=== PATIENT | male | born 1955 | race Caucasian/White ===

== ENCOUNTER → 2020-05-18 10:23 | Outpatient (CLI) | payer MEDICARE, OTHER, SELFPAY ==
--- NOTE | 2020-05-18 10:32 | CT_ITS ---
PROCEDURE: CT ABDOMEN PELVIS WO CON CLINICAL INDICATION: RIGHT FLANK PAIN COMPARISON: No exams were available for comparison TECHNIQUE: Axial images obtained with sagittal and coronal reformats. All CT scans at the facility use one or more dose reduction, viz: automated exposure control, ma/kV adjustment per patient size (including targeted exams where dose is matched to indication, i.e. head), or iterative reconstruction technique. FINDINGS: Lower thorax: Is are clear and there is no pleural fluid. Cardiac size is borderline. ABDOMEN: Liver: No masses or biliary dilatation. Gallbladder: The gallbladder is contracted but shows no obvious stones. Pancreas: No masses or peripancreatic fluid collections. Spleen: unremarkable Adrenals: unremarkable Kidneys/ureters: The kidneys are normal in size. There is prominent stranding of Gerotas' fascia around the right kidney. The right renal pelvis is mildly dilated however the right ureter is normal in caliber down to the UV junction. Possibly there has been a recently passed ureteral calculus. The left kidney is normal. ABDOMEN & PELVIS: Stomach bowel: There is a large hiatal hernia with approximately 1/4 of the stomach above the diaphragmatic hiatus. This likely is a combined sliding and paraesophageal hernia. There is large amount of ingested food particles within the stomach. This likely explains the contracted gallbladder. The small bowel is unremarkable. The appendix is normal in caliber and partially air-filled. There is scattered stool and gas seen throughout the colon. There is marked diffuse diverticulosis of the sigmoid colon but there is no evidence of diverticulitis. Peritoneum: No abnormal fluid collections. No obvious inflammatory changes. No free air. Lymph nodes: No enlarged lymph nodes apparent. Vasculature: There is diffuse arthrosclerotic calcified plaques of the abdominal aorta but there is no aneurysm. Bones: No acute fracture PELVIS: Reproductive: unremarkable Bladder: The urinary bladder is almost completely decompressed. The prostate is slightly enlarged. The seminal vesicles are prominent. Appendix: Normal IMPRESSION: 1. Mild fullness of the right kidney collecting system with prominent stranding of Gerotas' fascia possibly secondary to a recently passed ureteral calculus. 2. Prominent diffuse diverticulosis of the sigmoid colon without evidence of diverticulitis 3. Large hiatal hernia with probably 1/4 of the stomach above the diaphragmatic hiatus Dictated by: Dr. Kwesi Gupta MD 05/18/2020 11:04 Dr. Kwesi Gupta MD in [place] 05/18/2020 11:04
== END ==
PROVIDERS: PCP Nurse Practitioner; Visit Provider Nurse Practitioner
DX: R10.9 Unspecified abdominal pain (principal)
CPT/HCPCS: 74176

== ENCOUNTER 2020-05-18 15:29 | Emergency (ER) | payer MEDICARE, OTHER, SELFPAY ==
[2020-05-18] VITALS (10 sets, daily range): BP systolic 117–138; BP diastolic 61–72; PULSE 66–87; RESP 16; TEMP 36.6; O2SAT 96–100; BMI 30.1
--- NOTE | 2020-05-18 15:43 | HMH.EDGENADL ---
ED Disposition Clinical Impression: Right flank pain, Acute kidney injury Disposition: Home, Self-Care Condition on Discharge: Good Instructions: DI for Acute Abdomen Additional Instructions: You were seen on an emergency basis. It is very important that you follow up with your primary care provider and/or specialist as we discussed within 2 days. All labs and imaging were obtained and interpreted here to rule out life threatening emergencies, but your final results should be reviewed by your primary doctor at your follow up appointment. Please return to the emergency department if any of your symptoms worsen, or if they do not improve as we discussed. Prescriptions: Meloxicam 7.5 mg PO DAILY PRN #15 tab PRN Reason: Severe Pain Transmission Status: Pending to [facility] Referrals: Kami Brothers APRN [Primary Care Provider] - - Critical Care Critical Care Time: No Attestation: On , the high probability of a clinically significant, sudden or life threatening deterioration of the following system(s) required my full and direct attention, intervention and personal management. The time I documented below is in addition to time spent performing reported procedures but includes the following listed in this critical care notation. Medical Decision Making - Ahsan Inquiry Pt receiving controlled substance: No Vital Signs: 05/18/20 15:30 05/18/20 15:37 05/18/20 16:00 Temperature 97.8 F Temperature Source Oral Pulse Rate [Right Radial] 87 85 80 Respiratory Rate 16 Blood Pressure [Right Arm] 117/69 117/69 134/72 Blood Pressure Mean [Right Arm] 85 85 92 Blood Pressure Source [Right Arm] Automatic Cuff Automatic Cuff Blood Pressure Position [Right Arm] Sitting Sitting 02 Sat by Pulse Oximetry 98 99 Oxygen Delivery Method Room Air Room Air 05/18/20 16:30 05/18/20 17:16 05/18/20 17:30 Temperature Temperature Source Pulse Rate [Right Radial] 75 69 68 Respiratory Rate Blood Pressure [Right Arm] 138/70 126/71 121/66 Blood Pressure Mean [Right Arm] 92 89 84 Blood Pressure Source [Right Arm] Automatic Cuff Automatic Cuff Automatic Cuff Blood Pressure Position [Right Arm] Supine Sitting Sitting 02 Sat by Pulse Oximetry 98 98 97 Oxygen Delivery Method Room Air Room Air Room Air 05/18/20 18:00 05/18/20 18:30 05/18/20 19:00 Temperature Temperature Source Pulse Rate [Right Radial] 66 68 67 Respiratory Rate Blood Pressure [Right Arm] 123/65 133/70 122/67 Blood Pressure Mean [Right Arm] 84 91 85 Blood Pressure Source [Right Arm] Automatic Cuff Automatic Cuff Automatic Cuff Blood Pressure Position [Right Arm] Sitting Sitting Sitting 02 Sat by Pulse Oximetry 98 100 96 Oxygen Delivery Method Room Air Room Air Room Air - Lab Data Lab Results 05/18/20 15:53: WBC 15.9 H, RBC 6.04, Hgb 18.0, Hct 55.7 H, MCV 92.2, MCH 29.8, MCHC 32.3, RDW 13.2, Plt Count 317, MPV 7.9, Neut % (Auto) 84.4 H, Lymph % (Auto) 8.7 L, [place] % (Auto) 6.3, Eos % (Auto) 0.5, Baso % (Auto) 0.2, Neut # (Auto) 13.5 H, Lymph # (Auto) 1.4, [place] # (Auto) 1.0, Eos # (Auto) 0.1, Baso # (Auto) 0.0, Total Counted 100, Neutrophils % (Manual) 85 H, Lymphocytes % (Manual) 10, Monocytes % (Manual) 5, Platelet Estimate Normal, RBC Morphology Normal 05/18/20 15:53: Sodium 140, Potassium 3.8, Chloride 104, Carbon Dioxide 24, Anion Gap 15.8 H, BUN 24 H, Creatinine 1.90 H, Estimated Creat Clear 51, Estimated GFR 36 L, Est GFR ( Amer) 43 L, Glucose 119 H, Calcium 9.9 05/18/20 17:04: Urine Color Yellow, Urine Appearance Clear, Urine pH 5.0, Ur Specific [place] >= 1.030, Urine Protein Negative, Urine Glucose (UA) Negative, Urine Ketones Negative, Urine Blood 1+, Urine Nitrate Negative, Urine Bilirubin Negative, Urine Urobilinogen 0.2, Ur Leukocyte Esterase Negative, Urine RBC 3-5, Urine WBC 3-5, Ur Squamous Epith Cells 3-5, Urine Bacteria 2+ 05/18/20 18:09: Sodium 137, Potassium 4.6 D, Chloride 107, Carbon Dioxide 24, Anion Gap 10.6, BU
[2020-05-18 16:02] LABS: Basophils % 0.2 % (0.1-2.0); Eosinophils # 0.1 K/mm3 (0.0-0.4); Eosinophils % 0.5 % (0.1-12.0); Hematocrit 55.7 % (42.0-52.0); Lymphocytes # 1.4 K/mm3 (0.7-4.5); Lymphocytes % 8.7 % (10-50); Mean Corpuscular HGB Conc 32.3 g/dL (31.8-35.4); Mean Corpuscular Hemoglobin 29.8 pg (27.0-31.2); Mean Corpuscular Volume 92.2 fl (80-94); Mean Platelet Volume 7.9 fl (7.4-10.4); Monocytes % 6.3 % (1.7-9.3); Neutrophils # 13.5 K/mm3 (1.8-7.8); Neutrophils % 84.4 % (37.0-80.0); Platelet Count 317 K/mm3 (142-424); Red Blood Count 6.04 M/mm3 (4.60-6.20); Red Cell Distribution Width 13.2 % (11.5-17.5); White Blood Count 15.9 K/mm3 (4.8-10.8)
[2020-05-18 16:08] LABS: MANUAL DIFFERENTIAL MANUAL DIFFERENTIAL (MANUAL DIFF)
[2020-05-18 16:09] LABS: Chloride 104 mmol/L (98-107); Potassium 3.8 mmoL/L (3.5-5.1); Sodium 140 mmol/L (136-145)
[2020-05-18 16:12] LABS: Anion Gap 15.8 mEq/L (5-15); Blood Urea Nitrogen 24 mg/dl (9-20); Calcium 9.9 mg/dl (8.4-10.2); Carbon Dioxide 24 mmol/L (22.0-30.0); Creatinine Clearance Estimated 51 mL/min (50-200); Estimated Glomerular Filt Rate 36 ml/min (>60); GFR (African American) 43 ML/MIN (>60); Glucose 119 mg/dl (74-100)
[2020-05-18 16:51] LABS: Lymphocytes % 10 % (10-50); Monocytes % 5 % (2-9); Neutrophils % 85 % (42-76); Platelet Estimate Normal; RBC Morphology Normal; Total Cells Counted 100
[2020-05-18 18:07] LABS: Microscopic, Urine URINE MICROSCOPIC (MICROSCOPIC)
--- NOTE | 2020-05-18 18:12 | PC.NURSE ---
1500 cc LR bolus complete. BMP drawn and to lab for resulting. pending disposition.
[2020-05-18 18:27] LABS: Chloride 107 mmol/L (98-107); Potassium 4.6 mmoL/L (3.5-5.1); Sodium 137 mmol/L (136-145)
[2020-05-18 18:30] LABS: Anion Gap 10.6 mEq/L (5-15); Blood Urea Nitrogen 26 mg/dl (9-20); Carbon Dioxide 24 mmol/L (22.0-30.0); Creatinine Clearance Estimated 64 mL/min (50-200); Estimated Glomerular Filt Rate 47 ml/min (>60); GFR (African American) 57 ML/MIN (>60); Glucose 100 mg/dl (74-100)
[2020-05-18 18:43] LABS: Appearance,Urine CLEAR (Clear); Bilirubin,Urine Negative (Negative); Blood, Urine 1+ (Negative); Color,Urine YELLOW (Yellow); Glucose,Urine (UA) Negative (Negative); Ketones,Urine Negative (Negative); Leukocyte Esterase,Urine Negative (Negative); Nitrate,Urine Negative (Negative); Protein,Urine Negative (Negative); Specific Gravity, Urine >= 1.030 (1.005-1.030); Urobilinogen,Urine 0.2 EU/dl (0.2)
[2020-05-18 18:44] LABS: Bacteria,Urine 2+ /lpf
[2020-05-18 18:56] LABS: Calcium 8.5 mg/dl (8.4-10.2)
== END 2020-05-18 19:33 | disposition home or self-care (01) ==
PROVIDERS: Emergency Provider Physician Assistant; PCP Nurse Practitioner
DX: N17.9 Acute kidney failure, unspecified (principal); N20.0 Calculus of kidney; Z95.1 Presence of aortocoronary bypass graft; Z79.899 Other long term (current) drug therapy
CPT/HCPCS: 74176; 80048; 81001; 85007; 85025; 87086; 87088; 87186; 96365; 99283

== ENCOUNTER 2021-07-20 15:05 | Observation (INO) | payer MEDICARE, OTHER, SELFPAY ==
--- NOTE | 2021-07-20 14:29 | US_ITS ---
FINAL REPORT CLINICAL HISTORY: ABD PAIN; harper's sign FINDINGS: RIGHT UPPER QUADRANT ULTRASOUND: Ultrasound images of right upper quadrant were obtained. There are gallstones in the gallbladder with borderline gallbladder wall thickening, cholecystitis is not excluded. The common duct is not well-visualized but there is no evidence of biliary ductal dilatation. The right kidney measures 12.9 cm. IMPRESSION: Gallstones with borderline gallbladder wall thickening, cholecystitis is not excluded. If indicated, nuclear medicine hepatobiliary scan may be helpful. Reviewed, Interpreted and Dictated by Heraclio Bender III, MD Transcribed by Pallavi oNonan Authenticated by Heraclio Bender III, MD on 07/20/2021 03:43:45 PM [facility]
[2021-07-20 15:26] VITALS: BMI 30.4
[2021-07-20 15:34] VITALS: BP 112/62; PULSE 82; RESP 16; TEMP 37.4; O2SAT 98
[2021-07-20 15:35] LABS: Coronavirus 19, PCR Not Detected (NotDetected); Influenza A, PCR Not Detected (NotDetected); Influenza B, PCR Not Detected (NotDetected)
[2021-07-20 16:00] VITALS: O2SAT 98
[2021-07-20 16:17] LABS: Basophils # 0.1 K/mm3 (0-0.2); Basophils % 0.8 % (0.1-2.0); Eosinophils # 0.1 K/mm3 (0.0-0.4); Eosinophils % 0.3 % (0.1-12.0); Hematocrit 47.9 % (42.0-52.0); Hemoglobin 15.7 g/dL (14.1-18.0); Lymphocytes # 1.8 K/mm3 (0.7-4.5); Lymphocytes % 11.8 % (10-50); Mean Corpuscular HGB Conc 32.7 g/dL (31.8-35.4); Mean Corpuscular Hemoglobin 29.8 pg (27.0-31.2); Mean Corpuscular Volume 91.2 fl (80-94); Mean Platelet Volume 8.3 fl (7.4-10.4); Monocytes # 1.4 K/mm3 (0.1-1.0); Monocytes % 9.1 % (1.7-9.3); Neutrophils # 12.1 K/mm3 (1.8-7.8); Platelet Count 296 K/mm3 (142-424); Red Blood Count 5.25 M/mm3 (4.60-6.20); Red Cell Distribution Width 13.1 % (11.5-17.5); White Blood Count 15.5 K/mm3 (4.8-10.8)
[2021-07-20 16:23] LABS: MANUAL DIFFERENTIAL MANUAL DIFFERENTIAL (MANUAL DIFF)
[2021-07-20 16:37] LABS: Chloride 101 mmol/L (98-107); Sodium 138 mmol/L (136-145)
[2021-07-20 16:38] LABS: Potassium 3.5 mmoL/L (3.5-5.1)
[2021-07-20 16:40] LABS: Alanine Aminotransferase 20 U/L (12-78); Amylase 76 U/L (30-110); Anion Gap 10.5 mEq/L (5-15); Aspartate Amino Transferase 29 U/L (17-59); Blood Urea Nitrogen 17 mg/dl (9-20); Carbon Dioxide 30 mmol/L (22.0-30.0); Creatinine Clearance Estimated 93 mL/min (50-200); Estimated Glomerular Filt Rate 97 ml/min (>60); GFR (African American) 117 ML/MIN (>60)
[2021-07-20 16:40] LABS: Lactic Acid 2.2 mmol/L (0.7-2.1)
[2021-07-20 16:41] LABS: Albumin/Globulin Ratio 1.4 (1.1-1.8); Alkaline Phosphatase 70 U/L (38-126); Calcium 9.1 mg/dl (8.4-10.2); Globulin 2.9 g/dL (1.3-3.2); Glucose 107 mg/dl (74-100); Lipase 40 U/L (23-300); Total Protein,Serum 6.9 g/dl (6.3-8.2)
--- NOTE | 2021-07-20 16:44 | HMH.GSCON ---
*Admission Date: 07/20/21 *Reason for consult:: Acute cholecystitis *History of present illness: Patient is a pleasant 66-year-old male from [facility]. He states that over the past couple of weeks he has had some occasional abdominal pains consistent with biliary colic characterized as pain in the right abdomen. This is usually been self-limited. However overnight last night pain was very severe. He had radiation into his back. He was seen at his primary care provider's office earlier today and he had clinical suspicion for acute cholecystitis. Patient was sent to radiology here at [facility] where he underwent gallbladder ultrasound which reveals gallstones with borderline gallbladder wall thickening and normal common bile duct. He was found to have a leukocytosis. He was admitted for inpatient management and surgical consultation. Review of Systems - Review of Systems Review of systems:: pertinent systems reviewed and negative unless documented below [facility] History I have reviewed the patient's past medical history: Yes Medical History: Reports:: Coronary Artery Disease, Hyperlipidemia, Hypertension, Kidney Stones Denies:: Diabetes Mellitus Type 1, Diabetes Mellitus Type 2 *Have you ever received a pneumonia vaccine?: Yes *Have you received a flu vaccine this season?: Yes Other Medical History: Reports: Sinus Problems Other Surgeries: Yes: Open Heart Surgery Amputation: Yes Fractures: Yes - *Social History Smoking Status: Former smoker Alcohol Intake: former Substance Use Type: denies use *Occupational Status:: employed Housing: house Household Members: spouse *Travel in the last 8 weeks: None Family Hx:: Heart Attack, Hypertension Meds Home Medications Medication Instructions Recorded Confirmed Type atorvastatin 40 mg tablet 40 mg PO HS tab 04/07/21 07/20/21 History lisinopril 20 0.5 tab PO DAILY tab 04/07/21 07/20/21 History mg-hydrochlorothiazide 25 mg tablet tamsulosin 0.4 mg capsule 0.4 mg PO HS cap 07/14/21 07/20/21 History Propranolol HCl [Propranolol HCl 60 mg PO DAILY 07/20/21 07/20/21 History ER] Allergies Allergy/AdvReac Type Severity Reaction Status Date / Time primidone AdvReac Mild nausea Verified 07/14/21 07:37 Exam Vital signs and Labs for Last 24 Hours: Temp Pulse Resp BP Pulse Ox 99.3 F 82 16 112/62 98 07/20/21 15:34 07/20/21 15:34 07/20/21 15:34 07/20/21 15:34 07/20/21 15:34 Laboratory Results - last 24 hr 07/20/21 10:55: WBC 15.5 H, RBC 5.25, Hgb 15.7, Hct 47.9, MCV 91.2, MCH 29.8, MCHC 32.7, RDW 13.1, Plt Count 296, MPV 8.3, Neut % (Auto) 78.0, Lymph % (Auto) 11.8, [place] % (Auto) 9.1, Eos % (Auto) 0.3, Baso % (Auto) 0.8, Neut # (Auto) 12.1 H, Lymph # (Auto) 1.8, [place] # (Auto) 1.4 H, Eos # (Auto) 0.1, Baso # (Auto) 0.1 07/20/21 10:55: Sodium 138, Potassium 3.5, Chloride 101, Carbon Dioxide 30, Anion Gap 10.5, BUN 17, Creatinine 0.80, Estimated Creat Clear 93, Estimated GFR 97, Est GFR ( Amer) 117, Glucose 107 H, Calcium 9.1, Total Bilirubin 1.0, AST 29, ALT 20, Alkaline Phosphatase 70, Total Protein 6.9, Albumin 4.0, Globulin 2.9, Albumin/Globulin Ratio 1.4, Amylase 76, Lipase 40 07/20/21 15:26: SARS-CoV-2 (PCR) Not detected, Influenza A Untype (PCR) Not detected, Influenza Type B (PCR) Not detected 07/20/21 16:19: Lactate 2.2 H I & O for Last 24 hours: Intake & Output 07/18/21 07/19/21 07/20/21 07/21/21 11:59 11:59 11:59 11:59 Weight 200 lb 6.4 oz - Constitutional no acute distress - *Routine HEENT Exam Head: Present: normocephalic Eye: Present: EOMI, PERRL ENT: Present: mucous membranes moist - *Routine Neck Exam Present: supple. Absent: lymphadenopathy - *Routine Respiratory Exam Present: CTA bilaterally - *Routine Cardiovascular Exam Present: RRR - *Routine Abdominal Exam Present: soft, tenderness Comments: Patient has tenderness with guarding in the right upper quadrant with some mild te
--- NOTE | 2021-07-20 17:08 | HMH.HP ---
*Admission Date: 07/20/21 <Sarah Lopez 07/20/21 17:14> *Chief complaint: RUQ pain <Sarah Lopez 07/20/21 17:14> *History of present illness: Patient is a pleasant 66-year-old male from [facility]. He states that over the past couple of weeks he has had some occasional abdominal pains consistent with biliary colic characterized as pain in the right abdomen. This has usually been self-limited. However overnight last night pain was very severe. He had radiation into his back. He was seen at his primary care provider's office earlier today and he had clinical suspicion for acute cholecystitis. Patient was sent to radiology here at [facility] where he underwent gallbladder ultrasound which reveals gallstones with borderline gallbladder wall thickening and normal common bile duct. He was found to have a leukocytosis. He was admitted for inpatient management and surgical consultation. (above as per Dr. Boggs) <Sarah Lopez 07/20/21 17:14> [facility] History I have reviewed the patient's past medical history: Yes <Sarah Lopez 07/20/21 17:14> Medical History: Reports:: Coronary Artery Disease, Hyperlipidemia, Hypertension, Kidney Stones Denies:: Diabetes Mellitus Type 1, Diabetes Mellitus Type 2 <Sarah Lopez 07/20/21 17:14> *Have you ever received a pneumonia vaccine?: Yes <Sarah Lopez 07/20/21 17:14> *Have you received a flu vaccine this season?: Yes <Sarah Lopez 07/20/21 17:14> Other Medical History: Reports: Sinus Problems <Sarah Lopez 07/20/21 17:14> Other Surgeries: Yes: Open Heart Surgery <Sarah Lopez 07/20/21 17:14> Amputation: Yes <Sarah Lopez 07/20/21 17:14> Fractures: Yes <Sarah Lopez 07/20/21 17:14> - *Social History Smoking Status: Former smoker <Sarah Lopez 07/20/21 17:14> Alcohol Intake: former <Sarah Lopez 07/20/21 17:14> Substance Use Type: denies use <Sarah Lopez 07/20/21 17:14> *Occupational Status:: employed <JohnSarah 07/20/21 17:14> Housing: house <JohnSarah 07/20/21 17:14> Household Members: spouse <JohnSarah 07/20/21 17:14> *Travel in the last 8 weeks: None <ErrolamySarah 07/20/21 17:14> Family Hx:: Coronary Artery Disease, Heart Attack, Hypertension <JohnSarah 07/20/21 17:14> Review of Systems - Constitutional Reports fever(s) (low grade), Reports weakness, Denies chills <ErrolamySarah 07/20/21 17:14> - Eyes Denies blurry vision, Denies double vision <JohnSarah 07/20/21 17:14> - ENT Denies nasal congestion, Denies sore throat <ErrolamySarah 07/20/21 17:14> - *Cardiovascular Denies chest pain, Denies shortness of breath <JohnSarah 07/20/21 17:14> - *Respiratory Denies cough, Denies shortness of breath <ErrolamySarah 07/20/21 17:14> - *Gastrointestinal Reports abdominal pain (RUQ), Reports nausea, Denies loose stools, Denies vomiting <JohnSarah 07/20/21 17:14> - *Genitourinary Denies difficulty urinating, Denies painful urination <JohnSarah 07/20/21 17:14> - *Musculoskeletal Reports back pain, Denies joint pain <JohnSarah 07/20/21 17:14> - *Neurologic Reports weakness, Denies headache(s), Denies dizziness <JohnSarah 07/20/21 17:14> Meds Home Medications Medication Instructions Recorded Confirmed Type atorvastatin 40 mg tablet 40 mg PO HS tab 04/07/21 07/20/21 History lisinopril 20 0.5 tab PO DAILY tab 04/07/21 07/20/21 History mg-hydrochlorothiazide 25 mg tablet tamsulosin 0.4 mg capsule 0.4 mg PO HS cap 07/14/21 07/20/21 History Propranolol HCl [Propranolol HCl 60 mg PO DAILY 07/20/21 07/20/21 History ER] <Brett Tee - 07/20/21 17:26> Allergies Allergy/AdvReac Type Severity Reaction Status Date / Time primidone AdvReac Mild nausea Verified 07/14/21 07:37 <Brett Tee - 07/20/21 17:26> Exam Vital signs and Labs for Last 24 Hours: Temp Pulse Resp BP Pulse Ox 99.3 F 82
[2021-07-20 18:13] LABS: Lymphocytes % 18 % (10-50); Monocytes % 9 % (2-9); Neutrophils % 73 % (42-76); Platelet Estimate Normal; RBC Morphology Normal; Total Cells Counted 100
[2021-07-20 20:00] VITALS: BP 124/74; PULSE 79; RESP 16; TEMP 36.8; O2SAT 94
[2021-07-20 20:25] LABS: Reflex Lactic Add Lactic Reflex
[2021-07-20 21:17] LABS: Lactic Acid Follow Up (RFLX 1) 0.7 mmol/L (0.7-2.1)
[2021-07-21] VITALS (21 sets, daily range): BP systolic 120–150; BP diastolic 62–84; PULSE 68–100; RESP 12–18; TEMP 36.3–43; O2SAT 92–100; BMI 30.4
--- NOTE | 2021-07-21 03:54 | PC.NURSE ---
Pt has slept this shift. Pt BLT lungs CTA, bowel sounds present in all 4 quadrants. abdomen soft and tender in RUQ. Pt on RA, IV patent and infusing well. Pt medicated per MAR for headache earlier in the shift. Pt standby to the bathroom. Pt denies SOA, N/V
--- NOTE | 2021-07-21 06:40 | PC.NURSE ---
patient off floor to surgery @ this time.
--- NOTE | 2021-07-21 07:51 | P.PN_ITS ---
[facility] Anesthesia Checklist - Structural Data Admitted From: Inpatient Planned Operative Procedure/s: brain huff Consent for Planned Operative Procedure(s) Verified: Yes - Airway Assessment C-Spine Mobility Assessed: Yes TMJ Mobility Assessed: Yes Dentition: Poor Dentition - Neurological Assessment Level of Consciousness: Awake, Alert, Appropriate - Anesthesia Plan Anesthesia Risk discussed: Yes Anesthesia Plan: Verified ASA Class: III Anesthesia Type: General [facility] History I have reviewed the patient's past medical history: Yes Medical History: Reports:: Atherosclerotic Heart Disease, Carotid Stenosis, Coronary Artery Disease, Hyperlipidemia, Hypertension, Kidney Stones Denies:: Cancer, Diabetes Mellitus Type 1, Diabetes Mellitus Type 2, MRSA *Have you ever received a pneumonia vaccine?: Yes *Have you received a flu vaccine this season?: Yes Other Medical History: Reports: Sinus Problems Anesthesia experience/problems:: none Other Surgeries: Yes: Open Heart Surgery Amputation: Yes Fractures: Yes - *Social History Smoking Status: Former smoker Alcohol Intake: never Substance Use Type: denies use *Occupational Status:: retired Housing: house Household Members: spouse *Travel in the last 8 weeks: None Family Hx:: Coronary Artery Disease, Heart Attack, Hypertension
--- NOTE | 2021-07-21 08:07 | HMH.PHAVTE ---
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
--- NOTE | 2021-07-21 08:13 | HMH.PHAINT ---
VERIFIED HOME MEDICATIONS WITH PHARMACY
--- NOTE | 2021-07-21 08:22 | XR_ITS ---
FINAL REPORT CLINICAL HISTORY: LAP KAITLIN, 54 SEC FLUORO TIME FINDINGS: 2 fluoroscopic spot films were obtained demonstrating intraoperative cholangiogram. 54 seconds of fluoroscopy time is reported. IMPRESSION: Intraoperative cholangiogram. Reviewed, Interpreted and Dictated by Heraclio Bender III, MD Transcribed by Caitlin Harris Authenticated by Heraclio Bender III, MD on 07/21/2021 01:59:56 PM [facility]
--- NOTE | 2021-07-21 08:34 | SUR.OPER ---
[address] [place] [address] with radiology at bedside to do cholangiogram per
--- NOTE | 2021-07-21 09:03 | HMH.OPNOTE ---
Date of procedure: 07/21/21 Pre-op Diagnosis:: Acute cholecystitis Post-op Diagnosis:: Same Procedure performed:: Laparoscopic cholecystectomy with intraoperative cholangiogram Surgeon:: Heraclio Boggs MD SENIOR CONTRACT SPECIALIST:: Bryant Trejo Anesthesia: GETA Estimated blood loss (mL): 40 Clinical Note:: Patient is a pleasant 66-year-old male from [facility]. He states that over the past couple of weeks he has had some occasional abdominal pains consistent with biliary colic characterized as pain in the right abdomen. This is usually been self-limited. However overnight on the evening of 07/19/2021 the pain was very severe. He had radiation into his back. He was seen at his primary care provider's office earlier on 07/20/2021 and he had clinical suspicion for acute cholecystitis. Patient was sent to radiology here at [facility] where he underwent gallbladder ultrasound which reveals gallstones with borderline gallbladder wall thickening and normal common bile duct. He was found to have a leukocytosis. He was admitted for inpatient management and surgical consultation. Plan was made to proceed with cholecystectomy. Operative findings:: Patient had a markedly distended significantly thickened hydropic gallbladder. The cystic duct was rather prominent and there was concern for possible ductal stone and cholangiogram was performed. Operative note:: Patient was taken to the operating room. He was given preoperative intravenous antibiotics. In the operating room he was placed in supine position. General anesthesia was induced via endotracheal tube. Abdomen was prepped and draped in the standard surgical fashion. Subumbilical skin incision was made and while performing abdominal wall lift Veress needle was inserted. CO2 pneumoperitoneum was achieved to 15 mmHg. 11 mm optical trocar was inserted at the umbilicus. Intraperitoneal contents were visualized. He was immediately noted to have a quite distended prominent gallbladder. He was positioned in reverse Trendelenburg left side down. A couple 5 mm trochars were inserted in the right upper abdomen. 10 mm trocar was inserted in the epigastrium. Gallbladder was elevated. It was markedly distended and thickened and tense consistent with hydropic gallbladder. Gallbladder was aspirated with the laparoscopic suction aspirator and mucousy bile was suctioned free. Gallbladder was retracted anteriorly and superiorly over the dome of the liver. Infundibulum of the gallbladder was retracted anterior laterally. Blunt dissection was carried out of the neck of the gallbladder bluntly incising the visceral peritoneum. There was a significant amount of fatty infiltration around the neck of the gallbladder and jing hepatis. There was some significant inflammation. Ultimately cystic duct was identified. It was quite prominent. There was concern for possible stone near the jing hepatis. Decision was made to perform intraoperative cholangiogram. The cystic duct was clipped proximal to the gallbladder. Taut cholangiocatheter introducer was inserted through a small incision in the right upper abdomen. Cholangiocatheter was inserted. Small incision was made in the cystic duct creating a small ductotomy. Cholangiocatheter was manipulated into the cystic duct. Intraoperative cholangiogram was performed. Visualization of the common hepatic duct was somewhat difficult. However there did not appear to be any obstruction or definite retained stones within the cystic duct or common bile duct. Cholangiocatheter was removed. Cystic duct was then multiply clipped and then divided. Cystic artery was coagulated with FLAQUITO ultrasonic robotic binta and divided. Gallbladder was dissected free from the liver in a retrograde fashion using FLAQUITO ultrasonic harmonic binta. Gallbladder was placed within an Endo Catch retrieval device and removed from the peritoneal cavity via the umbilical trocar site which requi
--- NOTE | 2021-07-21 09:12 | HMH.ANESI ---
[facility] Anesthesia Record Part I Intake, IV Amount: 1,800 Estimated blood loss (mL): 0 Urine output (mL): 0 Blood Pressure: 134/72 SaO2: 92 Pulse Rate: 82 Respiratory Rate: 12 Temperature: 97.3 F Patient is:: Awake, Stable Stable to PACU at:: 09:05
--- NOTE | 2021-07-21 13:50 | HMH.ACPN2 ---
Internal Medicine - PN: Sergo *Date: 07/21/21 *Time: 13:50 Interval history: Patient is back in his room after surgery and is doing well. Exam Vital signs and Labs for Last 24 Hours: Temp Pulse Resp BP Pulse Ox 98.3 F 100 H 16 141/80 H 95 07/21/21 12:30 07/21/21 12:30 07/21/21 12:30 07/21/21 12:30 07/21/21 12:30 Laboratory Results - last 24 hr 07/20/21 10:55: WBC 15.5 H, RBC 5.25, Hgb 15.7, Hct 47.9, MCV 91.2, MCH 29.8, MCHC 32.7, RDW 13.1, Plt Count 296, MPV 8.3, Neut % (Auto) 78.0, Lymph % (Auto) 11.8, [place] % (Auto) 9.1, Eos % (Auto) 0.3, Baso % (Auto) 0.8, Neut # (Auto) 12.1 H, Lymph # (Auto) 1.8, [place] # (Auto) 1.4 H, Eos # (Auto) 0.1, Baso # (Auto) 0.1, Total Counted 100, Neutrophils % (Manual) 73, Lymphocytes % (Manual) 18, Monocytes % (Manual) 9, Platelet Estimate Normal, RBC Morphology Normal 07/20/21 10:55: Sodium 138, Potassium 3.5, Chloride 101, Carbon Dioxide 30, Anion Gap 10.5, BUN 17, Creatinine 0.80, Estimated Creat Clear 93, Estimated GFR 97, Est GFR ( Amer) 117, Glucose 107 H, Calcium 9.1, Total Bilirubin 1.0, AST 29, ALT 20, Alkaline Phosphatase 70, Total Protein 6.9, Albumin 4.0, Globulin 2.9, Albumin/Globulin Ratio 1.4, Amylase 76, Lipase 40 07/20/21 15:26: SARS-CoV-2 (PCR) Not detected, Influenza A Untype (PCR) Not detected, Influenza Type B (PCR) Not detected 07/20/21 16:19: Lactate 2.2 H 07/20/21 21:00: Lactate 0.7 I & O for Last 24 hours: Intake & Output 07/18/21 07/19/21 07/20/21 07/21/21 23:59 23:59 23:59 23:59 Intake Total 1800 / 1800 Balance 1800 / 1800 Weight 200 lb 6.4 oz 201 lb - Constitutional no acute distress Assessment and Plan (1) Acute cholecystitis Status: Acute Category: Medical Code(s): K81.0 - Acute cholecystitis (2) Leukocytosis Status: Acute Category: Medical Code(s): D72.829 - Elevated white blood cell count, unspecified (3) Hypertension Status: Chronic Category: Medical Code(s): I10 - Essential (primary) hypertension (4) ASCVD (arteriosclerotic cardiovascular disease) Status: Chronic Category: Medical Code(s): I25.10 - Atherosclerotic heart disease of [place] coronary artery without angina pectoris (5) History of coronary artery bypass graft x 2 Status: Chronic Category: Surgical Code(s): Z95.1 - Presence of aortocoronary bypass graft - Assessment and plan all Dx Assessment and Plan for all problems:: POD #0, s/p lap refugio, continue routine post op care.
--- NOTE | 2021-07-21 20:09 | PC.NURSE ---
16:30 - Routine reassessment completed. See Nursing biophysical. Pt. tolerated well. Pt. reports pain at 4/10, Nurse offered pain medication. Pt. refused at this time. Nurse educated pt. on not waiting to long to take pain medication. Pt. v/u and denies needs at this time.
[2021-07-22] VITALS: BP 130/71; PULSE 74; RESP 16; TEMP 36.5; O2SAT 94
[2021-07-22 04:20] VITALS: BP 126/74; PULSE 84; RESP 17; TEMP 36.6; O2SAT 96
[2021-07-22 04:50] VITALS: BMI 32.7
--- NOTE | 2021-07-22 05:21 | PC.NURSE ---
NO ACUTE CHANGES FROM PREVIOUS ASSESSMENT,TRIED TO WEEN PT OFF OXYGEN AND HIS LEVEL WAS 93 % ON RA,REAPPLIED OXYGEN PER NC AT 1 LITER ,PT HAS BEEN MEDICATED X 1 TONIGHT WITH MORHINE.NO DRAINAGE NOTED TO LAP SITES,BOWEL SOUND STILL HYPOACTIVE,BUT ABD.IS NOT DISTENDED AND HE SAID HE DID PASS A LITTLE FLATUS
--- NOTE | 2021-07-22 06:39 | PC.NURSE ---
WITH GETTING UP TO GO TO BATHROOM PT PULLED HIS IV OUT.LEAVING IT OUT AT THIS TIME,PT ASKED IF HE HAD TO HAVE ANOTHER ONE SINCE HE WAS GOING HOME TODAY,TOLD HIM WOULD LEAVE IT OUT FOR NOW,SEE ABOUT IT THIS MORNING.
[2021-07-22 07:57] LABS: Basophils % 0.2 % (0.1-2.0); Eosinophils # 0.2 K/mm3 (0.0-0.4); Hematocrit 41.5 % (42.0-52.0); Hemoglobin 13.7 g/dL (14.1-18.0); Lymphocytes # 1.6 K/mm3 (0.7-4.5); Lymphocytes % 8.8 % (10-50); Mean Corpuscular Hemoglobin 30.1 pg (27.0-31.2); Mean Corpuscular Volume 91.2 fl (80-94); Mean Platelet Volume 9.3 fl (7.4-10.4); Monocytes # 1.2 K/mm3 (0.1-1.0); Monocytes % 6.5 % (1.7-9.3); Neutrophils # 14.9 K/mm3 (1.8-7.8); Neutrophils % 83.6 % (37.0-80.0); Platelet Count 240 K/mm3 (142-424); Red Blood Count 4.55 M/mm3 (4.60-6.20); Red Cell Distribution Width 12.9 % (11.5-17.5); White Blood Count 17.8 K/mm3 (4.8-10.8)
[2021-07-22 08:00] VITALS: BP 133/71; PULSE 73; RESP 18; TEMP 36.7; O2SAT 91
[2021-07-22 08:00] LABS: MANUAL DIFFERENTIAL MANUAL DIFFERENTIAL (MANUAL DIFF)
[2021-07-22 08:35] LABS: Lymphocytes % 8 % (10-50); Monocytes % 7 % (2-9); Neutrophils % 85 % (42-76); Platelet Estimate Normal; RBC Morphology Normal; Total Cells Counted 100
--- NOTE | 2021-07-22 08:48 | HMH.ACPN2 ---
<Sarah Lopez - Last Filed: 07/22/21 08:48> Internal Medicine - PN: Subj *Date: 07/22/21 *Time: 08:48 Interval history: Patient is feeling better today. Abdomen is sore from surgery. He is anxious to go home today. Tolerating a diet. Exam Vital signs and Labs for Last 24 Hours: Temp Pulse Resp BP Pulse Ox 98.1 F 73 18 133/71 91 L 07/22/21 08:00 07/22/21 08:00 07/22/21 08:00 07/22/21 08:00 07/22/21 08:00 Laboratory Results - last 24 hr 07/22/21 07:30: WBC 17.8 H, RBC 4.55 L, Hgb 13.7 L, Hct 41.5 L, MCV 91.2, MCH 30.1, MCHC 33.0, RDW 12.9, Plt Count 240, MPV 9.3, Neut % (Auto) 83.6 H, Lymph % (Auto) 8.8 L, [place] % (Auto) 6.5, Eos % (Auto) 1.0, Baso % (Auto) 0.2, Neut # (Auto) 14.9 H, Lymph # (Auto) 1.6, [place] # (Auto) 1.2 H, Eos # (Auto) 0.2, Baso # (Auto) 0.0, Total Counted 100, Neutrophils % (Manual) 85 H, Lymphocytes % (Manual) 8 L, Monocytes % (Manual) 7, Platelet Estimate Normal, RBC Morphology Normal I & O for Last 24 hours: Intake & Output 07/19/21 07/20/21 07/21/21 07/22/21 11:59 11:59 11:59 11:59 Intake Total 1800 / 1800 2033 Balance 1800 / 1800 2033 Weight 201 lb 216 lb - Constitutional no acute distress - *Routine Respiratory Exam Present: CTA bilaterally - *Routine Cardiovascular Exam Present: RRR - *Routine Abdominal Exam Present: soft, normoactive bowel sounds, tenderness (around incision sites which are all clean and dry) - *Routine Extremities Exam Absent: cyanosis, clubbing, edema - *Routine Skin Exam Present: warm. Absent: rash - *Routine Neurological Exam Present: alert, oriented X3 Assessment and Plan (1) Acute cholecystitis Status: Acute Category: Medical Code(s): K81.0 - Acute cholecystitis (2) Leukocytosis Status: Acute Category: Medical Code(s): D72.829 - Elevated white blood cell count, unspecified (3) Hypertension Status: Chronic Category: Medical Code(s): I10 - Essential (primary) hypertension (4) ASCVD (arteriosclerotic cardiovascular disease) Status: Chronic Category: Medical Code(s): I25.10 - Atherosclerotic heart disease of [place] coronary artery without angina pectoris (5) History of coronary artery bypass graft x 2 Status: Chronic Category: Surgical Code(s): Z95.1 - Presence of aortocoronary bypass graft (6) Status post laparoscopic cholecystectomy Status: Acute Category: Surgical Code(s): Z90.49 - Acquired absence of other specified parts of digestive tract - Assessment and plan all Dx Assessment and Plan for all problems:: Patient stable to be discharged today. <Brett Tee - Last Filed: 07/22/21 08:51> Internal Medicine - PN: Subj *Date: 07/22/21 *Time: 08:50 Exam Vital signs and Labs for Last 24 Hours: Temp Pulse Resp BP Pulse Ox 98.1 F 73 18 133/71 91 L 07/22/21 08:00 07/22/21 08:00 07/22/21 08:00 07/22/21 08:00 07/22/21 08:00 Laboratory Results - last 24 hr 07/22/21 07:30: WBC 17.8 H, RBC 4.55 L, Hgb 13.7 L, Hct 41.5 L, MCV 91.2, MCH 30.1, MCHC 33.0, RDW 12.9, Plt Count 240, MPV 9.3, Neut % (Auto) 83.6 H, Lymph % (Auto) 8.8 L, [place] % (Auto) 6.5, Eos % (Auto) 1.0, Baso % (Auto) 0.2, Neut # (Auto) 14.9 H, Lymph # (Auto) 1.6, [place] # (Auto) 1.2 H, Eos # (Auto) 0.2, Baso # (Auto) 0.0, Total Counted 100, Neutrophils % (Manual) 85 H, Lymphocytes % (Manual) 8 L, Monocytes % (Manual) 7, Platelet Estimate Normal, RBC Morphology Normal I & O for Last 24 hours: Intake & Output 07/19/21 07/20/21 07/21/21 07/22/21 23:59 23:59 23:59 23:59 Intake Total 2400 / 2400 1434 / 1434 Balance 2400 / 2400 1434 / 1434 Weight 200 lb 6.4 oz 201 lb 216 lb Assessment and Plan (1) Acute cholecystitis Status: Acute Category: Medical Code(s): K81.0 - Acute cholecystitis (2) Leukocytosis Status: Acute Category: Medical Code(s): D72.829 - Elevated white blood cell count, unspecified (3) Hypertension Status: Chronic Category: Medica
--- NOTE | 2021-07-22 10:40 | P.PN_ITS ---
[facility] Anesthesia Record Part II Discharge Time: 09:35 Destination: Second Floor PACU nurse assessment reviewed?: Yes Patient Condition:: Good Anesthesia Complications:: None Swallowing reflex intact?: Yes Cyanosis?: No Blood Pressure: 120/68 Pulse Rate: 76 Temperature: 97.5 F Mental Status: Alert & Oriented Pain level:: 0 Nausea and/or vomitting:: None Intake, IV Amount: 0
[2021-07-22 10:41] VITALS: BP 120/68; PULSE 76; TEMP 36.4
--- NOTE | 2021-07-22 10:48 | HMH.GSPN ---
Subjective Narrative: Patient doing well without complaints. Tolerating diet. Progress Note: A&P (1) Acute cholecystitis Status: Acute (2) Leukocytosis Status: Acute (3) Hypertension Status: Chronic (4) ASCVD (arteriosclerotic cardiovascular disease) Status: Chronic (5) History of coronary artery bypass graft x 2 Status: Chronic (6) Status post laparoscopic cholecystectomy Status: Acute Assessment and Plan for All Diagnoses:: Should be okay for discharge home Exam Vital signs and Labs for Last 24 Hours: Temp Pulse Resp BP Pulse Ox 97.5 F L 76 18 120/68 91 L 07/22/21 10:41 07/22/21 10:41 07/22/21 08:00 07/22/21 10:41 07/22/21 08:00 Laboratory Results - last 24 hr 07/22/21 07:30: WBC 17.8 H, RBC 4.55 L, Hgb 13.7 L, Hct 41.5 L, MCV 91.2, MCH 30.1, MCHC 33.0, RDW 12.9, Plt Count 240, MPV 9.3, Neut % (Auto) 83.6 H, Lymph % (Auto) 8.8 L, [place] % (Auto) 6.5, Eos % (Auto) 1.0, Baso % (Auto) 0.2, Neut # (Auto) 14.9 H, Lymph # (Auto) 1.6, [place] # (Auto) 1.2 H, Eos # (Auto) 0.2, Baso # (Auto) 0.0, Total Counted 100, Neutrophils % (Manual) 85 H, Lymphocytes % (Manual) 8 L, Monocytes % (Manual) 7, Platelet Estimate Normal, RBC Morphology Normal I & O for Last 24 hours: Intake & Output 07/19/21 07/20/21 07/21/21 07/22/21 11:59 11:59 11:59 11:59 Intake Total 1800 / 1800 2274 / 2274 Balance 1800 / 1800 2274 / 2274 Weight 201 lb 216 lb - *Routine Abdominal Exam Present: soft Comments: [place] dressings dry
[2021-07-22 12:00] VITALS: BP 152/73; PULSE 88; RESP 18; TEMP 36.7; O2SAT 92
[2021-07-22 13:11] LABS: Alanine Aminotransferase 93 U/L (12-78); Albumin Level 3.3 g/dl (3.5-5.0); Albumin/Globulin Ratio 1.3 (1.1-1.8); Alkaline Phosphatase 93 U/L (38-126); Anion Gap 7.5 mEq/L (5-15); Aspartate Amino Transferase 68 U/L (17-59); Bilirubin,Total 0.6 mg/dl (0.2-1.3); Blood Urea Nitrogen 14 mg/dl (9-20); Calcium 8.6 mg/dl (8.4-10.2); Carbon Dioxide 32 mmol/L (22.0-30.0); Chloride 100 mmol/L (98-107); Creatinine Clearance Estimated 101 mL/min (50-200); Estimated Glomerular Filt Rate 97 ml/min (>60); GFR (African American) 117 ML/MIN (>60); Globulin 2.6 g/dL (1.3-3.2); Glucose 126 mg/dl (74-100); Potassium 3.5 mmoL/L (3.5-5.1); Sodium 136 mmol/L (136-145); Total Protein,Serum 5.9 g/dl (6.3-8.2)
--- NOTE | 2021-07-23 17:05 | HMH.DCSUM ---
General - General Admission date:: 07/20/21 Discharge date: 07/22/21 HPI HPI: Patient is a pleasant 66-year-old male from [facility]. He states that over the past couple of weeks he has had some occasional abdominal pains consistent with biliary colic characterized as pain in the right abdomen. This has usually been self-limited. However overnight last night pain was very severe. He had radiation into his back. He was seen at his primary care provider's office earlier today and he had clinical suspicion for acute cholecystitis. Patient was sent to radiology here at [facility] where he underwent gallbladder ultrasound which reveals gallstones with borderline gallbladder wall thickening and normal common bile duct. He was found to have a leukocytosis. He was admitted for inpatient management and surgical consultation. (above as per Dr. Boggs) Hospital Course Hospital Course: The patient was admitted and started on IV antibiotics, antiemetics, and pain control. His right upper quadrant ultrasound showed borderline gallbladder wall thickening as well as gallstones. Dr. Boggs saw him in consultation and planned for cholecystectomy the next day. He performed a laparoscopic cholecystectomy with intraoperative cholangiogram. The patient had a markedly distended significantly thickened hydropic gallbladder. The cystic duct was rather prominent and there was concern for possible ductal stone, therefore a cholangiogram was performed. There did not appear to be any obstruction or definite retained stones within the cystic duct or common bile duct. The patient tolerated the procedure well. A diet was ordered, which she tolerated. He was anxious to go home. He was given a dose of IM Invanz and was discharged on oral antibiotics. He will follow-up with Dr. Boggs in the office. Objective Vital signs: Temp Pulse Resp BP Pulse Ox 98.1 F 88 18 152/73 H 92 L 07/22/21 12:00 07/22/21 12:00 07/22/21 12:00 07/22/21 12:00 07/22/21 12:00 Results Labs on day of discharge: Preliminary micro results at discharge 07/20/21 16:19 Blood Culture - Preliminary Blood NO GROWTH AFTER 48 HOURS 07/20/21 16:19 Blood Culture - Preliminary Blood NO GROWTH AFTER 48 HOURS DS: Diagnosis - Discharge Diagnosis (1) Acute cholecystitis Status: Acute (2) Leukocytosis Status: Acute (3) Hypertension Status: Chronic (4) ASCVD (arteriosclerotic cardiovascular disease) Status: Chronic (5) History of coronary artery bypass graft x 2 Status: Chronic (6) Status post laparoscopic cholecystectomy Status: Acute Discharge Plan - Patient Discharge Instructions ACTIVITY: Limited activity DIET: continue same diet Patient Instructions: DI for Surgical Site Infection, Cholecystectomy -- Laparoscopic Surgery - Follow up Plan Follow up with: Brett Tee MD [Staff Physician] - 07/27/21 9:30 am (in [place] office ) Heraclio Boggs MD [Staff Physician] - 08/04/21 10:15 am Disposition: Home, Self-Care Condition at discharge:: Improved Home Medications: Home Medications Medication Instructions Recorded Confirmed Type atorvastatin 40 mg tablet 40 mg PO HS tab 04/07/21 07/20/21 History lisinopril 20 0.5 tab PO DAILY tab 04/07/21 07/20/21 History mg-hydrochlorothiazide 25 mg tablet tamsulosin 0.4 mg capsule 0.4 mg PO HS cap 07/14/21 07/20/21 History Propranolol HCl [Propranolol HCl 60 mg PO DAILY 07/20/21 07/20/21 History ER] Hydrocod/Acet 5/325 mg [[place] 1 - 2 tab PO Q6HP PRN #17 tab 07/22/21 Rx 5/325mg tablet] metroNIDAZOLE [metroNIDAZOLE 500mg 500 mg PO TID #15 tab 07/22/21 Rx Tablet] Prescriptions/Medication Reconciliation: New metroNIDAZOLE [metroNIDAZOLE 500mg Tablet] 500 mg PO TID #15 tab Hydrocod/Acet 5/325 mg [[place] 5/325mg tablet] 1 - 2 tab PO Q6HP PRN #17 tab PRN Reason: Moderate Pain Contin
== END 2021-07-22 15:15 | disposition home or self-care (01) ==
LOC: 2ND 15:07
PROVIDERS: Surgery; Admitting Provider Family Medicine; PCP Family Medicine; Visit Provider Family Medicine
PROC: 0FT44ZZ Resection of Gallbladder, Percutaneous Endoscopic Approach (ICD-10-PCS; CPT 47562; principal; 2021-07-21 07:30)
DX: K81.0 Acute cholecystitis (principal); I10 Essential (primary) hypertension; I25.10 Atherosclerotic heart disease of native coronary artery without angina pectoris; Z79.899 Other long term (current) drug therapy; Z20.822 Contact with and (suspected) exposure to COVID-19
CPT/HCPCS: 47563; G0378; 36415; 74300; 76705; 80053; 82150; 83605; 83690; 85007; 85025; 87040; 88304; 94760; C9803; J1335; J2405; J2710; U0003; U0005

== ENCOUNTER → 2022-01-20 18:25 | Outpatient (CLI) | payer MEDICARE, OTHER, SELFPAY ==
[2022-01-20 20:02] LABS: Thyroid Stimulating Hormone 1.85 uIU/mL (0.465-4.68)
[2022-01-20 20:21] LABS: Vitamin B12 834 pg/mL (239-931)
[2022-01-23 11:31] LABS: Folate 8.91 ng/mL
== END ==
PROVIDERS: Visit Provider Specialist
DX: G25.0 Essential tremor (principal)
CPT/HCPCS: 82607; 82746; 84443

== ENCOUNTER → 2022-04-18 11:00 | Outpatient (CLI) | payer MEDICARE, OTHER, SELFPAY ==
[2022-04-18 19:09] LABS: Alanine Aminotransferase 69 U/L (12-78); Albumin Level 3.9 g/dl (3.5-5.0); Albumin/Globulin Ratio 1.6 (1.1-1.8); Alkaline Phosphatase 148 U/L (38-126); Anion Gap 15.2 mEq/L (5-15); Aspartate Amino Transferase 36 U/L (17-59); Bilirubin,Total 0.5 mg/dl (0.2-1.3); Blood Urea Nitrogen 17 mg/dl (9-20); Calcium 8.9 mg/dl (8.4-10.2); Carbon Dioxide 30 mmol/L (22.0-30.0); Chloride 98 mmol/L (98-107); Estimated Glomerular Filt Rate 84 ml/min (>60); GFR (African American) 102 ML/MIN (>60); Globulin 2.4 g/dL (1.3-3.2); Glucose 145 mg/dl (74-100); Potassium 4.2 mmoL/L (3.5-5.1); Sodium 139 mmol/L (136-145); Total Protein,Serum 6.3 g/dl (6.3-8.2)
== END ==
PROVIDERS: PCP Family Medicine; Visit Provider Family Medicine
DX: K82.8 Other specified diseases of gallbladder (principal)
CPT/HCPCS: 80053

== ENCOUNTER 2023-09-17 18:26 | Outpatient (CLI) | payer MEDICARE, OTHER, SELFPAY ==
[2023-09-18 18:46] LABS: Basophils # 0.1 K/mm3 (0-0.2); Basophils % 0.8 % (0.1-2.0); Eosinophils # 0.1 K/mm3 (0.0-0.4); Eosinophils % 1.5 % (0.1-12.0); Hematocrit 52.4 % (42.0-52.0); Hemoglobin 16.7 g/dL (14.1-18.0); Lymphocytes # 1.5 K/mm3 (0.7-4.5); Lymphocytes % 22.3 % (10-50); Mean Corpuscular HGB Conc 31.9 g/dL (31.8-35.4); Mean Corpuscular Hemoglobin 31.2 pg (27.0-31.2); Monocytes # 0.6 K/mm3 (0.1-1.0); Neutrophils # 4.6 K/mm3 (1.8-7.8); Neutrophils % 66.5 % (37.0-80.0); Platelet Count 283 K/mm3 (142-424); Red Blood Count 5.35 M/mm3 (4.60-6.20); Red Cell Distribution Width 12.9 % (11.5-17.5); White Blood Count 6.9 K/mm3 (4.8-10.8)
[2023-09-18 19:32] LABS: Alanine Aminotransferase 349 U/L (12-78); Albumin Level 4.4 g/dl (3.5-5.0); Albumin/Globulin Ratio 1.8 (1.1-1.8); Alkaline Phosphatase 173 U/L (38-126); Anion Gap 11.4 mEq/L (5-15); Aspartate Amino Transferase 182 U/L (17-59); Bilirubin,Total 0.9 mg/dl (0.2-1.3); Blood Urea Nitrogen 17 mg/dl (9-20); Calcium 9.6 mg/dl (8.4-10.2); Carbon Dioxide 31 mmol/L (22.0-30.0); Chloride 101 mmol/L (98-107); Chol/HDL Ratio 3.8 (1-3.5); Cholesterol 185 mg/dl (140-200); Estimated Glomerular Filt Rate 74 ml/min (>60); GFR (African American) 90 ML/MIN (>60); Globulin 2.5 g/dL (1.3-3.2); Glucose 102 mg/dl (74-100); HDL Cholesterol 49 mg/dl (40-60); Potassium 4.4 mmoL/L (3.5-5.1); Sodium 139 mmol/L (136-145); Total Protein,Serum 6.9 g/dl (6.3-8.2); Triglycerides 92 mg/dl (30-150); VLDL Cholesterol 18 mg/dL (0-40)
[2023-09-18 19:42] LABS: Direct LDL Cholesterol 98.63 mg/dL (100-129)
[2023-09-18 20:03] LABS: Prostate Specific Ag Screen 2.4 ng/ml (0.0-4.0); Thyroid Stimulating Hormone 1.24 uIU/mL (0.465-4.68)
[2023-09-18 20:59] LABS: Creatinine,Urine Random 141 mg/dL (Not Estab.)
[2023-09-18 21:00] LABS: Microalbumin/Creatinine Ratio 7.3
[2023-09-18 21:26] LABS: Vitamin B12 > 1000 pg/mL (239-931)
== END 2023-09-17 23:59 ==
LOC: LAB.DROPOF 09-18 18:27
PROVIDERS: PCP Nurse Practitioner; Visit Provider Nurse Practitioner
DX: E78.5 Hyperlipidemia, unspecified (principal); I10 Essential (primary) hypertension; N40.0 Benign prostatic hyperplasia without lower urinary tract symptoms; G25.0 Essential tremor; Z12.5 Encounter for screening for malignant neoplasm of prostate; Z79.899 Other long term (current) drug therapy
CPT/HCPCS: 80053; 80061; 82043; 82570; 82607; 83036; 84443; 85025; G0103

== ENCOUNTER 2023-09-20 12:39 | Outpatient (CLI) | payer MEDICARE, OTHER, SELFPAY ==
[2023-09-21 20:41] LABS: Alanine Aminotransferase 375 U/L (12-78); Albumin Level 4.4 g/dl (3.5-5.0); Alkaline Phosphatase 170 U/L (38-126); Aspartate Amino Transferase 139 U/L (17-59); Bilirubin,Direct 0.2 mg/dl (0.0-0.4); Bilirubin,Indirect 0.5 mg/dL (0.0-0.9); Bilirubin,Total 0.7 mg/dl (0.2-1.3); Bilirubin,Unconjugated 0.5 mg/dL (0.0-1.1); Total Protein,Serum 6.9 g/dl (6.3-8.2)
[2023-09-23 12:17] LABS: HBsAg Screen Negative (Negative); HCV Ab Non Reactive (Non Reactive); Hep A Ab, IGM Negative (Negative); Hep B Core Ab, IgM Negative (Negative)
== END 2023-09-20 23:59 ==
PROVIDERS: PCP Nurse Practitioner; Visit Provider Nurse Practitioner
DX: R79.89 Other specified abnormal findings of blood chemistry (principal); R74.01 Elevation of levels of liver transaminase levels
CPT/HCPCS: 80074; 80076

== ENCOUNTER 2023-10-04 08:40 | Outpatient (CLI) | payer MEDICARE, OTHER, SELFPAY ==
--- NOTE | 2023-10-04 08:40 | US_ITS ---
FINAL REPORT CLINICAL HISTORY: elevated LFT s COMPARISON: 07/20/2021 FINDINGS: Sonographic images of the right upper quadrant were obtained. The pancreas is obscured. The liver is fatty infiltrated. The gallbladder is absent. The common duct measures 6 mm. There is a small echogenic focus in the right kidney which may represent stone. IMPRESSION: Fatty liver. Possible right renal stone Reviewed, Interpreted and Dictated by Reyes Bullock MD Transcribed by Yelena Perez Authenticated and [facility]
== END 2023-10-04 23:59 ==
LOC: RAD 08:40
PROVIDERS: PCP Nurse Practitioner; Visit Provider Nurse Practitioner
DX: R79.89 Other specified abnormal findings of blood chemistry (principal); Z79.899 Other long term (current) drug therapy
CPT/HCPCS: 76705

== ENCOUNTER 2024-01-03 08:09 | Outpatient (CLI) | payer MEDICARE, OTHER, SELFPAY ==
--- NOTE | 2024-01-03 08:12 | XR_ITS ---
FINAL REPORT CLINICAL HISTORY: cough, pneumonia COMPARISON: None FINDINGS: No acute pulmonary density is evident. There is no evidence of effusion or other pleural disease. Status post CABG. The mediastinum has an otherwise normal appearance. The cardiac silhouette is unremarkable. IMPRESSION: Unremarkable chest exam. Reviewed, Interpreted and Dictated by Vignesh Clinton MD Transcribed by Yelena Perez Authenticated and [facility]
== END 2024-01-03 23:59 | disposition home or self-care (01) ==
LOC: RAD 08:10
PROVIDERS: PCP Nurse Practitioner; Visit Provider Nurse Practitioner
DX: J18.9 Pneumonia, unspecified organism (principal)
CPT/HCPCS: 71046

== ENCOUNTER 2024-01-24 07:28 | Outpatient (CLI) | payer MEDICARE, OTHER, SELFPAY ==
--- NOTE | 2024-01-24 07:28 | CT_ITS ---
FINAL REPORT TECHNIQUE: Pre-and postcontrast axial imaging of the abdomen and pelvis was obtained.This study was performed with techniques to keep radiation doses as low as reasonably achievable, (ALARA). Individualized dose reduction technique using automated exposure control or adjustment of mA and/or kV according to the patient's size were employed. CLINICAL HISTORY: unintentional weight loss FINDINGS: The liver is homogeneous. There is intra and extrahepatic biliary ductal dilatation. There is an 8 mm stone in the distal common bile duct. The gallbladder is absent. There is a large hiatal hernia. The spleen, adrenal glands, and pancreas are unremarkable. There is no hydronephrosis or solid renal mass. On precontrast imaging, no renal stones are identified. There is no small bowel obstruction. There is no lymphadenopathy or ascites. The appendix is unremarkable. There is pandiverticulosis without evidence of diverticulitis. The prostate is enlarged. There is no lymphadenopathy or ascites. No acute osseous abnormalities identified. IMPRESSION: Choledocholithiasis with biliary ductal dilatation. Consider ERCP. Large hiatal hernia. Reviewed, Interpreted and Dictated by Irma Taylor MD Transcribed by Pallavi Noonan Authenticated and [facility]
--- NOTE | 2024-01-24 07:28 | CT_ITS ---
FINAL REPORT TECHNIQUE: Axial images of the chest was performed with and without contrast by computed tomography. Reconstructed images were obtained and reviewed. This study was performed with techniques to keep radiation doses as low as reasonably achievable (ALARA). Individualized dose reduction techniques using automated exposure control or adjustment of mA and/or kV according to the patient's size were employed. CLINICAL HISTORY: unintentional weight loss FINDINGS: No axillary nodes are identified. There are small mediastinal lymph nodes. There is no hilar adenopathy. Large hiatal hernia is identified. No pleural or pericardial effusions are identified. The heart is normal in size. Note is made of emphysema. There are linear opacities in the lung bases, favor atelectasis or scar. There is a 9 mm inferior right upper lobe nodule. No acute osseous abnormality is identified. IMPRESSION: Inferior right upper lobe nodule measures 9 mm. Consider PET-CT or three-month chest CT follow-up. No acute abnormality. Emphysema. Reviewed, Interpreted and Dictated by Irma Taylor MD Transcribed by Pallavi Noonan Authenticated and [facility]
[2024-01-24 08:14] LABS: Blood Urea Nitrogen 15 mg/dl (9-20); Estimated Glomerular Filt Rate 84 ml/min (>60); GFR (African American) 101 ML/MIN (>60)
== END 2024-01-24 23:59 | disposition home or self-care (01) ==
LOC: RAD 07:28
PROVIDERS: PCP Nurse Practitioner; Visit Provider Nurse Practitioner
DX: R63.4 Abnormal weight loss (principal); Z68.28 Body mass index [BMI] 28.0-28.9, adult
CPT/HCPCS: 36415; 71270; 74178; 82565; 84520; Q9967

== ENCOUNTER 2024-02-19 10:03 | Outpatient (CLI) | payer MEDICARE, OTHER, SELFPAY ==
--- NOTE | 2024-02-19 10:04 | CT_ITS ---
FINAL REPORT CLINICAL HISTORY: 3 mos f/u on RUL nodule COMPARISON: 01/24/2024 FINDINGS: Axial CT images of the chest were obtained with contrast. Coronal and sagittal reformatted images were also obtained. This study was performed with techniques to keep radiation doses as low as reasonably achievable, (ALARA). Individualized dose reduction techniques using automated exposure control or adjustment of mA and/or KV according to the patient's size were employed. There is no evidence of mediastinal or hilar mass or adenopathy. The patient has undergone a prior midline sternotomy. Moderate changes of emphysema are noted as well as mild scarring bilaterally. No axillary mass or adenopathy is identified. There is an 8 mm inferior right upper lobe nodule, stable since the prior exam of January. No localized pulmonary inflammatory process is identified. Limited images of the upper abdomen reveal a large hiatal hernia, noted on the previous exam. The gallbladder has been surgically resected. There is moderate biliary ductal dilatation, and a persistent common bile duct stone is not excluded. IMPRESSION: 8 mm inferior right upper lobe nodule, stable since the prior exam of January. Recommend additional follow-up 3-month CT examination for further evaluation. Large hiatal hernia. Moderate biliary ductal dilatation, which persists when compared to the prior exam. A common bile duct stone is not excluded. Reviewed, Interpreted and Dictated by Heraclio Bender III, MD Transcribed by Cecily Rojas Authenticated and [facility]
[2024-02-19] MEDS: SODIUM CHLORIDE 0.9% 10ML SYR (RAD ONLY) 10 ML IV (10:42)
[2024-02-19] MEDS: IOPAMIDOL-370 (76%);100ML BOTTLE 75 ML IV (10:42)
== END 2024-02-19 23:59 | disposition home or self-care (01) ==
LOC: RAD 10:03
PROVIDERS: PCP Nurse Practitioner; Visit Provider Nurse Practitioner
DX: R91.1 Solitary pulmonary nodule (principal)
CPT/HCPCS: 71260; Q9967

== ENCOUNTER 2024-03-13 15:30 | Outpatient (CLI) | payer MEDICARE, OTHER, SELFPAY ==
[2024-03-13 18:58] LABS: Influenza A, PCR Not Detected (NotDetected); Influenza B, PCR Not Detected (NotDetected)
[2024-03-13 20:45] LABS: Coronavirus 19, PCR Detected (NotDetected)
== END 2024-03-13 23:59 | disposition home or self-care (01) ==
LOC: LAB.DROPOF 03-14 15:31
PROVIDERS: PCP Nurse Practitioner; Visit Provider Nurse Practitioner
DX: J06.9 Acute upper respiratory infection, unspecified (principal); U07.1 COVID-19; Z87.891 Personal history of nicotine dependence
CPT/HCPCS: 87636

== ENCOUNTER 2024-05-20 21:30 | Inpatient (IN) | payer MEDICARE, OTHER, SELFPAY ==
[2024-05-20 21:32] VITALS: BP 109/67; PULSE 98; RESP 16; O2SAT 97; BMI 27.6
--- NOTE | 2024-05-20 21:35 | CT_ITS ---
PROCEDURE INFORMATION: Exam: CT Abdomen And Pelvis With Contrast Exam date and time: 05/20/2024 11:19 PM Age: 69 years old Clinical indication: Abdominal pain; Additional info: Acute abdominal pain, S/P mrcp TECHNIQUE: Imaging protocol: Computed tomography of the abdomen and pelvis with contrast. 3D rendering (Not supervised by radiologist): MIP and/or 3D reconstructed images were created by the technologist. Radiation optimization: All CT scans at this facility use at least one of these dose optimization techniques: automated exposure control; mA and/or kV adjustment per patient size (includes targeted exams where dose is matched to clinical indication); or iterative reconstruction. Contrast material: ISOVUE; Contrast volume: 70 ml; Contrast route: IV; COMPARISON: CT ANGIO CHEST PE PROTOCOL 05/20/2024 11:19 PM FINDINGS: Liver: Normal. No mass. Gallbladder and biliary ducts: There is pneumobilia identified in both liver lobes. There is metal density stent extending through the distal common bile duct and into the duodenal. Pancreas: Peripancreatic fat stranding-mild. This is most prominent body and head of the pancreas. Spleen: Normal. No splenomegaly. Adrenal glands: Normal. No mass. Kidneys and ureters: Normal. No hydronephrosis. Stomach and bowel: Diverticulosis without diverticulitis at the sigmoid region of the colon. Appendix: Normal appendix. Intraperitoneal space: No visible free peritoneal fluid or free peritoneal. Vasculature: Unremarkable. No abdominal aortic aneurysm. Lymph nodes: Unremarkable. No enlarged lymph nodes. Urinary bladder: Unremarkable as visualized. Reproductive: Prostate enlargement up to diameter of 5.3 cm. Bones/joints: Unremarkable. No acute fracture. Soft tissues: Unremarkable. Other findings: No pseudocyst formation. IMPRESSION: 1. Common bile duct metal density stent in place with peripancreatic edema likely indicating pancreatitis. Correlate with other laboratory markers. No pseudocyst formation. 2. Other incidental findings above.
--- NOTE | 2024-05-20 21:37 | ED_ITS ---
<Statement entered by Katie Moore DO - 05/21/24 00:29> I was consulted by the JUAN, and we discussed the complexity of the problems being addressed. I approved the treatment and management plan for this patient's care in the emergency department, thus performing a substantive portion of the medical decision making. Katie Moore DO Discharge Plan Disposition Patient Disposition: Admitted Clinical Impressions Clinical Impression: Post-ERCP acute pancreatitis Discharge ED Provider: Sam Conway General Adult HPI <SARA Lam - Last Filed: 05/20/24 22:57> General Chief complaint: Abdominal Pain Stated complaint: abd pain, ERCP today Time Seen by Provider: 05/20/24 22:12 History of Present Illness HPI narrative: Patient presents for evaluation of acute abdominal pain. Patient underwent an ERCP by Dr. Zeeshan Dupree in [place] today. Patient underwent the procedure without complication however patient began hurting prior to discharge but did not notify the staff. His pain is continued to escalate even after discharge and he presents tonight for evaluation. On arrival patient is initially normotensive at 109/67 but with a heart rate of 98 breathing 16 times a minute. He reports exquisite diffuse abdominal pain even to light touch. He denies nausea vomiting diarrhea fever chills hemoptysis hematochezia melena. Related Data Home Medications ?Medication ?Instructions ?Recorded ?Confirmed aspirin 81 mg tablet,delayed 81 mg PO DAILY 03/13/24 03/13/24 release Previous Rx's ?Medication ?Instructions ?Recorded lisinopril 20 See Rx Instructions .Route 09/17/23 mg-hydrochlorothiazide 25 mg tablet .COMPLEX #45 tabs albuterol sulfate 90 mcg/actuation 2 puff inhalation Q4-6H PRN 03/13/24 aerosol inhaler shortness of breath or wheezing #8.5 grams doxycycline hyclate 100 mg tablet 100 mg PO BID #20 tabs 03/13/24 nirmatrelvir 300 mg (150 mg See Rx Instructions PO .COMPLEX 03/14/24 x2)-ritonavir 100 mg tablet,dose #30 tabs pack (Paxlovid) metoprolol succinate 50 mg See Rx Instructions .Route 03/27/24 tablet,extended release 24 hr .COMPLEX #90 tabs tamsulosin 0.4 mg capsule See Rx Instructions .Route 03/27/24 .COMPLEX #90 caps Allergies Allergy/AdvReac Type Severity Reaction Status Date / Time primidone AdvReac Mild nausea Verified 03/13/24 08:14 [facility] <SARA Lam - Last Filed: 05/20/24 22:57> [facility] Disclaimer: The information contained in this section may have been updated after the patient was seen, as this information can be updated by other users. Medical History Nodule of upper lobe of right lung Choledocholithiasis Unintentional weight loss Fatty liver Elevated LFTs BPH (benign prostatic hyperplasia) Hyperlipidemia Essential hypertension Benign essential tremor Biliary dyskinesia Surgical History History of heart bypass surgery History of cholecystectomy Family History Heart attack Father Grandfather Hypertension Social History Smoking Status: Never smoker alcohol intake: never substance use type: denies use current occupational status: retired Travel in the last 8 weeks: None household members: spouse housing: house Other Medical History Have you received the Flu Vaccine for this season: No Have you received the Pneumonia Vaccine: Yes <SARA Lam - Last Filed: 05/20/24 22:57> ROS Obtained: Yes Systems reviewed as appropriate & no additional complaints except as documented Physical Exam <SARA Lam - Last Filed: 05/20/24 22:57> General General appearance: alert and in distress (Pain) Respiratory Respiratory exam: Present normal lung sounds bilaterally Cardiovascular Cardiovascular exam: Present regular rate Neurological Exam Neurological exam: Present alert and oriented X3 Medical Decision Making <SARA Lam - Last Filed: 05/20/24 22:57> Medical Records Medical records reviewed: Yes I reviewed the patient's medical records. Screening: Per USPSTF and CDC recommendations, given the prevalence of disease in our region, it is our hospital?s policy to screen for HIV and viral Hepatitis for all patients aged 18 and over and those with ongoing risk factors. Ahsan Inquiry Pt receiving controlled substance: No Vital Signs: 05/20/24 21:32 05/20/24 22:30 05/20/24 23:00 Pulse Rate 98 H 95 H Pulse Rate [Left Radial] 98 H Respiratory Rate 16 Blood Pressure 144/68 H 144/79 H Blood Pressure [Right Arm] 109/67 L Blood Pressure Mean [Right Arm] 81 Blood Pressure Source [Right Arm] Automatic Cuff Blood Pressure Position [Right Arm] Sitting 02 Sat by Pulse Oximetry 97 84 L 95 05/20/24 23:30 05/21/24 00:00 05/21/24 00:30 Pulse Rate 90 87 84 Pulse Rate [Left Radial] Respiratory Rate Blood Pressure 135/68 128/70 124/71 Blood Pressure [Right Arm] Blood Pressure Mean [Right Arm] Blood Pressure Source [Right Arm] Blood Pressure Position [Right Arm] 02 Sat by Pulse Oximetry 94 L 94 L 94 L 05/21/24 01:00 05/21/24 01:30 05/21/24 02:00 Pulse Rate 87 80 85 Pulse Rate [Left Radial] Respiratory Rate Blood Pressure 120/67 111/70 111/64 Blood Pressure [Right Arm] Blood Pressure Mean [Right Arm] Blood Pressure Source [Right Arm] Blood Pressure Position [Right Arm] 02 Sat by Pulse Oximetry 89 L 90 L 89 L Lab Data Lab results reviewed: Yes I reviewed the patient's lab results. Lab Results 05/20/24 22:10: WBC 16.9 H, RBC 5.35, Hgb 16.8, Hct 48.3, MCV 90.3, MCH 31.4 H, MCHC 34.7, RDW 13.3, Plt Count 209, MPV 8.2, Neut % (Auto) 90.2 H, Lymph % (Auto) 5.4 L, [place] % (Auto) 2.7, Eos % (Auto) 1.1, Baso % (Auto) 0.6, Neut # (Auto) 15.2 H, Lymph # (Auto) 0.9, [place] # (Auto) 0.5, Eos # (Auto) 0.2, Baso # (Auto) 0.1, Total Counted 100, Neutrophils % (Manual) 88 H, Band Neutrophils % 2.0, Lymphocytes % (Manual) 8 L, Monocytes % (Manual) 2, Platelet Estimate Normal, RBC Morphology Normal, Sodium 141, Potassium 3.7, Chloride 103, Carbon Dioxide 32 H, Anion Gap 9.7, BUN 19, Creatinine 0.90, Estimated Creat Clear 81, Estimated GFR 84, Est GFR ( Amer) 101, Glucose 107 H, Calcium 9.2, Total Bilirubin 1.0, AST 36, ALT 29, Alkaline Phosphatase 97, Total Protein 6.8, Albumin 4.2, Globulin 2.6, Albumin/Globulin Ratio 1.6, Lipase 55822 H, Procalcitonin 0.140 05/21/24 00:00: Lactate Dehydrogenase 225 L 05/20/24 22:10 05/20/24 22:10 Orders (Tests/Meds): ED MEDICATIONS Generic Name Dose Route Start Last Admin Trade Name Kavinq PRN Reason Stop Dose Admin Lactated Ringer's 1,000 mls @ 100 mls/hr 05/21/24 02:30 Lactated Ringer's 1000 Ml Bag IV 06/20/24 02:29 .Q10H SHITAL Ketorolac Tromethamine 30 mg 05/21/24 02:23 Ketorolac 30mg/Ml Vial IV 05/26/24 02:22 Q6HP PRN Moderate Pain (4-6) Morphine Sulfate 4 mg 05/21/24 02:23 Morphine 4mg/Ml Syringe IV 06/20/24 02:22 Q4HP PRN Severe Pain (7-10) Ondansetron HCl 4 mg 05/21/24 02:23 Ondansetron 4mg/2ml Vial IV 06/20/24 02:22 Q8HP PRN Nausea Sodium Chloride 10 ml 05/20/24 23:32 05/20/24 23:34 Sodium Chloride 0.9% 10ml Syr (Rad Only) IV 06/19/24 23:31 10 ml NEEDED PRN Administration Maintain IV Site Discontinued Medications Generic Name Dose Route Start Last Admin Trade Name Freq PRN Reason Stop Dose Admin Acetaminophen 1,000 mg 05/20/24 21:35 05/20/24 22:06 Acetaminophen 1,000mg/100ml Vial IV 05/20/24 21:36 1,000 mg ONCE ONE Administration Hydromorphone HCl 1 mg 05/20/24 22:08 05/20/24 22:15 Hydromorphone 2mg/Ml Syringe IV 05/20/24 22:09 1 mg ONCE ONE Administration Hydromorphone HCl 0.5 mg 05/21/24 00:09 05/21/24 00:09 Hydromorphone 2mg/Ml Syringe IV 05/21/24 00:10 0.5 mg ONCE ONE Administration Sodium Chloride 1,000 mls @ 999 mls/hr 05/20/24 21:35 05/20/24 22:06 Sod Chlor 0.9% 1000ml Bag IV 05/20/24 22:35 999 mls/hr .Q1H1M ONE Administration Iopamidol 70 ml 05/20/24 23:32 05/20/24 23:34 Iopamidol-370 (76%);100ml Bottle IV 05/20/24 23:33 70 ml ONCE ONE Administration Ketorolac Tromethamine 15 mg 05/20/24 21:35 05/20/24 22:06 Ketorolac 30mg/Ml Vial IV 05/20/24 21:36 15 mg ONCE ONE Administration Ondansetron HCl 4 mg 05/20/24 21:35 05/20/24 22:06 Ondansetron 4mg/2ml Vial IV 05/20/24 21:36 4 mg ONCE ONE Administration Sodium Chloride 50 ml 05/20/24 23:32 05/20/24 23:34 0.9 % Sodium Chloride 50 Ml Vial IV 05/20/24 23:33 50 ml ONCE ONE Administration ORDERS Category Date Time Status CT abdomen pelvis w con Stat Cat Scan 05/20/24 21:[address] angio chest PE protocol Stat Cat Scan 05/20/24 23:12 Completed GI consult [Consult to Gastroenterology] [CONS] Routine Cons 05/21/24 02:23 Active CBC w/Auto Diff [Complete Blood Count Auto Diff] Stat Lab 05/20/24 22:10 Completed CMP [Comprehensive Metabolic Panel] Stat Lab 05/20/24 22:10 Completed Complete Blood Count Auto Diff AMLAB Lab 05/21/24 06:00 Ordered Comprehensive Metabolic Panel AMLAB Lab 05/21/24 06:00 Ordered LDH [Lactate Dehydrogenase] Stat Lab 05/21/24 00:00 Completed Lipase Stat Lab 05/20/24 22:10 Completed Magnesium AMLAB Lab 05/21/24 06:00 Ordered Procalcitonin Stat Lab 05/20/24 22:10 Completed Medical Decision Narrative: In summary patient is a 69-year-old male who presents to the emergency department for evaluation of acute abdominal pain after ERCP. Patient is hemodynamically stable upon arrival, afebrile. Physical exam is remarkable for exquisite abdominal pain even to light palpation with no rebound or guarding or rigidity. Bowel sounds normal active.. Differential diagnosis includes post ERCP pancreatitis versus postoperative complication etc. Initial workup will be conducted with hematologic labs CT scan abdomen pelvis. Initial interventions include crystalloid bolus Toradol Tylenol. Initial workup ordered and pending at the time of handoff to Dr. Conway at 2300 hrs. <Sam Conway MD - Last Filed: 05/21/24 02:49> Vital Signs: 05/20/24 21:32 05/20/24 22:30 05/20/24 23:00 Pulse Rate 98 H 95 H Pulse Rate [Left Radial] 98 H Respiratory Rate 16 Blood Pressure 144/68 H 144/79 H Blood Pressure [Right Arm] 109/67 L Blood Pressure Mean [Right Arm] 81 Blood Pressure Source [Right Arm] Automatic Cuff Blood Pressure Position [Right Arm] Sitting 02 Sat by Pulse Oximetry 97 84 L 95 05/20/24 23:30 05/21/24 00:00 05/21/24 00:30 Pulse Rate 90 87 84 Pulse Rate [Left Radial] Respiratory Rate Blood Pressure 135/68 128/70 124/71 Blood Pressure [Right Arm] Blood Pressure Mean [Right Arm] Blood Pressure Source [Right Arm] Blood Pressure Position [Right Arm] 02 Sat by Pulse Oximetry 94 L 94 L 94 L 05/21/24 01:00 05/21/24 01:30 05/21/24 02:00 Pulse Rate 87 80 85 Pulse Rate [Left Radial] Respiratory Rate Blood Pressure 120/67 111/70 111/64 Blood Pressure [Right Arm] Blood Pressure Mean [Right Arm] Blood Pressure Source [Right Arm] Blood Pressure Position [Right Arm] 02 Sat by Pulse Oximetry 89 L 90 L 89 L Lab Data Lab Results 05/20/24 22:10: WBC 16.9 H, RBC 5.35, Hgb 16.8, Hct 48.3, MCV 90.3, MCH 31.4 H, MCHC 34.7, RDW 13.3, Plt Count 209, MPV 8.2, Neut % (Auto) 90.2 H, Lymph % (Auto) 5.4 L, [place] % (Auto) 2.7, Eos % (Auto) 1.1, Baso % (Auto) 0.6, Neut # (Auto) 15.2 H, Lymph # (Auto) 0.9, [place] # (Auto) 0.5, Eos # (Auto) 0.2, Baso # (Auto) 0.1, Total Counted 100, Neutrophils % (Manual) 88 H, Band Neutrophils % 2.0, Lymphocytes % (Manual) 8 L, Monocytes % (Manual) 2, Platelet Estimate Normal, RBC Morphology Normal, Sodium 141, Potassium 3.7, Chloride 103, Carbon Dioxide 32 H, Anion Gap 9.7, BUN 19, Creatinine 0.90, Estimated Creat Clear 81, Estimated GFR 84, Est GFR ( Amer) 101, Glucose 107 H, Calcium 9.2, Total Bilirubin 1.0, AST 36, ALT 29, Alkaline Phosphatase 97, Total Protein 6.8, Albumin 4.2, Globulin 2.6, Albumin/Globulin Ratio 1.6, Lipase 16557 H, Procalcitonin 0.140 05/21/24 00:00: Lactate Dehydrogenase 225 L Orders (Tests/Meds): ED MEDICATIONS Generic Name Dose Route Start Last Admin Trade Name Freq PRN Reason Stop Dose Admin Lactated Ringer's 1,000 mls @ 100 mls/hr 05/21/24 02:30 Lactated Ringer's 1000 Ml Bag IV 06/20/24 02:29 .Q10H SHITAL Ketorolac Tromethamine 30 mg 05/21/24 02:23 Ketorolac 30mg/Ml Vial IV 05/26/24 02:22 Q6HP PRN Moderate Pain (4-6) Morphine Sulfate 4 mg 05/21/24 02:23 Morphine 4mg/Ml Syringe IV 06/20/24 02:22 Q4HP PRN Severe Pain (7-10) Ondansetron HCl 4 mg 05/21/24 02:23 Ondansetron 4mg/2ml Vial IV 06/20/24 02:22 Q8HP PRN Nausea Sodium Chloride 10 ml 05/20/24 23:32 05/20/24 23:34 Sodium Chloride 0.9% 10ml Syr (Rad Only) IV 06/19/24 23:31 10 ml NEEDED PRN Administration Maintain IV Site Discontinued Medications Generic Name Dose Route Start Last Admin Trade Name Freq PRN Reason Stop Dose Admin Acetaminophen 1,000 mg 05/20/24 21:35 05/20/24 22:06 Acetaminophen 1,000mg/100ml Vial IV 05/20/24 21:36 1,000 mg ONCE ONE Administration Hydromorphone HCl 1 mg 05/20/24 22:08 05/20/24 22:15 Hydromorphone 2mg/Ml Syringe IV 05/20/24 22:09 1 mg ONCE ONE Administration Hydromorphone HCl 0.5 mg 05/21/24 00:09 05/21/24 00:09 Hydromorphone 2mg/Ml Syringe IV 05/21/24 00:10 0.5 mg ONCE ONE Administration Sodium Chloride 1,000 mls @ 999 mls/hr 05/20/24 21:35 05/20/24 22:06 Sod Chlor 0.9% 1000ml Bag IV 05/20/24 22:35 999 mls/hr .Q1H1M ONE Administration Iopamidol 70 ml 05/20/24 23:32 05/20/24 23:34 Iopamidol-370 (76%);100ml Bottle IV 05/20/24 23:33 70 ml ONCE ONE Administration Ketorolac Tromethamine 15 mg 05/20/24 21:35 05/20/24 22:06 Ketorolac 30mg/Ml Vial IV 05/20/24 21:36 15 mg ONCE ONE Administration Ondansetron HCl 4 mg 05/20/24 21:35 05/20/24 22:06 Ondansetron 4mg/2ml Vial IV 05/20/24 21:36 4 mg ONCE ONE Administration Sodium Chloride 50 ml 05/20/24 23:32 05/20/24 23:34 0.9 % Sodium Chloride 50 Ml Vial IV 05/20/24 23:33 50 ml ONCE ONE Administration ORDERS Category Date Time Status CT abdomen pelvis w con Stat Cat Scan 05/20/24 21:[address] angio chest PE protocol Stat Cat Scan 05/20/24 23:12 Completed GI consult [Consult to Gastroenterology] [CONS] Routine Cons 05/21/24 02:23 Active CBC w/Auto Diff [Complete Blood Count Auto Diff] Stat Lab 05/20/24 22:10 Completed CMP [Comprehensive Metabolic Panel] Stat Lab 05/20/24 22:10 Completed Complete Blood Count Auto Diff AMLAB Lab 05/21/24 06:00 Ordered Comprehensive Metabolic Panel AMLAB Lab 05/21/24 06:00 Ordered LDH [Lactate Dehydrogenase] Stat Lab 05/21/24 00:00 Completed Lipase Stat Lab 05/20/24 22:10 Completed Magnesium AMLAB Lab 05/21/24 06:00 Ordered Procalcitonin Stat Lab 05/20/24 22:10 Completed Medical Decision Narrative: In summary patient is a 69-year-old male who presents to the emergency department for evaluation of acute abdominal pain after ERCP. Patient is hemodynamically stable upon arrival, afebrile. Physical exam is remarkable for exquisite abdominal pain even to light palpation with no rebound or guarding or rigidity. Bowel sounds normal active.. Differential diagnosis includes post ERCP pancreatitis versus postoperative complication etc. Initial workup will be conducted with hematologic labs CT scan abdomen pelvis. Initial interventions include crystalloid bolus Toradol Tylenol. Initial workup ordered and pending at the time of handoff to Dr. Conway at 2300 hrs. Zoraida STARKEY: I assumed care of the patient at the time of handoff from the prior provider. On reassessment patient required repeat Dilaudid dosing for pain. Vital signs remained stable. Laboratories interpreted by me and significant for markedly elevated lipase at greater than 27,000. White count 16.9, LDH 225. CT imaging interpreted by me and shows metallic stent with peripancreatic edema consistent with pancreatitis. I had extensive and repeated discussion with patient regarding his presentation, diagnosis etc. He reports that he does not want to go back to [place] because he does not want to continue to see Dr. Dupree at this point. I discussed with him that it is usually best to go back to the provider who performed the procedure and question, but he again reports that he does not want to go to [place]. Given this, I had a interactive discussion with Dr. Ribera who accepted the patient for admission for further evaluation and management of post ERCP pancreatitis. I was consulted by the JUAN, and we discussed the complexity of the problems being addressed. I approved the treatment and management plan for this patient?s care in the Emergency Department, thus performing a substantive portion of the medical decision making. Sam Conway MD Critical Care <SARA Lam - Last Filed: 05/20/24 22:57> Critical Care Time Critical Care Time: No
[2024-05-20] MEDS: 0.9 % SODIUM CHLORIDE 1000ML 1,000 ML 999 ML IV (22:06)
[2024-05-20] MEDS: ONDANSETRON 4MG/2ML VIAL 4 MG IV (22:06)
[2024-05-20] MEDS: KETOROLAC 30MG/ML VIAL 15 MG IV (22:06)
[2024-05-20] MEDS: ACETAMINOPHEN 1,000MG/100ML VIAL 1000 MG IV (22:06)
[2024-05-20] MEDS: HYDROMORPHONE 2MG/ML SYRINGE 1 MG IV (22:15)
[2024-05-20 22:21] LABS: Basophils # 0.1 K/mm3 (0-0.2); Basophils % 0.6 % (0.1-2.0); Eosinophils # 0.2 K/mm3 (0.0-0.4); Eosinophils % 1.1 % (0.1-12.0); Hematocrit 48.3 % (42.0-52.0); Hemoglobin 16.8 g/dL (14.1-18.0); Lymphocytes # 0.9 K/mm3 (0.7-4.5); Lymphocytes % 5.4 % (10-50); Mean Corpuscular HGB Conc 34.7 g/dL (31.8-35.4); Mean Corpuscular Hemoglobin 31.4 pg (27.0-31.2); Mean Corpuscular Volume 90.3 fl (80-94); Mean Platelet Volume 8.2 fl (7.4-10.4); Monocytes # 0.5 K/mm3 (0.1-1.0); Monocytes % 2.7 % (1.7-9.3); Neutrophils # 15.2 K/mm3 (1.8-7.8); Neutrophils % 90.2 % (37.0-80.0); Platelet Count 209 K/mm3 (142-424); Red Blood Count 5.35 M/mm3 (4.60-6.20); Red Cell Distribution Width 13.3 % (11.5-17.5); White Blood Count 16.9 K/mm3 (4.8-10.8)
[2024-05-20 22:23] LABS: MANUAL DIFFERENTIAL MANUAL DIFFERENTIAL (MANUAL DIFF)
[2024-05-20 22:28] LABS: Alanine Aminotransferase 29 U/L (12-78); Albumin Level 4.2 g/dl (3.5-5.0); Albumin/Globulin Ratio 1.6 (1.1-1.8); Alkaline Phosphatase 97 U/L (38-126); Anion Gap 9.7 mEq/L (5-15); Aspartate Amino Transferase 36 U/L (17-59); Blood Urea Nitrogen 19 mg/dl (9-20); Calcium 9.2 mg/dl (8.4-10.2); Carbon Dioxide 32 mmol/L (22.0-30.0); Chloride 103 mmol/L (98-107); Creatinine Clearance Estimated 81 mL/min (50-200); Estimated Glomerular Filt Rate 84 ml/min (>60); GFR (African American) 101 ML/MIN (>60); Globulin 2.6 g/dL (1.3-3.2); Glucose 107 mg/dl (74-100); Potassium 3.7 mmoL/L (3.5-5.1); Sodium 141 mmol/L (136-145); Total Protein,Serum 6.8 g/dl (6.3-8.2)
[2024-05-20 22:30] VITALS: BP 144/68; PULSE 98; O2SAT 84
[2024-05-20 23:00] VITALS: BP 144/79; PULSE 95; O2SAT 95
[2024-05-20 23:10] LABS: Lymphocytes % 8 % (10-50); Monocytes % 2 % (2-9); Neutrophils % 88 % (42-76); Total Cells Counted 100
[2024-05-20 23:11] LABS: Platelet Estimate Normal; RBC Morphology Normal
--- NOTE | 2024-05-20 23:12 | CT_ITS ---
PROCEDURE INFORMATION: Exam: CTA Chest With Contrast Exam date and time: 05/20/2024 11:19 PM Age: 69 years old Clinical indication: Pain; Prior surgery; Surgery date: 3-7 days post-operative; Surgery type: Mrcp; Additional info: Postop illness TECHNIQUE: Imaging protocol: Computed tomographic angiography of the chest with contrast. Exam focused on the arteries. 3D rendering (Not supervised by radiologist): MIP and/or 3D reconstructed images were created by the technologist. Radiation optimization: All CT scans at this facility use at least one of these dose optimization techniques: automated exposure control; mA and/or kV adjustment per patient size (includes targeted exams where dose is matched to clinical indication); or iterative reconstruction. Contrast material: ISOUVE 370; Contrast volume: 70 ml; Contrast route: INTRAVENOUS (IV); COMPARISON: CT ABDOMEN PELVIS W CON 05/20/2024 11:19 PM FINDINGS: Pulmonary arteries: No acute pulmonary embolus. Aorta: Unremarkable. No aortic aneurysm. No aortic dissection. Lungs: Severe paraseptal pattern emphysema bilateral lungs. There is a 9 mm right upper lobe peripheral lung nodule without calcification. Well-circumscribed. Image 82 of series 5. No defined acute airspace pattern infiltrates. Pleural spaces: No pleural effusions. No pneumothorax. Heart: Unremarkable. No cardiomegaly. No pericardial effusion. Coronary arteries: Calcified coronary arteries Lymph nodes: Unremarkable. No enlarged lymph nodes. Diaphragm: Large hiatal hernia Gallbladder and biliary ducts: Pneumobilia seen in the right upper quadrant with an incompletely visualized metal density CBD stent. Bones/joints: Previous median sternotomy, CABG Soft tissues: Unremarkable. IMPRESSION: 1. No acute pulmonary embolus. 2. Severe paraseptal pattern emphysema. 3. Unchanged right upper lobe lung nodule. See previous CT thorax for follow-up recommendations. Probably cirrhosis gross with the bed further growth going to bed COMMENTS: The presence of pulmonary emphysema on CT is an independent risk factor for lung cancer. In the absence of a history or active diagnosis of lung cancer, it is recommended that this patient with emphysema be evaluated for enrollment in a low dose CT lung cancer screening program.
[2024-05-20 23:30] VITALS: BP 135/68; PULSE 90; O2SAT 94
[2024-05-20] MEDS: 0.9 % SODIUM CHLORIDE 50 ML VIAL IV (23:34)
[2024-05-20] MEDS: IOPAMIDOL-370 (76%);100ML BOTTLE 70 ML IV (23:34)
[2024-05-20] MEDS: SODIUM CHLORIDE 0.9% 10ML SYR (RAD ONLY) 10 ML IV (23:34)
[2024-05-20 23:47] LABS: Lipase 27859 U/L (23-300)
[2024-05-21] VITALS (11 sets, daily range): BP systolic 107–128; BP diastolic 58–71; PULSE 68–87; RESP 16–18; TEMP 36.4–37.5; O2SAT 89–98; BMI 27.8
[2024-05-21] MEDS: HYDROMORPHONE 2MG/ML SYRINGE 0.5 MG IV (00:09)
[2024-05-21 01:17] LABS: Lactate Dehydrogenase 225 U/L (313-618)
--- NOTE | 2024-05-21 02:27 | P.HP_ITS ---
History of Present Illness *Admission Date: 05/21/24 *Reason for visit:: abdominal pain *History of present illness: Mr. Orlando is a pleasant 69-year-old male with history of CABG x 312 years ago, BPH, cholecystectomy in 2021 who has had recurrent abdominal pain. Presented for his second ERCP earlier on Sunday at [facility]. Had an ERCP a month ago with sweeping of common bile duct but no stent placement. Went for ERCP on 05/20 with duct placement. Presented with severe abdominal pain. In the ER, workup concerning for leukocytosis and a lipase of 27,000. Patient did not want to be transferred to [place] for reevaluation. CT of abdomen showed pancreatitis. Also found to have pneumobilia likely secondary to postprocedural finding. Medicine was consulted for admission and further management of post ERCP pancreatitis. On evaluation, patient stable on room air. Afebrile. Heart rate and respiratory rate within normal range. States he was told he had an 8 mm stone in his common bile duct that they were unable to remove, I have no imaging evidence of this at this time. Working on obtaining records from [facility] for further evaluation. Patient denies any vomiting, has mild nausea mainly associated with pain. No significant shortness of breath or chest pain. Alert and oriented x [facility] Disclaimer: The information contained in this section may have been updated after the patient was seen, as this information can be updated by other users. Medical History Nodule of upper lobe of right lung Choledocholithiasis Unintentional weight loss Fatty liver Elevated LFTs BPH (benign prostatic hyperplasia) Hyperlipidemia Essential hypertension Benign essential tremor Biliary dyskinesia Surgical History History of heart bypass surgery History of cholecystectomy Family History Father Heart attack Grandfather Heart attack Other Hypertension Social History Smoking Status: Never smoker alcohol intake: never substance use type: denies use current occupational status: retired Travel in the last 8 weeks: None household members: spouse housing: house Other Medical History Have you received the Flu Vaccine for this season: No Have you received the Pneumonia Vaccine: Yes Review of Systems Review of Systems Review of systems (narrative): 14 point review of systems performed, pertinent positives and negatives as per HPI Meds Home Medications and Allergies Home Medications ?Medication ?Instructions ?Recorded ?Confirmed ?Type aspirin 81 mg tablet,delayed 81 mg PO DAILY 03/13/24 05/21/24 History release lisinopril 20 10 - 12.5 tab PO DAILY 05/21/24 05/21/24 History mg-hydrochlorothiazide 25 mg tablet metoprolol succinate 50 mg 50 mg PO DAILY 05/21/24 05/21/24 History tablet,extended release 24 hr tamsulosin 0.4 mg capsule 0.4 mg PO HS 05/21/24 05/21/24 History New Prescriptions to Start Prescriptions: Allergies Allergy/AdvReac Type Severity Reaction Status Date / Time primidone AdvReac Mild nausea Verified 03/13/24 08:14 Exam Data for Last 24 hours Vital signs and Labs for Last 24 Hours: Pulse Resp BP Pulse Ox 85 16 111/64 89 L 05/21/24 02:00 05/20/24 21:32 05/21/24 02:00 05/21/24 02:00 Laboratory Results - last 24 hr 05/20/24 22:10: WBC 16.9 H, RBC 5.35, Hgb 16.8, Hct 48.3, MCV 90.3, MCH 31.4 H, MCHC 34.7, RDW 13.3, Plt Count 209, MPV 8.2, Neut % (Auto) 90.2 H, Lymph % (Auto) 5.4 L, [place] % (Auto) 2.7, Eos % (Auto) 1.1, Baso % (Auto) 0.6, Neut # (Auto) 15.2 H, Lymph # (Auto) 0.9, [place] # (Auto) 0.5, Eos # (Auto) 0.2, Baso # (Auto) 0.1, Total Counted 100, Neutrophils % (Manual) 88 H, Band Neutrophils % 2.0, Lymphocytes % (Manual) 8 L, Monocytes % (Manual) 2, Platelet Estimate Normal, RBC Morphology Normal, Sodium 141, Potassium 3.7, Chloride 103, Carbon Dioxide 32 H, Anion Gap 9.7, BUN 19, Creatinine 0.90, Estimated Creat Clear 81, Estimated GFR 84, Est GFR ( Amer) 101, Glucose 107 H, Calcium 9.2, Total Bilirubin 1.0, AST 36, ALT 29, Alkaline Phosphatase 97, Total Protein 6.8, Albumin 4.2, Globulin 2.6, Albumin/Globulin Ratio 1.6, Lipase 50553 H, Procalcitonin 0.140 05/21/24 00:00: Lactate Dehydrogenase 225 L I & O for Last 24 hours: Intake & Output 05/18/24 05/19/24 05/20/24 05/21/24 23:59 23:59 23:59 23:59 Weight 82.554 kg Constitutional Constitutional: no acute distress, mild distress, average body habitus and cooperative *Routine HEENT Exam Head: Present normocephalic Eye: Present EOMI and PERRL ENT: Present mucous membranes moist *Routine Neck Exam Neck: Present supple; Absent lymphadenopathy *Routine Respiratory Exam Respiratory: Present CTA bilaterally; Absent rhonchi, wheezes or crackles *Routine Cardiovascular Exam Cardiovascular: Present RRR *Routine Abdominal Exam Abdominal: Present soft, normoactive bowel sounds and tenderness (Throughout upper abdomen, tender to even the slightest palpation. Guarding. Denies rebound) *Routine Rectal Exam Rectal:: deferred *Routine Genitalia Exam Genitalia:: deferred *Routine Extremities Exam Extremities: Absent cyanosis, clubbing or edema *Routine Skin Exam Skin: Present warm; Absent rash *Routine Neurological Exam Neurological: Present alert, oriented X3 and moving all extremities; Absent altered mental status Assessment and Plan *Assessment and plan (1) Post-ERCP acute pancreatitis: Status: Acute Category: Medical Code(s): K91.89 - Other postprocedural complications and disorders of digestive system; K85.90 - Acute pancreatitis without necrosis or infection, unspecified (2) Essential hypertension: Status: Acute Category: Medical Code(s): I10 - Essential (primary) hypertension (3) BPH (benign prostatic hyperplasia): Status: Acute Category: Medical Code(s): N40.0 - Benign prostatic hyperplasia without lower urinary tract symptoms (4) History of coronary artery bypass graft x 3: Status: Chronic Category: Surgical Code(s): Z95.1 - Presence of aortocoronary bypass graft Plan 69-year-old male with ERCP earlier in the day, presented with severe onset of abdominal pain. Found to have pancreatitis. Discussed case with ER physician, as he has only two (age and white count elevated) Tutwiler criteria, I agreed to admit for further management. GI consulted. Pain control overnight. Initiated on LR. Necessitating inpatient management given severity of pain and anticipated length of stay greater than 2 midnights. Problems addressed as follows: Pancreatitis -ERCP performed with stent placement. Per my review of CT of abdomen has pneumobilia, likely secondary to procedural effect. Also has some stranding around pancreas. -Lipase severely elevated at 27,000, white count 16,000, LDH low at 225. Dash criteria 2, 48-hour criteria pending. - Electrolytes normal sodium 141, potassium 3.7, kidney function normal BUN 19, creatinine 0.9. Calcium 9.2. Liver function normal with bilirubin 1, AST 36, ALT 29, alk phos 27. -Repeat CBC, CMP, magnesium ordered for the morning -GI consulted, appreciate their recommendations in the morning. N.p.o. at the moment, will consider slow advancement of diet pending pain control and symptoms -Responded to Dilaudid in the ER. Continue morphine 4 mg as needed every 2 hours with initiation of Toradol 30 mg IV every 6 hours as needed for moderate pain. Monitor for toxicity Hypertension History of CABG Holding blood pressure medication in the setting of SIRS with his pancreatitis. Will consider metoprolol succinate 50 mg daily if develops tachycardia Continue tamsulosin 0.4 mg nightly for BPH Full code NPO
--- NOTE | 2024-05-21 02:47 | PC.NURSE ---
Called report to Caitlin BURNHAM on med/surg
[2024-05-21] MEDS: LACTATED RINGERS 1000ML 1,000 ML 100 ML IV ×2 (03:08→13:59)
--- NOTE | 2024-05-21 03:15 | PC.NURSE ---
Patient arrived to floor via wheelchair from ED at 02:52.
[2024-05-21 07:12] LABS: Basophils % 0.2 % (0.1-2.0); Hemoglobin 15.2 g/dL (14.1-18.0); Lymphocytes # 0.9 K/mm3 (0.7-4.5); Lymphocytes % 5.6 % (10-50); Mean Corpuscular HGB Conc 33.7 g/dL (31.8-35.4); Mean Corpuscular Hemoglobin 31.5 pg (27.0-31.2); Mean Corpuscular Volume 93.4 fl (80-94); Mean Platelet Volume 8.3 fl (7.4-10.4); Monocytes % 5.9 % (1.7-9.3); Neutrophils # 14.4 K/mm3 (1.8-7.8); Neutrophils % 88.2 % (37.0-80.0); Platelet Count 138 K/mm3 (142-424); Red Blood Count 4.82 M/mm3 (4.60-6.20); Red Cell Distribution Width 13.1 % (11.5-17.5); White Blood Count 16.3 K/mm3 (4.8-10.8)
[2024-05-21 07:38] LABS: Alanine Aminotransferase 25 U/L (12-78); Albumin Level 3.5 g/dl (3.5-5.0); Albumin/Globulin Ratio 1.6 (1.1-1.8); Alkaline Phosphatase 67 U/L (38-126); Anion Gap 11.2 mEq/L (5-15); Aspartate Amino Transferase 33 U/L (17-59); Bilirubin,Total 0.8 mg/dl (0.2-1.3); Blood Urea Nitrogen 18 mg/dl (9-20); Calcium 8.3 mg/dl (8.4-10.2); Carbon Dioxide 27 mmol/L (22.0-30.0); Chloride 106 mmol/L (98-107); Creatinine Clearance Estimated 82 mL/min (50-200); Estimated Glomerular Filt Rate 84 ml/min (>60); GFR (African American) 101 ML/MIN (>60); Globulin 2.2 g/dL (1.3-3.2); Glucose 109 mg/dl (74-100); Magnesium 1.6 mg/dl (1.6-2.3); Potassium 4.2 mmoL/L (3.5-5.1); Sodium 140 mmol/L (136-145); Total Protein,Serum 5.7 g/dl (6.3-8.2)
--- NOTE | 2024-05-21 07:44 | HMH.PHAINT1 ---
Pharmacy Intervention Comments: HOME MEDICATIONS VERIFIED VIA OUTPATIENT PHARMACY AND PATIENT INTERVIEW
[2024-05-21] MEDS: KETOROLAC 30MG/ML VIAL 30 MG IV (08:17)
--- OUTSIDE RECORDS SUMMARY | 2024-05-21 08:39 | XMS_ITS | Clinical Summary ---
Author Organization [facility] Address [address] [place] [address] Phone Care Team Providers Care Irrigation Engineer Name Role Phone Anupam Drake MD Primary Care Provider [phone] Allergies Active Allergy Reactions Criticality Noted Date Comments Primidone Other (See Comments) 11/08/2022 Jittery and nausea Medications aspirin 81 mg Oral Tablet, Chewable Take 81 mg by mouth daily. Active lisinopril-hydr ochlorothiazide (PRINZIDE;ZESTO RETIC) 20-25 mg Oral Tablet Take 0.5 Tabs by mouth daily. 6 Active metoprolol succinate (TOPROL-XL) 50 mg Oral Tablet Sustained Release 24 hr Take 50 mg by mouth daily. Active tamsulosin (FLOMAX) 0.4 mg Oral Capsule Take by mouth daily. Active cyanocobalamin 1,000 mcg Oral Tablet Take 1,000 mcg by mouth daily. Active glucosamine HCl/chondroitin rowley (GLUCOSAMINE-CH ONDROITIN) 2,000-1,200 mg/30 mL Oral Liquid Take by mouth daily. Active cholecalciferol , vitamin D3, 25 mcg (1,000 unit) Oral Tablet Take 1 Tablet by mouth daily. Active rosuvastatin (CRESTOR) 10 mg Oral Tablet Take 1 Tablet by mouth daily. 90 Tablet 2 3 Active Additional Information Patient not taking.Reason: Pt electing to not take the medication, Reported on 12/19/2023 metoprolol succinate (TOPROL-XL) 25 mg Oral Tablet Sustained Release 24 hrIndications:E ssential tremor Take 1 Tablet by mouth daily. Take 1 daily in addition to 50 mg tab for total of 75 mg daily 90 Tablet 2 3 Active Active Problems Problem Noted Date Diagnosed Date Chest pain 03/18/2020 ASHD (arteriosclerotic heart disease) 12/20/2016 Benign essential HTN 12/20/2016 Hyperlipidemia 01/06/2016 S/P CABG x 3 03/24/2015 Ischemic heart disease 02/10/2015 Resolved Problems Problem Noted Date Diagnosed Date Resolved Date Abnormal stress test 02/10/2015 017 Surgical History Surgery Date Site/Laterality Comments NECK SURGERY 2000 benign tumer removed CARDIAC CATHETERIZATION CARDIAC SURGERY 03/03/2015 N/A LYSIS OF DENSE PERICARDIAL ADHESIONS, CORONARY ARTERY BYPASS GRAFTS X 3 USING RIGHT SAPHENOUS VEIN X 2 AND LEFT INTERNAL MAMMARY ARTERY X 1; Surgeon: Felix Mcbride MD; Location: [facility]; Service: Open Heart Medical History Medical History Date Comments Hyperlipidemia Hypertension Family history of other card iovascular diseases(V17.49) Shortness of breath CAD (coronary artery disease) Neuromuscular disorder (HCC) nolan mors in hands worse in R. Bladder problem frequency Family History Medical History Relation Name Comments Heart Disease Brother 1 Heart Surgery Brother 1 Heart Attack Brother 2 Heart Disease Brother 2 High Cholesterol Brother 2 Hypertension Brother 2 Heart Attack Father Heart Disease Father Hypertension Mother Heart Attack Paternal Grandfather Relation Name Status Comments Brother 1 Alive Brother 2 Alive Father (Age 59) Mother Alive Paternal Grandfather (Age 60) Sister Alive Social History Tobacco Use Types Packs/Day Years Used Date Smoking Tobacco: Former Cigarettes Q uit: 02/08/2007 Smokeless Tobacco: Never Alcohol Use Standard Drinks/Week Comments No 0 (1 standard drink = 0.6 oz pur e alcohol) quit 06/08/1989 Sex and Gender Information Value Date Recorded Sex Assigned at Not on file Legal Sex Male 8:48 PM EDT Gender Identity Not on file Sexual Orientation Not on file Obstetrics History Last Filed Vital Signs Vital Sign Reading Time Taken Comments Blood Pressure 128/78 12/19/2023 7:50 AM EDT Pulse 69 11/08/2022 11:12 AM EDT Temperature 36.3 ??C (97.3 ??F) 11/08/2022 1 1:12 AM EDT Respiratory Rate 16 12/03/2015 5:26 PM EDT Oxygen Saturation 96% 11/08/2022 11: 12 AM EDT Inhaled Oxygen Concentration - - Weight 87.9 kg (193 lb 12.8 oz) 12/19/2023 7:50 AM EDT Height 175.3 cm (5' 9 ) 12/19/2023 7:50 AM EDT Body Mass Index 28.62 12/19/2023 7:50 AM EDT Plan of Treatment Health Maintenance Due Date Last Done Comments Wellness Exam Medicare 1957 DTaP/TDaP/Td (1 - Tdap) 1974 Cologuard 01/19/2000 Colon Cancer Screening 01/19/2000 Colonoscopy 01/19/2000 FIT 01/19/2000 Sigmoidoscopy 01/19/2000 Virtual Colonography 01/19/2000 Zoster (1 of 2) 2005 AAA Screening 01/19/2020 Pneumococcal Vaccine 65+ (1 of 1 - PCV) 01/19/2020 COVID-19 Vaccine ( - 2023-2 5 season) 2024 Influenza Vaccine (#1) 2024 Hepatitis C Screening Completed 12/19/2023 Hepatitis B Vaccine Aged Out No longe r eligible based on patient's age to complete this topic Procedures Procedure Name Priority Date/Time Associated Diagnosis Comments HCV ANTIBODY SCREEN W/ REFLEX Routine 12/19/2023 9:03 AM EDT Elevated liver enzymes from Last 3 Months or Most Recently Relevant to Health Maintenance Results * HCV ANTIBODY SCREEN W/ REFLEX (12/19/2023 9:03 AM EDT) Hep C Ab Non-Reactiv e Non-Reacti ve 12/19/2023 12:35 PM EDT [facility] Blood VENOUS BLOOD / Unknown Venipuncture / Unknown 12/19/2023 9:03 AM EDT 12/19/2023 9:03 AM EDT us Mejia Vega DO HEMATOLOGY ORDERABLES Final R esult [facility] [address] [facility] , [place] [address] from Last 3 Months or Most Recently Relevant to Health Maintenance Insurance MEDICARE [place] PART A AND B [id number] [place]IC[place] PART A [place] B [id number] MEDICARE [place] PART A AND B [employer] Advance Directives For more information, please contact: [phone] * Full Code (Latest Code Status on File) Date Activated Date Inactivated Comments 03/07/2015 9:11 AM 03/09/2015 1:55 PM * Full Code Date Activated Date Inactivated Comments 03/03/2015 1:04 PM 03/05/2015 8:55 AM Care Teams Irrigation Engineer Relationship Specialty Start Date End Date Anupam Drake MD [address] [address] [place] [address] PCP - General Family Medicine 10/12/22
--- OUTSIDE RECORDS SUMMARY | 2024-05-21 08:40 | XMS_ITS | Encounter Summary ---
Author Organization [facility] [place] [address] Care Team Providers Care Machine Finisher Name Role Phone Anupam Drake MD Primary Care Provider [phone] Encounter Details Date Type Department Care Team (Latest Contact Info) Description 11/09/2022 Travel Social History Tobacco Use Types Packs/Day Years [...] on file Sexual Orientation Not on file COVID-19 Exposure Response Date Recorded In the last 10 days, have yo u been in contact with someone who was confirmed or suspected to have Coronavirus/COVID-19? No / Unsure 11/09/2022 7:09 AM EDT documented as of this encounter Plan of Treatment Not on file documented as of this encounter Visit Diagnoses Not on filedocumented in this encounter Additional Health Concerns Assessment Noted Time A fall risk assessment has been complete d for the patient 03/18/2020 8:24 AM EDT documented as of this encounter Care Teams Machine Finisher Relationship Specialty Start Date End Date Anupam Drake MD [address] [facility] [address] [place] [id number] PCP - General Family Medicine 10/12/22 documented as of this encounter
--- OUTSIDE RECORDS SUMMARY | 2024-05-21 08:40 | XMS_ITS | Encounter Summary ---
Author Organization [place] [address] Care Team Providers Care Engineering Professor Name Role Phone Anupam Drake MD Primary Care Provider [phone] Reason for Referral * Nuclear Medicine (Routine) - Pending Review Specialty Diagnoses / Procedures Referred By Contac t Referred To Contact Radiology Diagnoses Chest pain, unspecified type ASHD (arteriosclerotic heart disease) Benign essential HTN Mixed hyperlipidemia Procedures NM MYOCARDIAL PERFUSION SPECT STRESS AND REST Ulises Alberto MD [address] [place] [address] Phone: tel: fax: Referral ID Status Reason Start Date Expiration Date V isits Requested Visits Authorized [id number] Pending Review 10/12/2022 10/12/2024 5 5 Reason for Visit * Nuclear Medicine (Routine) - Pending Review Specialty Diagnoses / Procedures Referred By Contac t Referred To Contact Radiology Diagnoses Chest pain, unspecified type ASHD (arteriosclerotic heart disease) Benign essential HTN Mixed hyperlipidemia Procedures NM MYOCARDIAL PERFUSION SPECT STRESS AND REST Ulises Alberto MD [address] [place] [address] Phone: tel: fax: Referral ID Status Reason Start Date Expiration Date V isits Requested Visits Authorized [id number] Pending Review 10/12/2022 10/12/2024 5 5 Encounter Details Date Type Department Care Team (Latest Contact Info) Description 11/09/2022 7:12 AM EDT Hospital Encounter [facility] [address] [facility] [address] [place] [id number] Ulises Alberto MD [address] [place] [id number] Chest pain, unspecified type; ASHD (arteriosclerotic heart disease); Benign essential HTN; Mixed hyperlipidemia Discharge Disposition: Home or Self Care Social History Tobacco Use Types Packs/Day Years [...] AM EDT documented as of this encounter Medications at Time of Discharge aspirin 81 mg Oral Tablet, Chewable Take 81 mg by mouth daily. cholecalciferol, vitamin D3, 25 mcg (1,000 unit) Oral Tablet Take 1 Tablet by mouth daily. cyanocobalamin 1,000 mcg Oral Tablet Take 1,000 mcg by mouth daily. glucosamine HCl/chondroitin rowley (GLUCOSAMINE-HUMBLE DROITIN) 2,000-1,200 mg/30 mL Oral Liquid Take by mouth daily. lisinopril-hydroc hlorothiazide (PRINZIDE;ZESTORE TIC) 20-25 mg Oral Tablet Take 0.5 Tabs by mouth daily. 01/06/2016 metoprolol succinate (TOPROL-XL) 50 mg Oral Tablet Sustained Release 24 hr Take 50 mg by mouth daily. tamsulosin (FLOMAX) 0.4 mg Oral Capsule Take by mouth daily. documented as of this encounter Discharge Disposition Disposition Code Departure Means Destination Home or Self Care documented in this encounter Plan of Treatment Not on file documented as of this encounter Procedures Procedure Name Priority Date/Time Associated Diagnosis Comments NM MYOCARDIAL PERFUSION SPECT STRESS AND REST Routine 11/09/2022 10:00 AM EDT Chest pain, unspecified type ASHD (arteriosclerotic heart disease) Benign essential HTN Mixed hyperlipidemia documented in this encounter Results * NM MYOCARDIAL PERFUSION SPECT STRESS AND REST (11/09/2022 10:00 AM EDT) Anatomical Region Laterality Modality Nuclear Medicine 11/09/2022 8:07 AM EDT Impressions 11/09/2022 5:49 PM EDT Conclusions ??* No definite reversible perfusion defect. ??* Mild intensity fixed inferolateral perfusion defect. ??* Overall left ventricular systolic function was normal without regional wall motion abnormalities. Narrative Procedure Note Ulises Alberto MD - 11/09/2022 IMPRESSION Conclusions * No definite reversible perfusion defect. * Mild intensity fixed inferolateral perfusion defect. * Overall left ventricular systolic function was normal withoutregional wall motion abnormalities. us Ulises Alberto MD [facility] [place] CARDIAC ORDERABLES Rae l Result documented in this encounter Visit Diagnoses Diagnosis Chest pain, unspecified type ASHD (arteriosclerotic heart disease) Coronary atherosclerosis of unspecified type of vessel, telida or graft Benign essential HTN Essential hypertension, benign Mixed hyperlipidemia documented in this encounter Administered Medications Inactive Administered Medications - up to 1 most recent administrations Medication Order MAR Action Action Date Dose Rate Site [id number] (MYOVIEW) injection 8-45 millicurie 8-45 millicurie, Intravenous, ONCE PRN, 1 dose, Starting on [place] 11/09/22 at 0745, Until [place] 11/09/22 at 0841, Radiography/Imaging, Radiology Procedure, Administration dose must be within 10% of the ordered dose for radiopharmaceutical medications., Radiology Given 11/09/2022 8:41 AM EDT 38.5 millicuries [id number] (MYOVIEW) injection 8-45 millicurie 8-45 millicurie, Intravenous, ONCE PRN, 1 dose, Starting on [place] 11/09/22 at 0745, Until [place] 11/09/22 at 0734, Radiography/Imaging, Radiology Procedure, Administration dose must be within 10% of the ordered dose for radiopharmaceutical medications., Radiology Given 11/09/2022 7:34 AM EDT 12.5 millicuries documented in this encounter Additional Health Concerns Assessment Noted Time A fall risk assessment has been complete d for the patient 03/18/2020 8:24 AM EDT documented as of this encounter Care Teams Engineering Professor Relationship Specialty Start Date End Date Anupam Drake MD [facility] [address] [place] [phone] PCP - General Family Medicine 10/12/22 documented as of this encounter
--- OUTSIDE RECORDS SUMMARY | 2024-05-21 08:40 | XMS_ITS | Encounter Summary ---
Author Organization [place] [address] Care Team Providers Care Shactor Name Role Phone Yelena Damian Primary Care Provider Reason for Visit * Reason Comments Annual Exam yrly ck * Consultation (Routine) - Closed Specialty Diagnoses / Procedures Referred By Daniela adair Referred To Contact Internal Medicine-Cardiovascular Disease / Cardiology Diagnoses Annual ck up Procedures OFFICE VISIT Vanessa Dash ARNP [address] [place] [address] Phone: tel: fax: Ulises Alberto MD [address] [place] [address] Phone: tel: fax: Referral ID Status Reason Start Date Expiration Date Visits Re quested Visits Authorized [id number] Closed 06/21/2018 06/21/2019 1 99 Encounter Details Date Type Department Care Team (Late st Contact Info) Description 06/20/2019 10:20 AM EST Office Visit [facility] [address] [place] [address] Ulises Alberto MD [address] [place] [address] S/P CABG x 3 (Primary Dx); Mixed hyperlipidemia; Benign essential HTN Social History Tobacco Use Types Packs/Day Years [...] on file Sexual Orientation Not on file documented as of this encounter Last Filed Vital Signs Vital Sign Reading Time Taken Comments Blood Pressure 112/68 06/20/2019 10:19 AM EST Pulse 78 06/20/2019 10:19 AM EST Temperature - - Respiratory Rate - - Oxygen Saturation - - Inhaled Oxygen Concentration - - Weight 88 kg (194 lb) 06/20/2019 10:19 AM EST Height 175.3 cm (5' 9 ) 06/20/2019 10:19 AM EST Body Mass Index 28.65 06/20/2019 10:19 AM EST documented in this encounter Progress Notes * Ulises Alberto MD - 06/20/2019 10:20 AM EST CHIEF COMPLAINT Chief Complaint Patient presents with ??? Annual Exam yrly ck SUBJECTIVE Josh Ford is a 64 y.o. male who presents here for routine scheduled follow up for S/P CABG, HTN, Hyperlipidemia HPI Josh Ford describes no new or accelerating cardiovascular symptoms including angina, palpitations, syncope, dyspnea, or edema. Medication compliance has been appropriate. Not much change in fatigue after lowering beta ann dose Due for lab work next week with PCP Stress levels more manageable than in the past MEDICATIONS Current Outpatient Medications: ??? aspirin 81 mg Oral Tablet, Chewable, Take 81 mg by mouth daily., Disp: , Rfl: ??? atorvastatin (LIPITOR) 40 mg Oral Tablet, TAKE 1 TABLET NIGHTLY (REPLACES SIMVASTATIN) NEEDAN APPOINTMENT AND LABS DONE, Disp: 90 Tab, Rfl: 0 ??? lisinopril-hydrochlorothiazide (PRINZIDE;ZESTORETIC) 20-25 mg Oral Tablet, Take 0.5 Tabs by mouth daily., Disp: , Rfl: ??? metoprolol succinate ER (TOPROL-XL) 100 mg Oral Tablet Sustained Release 24 hr, Take 50 mg by mouth daily., Disp: , Rfl: ??? topiramate (TOPAMAX) 25 mg Oral Tablet, Take 25 mg by mouth daily., Disp: , Rfl: ALLERGIES No Known Allergies The past medical history, pertinent social history, and family history were reviewed and verified. ROS: No unintentional weight loss, bleeding, progressive neurologic complaints, fevers or chills. All other systems were reviewed and were negative PHYSICAL EXAM Vital Signs: BP 112/68 Pulse 78 Ht 5' 9 (1.753 m) Wt 194 lb (88 kg) BMI 28.65 kg/m?? ,Bodymass index is 28.65 kg/m??. Constitutional: No acute distress, non-toxic appearance HEENT: Normal Neck- supple. No bruit, JVP normal Respiratory: clear Cardiovascular: Normal S1 and S2. No audible murmurs or gallops. Regular rhythm Abdominal: Soft, nondistended, normal bowel sounds, nontender, no organomegaly, no mass, Extremities: No edema Neurologic: Alert & oriented x 3, Moves all extremities well. Grossly nonfocal exam. Pertinent recent laboratory findings were reviewed EKG No results found for this visit on 06/20/19. ASSESSMENT: 1. S/P CABG x 3 2. Mixed hyperlipidemia 3. Benign essential HTN PLAN No changes in current medical regimen The importance of exercise, diet, and weight management was discussed with patient today Await lab testing The patient was encouraged to consider vascular screening for exclusion of asymptomatic carotid artery disease, abdominal aortic aneurysm, and peripheral vascular disease. Information regarding the mobile [facility] vascular screening program will be provided. RTO 9-12 months Return in about 9 months (around 03/21/2020) for ROUTE SALES MANAGER. This chart was completed using voice recognition technology and may contain unintended errors documented in this encounter Miscellaneous Notes * Patient Instructions - Ulises Alberto MD - 06/20/2019 10:20 AM EST [id number] for Vascular Screening Van Schedule documented in this encounter Plan of Treatment Not on file documented as of this encounter Visit Diagnoses Diagnosis S/P CABG x 3- Primary Postsurgical aortocoronary bypass status Mixed hyperlipidemia Benign essential HTN Essential hypertension, benign documented in this encounter Care Teams Shactor Relationship Specialty Start Date End Date Yelena Damian [facility] [address] [place] [address] PCP - General Family Medicine 06/21/18 10/11/22 documented as of this encounter
--- OUTSIDE RECORDS SUMMARY | 2024-05-21 08:40 | XMS_ITS | Encounter Summary ---
Author Organization [place] [address] Care Team Providers Care Battery Recharger Name Role Phone Yelena Damian Primary Care Provider [phone] Reason for Referral * Stress (Routine) - Closed Specialty Diagnoses / Procedures Referred By Contac t Referred To Contact Radiology Diagnoses S/P CABG x 3 ASHD (arteriosclerotic heart disease) Chest pain, unspecified type Procedures ST STRESS TEST EXERCISE Constantine Goff APRN Referral ID Status Reason Start Date Expiration Date Visits Re quested Visits Authorized [id number] Closed 03/18/2020 03/18/2022 1 1 Reason for Visit * Stress (Routine) - Closed Specialty Diagnoses / Procedures Referred By Contac t Referred To Contact Radiology Diagnoses S/P CABG x 3 ASHD (arteriosclerotic heart disease) Chest pain, unspecified type Procedures ST STRESS TEST EXERCISE Constantine Goff APRN Referral ID Status Reason Start Date Expiration Date Visits Re quested Visits Authorized [id number] Closed 03/18/2020 03/18/2022 1 1 Encounter Details Date Type Department Care Team (Latest Contact Info) Description 04/09/2020 7:51 AM EDT - 04/09/2020 11:59 PM EDT Hospital Encounter [facility] [address] [place] [address] Constantine Goff APRN S/P CABG x 3; ASHD (arteriosclerotic heart disease); Chest pain, unspecified type Discharge Disposition: Home or Self Care Social [...] Exposure Response Date Recorded In the last month, have you been in contact with someone who was confirmed or suspected to have Coronavirus / COVID-19? No / Unsure 04/09/2020 7:47 AM EDT documented as of this encounter Medications at Time of Discharge aspirin 81 mg Oral Tablet, Chewable Take 81 mg by mouth daily. lisinopril-hydroch lorothiazide (PRINZIDE;ZESTORET IC) 20-25 mg Oral Tablet Take 0.5 Tabs by mouth daily. 01/06/2016 documented as of this encounter Discharge Disposition Disposition Code Departure Means Destination Home or Self Care documented in this encounter Plan of Treatment Not on file documented as of this encounter Procedures Procedure Name Priority Date/Time Associated Diagnosis Comments SCANNED RADIOLOGY REPORT 04/09/2020 10:[address] STRESS TEST EXERCISE Routine 04/09/2020 9:42 AM EDT S/P CABG x 3 ASHD (arteriosclerotic heart disease) Chest pain, unspecified type documented in this encounter Results * SCANNED RADIOLOGY REPORT (04/09/2020 10:49 AM EDT) Anatomical Region Laterality Modality Cardiac Stress T esting 04/09/2020 10:4 9 AM EDT us Unknown Unknown IMG DIAGNOSTIC IMAGING ORDERABLE S Final Result * ST STRESS TEST EXERCISE (04/09/2020 9:42 AM EDT) Anatomical Region Laterality Modality Cardiac Stress T esting 04/09/2020 9:22 AM EDT Impressions 04/09/2020 10:24 AM EDT ? [facility] ? Test Date: ?2020-04-09 Pat Name: ? ADIS WEBER ?Department: ?? DEPID ? Room: ? Gender: ? Male ? Importer Or Exporter: ?? Ann BURNHAM,ELAINE Garvey: ?1955 ? Requested By: CONSTANTINE GOFF PAULA Order Number: [id number] ?Reading MD: ?? Ulises Alberto MD ? Interpretive Statements ?Stress Test Exercise ?? Ordering Diagnosis: ASHD ??Surveillance ?? Resting HR: 72 ?? Peak HR: 115 Resting B/P: ??126/62 ??Peak B/P: 160/70 ?? 1. METS achieved: 7.6. 2. Walked 7:00 minutes on Full Claude Protocol 3. Target HR not achieved. Reached a peak exercise heart rate of 115 bpm which is 74% of age predicted max. Toprol taken this AM. 4. Termination of test due to: SOB and fatigue. 5. Symptoms: Very SOB ?? No chest pain. 6. Nuclear imaging reported separately. ?? Physician Interpretation Resting ECG: normal Arrhythmias: Blood Pressure Response: Exercise Capacity: Conclusion: Non diagnostic GXT For Myocardial Ischemia by EKG criteria due to THR not achieved Electronically Signed On 04-09-2020 10:24:34 EDT by Ulises Alberto MD Narrative Procedure Note Ulises Alberto MD - 04/09/[address] [facility] Test Date: 2020-04-09 Pat Name: ADIS WBEER Department: DEPID Room: Gender: Male Importer Or Exporter: Mare Juarez RN, : 1955 Requested By: CONSTANTINE FLETCHER Order Number: [id number] Reading MD: Ulises Alberto MD Interpretive Statements Stress Test Exercise Ordering Diagnosis: ASHD Surveillance Resting HR: 72 Peak HR: 115 Resting B/P: 126/62 Peak B/P: 160/70 1. METS achieved: 7.6. 2. Walked 7:00 minutes on Full Claude Protocol 3. Target HR not achieved. Reached a peak exercise heart rate of 115 bpm which is 74% of age predicted max. Toprol taken this AM. 4. Termination of test due to: SOB and fatigue. 5. Symptoms: Very SOB No chest pain. 6. Nuclear imaging reported separately. PhysicianInterpretation Resting ECG: normal Arrhythmias: Blood Pressure Response: Exercise Capacity: Conclusion: Non diagnostic GXT For Myocardial Ischemia by EKG criteria due to THRnot achieved Electronically Signed On 04-09-2020 10:24:34 EDT by Ulises Alberto MD us Constantine Goff APRN IMG STRESS ORDERABLES Final Result documented in this encounter Visit Diagnoses Diagnosis S/P CABG x 3 Postsurgical aortocoronary bypass status ASHD (arteriosclerotic heart disease) Coronary atherosclerosis of unspecified type of vessel, osage or graft Chest pain, unspecified type documented in this encounter Orders Medications Ordered That Elvin ht Not Have Been Administered Count Last Ordered Date First Ordered Date nitroGLYCERIN (NITROSTAT) SL tablet 0.4 mg 1 04/09/2020 sodium chloride 0.9% IV line flush 20-50 mL 1 04/09/2020 sodium chloride 0.9% syringe 1 04/09/2020 documented in this encounter Additional Health Concerns Assessment Noted Time A fall risk assessment has been complete d for the patient 03/18/2020 8:24 AM EDT documented as of this encounter Care Teams Battery Recharger Relationship Specialty Start Date End Date Yelena Damian [address] [place] [address] PCP - General Family Medicine 06/21/18 10/11/22 documented as of this encounter
--- OUTSIDE RECORDS SUMMARY | 2024-05-21 08:40 | XMS_ITS | Encounter Summary ---
Author Organization [place] [address] Care Team Providers Care Heating Systems Installer Name Role Phone Yelena Damian Primary Care Provider [phone] Reason for Referral * Stress (Routine) - Closed Specialty Diagnoses / Procedures Referred By Daniela adair Referred To Contact Radiology Diagnoses S/P CABG x 3 ASHD (arteriosclerotic heart disease) Chest pain, unspecified type Procedures ST STRESS TEST EXERCISE Constantine Goff APRN Referral ID Status Reason Start Date Expiration Date Visits Re quested Visits Authorized [id number] Closed 03/18/2020 03/18/2022 1 1 * Nuclear Medicine (Routine) - Closed Specialty Diagnoses / Procedures Referred By Daniela adair Referred To Contact Radiology Diagnoses S/P CABG x 3 ASHD (arteriosclerotic heart disease) Chest pain, unspecified type Procedures NM MYOCARDIAL PERFUSION SPECT STRESS AND REST Constantine Goff APRN Referral ID Status Reason Start Date Expiration Date Visits Re quested Visits Authorized [id number] Closed 03/18/2020 03/18/2022 5 5 Reason for Visit * Reason Comments Follow-up 9 mon ck , c/o occas ional C/p * Consultation (Routine) - Closed Specialty Diagnoses / Procedures Referred By Daniela adair Referred To Contact Nurse Practitioner / Cardiology Diagnoses 9 mon ck Procedures OFFICE VISIT Yelena Damian [address] [place] [address] Phone: tel: fax: Constantine Goff APRN Referral ID Status Reason Start Date Expiration Date Visits Re quested Visits Authorized [id number] Closed 03/18/2020 03/18/2021 99 99 Encounter Details Date Type Department Care Team (Latest Contact Info) Description 03/18/2020 8:30 AM EDT Office Visit [facility] [facility] [address] [place] [address] Constantine Goff APRN S/P CABG x 3 (Primary Dx); ASHD (arteriosclerotic heart disease); Chest pain, unspecified type; Mixed hyperlipidemia Social History Tobacco Use Types Packs/Day Years [...] have Coronavirus / COVID-19? No / Unsure 03/18/2020 8:17 AM EDT documented as of this encounter Last Filed Vital Signs Vital Sign Reading Time Taken Comments Blood Pressure 132/70 03/18/2020 8:24 AM EDT Pulse 62 03/18/2020 8:24 AM EDT Temperature 36.2 ??C (97.2 ??F) 03/18/2020 8:24 AM ED T Respiratory Rate - - Oxygen Saturation - - Inhaled Oxygen Concentration - - Weight 89.4 kg (197 lb) 03/18/2020 8:24 AM EDT Height 175.3 cm (5' 9 ) 03/18/2020 8:24 AM EDT Body Mass Index 29.09 03/18/2020 8:24 AM EDT documented in this encounter Progress Notes * Constantine Goff APRN - 03/18/2020 8:30 AM EDT Chief Complaint Patient presents with ??? Follow-up 9 mon ck , c/o occasional C/p HPI: Adis Weber returned to the office for regular scheduled follow-up for CAD with prior CABG, HTNand HLD. Overall feeling well. Notes occasional left chest ache that occurs randomly and without pattern. He is unsure if related to exercise. Has attributed to pulled muscle in the past. Denies dyspnea, palpitations, dizziness, lightheadedness, near syncope and syncope. No orthopnea or edema. He is compliant with medications. No regular exercise but stays active. 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 ROS: Denies dyspnea/orthopnea/PND, cough, weight changes, palpitations, dizziness, syncope, edema, fever/chills, abdominal pain, N/V, hematochezia, melena No Known Allergies Current Outpatient Medications: ??? aspirin 81 mg [...] mg by mouth daily., Disp: , Rfl: Past Medical History: Diagnosis Date ??? Bladder problem frequency ??? CAD (coronary artery disease) ??? Family history of other cardiovascular diseases(V17.49) ??? Hyperlipidemia ??? Hypertension ??? 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 ??? Shortness of breath Past Surgical History: Procedure Laterality Date ??? CARDIAC CATHETERIZATION ??? CARDIAC SURGERY N/A 03/03/2015 LYSIS OF DENSE PERICARDIAL ADHESIONS, CORONARY ARTERY BYPASS GRAFTS X 3 USING RIGHT SAPHENOUS VEIN X 2 AND LEFT INTERNAL MAMMARY ARTERY X 1; Surgeon: Felix Mcbride MD; Location: [facility]IN OR; Service: Open Heart ??? NECK SURGERY 2000 benign tumer removed Family History Problem Relation Age of Onset ??? Hypertension Mother ??? Heart Attack Father ??? Heart Disease Father ??? Heart Surgery Brother ??? Heart Disease Brother ??? Heart Attack Paternal Grandfather ??? Heart Attack Brother ??? High Cholesterol Brother ??? Hypertension Brother ??? Heart Disease Brother Lab Results Component Value Date HGB 11.6 (L) 03/08/2015 HCT 35.2 (L) 03/08/2015 PLT 233 03/08/2015 ALT 15 01/14/2016 AST 16 01/14/2016 NA 141 01/14/2016 K 3.9 01/14/2016 CREATININE 1.05 10/18/2015 BUN 18 01/14/2016 CO2 28 03/08/2015 INR 1.16 (H) 03/02/2015 GLU 104 (H) 03/08/2015 HGBA1C 6.1 03/02/2015 Vitals: Vitals: 03/18/20 0824 BP: 132/70 Pulse: 62 Temp: 97.2 ??F (36.2 ??C) Weight: 197 lb (89.4 kg) Height: 5' 9 (1.753 m) Body mass index is 29.09 kg/m??. Physical Exam: GEN: Alert, pleasant and oriented x3. Skin W/D. Resp easy. In no acute distress. HEENT: Sclerae anicteric. No xanthelasmas. EOM's intact. NECK: Supple. No JVD. LUNGS: clear to auscultation. Chest wall nontender. HEART: RRR, no murmur, gallop, or rub. ABD: soft, nontender, positive bowel sounds EXT: no edema, +2 radial NEURO: no obvious focal abnormalities Echo (2016): LVEF 50-55%, MCH, mild LAE, HK of basal inferior wall, mild MR, mild TR Assessment: CAD - CABG (2015) Hypertension Hyperlipidemia - On statin - Labs per PCP Plan: - Continue current medications - Surveillance Stress Test - Will request labs from his PCP in [place] - Discussed low fat diet and reinforced aerobic exercise - RTO 9 months - Call for questions or concerns prior to next office visit Constantine Goff, WORKFORCE MANAGER Addendum: Labs from PCP reviewed Total Chol: 143 LDL: 78 HDL: 49 Trigs: 76 CMP normal HgbA1C 6.0 documented in this encounter Miscellaneous Notes * Patient Instructions - Zunilda Brown RMA - 03/18/2020 8:30 AM EDT Stress Test Continue current medications Call if you need anything and call in July to schedule with Dr Alberto in December documented in this encounter Plan of Treatment Not on file documented as of this encounter Results * NM MYOCARDIAL PERFUSION SPECT STRESS AND REST (04/09/2020 11:06 AM EDT) Anatomical Region Laterality Modality Nuclear Medicine 04/09/2020 8:15 AM EDT Impressions 04/09/2020 12:25 PM EDT IMPRESSIONS There is a moderate sized, medium intensity, mostly fixed inferior and inferolateral defect without significant reversibility. Normal left ventricular global systolic function. ?? Narrative Procedure Note Joie Brown DO - 04/09/2020 IMPRESSION IMPRESSIONS There is a moderate sized, medium intensity, mostly fixed inferior andinferolateral defect without significant reversibility. Normal left ventricular global systolic function. us Constantine Goff APRN IMG NM CARDIAC ORDERABLES F inal Result * ST STRESS TEST EXERCISE (04/09/2020 9:42 AM EDT) Anatomical Region Laterality Modality Cardiac Stress T esting 04/09/2020 9:22 AM EDT Impressions 04/09/2020 10:24 AM EDT ? [facility] ? Test Date: ?2020-04-09 Pat Name: ? ADIS WEBER ?Department: ?? DEPID ? Room: ? Gender: ? Male ? Coding Tech: ?? Ann BURNHAM,ELAINE Garvey: ?1955 ? Requested By: CONSTANTINE LACYECCA Order Number: [id number] ?Reading MD: ?? Ulises Alberto MD ? [...] Ulises Alberto MD - 04/09/[address] [facility] Test Date: 2020-04-09 Pat Name: ADIS WEBER Department: DEPID Room: Gender: Male Coding Tech: Mare Juarez RN, : 1955 Requested By: CONSTANTINE FLETCHER Order Number: [id number] Reading MD: Ulises Alberto MD Interpretive Statements [...] 04-09-2020 10:24:34 EDT by Ulises Alberto MD Constantine Goff APRN IMG STRESS ORDERABLES Final Result documented in this encounter Visit Diagnoses Diagnosis S/P CABG x 3- Primary Postsurgical aortocoronary bypass status ASHD (arteriosclerotic heart disease) Coronary atherosclerosis of unspecified type of vessel, kashia or graft Chest pain, unspecified type Mixed hyperlipidemia S/P CABG x 3 Postsurgical aortocoronary bypass status ASHD (arteriosclerotic heart disease) Coronary atherosclerosis of unspecified type of vessel, kashia or graft Chest pain, unspecified type S/P CABG x 3 Postsurgical aortocoronary bypass status ASHD (arteriosclerotic heart disease) Coronary atherosclerosis of unspecified type of vessel, kashia or graft Chest pain, unspecified type documented in this encounter Discontinued Medications Medication Sig Discontinue Reason Start Date End Da te topiramate (TOPAMAX) 25 mg Oral Tablet Take 25 mg by mouth daily. Stopped by patient - ineffective 03/18/2020 documented as of this encounter Additional Health Concerns Assessment Noted Time A fall risk assessment has been complete d for the patient 03/18/2020 8:24 AM EDT documented as of this encounter Care Teams Heating Systems Installer Relationship Specialty Start Date End Date Yelena Damian [address] [place] [address] [address] [place] [address] PCP - General Family Medicine 06/21/18 10/11/22 documented as of this encounter
--- OUTSIDE RECORDS SUMMARY | 2024-05-21 08:40 | XMS_ITS | Referral Summary ---
Author Organization [facility] Address [address] [place] [address] Phone Care Team Providers Care Carton Forming Machine Adjuster Name Role Phone Anupam Drake MD Primary Care Provider [phone] Allergies Active Allergy Reactions Criticality Noted Date [...] Resolved Date Abnormal stress test 02/10/2015 017 Social History Tobacco Use Types Packs/Day Years [...] on file Sexual Orientation Not on file Last Filed Vital Signs Vital Sign Reading [...] 12/19/2023 7:50 AM EDT Plan of Treatment Not on file Procedures Procedure Name Priority Date/Time Associated Diagnosis Comments HCV ANTIBODY SCREEN W/ REFLEX Routine 12/19/2023 9:03 AM EDT Elevated liver enzymes from Last 3 Months or Most Recently Relevant to Health Maintenance Results * HCV ANTIBODY SCREEN W/ REFLEX (12/19/2023 9:03 AM EDT) Hep C Ab Non-Reactiv e Non-Reacti ve 12/19/2023 12:35 PM EDT PREFERRED Dheere Bolo Blood VENOUS BLOOD / Unknown Venipuncture / Unknown 12/19/2023 9:03 AM EDT 12/19/2023 9:03 AM EDT us Mejia Vega DO HEMATOLOGY ORDERABLES Final R esult PREFERRED Dheere Bolo [address] [facility] , [place] [address] from Last 3 Months or Most Recently Relevant to Health Maintenance Insurance MEDICARE [place] PART A AND B Member Subscriber Plan / Payer (Ef fective 2020-Present) Name:Josh Ford Member ID:[id number] Relation to Subscriber:Self Name:Josh Ford Subscriber ID:[id number] Payer ID:Not on file Group ID:Not on file Type:Not on file Address: [address] [employer] MEDICARE [place] PART A AND B [employer] MEDICARE [place] PART A AND B [email or web address] Advance Directives For more information, please contact: [phone] * Full Code (Latest Code Status on File) Date Activated Date Inactivated Comments 03/07/2015 9:11 AM 03/09/2015 1:55 PM * Full Code Date Activated Date Inactivated Comments 03/03/2015 1:04 PM 03/05/2015 8:55 AM Care Teams Carton Forming Machine Adjuster Relationship Specialty Start Date End Date Anupam Drake MD [address] [place] [address] PCP - General Family Medicine 10/12/22
--- OUTSIDE RECORDS SUMMARY | 2024-05-21 08:40 | XMS_ITS | Encounter Summary ---
Author Organization [place] [place] [address] Care Team Providers Care Air Conditioning Unit Tester Name Role Phone Yelena Damian Primary Care Provider [phone] Encounter Details Date Type Department Care Team (Late st Contact Info) Description 04/05/2020 7:50 AM EDT - 04/05/2020 11:59 PM EDT Hospital Encounter [facility] [address] [place] [address] Covid19, [facility] Pre-op testing; Encounter for laboratory testing for COVID-19 virus Discharge Disposition: Home or Self Care Social [...] have Coronavirus / COVID-19? No / Unsure 04/05/2020 7:48 AM EDT documented as of this encounter [...] Procedure Name Priority Date/Time Associated Diagnosis Comments CORONAVIRUS 2019 Routine 04/05/2020 7:48 AM EDT Pre-op testing Encounter for laboratory testing for COVID-19 virus documented in this encounter Results * CORONAVIRUS 2019 (04/05/2020 7:48 AM EDT) CORONAVIRUS [id number] Not Detected Not Detected 04/05/2020 7:32 PM EDT [facility] Comment:Caution should be ex ercised when interpreting a result of 'Not Detected'. A result of 'Not Detected' does not rule out COVID-19 and cannot be used as sole basis for treatment or patient management decisions. If COVID-19 is still suspected following a 'Not Detected' result, re-testing should be considered. Swab BOTH ANTERIOR NARES / Unknown 04/05/2020 7:48 AM EDT 04/05/2020 7:48 AM EDT Narrative PREFERRED [facility] - 04/05/2020 7:32 PM EDT This test is a nucleic acid amplification test intended for the qualitative detection of nucleic acid from the SARS-CoV-2 in upper respiratory samples collected from individuals suspected of COVID-19. Test is performed on the [employer] platform under the FDA's Emergency Use Authorization (EUA). [facility] Provider Fact Sheet: https://www.fda.gov/media/372343/download [employer] [facility] Patient Fact Sheet: ??https://www.fda.gov/media/259220/download China Goff APRN MICROBIOLOGY - GENERAL UMM RIOS Final Result [facility] [address], [place] [address] documented in this encounter Visit Diagnoses Diagnosis Pre-op testing Preoperative examination, unspecified Encounter for laboratory testing for COVID-19 virus documented in this encounter Additional Health Concerns Assessment Noted Time A fall risk assessment has been complete d for the patient 03/18/2020 8:24 AM EDT documented as of this encounter Care Teams Air Conditioning Unit Tester Relationship Specialty Start Date End Date Yelena Damian [address] [place] [address] [address] [place] [address] PCP - General Family Medicine 06/21/18 10/11/22 documented as of this encounter
--- OUTSIDE RECORDS SUMMARY | 2024-05-21 08:40 | XMS_ITS | Encounter Summary ---
Author Organization [facility] Address [address] [place] [address] Care Team Providers Care Lens Shaper Grinder Name Role Phone Anupam Drake MD Primary Care Provider [phone] Reason for Visit * Reason Comments Pain Pain Encounter Details Date Type Department Care Team (Latest Contact Info) Description 11/03/2022 1:00 PM EDT Office Visit [facility] [address] [place] [address] Octavio Reyes PA-C [address] [place] [address] Acute pain of both knees (Primary Dx); Bilateral hip pain; Primary osteoarthritis of right knee; Primary osteoarthritis of left knee Social History Tobacco Use Types Packs/Day Years [...] AM EDT documented as of this encounter Progress Notes * Octavio Reyes PA-C - 11/03/2022 1:00 PM EDTAssociated Order(s): Large Joint Injection/Arthrocentesis: bilateral knee Post-Procedure Diagnose(s): Acute pain of both knees; Bilateral hip pain Large Joint Injection/Arthrocentesis: bilateral knee on 11/03/2022 1:00 PM Indications: pain and joint swelling Details: 22 G needle, anterolateral approach Medications (Right): 40 mg triamcinolone acetonide 40 mg/mL; 2 mL bupivacaine 0.5 % (5 mg/mL) Medications (Left): 40 mg triamcinolone acetonide 40 mg/mL; 2 mL bupivacaine 0.5 % (5 mg/mL) Outcome: tolerated well, no immediate complications Procedure, treatment alternatives, risks and benefits explained, specific risks discussed. Consent was given by the patient. Immediately prior to procedure a time out was called to verify the correctpatient, procedure, equipment, technician support engineer and site/side marked as required. Patient was prepped and draped in the usual sterile fashion. * Octavio Reyes PA-C - 11/03/2022 1:00 PM EDT Images from the original note were not included. [address] [phone] [place], [place] [phone] [place], [place] Josh Ford 1955 Chief Complaint Patient presents with ??? Left Knee - Pain ??? Right Knee - Pain Subjective: Josh Ford is a 67 y.o. male presenting for evaluation of bilateral knee Referred by Dr. Drake, PCP He reports chronic pain for year in both knee for several years Patient denies any fall, injury, or trauma. He feels the pain is similar between both, one does notbother him more than the other. Seeing neurology for tremors. Has an ache diffusely to the knees. He feels it is most severe after a long period of activity, or going upstairs. Trying to manage with occasional tylenol. Pain is described as grinding, dull, aching of the knee. Symptoms improve with rest, ice, OTC NSAIDs. The symptoms are worse with activity such as walking, exercising, kneeling, and squatting. Treatment to date has been without significant relief. He does describe some mild pain into bilateral hips. Social History Substance and Sexual Activity Drug Use No Social History Tobacco Use Smoking Status Former ??? Types: Cigarettes ??? Quit date: 02/08/2007 ??? Years since quittin.8 Smokeless Tobacco Never Objective: Review of Systems Constitutional: Negative. Respiratory: Negative. Cardiovascular: Negative. Gastrointestinal: Negative. Musculoskeletal: Positive for joint pain. Skin: Negative. There is no height or weight on file to calculate BMI. On physical examination the patient is alert and oriented. Appropriate mood for the conversation. Well-developed and well-nourished in appearance. Limited gait examination reveals no obvious abnormalities. Bilateral upper and lower extremities demonstrate apparently normal range of motion and stability with intact pulses and sensation to light touch of the wrist, hand, ankle and foot bilaterally.Skin of bilateral upper and lower extremities with no obvious rash or lesions. Apparently normal muscle tone and reflexes for bilateral knees and ankles. No evidence of obvious significant lymphedemaof bilateral lower extremities. Respiratory rate is normal by clinical examination. Pulse rate is normal by peripheral pulse examination. Right Knee Exam Comments: Examination of the right knee shows that it is stable to varus and valgus stressing. Normal anterior/posterior drawer testing. Normal Tomi testing. Normal Brian testing. There is tenderness to palpation over the medial joint line, as well as the patellofemoral joint. The skin is intact. Left Knee Exam Comments: Examination of the left knee shows that it is stable to varus and valgus stressing. Normal anterior/posterior drawer testing. Normal Tomi testing. Normal Brian testing. There is tenderness to palpation over the medial joint line, as well as the patellofemoral joint. The skin is intact. Right Hip Exam Comments: Examination of the right hip shows the patient has evidence of antalgia with their gait pattern today. Forced internal and external rotation of the hip causes a deep-seated hip pain. Limited internal and external rotation. Abnormal Stinchfield testing. Normal log-roll testing. No tenderness over the trochanteric bursa. Left Hip Exam Comments: Examination of the left hip shows the patient has evidence of antalgia with their gait pattern today. Forced internal and external rotation of the hip causes a deep-seated hip pain. Limitedinternal and external rotation. Abnormal Stinchfield testing. Normal log-roll testing. No tenderness over the trochanteric bursa. Imaging: X-rays of bilateral knees show mild knee osteoarthritis with joint space narrowing. No acute fracture dislocation or osseous abnormality. X-rays of bilateral hips show no acute fracture, dislocation, or osseous abnormality Assessment and Plan: Diagnoses and all orders for this visit: Acute pain of both knees - XR KNEE BILATERAL AP LATERAL INTERNAL AND EXTERNAL OBLIQUES; Future - Large Joint Injection/Arthrocentesis: bilateral knee Bilateral hip pain - XR HIP BILATERAL 3-4 VIEW; Future Primary osteoarthritis of right knee - Large Joint Injection/Arthrocentesis: bilateral knee Primary osteoarthritis of left knee - Large Joint Injection/Arthrocentesis: bilateral knee PLAN: Recommend conservative treatment Discussed treatment options I have reviewed the x-rays with the patient today. Discussed concerns for bilateral knee osteoarthritis and mild hip OA. He will continue with rest, ice, and antiinflammatory medications Patient will be WBAT Do not recommend any surgical intervention at this time Will provide diagnostic cortisone injections to both knees. He will follow-up for evaluation, of the knees to see if providing benefit. Patient verbalized understanding and agreement with the plan. All questions were answered. Under sterile conditions from a superolateral approach a mixture of 2 cc 0.25% Bupivacaine plain and 1 cc 40 mg Triamcinolone was injected into the bilaterally knee joint. This was well tolerated by the patient. The patient did have significant improvement in symptomatology within just a few moments of the injection. Sterile dressing was applied. There were no obvious immediate complications after the procedure. I discussed with the patient about monitoring for pain, as well as the standard expectation after an injection. DME Summary No orders found for display documented in this encounter Plan of Treatment Not on file documented as of this encounter Procedures Procedure Name Priority Date/Time Associated Diagnosis Comments [place] ARTHROCENTESIS LARGE JOINT W/O US BILATERAL Routine 11/03/2022 1:00 PM EDT Acute pain of both knees Primary osteoarthritis of right knee Primary osteoarthritis of left knee documented in this encounter Results * XR HIP BILATERAL 3-4 VIEW (11/03/2022 1:49 PM EDT) Narrative Dar, Audit - 11/03/2022 1:50 PM EDT Please see physician's note from office encounter for x-ray imaging result us Octavio Reyes PA-C IMG DIAGNOSTIC IMAGING ORDERA BLES Final Result * XR KNEE BILATERAL AP LATERAL INTERNAL AND EXTERNAL OBLIQUES (11/03/2022 1:26 PM EDT) Narrative Dar, Audit - 11/03/2022 1:26 PM EDT Please see physician's note from office encounter for x-ray imaging result us Octavio Reyes PA-C IMG DIAGNOSTIC IMAGING ORDERA BLES Final Result * [place] ARTHROCENTESIS LARGE JOINT W/O US BILATERAL (11/03/2022 1:00 PM EDT) Narrative [facility] - 11/03/2022 1:00 PM EDT Octavio Reyes PA-C ? 11/24/2022 ??4:41 PM Large Joint Injection/Arthrocentesis: bilateral knee on 11/03/2022 1:00 PM Indications: pain and joint swelling Details: 22 G needle, anterolateral approach Medications (Right): 40 mg triamcinolone acetonide 40 mg/mL; 2 mL bupivacaine 0.5 % (5 mg/mL) Medications (Left): 40 mg triamcinolone acetonide 40 mg/mL; 2 mL bupivacaine 0.5 % (5 mg/mL) Outcome: tolerated well, no immediate complications Procedure, treatment alternatives, risks and benefits explained, specific risks discussed. Consent was given by the patient. Immediately prior to procedure a time out was called to verify the correct patient, procedure, equipment, technician support engineer and site/side marked as required. Patient was prepped and draped in the usual sterile fashion. Result Juliano Reyes PA-C PROCEDURE/MINOR SURGICAL ORDE RABLES Final Result [facility] documented in this encounter Visit Diagnoses Diagnosis Acute pain of both knees- Primary Bilateral hip pain Pain in joint, pelvic region and thigh Primary osteoarthritis of right knee Primary localized osteoarthrosis, lower leg Primary osteoarthritis of left knee Primary localized osteoarthrosis, lower leg Acute pain of both knees Bilateral hip pain Pain in joint, pelvic region and thigh documented in this encounter Administered Medications Inactive Administered Medications - up to 1 most recent administrations Medication Order MAR Action Action Date Dose Rate Site bupivacaine (MARCAINE) 0.5 % (5 mg/mL) injection 2 mL 2 mL, Intra-articular, ONCE PRN, 1 dose, Starting on Sun11/03/22 at 1300, Until Sun11/03/22 at 1300, Dx: 1. Acute pain of both knees 2. Primary osteoarthritis of right knee 3. Primary osteoarthritis of left kneeIndications:Acute pain of both knees,Primary osteoarthritis of right knee,Primary osteoarthritis of left knee Given 11/03/2022 1:00 PM EDT 2 mL bupivacaine (MARCAINE) 0.5 % (5 mg/mL) injection 2 mL 2 mL, Intra-articular, ONCE PRN, 1 dose, Starting on Sun11/03/22 at 1300, Until Sun11/03/22 at 1300, Dx: 1. Acute pain of both knees 2. Primary osteoarthritis of right knee 3. Primary osteoarthritis of left kneeIndications:Acute pain of both knees,Primary osteoarthritis of right knee,Primary osteoarthritis of left knee Given 11/03/2022 1:00 PM EDT 2 mL triamcinolone acetonide (KENALOG-40) injection 40 mg 40 mg, Intra-articular, ONCE PRN, 1 dose, Starting on Sun11/03/22 at 1300, Until Sun11/03/22 at 1300, Dx: 1. Acute pain of both knees 2. Primary osteoarthritis of right knee 3. Primary osteoarthritis of left kneeIndications:Acute pain of both knees,Primary osteoarthritis of right knee,Primary osteoarthritis of left knee Given 11/03/2022 1:00 PM EDT 40 mg triamcinolone acetonide (KENALOG-40) injection 40 mg 40 mg, Intra-articular, ONCE PRN, 1 dose, Starting on Sun11/03/22 at 1300, Until Sun11/03/22 at 1300, Dx: 1. Acute pain of both knees 2. Primary osteoarthritis of right knee 3. Primary osteoarthritis of left kneeIndications:Acute pain of both knees,Primary osteoarthritis of right knee,Primary osteoarthritis of left knee Given 11/03/2022 1:00 PM EDT 40 mg documented in this encounter Additional Health Concerns Assessment Noted Time A fall risk assessment has been complete d for the patient 03/18/2020 8:24 AM EDT documented as of this encounter Care Teams Lens Shaper Grinder Relationship Specialty Start Date End Date Anupam Drake MD [address] [facility] [address] [facility] [place] [id number] PCP - General Family Medicine 10/12/22 documented as of this encounter
--- OUTSIDE RECORDS SUMMARY | 2024-05-21 08:40 | XMS_ITS | Encounter Summary ---
Author Organization [facility] [place] [address] Care Team Providers Care Records Management Clerk Name Role Phone Anupam Drake MD Primary Care Provider [phone] Reason for Visit * Reason Onset Date Comments Other 11/13/2022 Metoprolol Medic ation Add Encounter Details Date Type Department Care Team (Late st Contact Info) Description 11/13/2022 Telephone [facility] Neurology [facility] [address] [place] [address] Sakina Brooks [address] [facility] [address] [place] [address] Other (Metoprolol Medication Add) Social History Tobacco Use Types Packs/Day Years [...] AM EDT documented as of this encounter Ordered Prescriptions Prescription Sig Dispense Quantity Refills Last Filled Start Date End Date metoprolol succinate (TOPROL-XL) 25 mg Oral Tablet Sustained Release 24 hr Take 1 Tablet by mouth daily. Take 1 daily in addition to 50 mg tab for total of 75 mg daily 30 Tablet 6 11/13/2022 3 metoprolol succinate (TOPROL-XL) 25 mg Oral Tablet Sustained Release 24 hr Take 1 Tablet by mouth daily. Take 1 daily in addition to 50 mg tab for total of 75 mg daily 30 Tablet 6 11/13/2022 3 documented in this encounter Miscellaneous Notes * Telephone Encounter - Charline Alba MA - 11/13/2022 12:35 PM EDT Called and spoke with pt's and advised of Dr. Brooks's message. [facility] Will re send medication. * Telephone Encounter - Sakina Brooks DO - 11/13/2022 12:24 PM EDT Please call patient, let him know I spoke with his boat hand, he is ok with increasing his Toprol to 75 mg daily. I will send in 25 mg XL tab that he is to take once daily along with his 50 mg tab. * Telephone Encounter - Sakina Brooks DO - 11/13/2022 12:23 PM EDT ----- Message from Ulises Alberto MD sent at 11/09/2022 5:45 PM EDT ----- Regarding: RE: mutual patient Certainly Thank you ----- Message ----- From: Sakina Brooks DO Sent: 11/08/2022 12:16 PM EDT To: Ulises Alberto MD Subject: mutual patient Hey I saw Josh today for tremor. He's unfortunately failed all of our tremor medications. He is interested however in increasing his Metoprolol. He said it was previously decreased from 100 to 50 due to fatigue. Would you be ok with us increasing to 75 to see how he does? Thanks Sakina documented in this encounter Plan of Treatment Not on file documented as of this encounter Visit Diagnoses Not on filedocumented in this encounter Discontinued Medications Medication Sig Discontinue Reason Start Date End Da te metoprolol succinate (TOPROL-XL) 25 mg Oral Tablet Sustained Release 24 hr Take 1 Tablet by mouth daily. Take 1 daily in addition to 50 mg tab for total of 75 mg daily Cancelled by 11/13/2022 11/13/2022 documented as of this encounter Additional Health Concerns Assessment Noted Time A fall risk assessment has been complete d for the patient 03/18/2020 8:24 AM EDT documented as of this encounter Care Teams Records Management Clerk Relationship Specialty Start Date End Date Anupam Drake MD [facility] [address] [place] [phone] PCP - General Family Medicine 10/12/22 documented as of this encounter
--- OUTSIDE RECORDS SUMMARY | 2024-05-21 08:40 | XMS_ITS | Encounter Summary ---
Author Organization [place] [address] Care Team Providers Care Record Maker Name Role Phone Yelena Damian Primary Care Provider [phone] Reason for Visit * Reason Comments Annual Exam Yrly ck * Consultation (Routine) - Closed Specialty Diagnoses / Procedures Referred By Daniela adair Referred To Contact Internal Medicine-Cardiovascular Disease / Cardiology Diagnoses Annual ck up Procedures OFFICE VISIT Vanessa Dash ARNP [address] [place] [address] Phone: tel: fax: Ulises Alberto MD [address] [place] [address] Phone: tel: fax: Referral ID Status Reason Start Date Expiration Date Visits Re quested Visits Authorized [id number] Closed 06/21/2018 06/21/2019 1 99 Encounter Details Date Type Department Care Team (Latest Contact Info) Description 06/21/2018 10:00 AM EST Office Visit [facility] [address] [place] [address] Ulises Alberto MD [address] [place] [address] S/P CABG x 3 (Primary Dx); Benign essential HTN; Other hyperlipidemia Social History Tobacco Use Types Packs/Day [...] Sign Reading Time Taken Comments Blood Pressure 100/60 06/21/2018 10:10 AM EST Pulse 70 06/21/2018 10:10 AM EST Temperature - - Respiratory Rate - - Oxygen Saturation - - Inhaled Oxygen Concentration - - Weight 87.1 kg (192 lb) 06/21/2018 10:10 AM EST Height 175.3 cm (5' 9 ) 06/21/2018 10:10 AM EST Body Mass Index 28.35 06/21/2018 10:10 AM EST documented in this encounter Progress Notes * Ulises Alberto MD - 06/21/2018 10:00 AM EST CHIEF COMPLAINT Chief Complaint Patient presents with ??? Annual Exam Yrly ck SUBJECTIVE Josh Ford is a 63 y.o. male who presents here for routine scheduled follow up for status postCABG, hypertension, hyperlipidemia HPI Josh Ford describes no new or accelerating cardiovascular symptoms including angina, palpitations, syncope, dyspnea, or edema. Medication compliance has been appropriate. Cardiovascular testingand hospitalizations incurred since last visit, if applicable, were reviewed and discussed. He has noticed some fatigue late in the day. It was suggested by 1 of his primary care providers that he consider B12 and vitamin D supplementation. He has not had palpitations or syncope. MEDICATIONS Current Outpatient Prescriptions: ??? aspirin 81 mg Oral Tablet, Chewable, [...] bleeding, progressive neurologic complaints, fevers or chills. Other systems were reviewed and were negative PHYSICAL EXAM Vital Signs: BP 100/60 Pulse 70 Ht 5' 9 (1.753 m) Wt 192 lb (87.1 kg) BMI 28.35 kg/m?? ,Body mass index is 28.35 kg/m??. Constitutional: No acute distress, non-toxic appearance [...] No results found for this visit on 06/21/18. ASSESSMENT: 1. S/P CABG x 3 2. Benign essential HTN 3. Other hyperlipidemia PLAN I am not opposed to the supplements as suggested. I did, however, tell him that I thought that beta-ann may be contributing to his fatigue. Thus, we lowered his metoprolol extended release dose from 100 mg daily down to 50 mg/day. I have asked him to call us in 10-14 days and let us know whether he is feeling better with the dose decrease. I have asked him to check his blood pressure a few times after making the dose changes well. Return in about 1 year (around 06/21/2019). This chart was completed using voice recognition technology and may contain unintended errors documented in this encounter Miscellaneous Notes * Patient Instructions - Oly Guzman RMA - 06/21/2018 10:00 AM EST Decrease Metoprolol to 1/2 tablet per day documented in this encounter Plan of Treatment Not on file documented as of this encounter Visit Diagnoses Diagnosis S/P CABG x 3- Primary Postsurgical aortocoronary bypass status Benign essential HTN Essential hypertension, benign Other hyperlipidemia documented in this encounter Discontinued Medications Medication Sig Discontinue Reason Start Date End Da te meloxicam (MOBIC) 15 mg Oral Tablet Take 15 mg by mouth daily. DELETE-Therapy completed 06/21/2018 documented as of this encounter Care Teams Record Maker Relationship Specialty Start Date End Date Yelena Damian [address] [place] [address] [address] [place] [address] PCP - General Family Medicine 06/21/18 10/11/22 documented as of this encounter
--- OUTSIDE RECORDS SUMMARY | 2024-05-21 08:40 | XMS_ITS | Encounter Summary ---
Author Organization [place] [address] Care Team Providers Care Landscape And Yardwork Laborer Name Role Phone Anupam Drake MD Primary Care Provider [phone] Encounter Details Date Type Department Care Team (Late st Contact Info) Description 01/10/2023 Orders Only SEP Neurology [facility] [address] [place] [address] Letty Cazares RMA Essential tremor (Primary Dx) Social History Tobacco Use Types Packs/Day Years [...] on file documented as of this encounter Ordered Prescriptions Prescription Sig Dispense Quantity Refills Last Filled Start Date End Date metoprolol succinate (TOPROL-XL) 25 mg Oral Tablet Sustained Release 24 hrIndications:Esse ntial tremor Take 1 Tablet by mouth daily. Take 1 daily in addition to 50 mg tab for total of 75 mg daily 90 Tablet 2 01/10/2023 documented in this encounter Progress Notes * Letty Cazares RMA - 01/10/2023 1:12 PM EDT [facility] for a 90 days supply of the Toprol XL 25 mg. The Rx has been sent. documented in this encounter Plan of Treatment Not on file documented as of this encounter Visit Diagnoses Diagnosis Essential tremor- Primary Essential and other specified forms of tremor documented in this encounter Discontinued Medications Medication Sig Discontinue Reason Start Date End Da te metoprolol succinate (TOPROL-XL) 25 mg Oral Tablet Sustained Release 24 hr Take 1 Tablet by mouth daily. Take 1 daily in addition to 50 mg tab for total of 75 mg daily Reorder 11/13/2022 01/10/2023 documented as of this encounter Additional Health Concerns Assessment Noted Time A fall risk assessment has been complete d for the patient 03/18/2020 8:24 AM EDT documented as of this encounter Care Teams Landscape And Yardwork Laborer Relationship Specialty Start Date End Date Anupam Drake MD [facility] [address] [place] [id number] PCP - General Family Medicine 10/12/22 documented as of this encounter
--- OUTSIDE RECORDS SUMMARY | 2024-05-21 08:40 | XMS_ITS | Encounter Summary ---
Author Organization [place] [address] Care Team Providers Care Lead Technical Writer Name Role Phone Anupam Drake MD Primary Care Provider [phone] Reason for Visit * Reason Onset Date Comments Follow-up 01/22/2023 Encounter Details Date Type Department Care Team (Late st Contact Info) Description 01/22/2023 Telephone SEP Neurology [facility] [address] [place] [address] Sakina Brooks, [address] [address] Follow-up (March 2023) Social History Tobacco Use Types Packs/Day Years [...] on file documented as of this encounter Miscellaneous Notes * Telephone Encounter - Veronica Moses, Clerical Staff - 01/29/2023 12:26 PM EDT TCB to schedule f/u with Dr. Brooks * Telephone Encounter - Veronica Moses, Clerical Staff - 01/22/2023 1:43 PM EDT LMTCB to schedule f/u with Dr. Brooks documented in this encounter Plan of Treatment Not on file documented as of this encounter Visit Diagnoses Not on filedocumented in this encounter Additional Health Concerns Assessment Noted Time A fall risk assessment has been complete d for the patient 03/18/2020 8:24 AM EDT documented as of this encounter Care Teams Lead Technical Writer Relationship Specialty Start Date End Date Anupam Drake MD [address] [place] [address] [address] [place] [phone] PCP - General Family Medicine 10/12/22 documented as of this encounter
--- OUTSIDE RECORDS SUMMARY | 2024-05-21 08:40 | XMS_ITS | Encounter Summary ---
Author Organization [facility] Address [address] [place] [address] Care Team Providers Care Carpentry Instructor Name Role Phone Anupam Drake MD Primary Care Provider [phone] Encounter Details Date Type Department Care Team (Latest Contact Info) Description 11/03/2022 1:15 PM EDT Ancillary Procedure [facility] [address] [facility] [address] [place] [address] Octavio Reyes PA-C [address] [place] [address] Acute pain of both knees Social History Tobacco Use Types Packs/Day Years [...] on file documented as of this encounter Plan of Treatment Not on file documented as of this encounter Procedures Procedure Name Priority Date/Time Associated Diagnosis Comments XR KNEE BILATERAL AP LATERAL INTERNAL AND EXTERNAL OBLIQUES Routine 11/03/2022 1:26 PM EDT Acute pain of both knees documented in this encounter Results * XR KNEE BILATERAL AP LATERAL INTERNAL AND EXTERNAL OBLIQUES (11/03/2022 1:26 PM EDT) Narrative GenericuserNicholas - 11/03/2022 1:26 PM EDT Please see physician's note from office encounter for x-ray imaging result Octavio Reyes PA-C [facility] DI[facility]NOST[facility] ORDERA BLES Final Result documented in this encounter Visit Diagnoses Diagnosis Acute pain of both knees documented in this encounter Additional Health Concerns Assessment Noted Time A fall risk assessment has been complete d for the patient 03/18/2020 8:24 AM EDT documented as of this encounter Care Teams Carpentry Instructor Relationship Specialty Start Date End Date Anupam Drake MD [address] [place] [phone] PCP - General Family Medicine 10/12/22 documented as of this encounter
--- OUTSIDE RECORDS SUMMARY | 2024-05-21 08:40 | XMS_ITS | Encounter Summary ---
Author Organization [place] [address] Care Team Providers Care School Health Aide Name Role Phone Anupam Drake MD Primary Care Provider [phone] Reason for Visit * Reason Comments Tremors Both hands x 3-5 yea rs, getting worse in the last year * Consultation (Routine) - Closed Specialty Diagnoses / Procedures Referred By Daniela adair Referred To Contact Diagnoses Benign essential tremor Kami Brothers, APRON TRIMMER [address] [facility] [address] [place] [address] Phone: tel: fax: [facility] [address] [address] Phone: tel: Referral ID Status Reason Start Date Expiration Date Visits Re quested Visits Authorized [id number] Closed 10/12/2022 10/12/2023 15 15 Encounter Details Date Type Department Care Team (Late st Contact Info) Description 11/08/2022 11:20 AM EDT Office Visit SEP Neurology [place] [address] [place] [address] Sakina Brooks DO [address] [facility] [address] [place] [address] Essential tremor (Primary Dx) Social History Tobacco [...] Sign Reading Time Taken Comments Blood Pressure 132/68 11/08/2022 11:12 AM EDT Pulse 69 11/08/2022 11:12 AM EDT Temperature 36.3 ??C (97.3 ??F) 11/08/2022 11:12 AM E DT Respiratory Rate - - Oxygen Saturation 96% 11/08/2022 11:12 AM EDT Inhaled Oxygen Concentration - - Weight 89.8 kg (198 lb) 11/08/2022 11:12 AM EDT Height 175.3 cm (5' 9 ) 11/08/2022 11:12 AM EDT Body Mass Index 29.24 11/08/2022 11:12 AM EDT documented in this encounter Progress Notes * Sakina Brooks, - 11/08/2022 11:20 AM EDT Neurology Consult - SEP Neurology Chief Complaint Patient presents with Tremors Both hands x 3-5 years, getting worse in the last year HPI: Josh Ford is a 67 y.o. male who was referred for consultation by Kami Brothers APRN regarding tremor. Thinks tremor started 4-5 years ago and symptoms are worsening. Tremor involves the hands bilaterally. No head/voice involvement. Struggles to use a fork. Writing is no longer legible. 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 Did see a neurologist previously. Was given Primidone, only took one or two pills and had severe nausea so he stopped it. Does not recall dose. Was on Metoprolol at the time for cardiac reasons whichwas changed to Propranolol 40 mg once daily without improvement (tried for 2 months). Now back on Metoprolol but states that about 1-2 years ago was reduced from 100 mg to 50 mg due to fatigue. He states he was on Topamax at some point as well but thinks he had side effects. Drinks 1 cup of coffee daily. Rare soda. Does not drink alcohol. No family hx of tremor. Past Medical History: Diagnosis Date Bladder problem frequency CAD (coronary artery disease) Family history of other cardiovascular diseases(V17.49) Hyperlipidemia Hypertension Neuromuscular disorder (HCC) tremors in hands worse in R. Shortness of breath Past Surgical History: Procedure Laterality Date CARDIAC CATHETERIZATION CARDIAC SURGERY N/A 03/03/2015 LYSIS OF DENSE PERICARDIAL ADHESIONS, CORONARY ARTERY BYPASS GRAFTS X 3 USING RIGHT SAPHENOUS VEIN X 2 AND LEFT INTERNAL MAMMARY ARTERY X 1; Surgeon: Felix Mcbride MD; Location: [facility]; Service: Open Heart NECK SURGERY 2000 benign tumer removed Current Outpatient Medications on File Prior to Visit Medication Sig Dispense Refill aspirin 81 mg Oral Tablet, Chewable Take 81 mg by mouth daily. atorvastatin (LIPITOR) 40 mg Oral Tablet TAKE 1 TABLET NIGHTLY (REPLACES SIMVASTATIN) NEEDAN APPOINTMENT AND LABS DONE 90 Tab 0 cholecalciferol, vitamin D3, 25 mcg (1,000 unit) Oral Tablet Take 1 Tablet by mouth daily. cyanocobalamin 1,000 mcg Oral Tablet Take 1,000 mcg by mouth daily. glucosamine HCl/chondroitin rowley (GLUCOSAMINE-CHONDROITIN) 2,000-1,200 mg/30 mL Oral Liquid Take by mouth daily. lisinopril-hydrochlorothiazide (PRINZIDE;ZESTORETIC) 20-25 mg Oral Tablet Take 0.5 Tabs by mouth daily. metoprolol succinate (TOPROL-XL) 50 mg Oral Tablet Sustained Release 24 hr Take 50 mg by mouth daily. tamsulosin (FLOMAX) 0.4 mg Oral Capsule Take by mouth daily. No current facility-administered medications on file prior to visit. Social History Socioeconomic History Marital status: Spouse name: Not on file Number of children: Not on file Years of education: Not on file Highest education level: Not on file Occupational History Not on file Tobacco Use Smoking status: Former Types: Cigarettes Quit date: 02/08/2007 Years since quittin.7 Smokeless tobacco: Never Substance and Sexual Activity Alcohol use: No Alcohol/week: 0.0 oz Comment: quit 06/08/1989 Drug use: No Sexual activity: Not on file Other Topics Concern Not on file Social History Narrative Not on file Social Determinants of Health Financial Resource Strain: Not on file Food Insecurity: Not on file Transportation Needs: Not on file Physical Activity: Not on file Stress: Not on file Social Connections: Not on file Intimate Partner Violence: Not on file Housing Stability: Not on file Family History Problem Relation Age of Onset Hypertension Mother Heart Attack Father Heart Disease Father Heart Surgery Brother Heart Disease Brother Heart Attack Paternal Grandfather Heart Attack Brother High Cholesterol Brother Hypertension Brother Heart Disease Brother Review of Systems All systems reviewed and negative except as per HPI. Please see scanned image for details. Physical Exam Vitals: 11/08/22 1112 BP: 132/68 Pulse: 69 Temp: 97.3 ??F (36.3 ??C) SpO2: 96% Body mass index is 29.24 kg/m??. Gen: Well developed, well nourished, no acute distress HEENT: NC/AT. Cardiovascular: Regular rate and rhythm, no murmurs/rubs/gallops, no carotid bruits noted Resp: Clear to auscultation bilaterally, no wheezes/rales/rhonchi. Abd: Soft, non-tender, non-distended Ext: No cyanosis, clubbing, or edema Neurology Exam Mental Status: Alert, oriented to person, place, and date. Attention and concentration normal. Fundof knowledge appropriate for age. Recent and remote memory intact. Language: Speech fluent. Able to name and repeat without difficulty. Follows commands without difficulty. Cranial Nerves: II: Visual rea full to confrontation. Pupils 2 to 1mm OU. III, IV, : EOMI. No nystagmus V: Facial sensation symmetric to light touch and pinprick VII: Facial movements symmetric, smile symmetric VIII: Hearing intact to finger rub bilaterally IX, X: Palate raises midline, no uvula deviation XI: Shoulder shrug symmetric XII: Tongue protrudes midline Motor: 5/5 strength in all 4 extremities. Normal muscle bulk. Tone is normal in all 4 extremities. R > L UE postural/kinetic tremor specifically with archimedes spiral/signing name Sensation: Intact in all 4 extremities to light touch and vib Reflexes: 2/4 bilateral biceps, triceps, brachioradialis. 2/4 bilateral patellar, 2/4 bilateral Achilles. Coordination: Bfthye-lw-qeic and rapid alternating movements intact. No dysmetria or dysdiadochokinesia. Station and Gait: Narrow stance and unremarkable gait. Good arm swing and stride length. Imaging and Labs: Lab Results Component Value Date NA 141 01/14/2016 K 3.9 01/14/2016 CL 102 01/14/2016 CO2 28 03/08/2015 BUN 18 01/14/2016 CREATININE 1.05 10/18/2015 Lab Results Component Value Date WBC 13.2 (H) 03/08/2015 RBC 3.96 (L) 03/08/2015 HGB 11.6 (L) 03/08/2015 HCT 35.2 (L) 03/08/2015 MCV 88.9 03/08/2015 PLT 233 03/08/2015 Lab Results Component Value Date HGBA1C 6.1 03/02/2015 Lab Results Component Value Date MG 2.2 03/07/2015 Assessment and Plan: Josh Fodr is a 67 y.o. male seen in neurologic assessment on 11/08/22 regarding tremor. Benign essential tremor- has failed Primidone, Propranolol and Topamax. Currently on Metoprolol, hewould like to consider slight increase to 75 mg daily if ok'd by his outsole cementer. If not effectivehe may be a good surgical candidate but he is not interested at this time. Only other option would be to retry one of the other medications. I have also recommended updated blood work. He will be notified with any abnormal findings. We will otherwise contact him once we hear back from his outsole cementer. I will see him back in 4 months. All questions were answered satisfactorily. Thank you for allowing me to participate in the care of Josh Ford. Please do no hesitate to contact me with any further questions or concerns. Sakina Brooks DO 11/08/22 11:20 AM documented in this encounter Miscellaneous Notes * Patient Instructions - Sakina Brooks DO - 11/08/2022 11:20 AM EDT Blood work Will send message to Dr. Alberto about Metoprolol- we will call you once we hear back documented in this encounter Plan of Treatment Scheduled Orders Name Type Priority Associated Diagnoses Orde r Schedule VITAMIN B12 LEVEL Lab Routine Essential tremor 1 Occurrences starting 11/08/2022 until 11/09/2023 TSH REFLEX Lab Routine Essential tremor 1 Occurrences starting 11/08/2022 until 11/09/2023 documented as of this encounter Visit Diagnoses Diagnosis Essential tremor- Primary Essential and other specified forms of tremor documented in this encounter Historical Medications * This list may reflect changes made after this encounter. cholecalciferol, vitamin D3, 25 mcg (1,000 unit) Oral Tablet Take 1 Tablet by mouth daily. glucosamine HCl/chondroitin rowley (GLUCOSAMINE-HUMBLE DROITIN) 2,000-1,200 mg/30 mL Oral Liquid Take by mouth daily. cyanocobalamin 1,000 mcg Oral Tablet Take 1,000 mcg by mouth daily. added in this encounter Additional Health Concerns Assessment Noted Time A fall risk assessment has been complete d for the patient 03/18/2020 8:24 AM EDT documented as of this encounter Care Teams School Health Aide Relationship Specialty Start Date End Date Anupam Drake MD [address] [place] [address] [address] [place] [address] PCP - General Family Medicine 10/12/22 documented as of this encounter
--- OUTSIDE RECORDS SUMMARY | 2024-05-21 08:40 | XMS_ITS | Encounter Summary ---
Author Organization [place] [address] Care Team Providers Care Shirt Bander Name Role Phone Anupam Drake MD Primary Care Provider [phone] Reason for Visit * Reason Onset Date Comments Medication Question 11/09/2022 Encounter Details Date Type Department Care Team (Late st Contact Info) Description 11/09/2022 Telephone [facility] [place] [id number] Ulises Alberto MD [address] [place] [address] Medication Question Social History Tobacco Use Types Packs/Day Years [...] Refills Last Filled Start Date End Date rosuvastatin (CRESTOR) 10 mg Oral Tablet Take 1 Tablet by mouth daily. 30 Tablet 11 11/10/2022 01/10/2023 documented in this encounter Miscellaneous Notes * Telephone Encounter - Oly Guzman RMA - 11/10/2022 4:50 PM EDT Swp Pt agrees to try Crestor 10mg per day, pt will recheck fasting blood work in 6-8 weeks. Pt verbalized understanding. [facility] * Telephone Encounter - Casandra Hall - 11/10/2022 4:32 PM EDT The patient is calling back on his cholesterol medication issue * Telephone Encounter - Diana Wright, Clerical Staff - 11/10/2022 8:16 AM EDT pt returning call per prev message. He would like a call back at [phone] * Telephone Encounter - Zunilda Brown RMA - 11/09/2022 2:13 PM EDT Left message for patient to call back * Telephone Encounter - China Goff APRN - 11/09/2022 1:58 PM EDT Let's trial Crestor 10 mg nightly with repeat lipids, AST and ALT in 6-8 weeks. Ask him to call forrecurrent myalgias. If fails Crestor will discuss PSCK9 inhibitor. * Telephone Encounter - Zunilda Brown RMA - 11/09/2022 1:32 PM EDT Pt stated that the leg pain is better since being off the statin. Wants to know what to take now. * Telephone Encounter - Stormy Sibley - 11/09/2022 1:27 PM EDT Patient was told to stop taking the cholesterol medicine due to having pain. He would like to know what medicine he should start taking for his cholesterol now. Please advise. documented in this encounter Plan of Treatment Scheduled Orders Name Type Priority Associated Diagnoses Orde r Schedule LIPID SCREEN Lab Routine ASHD (arteriosclerotic heart disease) Benign essential HTN Mixed hyperlipidemia 1 Occurrences starting 11/10/2022 until 11/11/2023 ASPARTATE AMINOTRANSFERASE Lab Routine ASHD (arteriosclerotic heart disease) Benign essential HTN Mixed hyperlipidemia 1 Occurrences starting 11/10/2022 until 11/11/2023 ALANINE AMINOTRANSFERASE Lab Routine ASHD (arteriosclerotic heart disease) Benign essential HTN Mixed hyperlipidemia 1 Occurrences starting 11/10/2022 until 11/11/2023 documented as of this encounter Visit Diagnoses Diagnosis ASHD (arteriosclerotic heart disease)- Primary Coronary atherosclerosis of unspecified type of vessel, [place] or graft Benign essential HTN Essential hypertension, benign Mixed hyperlipidemia documented in this encounter Discontinued Medications Medication Sig Discontinue Reason Start Date End Da te atorvastatin (LIPITOR) 40 mg Oral TabletIndications:S/P CABG x 3,Hyperlipidemia,Essen tial hypertension,Left leg pain TAKE 1 TABLET NIGHTLY (REPLACES SIMVASTATIN) NEEDAN APPOINTMENT AND LABS DONE Alternate therapy 02/23/2017 11/10/2022 documented as of this encounter Additional Health Concerns Assessment Noted Time A fall risk assessment has been complete d for the patient 03/18/2020 8:24 AM EDT documented as of this encounter Care Teams Shirt Bander Relationship Specialty Start Date End Date Anupam Drake MD [id number] [address] [place] [address] PCP - General Family Medicine 10/12/22 documented as of this encounter
--- OUTSIDE RECORDS SUMMARY | 2024-05-21 08:40 | XMS_ITS | Encounter Summary ---
Author Organization [facility] [place] [address] Care Team Providers Care Burial Agent Name Role Phone Yelena Damian Primary Care Provider [phone] Encounter Details Date Type Department Care Team (Latest Contact Info) Description 04/08/2020 Travel Social History Tobacco Use Types Packs/Day [...] have Coronavirus / COVID-19? No / Unsure 04/08/2020 4:31 PM EDT documented as of this encounter Plan of Treatment Not on file documented as of this encounter Visit Diagnoses Not on filedocumented in this encounter Additional Health Concerns Assessment Noted Time A fall risk assessment has been complete d for the patient 03/18/2020 8:24 AM EDT documented as of this encounter Care Teams Burial Agent Relationship Specialty Start Date End Date Yelena Damian [address] [place] [facility] [address] [place] [address] PCP - General Family Medicine 06/21/18 10/11/22 documented as of this encounter
--- OUTSIDE RECORDS SUMMARY | 2024-05-21 08:40 | XMS_ITS | Encounter Summary ---
Author Organization [facility] [place] [address] Care Team Providers Care Driver Salesman Name Role Phone Yelena Damian Primary Care Provider [phone] Encounter Details Date Type Department Care Team (Latest Contact Info) Description 04/09/2020 Travel Social History Tobacco Use Types Packs/Day [...] documented as of this encounter Care Teams Driver Salesman Relationship Specialty Start Date End Date Yelena Damian [address] [facility] [address] [place] [address] PCP - General Family Medicine 06/21/18 10/11/22 documented as of this encounter
--- OUTSIDE RECORDS SUMMARY | 2024-05-21 08:40 | XMS_ITS | Encounter Summary ---
Author Organization [place] [address] Care Team Providers Care Rug Dry Room Attendant Name Role Phone Anupam Drake MD Primary Care Provider [phone] Reason for Visit * Reason Onset Date Comments Results 11/10/2022 stress Encounter Details Date Type Department Care Team (Late st Contact Info) Description 11/10/2022 Telephone [facility] [address] [place] [address] Ulises Alberto MD [address] [place] [address] Results (stress) Social History Tobacco Use Types Packs/Day Years [...] AM EDT documented as of this encounter Miscellaneous Notes * Telephone Encounter - Oly Guzman RMA - 11/10/2022 4:54 PM EDT Swp re stress test results. * Telephone Encounter - Casandra Hall - 11/10/2022 4:30 PM EDT The patient is calling back for his stress results documented in this encounter Plan of Treatment Not on file documented as of this encounter Visit Diagnoses Not on filedocumented in this encounter Additional Health Concerns Assessment Noted Time A fall risk assessment has been complete d for the patient 03/18/2020 8:24 AM EDT documented as of this encounter Care Teams Rug Dry Room Attendant Relationship Specialty Start Date End Date Anupam Drake MD [address] [place] [address] [address] [place] [phone] PCP - General Family Medicine 10/12/22 documented as of this encounter
--- OUTSIDE RECORDS SUMMARY | 2024-05-21 08:40 | XMS_ITS | Encounter Summary ---
Author Organization [facility] Address [address] [place] [address] Care Team Providers Care Senior It Project Manager Name Role Phone Anupam Drake MD Primary Care Provider [phone] Encounter Details Date Type Department Care Team (Latest Contact Info) Description 11/03/2022 1:50 PM EDT Ancillary Procedure [facility] [address] [facility] [address] [place] [address] Octavio Reyes PA-C [address] [place] [address] Bilateral hip pain Social History Tobacco Use Types Packs/Day Years [...] Name Priority Date/Time Associated Diagnosis Comments XR HIP BILATERAL 3-4 VIEW Routine 11/03/2022 1:49 PM EDT Bilateral hip pain documented in this encounter Results * XR HIP BILATERAL 3-4 VIEW (11/03/2022 1:49 PM EDT) Narrative Nicholas Dodge - 11/03/2022 1:50 PM EDT Please see physician's note from office encounter for x-ray imaging result Octavio Reyes PA-C IMG DIAGNOSTIC IMAGING ORDERA BLES Final Result documented in this encounter Visit Diagnoses Diagnosis Bilateral hip pain Pain in joint, pelvic region and thigh documented in this encounter Additional Health Concerns Assessment Noted Time A fall risk assessment has been complete d for the patient 03/18/2020 8:24 AM EDT documented as of this encounter Care Teams Senior It Project Manager Relationship Specialty Start Date End Date Anupam Drake MD [facility] [address] [place] [id number] PCP - General Family Medicine 10/12/22 documented as of this encounter
--- OUTSIDE RECORDS SUMMARY | 2024-05-21 08:40 | XMS_ITS | Encounter Summary ---
Author Organization [facility] Address [address] [place] [address] Care Team Providers Care Tap Grinder Name Role Phone Anupam Drake MD Primary Care Provider [phone] Reason for Visit * Reason Comments Follow-up Follow-up Encounter Details Date Type Department Care Team (Latest Contact Info) Description 06/21/2023 3:00 PM EST Office Visit [facility] [address] [place] [address] Octavio Reyes PA-C [address] [place] [address] Primary osteoarthritis of left knee (Primary Dx); Primary osteoarthritis of right knee Social History Tobacco Use Types Packs/Day [...] on file documented as of this encounter Progress Notes * Octavio Reyes PA-C - 06/21/2023 3:00 PM ESTAssociated Order(s): Large Joint Injection/Arthrocentesis: bilateral knee Post-Procedure Diagnose(s): Primary osteoarthritis of left knee; Primary osteoarthritis of right knee Large Joint Injection/Arthrocentesis: bilateral knee on 06/21/2023 3:00 PM Indications: pain and joint swelling Details: 22 G needle, superolateral approach Medications (Right): 40 mg triamcinolone acetonide 40 mg/mL; 2 mL BUPivacaine HCl 0.25 % (2.5 mg/mL) Medications (Left): 40 mg triamcinolone acetonide 40 mg/mL; 2 mL BUPivacaine HCl 0.25 % (2.5 mg/mL) Outcome: tolerated well, no immediate complications Procedure, treatment alternatives, risks and benefits explained, specific risks discussed. Consent was given by the patient. Immediately prior to procedure a time out was called to verify the correctpatient, procedure, equipment, support team member and site/side marked as required. Patient was prepped and draped in the usual sterile fashion. * Octavio Ryees PA-C - 06/21/2023 3:00 PM EST Images from the original note were not included. [address] [phone] [place], [place] [phone] [place], [place] Josh Ford 1955 Chief Complaint Patient presents with Right Knee - Follow-up Left Knee - Follow-up Subjective: Josh Ford is a 68 y.o. male is presenting today for repeat evaluation of bilateral knee Reports relief with previous cortisone injection of the knee on last OV, 11/03/22 Relief has worn off and pain has returned, especially with increased physical activity Objective: Review of Systems Constitutional: Negative. Respiratory: Negative. Cardiovascular: Negative. Gastrointestinal: Negative. Musculoskeletal: Positive for joint pain. Skin: Negative. There is no height or weight on file to calculate BMI. On physical examination the patient is alert and oriented x3. Appropriate mood for the conversation. Well-developed and well-nourished in appearance. Gait examination reveals no obvious abnormalities. Skin of bilateral upper and lower extremities with no obvious rash or lesions. Motor control intact of the bilateral upper and lower extremities. No evidence of obvious lymphedema of bilateral lowerextremities. Respiratory rate is normal by clinical examination. Pulse rate is normal by peripheral pulse examination. Examination of the bilateral knee shows that it is stable to varus/valgus stressing. Normal anterior/posterior drawer testing. Normal Tomi testing. Normal Brian testing. There is tenderness to palpation over the medial joint line, as well as the patellofemoral joint. The skin is intact. Imaging: None today Assessment and Plan: Diagnoses and all orders for this visit: Primary osteoarthritis of left knee - Large Joint Injection/Arthrocentesis: bilateral knee Primary osteoarthritis of right knee - Large Joint Injection/Arthrocentesis: bilateral knee PLAN: Recommended to continue conservative management Discussed options Keep follow-up as scheduled to determine response. If good symptomatic relief is achieved, patient may schedule for repeat injection in 3 months if needed. Patient agreeable and all questions answered. A bilateral knee corticosteroid injection was given today. Under sterile conditions and from a superolateral approach, a local anesthetic and steroid were injected into the knee joint. This was well tolerated by the patient. Sterile dressings were applied. There were no obvious immediate complications after the procedure. I discussed with the patient about monitoring for pain, as well as the standard expectation after an injection. Patient was educated on the signs or symptoms of complication and will monitor for these. documented in this encounter Plan of Treatment Not on file documented as of this encounter Procedures Procedure Name Priority Date/Time Associated Diagnosis Comments IL ARTHROCENTESIS LARGE JOINT W/O US BILATERAL Routine 06/21/2023 3:00 PM EST Primary osteoarthritis of left knee Primary osteoarthritis of right knee documented in this encounter Results * IL ARTHROCENTESIS LARGE JOINT W/O US BILATERAL (06/21/2023 3:00 PM EST) Narrative [facility] - 06/21/2023 3:00 PM EST Octavio Reyes PA-C ? 06/21/2023 ??3:34 PM Large Joint Injection/Arthrocentesis: bilateral knee on 06/21/2023 3:00 PM Indications: pain and joint swelling Details: 22 G needle, superolateral approach Medications (Right): 40 mg triamcinolone acetonide 40 mg/mL; 2 mL BUPivacaine HCl 0.25 % (2.5 mg/mL) Medications (Left): 40 mg triamcinolone acetonide 40 mg/mL; 2 mL BUPivacaine HCl 0.25 % (2.5 mg/mL) Outcome: tolerated well, no immediate complications Procedure, treatment alternatives, risks and benefits explained, specific risks discussed. Consent was given by the patient. Immediately prior to procedure a time out was called to verify the correct patient, procedure, equipment, support team member and site/side marked as required. Patient was prepped and draped in the usual sterile fashion. Octavio Reyes PA-C PROCEDURE/MINOR SURGICAL ORDRome RIOS Final Result [facility] documented in this encounter Visit Diagnoses Diagnosis Primary osteoarthritis of left knee- Primary Primary localized osteoarthrosis, lower leg Primary osteoarthritis of right knee Primary localized osteoarthrosis, lower leg documented in this encounter Administered Medications Inactive Administered Medications - up to 1 most recent administrations Medication Order MAR Action Action Date Dose Rate Site BUPivacaine HCl (MARCAINE) 0.25 % (2.5 mg/mL) injection 2 mL 2 mL, Intra-articular, ONCE PRN, 1 dose, Starting on [place] 06/21/23 at 1500, Until [place] 06/21/23 at 1500, Dx: 1. Primary osteoarthritis of left knee 2. Primary osteoarthritis of right kneeIndications:Primary osteoarthritis of left knee,Primary osteoarthritis of right knee Given 06/21/2023 3:00 PM EST 2 mL Left Knee BUPivacaine HCl (MARCAINE) 0.25 % (2.5 mg/mL) injection 2 mL 2 mL, Intra-articular, ONCE PRN, 1 dose, Starting on [place] 06/21/23 at 1500, Until [place] 06/21/23 at 1500, Dx: 1. Primary osteoarthritis of left knee 2. Primary osteoarthritis of right kneeIndications:Primary osteoarthritis of left knee,Primary osteoarthritis of right knee Given 06/21/2023 3:00 PM EST 2 mL Right Knee triamcinolone acetonide (KENALOG-40) injection 40 mg 40 mg, Intra-articular, ONCE PRN, 1 dose, Starting on [place] 06/21/23 at 1500, Until [place] 06/21/23 at 1500, Dx: 1. Primary osteoarthritis of left knee 2. Primary osteoarthritis of right kneeIndications:Primary osteoarthritis of left knee,Primary osteoarthritis of right knee Given 06/21/2023 3:00 PM EST 40 mg Left Knee triamcinolone acetonide (KENALOG-40) injection 40 mg 40 mg, Intra-articular, ONCE PRN, 1 dose, Starting on [place] 06/21/23 at 1500, Until [place] 06/21/23 at 1500, Dx: 1. Primary osteoarthritis of left knee 2. Primary osteoarthritis of right kneeIndications:Primary osteoarthritis of left knee,Primary osteoarthritis of right knee Given 06/21/2023 3:00 PM EST 40 mg Right Knee documented in this encounter Additional Health Concerns Assessment Noted Time A fall risk assessment has been complete d for the patient 03/18/2020 8:24 AM EDT documented as of this encounter Care Teams Tap Grinder Relationship Specialty Start Date End Date Anupam Drake MD [facility] [place] [facility] [address] [place] [address] PCP - General Family Medicine 10/12/22 documented as of this encounter
--- OUTSIDE RECORDS SUMMARY | 2024-05-21 08:40 | XMS_ITS | Encounter Summary ---
Author Organization [place] [address] Care Team Providers Care Food Science Technician Name Role Phone Anupam Drake MD Primary Care Provider [phone] Encounter Details Date Type Department Care Team (Latest Contact Info) Description 12/19/2023 8:50 AM EDT - 12/19/2023 11:59 PM EDT Hospital Encounter [facility] [address] [place] [address] Elevated liver enzymes Discharge Disposition: Home or Self Care Social [...] on file documented as of this encounter Medications at [...] by mouth daily. 01/06/2016 metoprolol succinate (TOPROL-XL) 25 mg Oral Tablet Sustained Release 24 hrIndications:Ess ential tremor Take 1 Tablet by mouth daily. Take 1 daily in addition to 50 mg tab for total of 75 mg daily 90 Tablet 2 01/10/2023 metoprolol succinate (TOPROL-XL) 50 mg Oral Tablet Sustained Release 24 hr Take 50 mg by mouth daily. rosuvastatin (CRESTOR) 10 mg Oral Tablet Take 1 Tablet by mouth daily. 90 Tablet 2 01/10/2023 tamsulosin (FLOMAX) 0.4 mg Oral Capsule Take by mouth daily. documented as of this encounter Discharge Disposition Disposition Code Departure Means Destination Home or Self Care documented in this encounter Progress Notes * Mejia Vega DO - 12/19/2023 8:50 AM EDT Please let the patient know that I reviewed his recent lab work. His liver enzymes are normalizing and he has no signs of autoimmune or inherited liver disorders. As we discussed in clinic I do believe his elevation in liver enzymes is related either to his statin or the supplement he was taking for his hand tremors. He should still avoid both of these. Plan will be to see him in clinic and repeat lab work in several months. Thanks, Mejia Vega DO documented in this encounter Plan of Treatment Not on file documented as of this encounter Procedures Procedure Name Priority Date/Time Associated Diagnosis Comments BILIRUBIN DIRECT Routine 12/19/2023 9:03 AM EDT Elevated liver enzymes HCV ANTIBODY SCREEN W/ REFLEX Routine 12/19/2023 9:03 AM EDT Elevated liver enzymes CBC Routine 12/19/2023 9:03 AM EDT Elevated liver enzymes F-ACTIN (SMOOTH MUSCLE) AB, IGG W/RFLX -REF LAB Routine 12/19/2023 9:03 AM EDT Elevated liver enzymes [id number] -REF LAB Routine 12/19/2023 9:03 AM EDT Elevated liver enzymes HEPATITIS A VIRUS ANTIBODIES, TOTAL -REF LAB Routine 12/19/2023 9:03 AM EDT Elevated liver enzymes MITOCHONDRIAL M2 ANTIBODY, IGG -REF LAB Routine 12/19/2023 9:03 AM EDT Elevated liver enzymes CERULOPLASMIN -REF LAB Routine 9:03 AM EDT Elevated liver enzymes ALANINE AMINOTRANSFERASE Routine 024 9:03 AM EDT Elevated liver enzymes ASPARTATE AMINOTRANSFERASE Routine 12/19/2023 9:03 AM EDT Elevated liver enzymes PROTEIN TOTAL-BLOOD Routine 12/19/2023 9 :03 AM EDT Elevated liver enzymes ALKALINE PHOSPHATASE Routine 12/19/2023 9:03 AM EDT Elevated liver enzymes FERRITIN Routine 12/19/2023 9:03 AM EDT Elevated liver enzymes BILIRUBIN TOTAL Routine 12/19/2023 9:03 AM EDT Elevated liver enzymes RENAL FUNCTION PANEL Routine 12/19/2023 9:03 AM EDT Elevated liver enzymes documented in this encounter Results * (ABNORMAL) ALANINE AMINOTRANSFERASE (12/19/2023 9:03 AM EDT) ALT 97(H) <=41 U/L 12/19/2023 12:13 PM EDT Getting-in Blood VENOUS BLOOD / Unknown Venipuncture / Unknown 12/19/2023 9:03 AM EDT 12/19/2023 9:03 AM EDT us Mejia Vega DO CHEMISTRY ORDERABLES Final Re sult Getting-in [address] [facility] , [place] [address] * ASPARTATE AMINOTRANSFERASE (12/19/2023 9:03 AM EDT) AST 36 <=40 U/L 12/19/2023 12:13 PM EDT [facility] [employer] [facility] Blood VENOUS BLOOD / Unknown Venipuncture / Unknown 12/19/2023 9:03 AM EDT 12/19/2023 9:03 AM EDT Mejia Vega DO CHEMISTRY ORDERABLES Final Re sult Performing Organization Address [facility] Co de Phone Number [facility] [employer] [address] [facility] , [place] [address] * PROTEIN TOTAL-BLOOD (12/19/2023 9:03 AM EDT) Total Protein 7.5 6.4 - 8.3 gm/dL 12/19/2023 12:13 PM EDT [facility] [employer] Blood VENOUS BLOOD / Unknown Venipuncture / Unknown 12/19/2023 9:03 AM EDT 12/19/2023 9:03 AM EDT Mejia Vega DO CHEMISTRY ORDERABLES Final Re sult Performing Organization Address [facility] Co de Phone Number Getting-in [address] [facility] , [place] [address] * (ABNORMAL) ALKALINE PHOSPHATASE (12/19/2023 9:03 AM EDT) Alk Phos 158(H) 40 - 129 U/L 12/19/2023 12:13 PM EDT Getting[facility]in Blood VENOUS BLOOD / Unknown Venipuncture / Unknown 12/19/2023 9:03 AM EDT 12/19/2023 9:03 AM EDT Mejia Vega DO CHEMISTRY ORDERABLES Final Re sult Performing Organization Address [facility] Co de Phone Number Getting-in [address] [facility] , [place] [address] * BILIRUBIN TOTAL (12/19/2023 9:03 AM EDT) Bili Total 0.7 0.2 - 1.4 mg/dL 12/19/2023 12:13 PM EDT [facility] Blood VENOUS BLOOD / Unknown Venipuncture / Unknown 12/19/2023 9:03 AM EDT 12/19/2023 9:03 AM EDT us Mejia Vega DO CHEMISTRY ORDERABLES Final Re sult [facility] [employer] [address] [facility] , [place] [address] * BILIRUBIN DIRECT (12/19/2023 9:03 AM EDT) Pathologist [facility] Bili Direct 0.3 0.0 - 0.3 mg/dL 12/19/2023 12:13 PM EDT [facility] [employer] Blood VENOUS BLOOD / Unknown Venipuncture / Unknown 12/19/2023 9:03 AM EDT 12/19/2023 9:03 AM EDT us Mejia Vega DO CHEMISTRY ORDERABLES Final Re sult Performing Organization Address [facility]/ZIP Co de Phone Number [facility] [employer] [address] [facility] , [address] [place] [id number] * HCV ANTIBODY SCREEN W/ REFLEX (12/19/2023 9:03 AM EDT) Pathologist [facility] Hep C Ab Non-Reactiv e Non-Reacti ve 12/19/2023 12:35 PM EDT [facility] [employer] Blood VENOUS BLOOD / Unknown Venipuncture / Unknown 12/19/2023 9:03 AM EDT 12/19/2023 9:03 AM EDT us Mejia Vega DO HEMATOLOGY ORDERABLES Final R esult Performing Organization Address City/[facility]/ZIP Co de Phone Number Getting-in [address] [facility] , [place] [address] * HEPATITIS A VIRUS ANTIBODIES, TOTAL -REF LAB (12/19/2023 9:03 AM EDT) [facility] Hep A Ab Negative Negative 12/20/2023 4:30 PM EDT [employer] [facility] Comment: Performed By: [address] [place] [address] Pharmacy Picking Tech: Haroldo Childers MD, PhD CLIA Number: [id number] Blood VENOUS BLOOD / Unknown Venipuncture / Unknown 12/19/2023 9:03 AM EDT 12/19/2023 9:03 AM EDT Mejia Vega DO IMMUNOLOGY ORDERABLES Final R esult Performing Organization Address [facility] de Phone Number [facility] [address] [place] [address] * FERRITIN (12/19/2023 9:03 AM EDT) [facility] Ferritin 196 30 - 400 ng/mL 12/19/2023 12:13 PM EDT Getting[facility]in Blood VENOUS BLOOD / Unknown Venipuncture / Unknown 12/19/2023 9:03 AM EDT 12/19/2023 9:03 AM EDT Narrative [facility] [employer] - 12/19/2023 12:13 PM EDT Ingestion of dominic doses of biotin (>5 mg/day) taken within 8 hours of drawing blood sample can interfere with this immunoassay test. Mejia Vega DO CHEMISTRY ORDERABLES Final Re sult Performing Organization Address City/[facility] Co de Phone Number Getting-in [address] [facility] , [place] [address] * (ABNORMAL) [id number] -REF LAB (12/19/2023 9:03 AM EDT) [facility] Ecxve-8-Puergtyjj in 202(H) 90 - 200 mg/dL 12/20/2023 9:54 PM EDT [employer] [employer] Comment: To convert to umol/L, multiply mg/dL by 0.185 Performed By: [address] [place] [address] Pharmacy Picking Tech: Haroldo Childers MD, PhD CLIA Number: [id number] Blood VENOUS BLOOD / Unknown Venipuncture / Unknown 12/19/2023 9:03 AM EDT 12/19/2023 9:03 AM EDT Mejia Vega DO CHEMISTRY ORDERABLES Final Re sult [facility] [address] [place] [address] * (ABNORMAL) RENAL FUNCTION PANEL (12/19/2023 9:03 AM EDT) Sodium 138 136 - 145 mmol/L 12/19/2023 12:13 PM EDT [facility] Potassium 4.0 3.5 - 5.0 mmol/L 12/19/2023 12:13 PM EDT [facility] Chloride 103 98 - 107 mmol/L 12/19/2023 12:13 PM EDT [facility] Total CO2 26 22 - 29 mmol/L 12/19/2023 12:13 PM EDT [facility] Anion Gap 9 7 - 16 mmol/L 12/19/2023 12:13 PM EDT [facility] Calcium 9.5 8.8 - 10.4 mg/dL 12/19/2023 12:13 PM EDT [facility] Glucose Lvl 94 70 - 99 mg/dL 12/19/2023 12:13 PM EDT [facility] BUN 11 8 - 23 mg/dL 12/19/2023 12:13 PM EDT [facility] Creatinine 0.95 0.67 - 1.30 mg/dL 12/19/2023 12:13 PM EDT [facility] Albumin 4.5 3.2 - 4.6 gm/dL 12/19/2023 12:13 PM EDT [facility] Phosphorus 1.7(L) 2.5 - 4.5 mg/dL 12/19/2023 12:13 PM EDT [facility] eGFR (CKD-EPIcr 2020) 87 >=60 mL/min/1.7 3 m2 12/19/2023 12:13 PM EDT [facility] Comment:Estimated GFR was ca lculated using the CKD-EPIcr (2020) equation refit without race. The equation is recommended by the National Kidney Foundation - [place] Society of Nephrology Task Force. Blood VENOUS BLOOD / Unknown Venipuncture / Unknown 12/19/2023 9:03 AM EDT 12/19/2023 9:03 AM EDT us Mejia Vega DO CHEMISTRY ORDERABLES Final Re sult [facility] [address] [facility], [address] [place] [phone] [facility] [address] [place], [place] [phone] * (ABNORMAL) CBC (12/19/2023 9:03 AM EDT) WBC 8.6 3.7 - 10.3 x10(3)/mcL 12/19/2023 11:45 AM EDT [facility] RBC 4.52(L) 4.60 - 6.10 x10(6)/mcL 12/19/2023 11:45 AM EDT [facility] Hgb 15.9 13.7 - 17.5 g/dL 12/19/2023 11:45 AM EDT [facility] Hct 42.6 40.0 - 51.0 % 12/19/2023 11:45 AM EDT [facility] MCV 94.2 80.0 - 100.0 fL 12/19/2023 11:45 AM EDT [facility] MCH 35.2(H) 26.0 - 34.0 pg 12/19/2023 11:45 AM EDT [facility] MCHC 37.3(H) 30.7 - 35.5 g/dL 12/19/2023 11:45 AM EDT [facility] RDW 13.2 <=14.9 % 12/19/2023 11:45 AM EDT [facility] [employer] Platelet 254 155 - 369 x10(3)/mcL 12/19/2023 11:45 AM EDT [facility], [facility] MPV 10.8 8.8 - 12.5 fL 12/19/2023 11:45 AM EDT [facility] Blood VENOUS BLOOD / Unknown Venipuncture / Unknown 12/19/2023 9:03 AM EDT 12/19/2023 9:03 AM EDT Mejia Vega DO HEMATOLOGY ORDERABLES Final R esult [facility] [address] [facility] , [place] [address] * CERULOPLASMIN -REF LAB (12/19/2023 9:03 AM EDT) Ceruloplasmin 29 15 - 30 mg/dL 12/20/2023 3:59 PM EDT [employer] Comment: REFERENCE INTERVAL: Ceruloplasmin Access complete set of age- and/or gender-specific reference intervals for this test in the [facility] Test Directory (FTRANS). Performed By: [address] [place] [address] Pharmacy Picking Tech: Haroldo Childers MD, PhD CLIA Number: [id number] Blood VENOUS BLOOD / Unknown Venipuncture / Unknown 12/19/2023 9:03 AM EDT 12/19/2023 9:03 AM EDT us Mejia Vega DO CHEMISTRY ORDERABLES Final Re sult [facility] [address] [place] [address] * MITOCHONDRIAL M2 ANTIBODY, IGG -REF LAB (12/19/2023 9:03 AM EDT) Mitochon Ab IgG 0.8 0.0 - 24.9 Units 12/21/2023 12:03 AM EDT [facility] Comment: REFERENCE INTERVAL: Mitochondrial (M2) Antibody, IgG ?20.0 Units or less ......... Negative ??20.1 - 24.9 Units........... Equivocal ??25.0 Units or greater....... Positive Anti-mitochondrial antibodies (AMA) are thought to be present in 90-95% of patients with primary biliary cholangitis (PBC). However, the frequency of detected antibodies may be cohort or assay dependent, as lower sensitivities have been reported. Not all PBC patients are positive for AMA; some patients may be positive for SP100 and/or GP210 antibodies. A negative result does not rule out PBC. Performed By: [address] [place] [address] Pharmacy Picking Tech: Haroldo Childers MD, PhD CLIA Number: [id number] Blood VENOUS BLOOD / Unknown Venipuncture / Unknown 12/19/2023 9:03 AM EDT 12/19/2023 9:03 AM EDT us Mejia Vega DO IMMUNOLOGY ORDERABLES Final R esult [facility] [address] [place] [address] * F-ACTIN (SMOOTH MUSCLE) AB, IGG W/RFLX -REF LAB (12/19/2023 9:03 AM EDT) F Actin IgG 3 0 - 19 Units 12/21/2023 12:03 AM EDT [facility] Comment: If F-Actin (Smooth Muscle) Antibody, IgG is negative, the Smooth Muscle Antibody titer by IFA is not performed. REFERENCE INTERVAL: F-Actin (Smooth Muscle) Antibody, IgG by ?LENNIE ??19 Units or less ....... Negative ??20 - 30 Units .......... Weak Positive-Suggest repeat ? testing in two to three weeks ? with fresh specimen. ??31 Units or greater..... Positive-Suggestive of ? autoimmune hepatitis type 1 ? or chronic active hepatitis. F-actin IgG antibodies have been shown to have increased sensitivity for autoimmune hepatitis (AIH) but lower specificity than smooth muscle antibodies (SMA). F-actin IgG antibodies can also be seen in SMA-negative disease controls (non-AIH), especially in patients with primary biliary cirrhosis and chronic hepatitis C infections. Some patients with AIH may be SMA-positive but negative for F-actin IgG. Consider testing for SMA by [facility] if suspicion for AIH is strong. Performed By: [address] [place] [address] Pharmacy Picking Tech: Haroldo Childers MD, PhD CLIA Number: [id number] Blood VENOUS BLOOD / Unknown Venipuncture / Unknown 12/19/2023 9:03 AM EDT 12/19/2023 9:03 AM EDT us Mejia Vega DO IMMUNOLOGY ORDERABLES Final R esult [facility] [address] [place] [address] documented in this encounter Visit Diagnoses Diagnosis Elevated liver enzymes Nonspecific elevation of levels of transaminase or lactic acid dehydrogenase (LDH) documented in this encounter Orders Lab Orders Without Results Count Last Ordered D ate First Ordered Date HEPATIC FUNCTION PANEL 1 12/19/2023 documented in this encounter Additional Health Concerns Assessment Noted Time A fall risk assessment has been complete d for the patient 03/18/2020 8:24 AM EDT documented as of this encounter Care Teams Food Science Technician Relationship Specialty Start Date End Date Anupam Drake MD [facility] [address] [place] [address] PCP - General Family Medicine 10/12/22 documented as of this encounter
--- OUTSIDE RECORDS SUMMARY | 2024-05-21 08:40 | XMS_ITS | Encounter Summary ---
Author Organization [facility] [address] Care Team Providers Care Vehicle Inspector Name Role Phone Yelena Damian Primary Care Provider [phone] Encounter Details Date Type Department Care Team (Latest Contact Info) Description 04/01/2020 Travel Social History Tobacco Use Types Packs/Day [...] have Coronavirus / COVID-19? No / Unsure 04/01/2020 11:55 AM EDT documented as of this encounter Plan of Treatment Not on file documented as of this encounter Visit Diagnoses Not on filedocumented in this encounter Additional Health Concerns Assessment Noted Time A fall risk assessment has been complete d for the patient 03/18/2020 8:24 AM EDT documented as of this encounter Care Teams Vehicle Inspector Relationship Specialty Start Date End Date Yelena Damian [address] [place] [facility] [address] [place] [address] PCP - General Family Medicine 06/21/18 10/11/22 documented as of this encounter
--- OUTSIDE RECORDS SUMMARY | 2024-05-21 08:40 | XMS_ITS | Encounter Summary ---
Author Organization [place] [address] Care Team Providers Care Director Dietetics Department Name Role Phone Anupam Drake MD Primary Care Provider [phone] Reason for Referral * Stress (Routine) - Pending Review Specialty Diagnoses / Procedures Referred By Contac t Referred To Contact Radiology Diagnoses Chest pain, unspecified type ASHD (arteriosclerotic heart disease) Benign essential HTN Mixed hyperlipidemia Procedures ST STRESS TEST EXERCISE Eryn Alberto MD [address] [place] [address] Phone: tel: fax: Referral ID Status Reason Start Date Expiration Date V isits Requested Visits Authorized [id number] Pending Review 10/12/2022 10/12/2024 1 1 * Nuclear Medicine (Routine) - Pending Review Specialty Diagnoses / Procedures Referred By Contac t Referred To Contact Radiology Diagnoses Chest pain, unspecified type ASHD (arteriosclerotic heart disease) Benign essential HTN Mixed hyperlipidemia Procedures NM MYOCARDIAL PERFUSION SPECT STRESS AND REST Eryn Alberto MD [address] [place] [address] Phone: tel: fax: Referral ID Status Reason Start Date Expiration Date V isits Requested Visits Authorized [id number] Pending Review 10/12/2022 10/12/2024 5 5 Reason for Visit * Reason Comments Follow-up * Consultation (Routine) - Closed Specialty Diagnoses / Procedures Referred By Daniela t Referred To Contact Diagnoses Atherosclerotic heart disease of alutiiq coronary artery without angina pectoris [employer], [employer] [address] [facility] [address] [place] [address] Phone: tel: fax: [facility] [address] [address] Phone: tel: Referral ID Status Reason Start Date Expiration Date Visits Re quested Visits Authorized [id number] Closed 10/10/2022 10/10/2023 1 1 Encounter Details Date Type Department Care Team (Latest Contact Info) Description 10/12/2022 10:40 AM EDT Office Visit [facility] [place] [address] Eryn Alberto MD [address] [place] [address] Chest pain, unspecified type (Primary Dx); ASHD (arteriosclerotic heart disease); Benign essential HTN; Mixed hyperlipidemia Social History Tobacco Use Types [...] Sign Reading Time Taken Comments Blood Pressure 116/70 10/12/2022 10:42 AM EDT Pulse 72 10/12/2022 10:42 AM EDT Temperature - - Respiratory Rate - - Oxygen Saturation - - Inhaled Oxygen Concentration - - Weight 91.2 kg (201 lb) 10/12/2022 10:42 AM EDT Height 175.3 cm (5' 9 ) 10/12/2022 10:42 AM EDT Body Mass Index 29.68 10/12/2022 10:42 AM EDT documented in this encounter Progress Notes * Eryn Alberto MD - 10/12/2022 10:40 AM EDT CHIEF COMPLAINT Chief Complaint Patient presents with ??? Follow-up SUBJECTIVE Adis Weber is a 67 y.o. male who presents here for routine scheduled follow up for coronary artery disease with prior CABG, hypertension, hyperlipidemia HPI It has been almost 3 years since the last time we saw him in the office. He does describe an achingsensation in his left upper chest that sometimes comes on with exertion and other times is unrelated. It lasts anywhere from minutes to hours in duration. No other associated symptoms or radiation ofthe discomfort. He is unsure whether he has had this predating his bypass graft surgery. He denies p alpitations or heart failure symptoms. He stays active. He is a non-smoker. He is compliant with medicines. His lipids have not been checked recently. No pleuritic features or GI component. Sees his primary care physician at approximately 3-month intervals. MEDICATIONS Current Outpatient Medications: ??? aspirin 81 mg Oral Tablet, Chewable, Take 81 mg by mouth daily., Disp: , Rfl: ??? atorvastatin (LIPITOR) 40 mg Oral Tablet, TAKE 1 TABLET NIGHTLY (REPLACES SIMVASTATIN) NEEDAN APPOINTMENT AND LABS DONE, Disp: 90 Tab, Rfl: 0 ??? lisinopril-hydrochlorothiazide (PRINZIDE;ZESTORETIC) 20-25 mg Oral Tablet, Take 0.5 Tabs by mouth daily., Disp: , Rfl: ??? metoprolol succinate (TOPROL-XL) 50 mg Oral Tablet Sustained Release 24 hr, Take 50 mg by mouthdaily., Disp: , Rfl: ??? tamsulosin (FLOMAX) 0.4 mg Oral Capsule, Take by mouth daily., Disp: , Rfl: ALLERGIES No Known Allergies The past medical history, pertinent social history, and family history were reviewed and verified. ROS: No unintentional weight loss, bleeding, progressive neurologic complaints, fevers or chills. All other systems were reviewed and were negative PHYSICAL EXAM Vital Signs: BP 116/70 Pulse 72 Ht 5' 9 (1.753 m) Wt 201 lb (91.2 kg) BMI 29.68 kg/m?? ,Body mass index is 29.68 kg/m??. Constitutional: No acute distress, non-toxic appearance HEENT: Normal Neck- supple. No bruit, JVP normal Respiratory: Clear lung rea Cardiovascular: Normal first and second heart sound without a gallop Abdominal: Soft, nondistended, normal bowel sounds, nontender, no organomegaly, no mass, Extremities: No peripheral edema Neurologic: Alert & oriented x 3, Moves all extremities well. Grossly nonfocal exam. Pertinent recent laboratory findings were reviewed EKG No results found for this visit on 10/12/22. ASSESSMENT: CAD - S/P CABG x 3 (2014) (Dr. Mcbride) - non diagnostic GXT @ 7.6 METS (03/2020) with predominantly fixed inferior and inferolateral defect - normal LVEF with inferior HK on echo (2015) HTN Hyperlipidemia Mild Carotid artery plaque - ultrasound pre CABG (2014) PLAN Lipid panel to be done through his primary care office. Stress testing with nuclear imaging. I have asked him to hold his morning beta- ann dose prior to walking the treadmill and then take it upon completion of the exercise treadmill test. No changes in medications were implemented today. Yearly follow-up or sooner as needed was recommended. Return in about 1 year (around 10/13/2023)., or sooner PRN This chart was completed using voice recognition technology and may contain unintended errors documented in this encounter Miscellaneous Notes * Patient Instructions - Zunilda Brown RMA - 10/12/2022 10:40 AM EDT CALL IN December TO SCHEDULE IN October OF 2023 documented in this encounter Plan of Treatment Not on file documented as of this encounter Results * ST STRESS TEST EXERCISE (11/09/2022 10:29 AM EDT) Anatomical Region Laterality Modality Cardiac Stress T esting 11/09/2022 8:29 AM EDT Impressions 11/09/2022 1:05 PM EDT ?[facility] ? Test Date: ?2022-11-09 Pat Name: ? ADIS WEBER ?Department: ?? DEPID ? Room: ? Gender: ? Male ? Training Development Manager: ?? Pallavi Saleem RN : ?1955 ? Requested By: ERYN [place] Order Number: [id number] ?Reading MD: ?? Adis Allan MD ? Interpretive Statements ?Stress Test Exercise ?? Ordering Diagnosis:ASHD, Chest pain Resting HR: 59 ?? Peak HR: 134 Resting B/P: ??124/68 ?? Peak B/P: 196/66 ?? 1. METS achieved: 6.8 2. Walked 6:30 minutes on Claude Protocol 3. Target HR achieved _x___yes____no 4. Termination of test due to: Very SOB, Leg Pain, Fatigue 5. Symptoms: Very SOB with exercise that resolved in recovery. 6. Nuclear imaging reported separately. Physician Interpretation NSR No ischemic EKG changes occasioanl PVCs THR was achieved Nuclear images pending Electronically Signed On 11-09-2022 13:05:18 EDT by Adis Allan MD Narrative Procedure Note Adis Allan MD - 11/09/[address] [facility] Test Date: 2022-11-09 Pat Name: ADIS WEBER Department: DEPID Room: Gender: Male Training Development Manager: Pallavi Saleem RN : 1955 Requested By: ERYN Montana Order Number: [id number] Reading MD: Adis Allan MD Interpretive Statements Stress Test Exercise Ordering Diagnosis:ASHD, Chest pain Resting HR: 59 Peak HR: 134 Resting B/P: 124/68 Peak B/P: 196/66 1. METS achieved: 6.8 2. Walked 6:30 minutes on Claude Protocol 3. Target HR achieved _x___yes____no 4. Termination of test due to: Very SOB, Leg Pain, Fatigue 5. Symptoms: Very SOB with exercise that resolved in recovery. 6. Nuclear imaging reported separately. PhysicianInterpretation NSR No ischemic EKG changes occasioanl PVCs THR was achieved Nuclear images pending Electronically Signed On 11-09-2022 13:05:18 EDT by Adis Allan MD us Eryn Alberto MD IMG STRESS ORDERABLES Final Re sult * NM MYOCARDIAL PERFUSION SPECT STRESS AND REST (11/09/2022 10:00 AM EDT) Anatomical Region Laterality Modality Nuclear Medicine 11/09/2022 8:07 AM EDT Impressions 11/09/2022 5:49 PM EDT Conclusions ??* No definite reversible perfusion defect. ??* Mild intensity fixed inferolateral perfusion defect. ??* Overall left ventricular systolic function was normal without regional wall motion abnormalities. Narrative Procedure Note Eryn Alberto MD - 11/09/2022 IMPRESSION Conclusions * No definite reversible perfusion defect. * Mild intensity fixed inferolateral perfusion defect. * Overall left ventricular systolic function was normal withoutregional wall motion abnormalities. us Eryn Alberto MD IMG NM CARDIAC ORDERABLES Rae l Result documented in this encounter Visit Diagnoses Diagnosis Chest pain, unspecified type- Primary ASHD (arteriosclerotic heart disease) Coronary atherosclerosis of unspecified type of vessel, alutiiq or graft Benign essential HTN Essential hypertension, benign Mixed hyperlipidemia Chest pain, unspecified type ASHD (arteriosclerotic heart disease) Coronary atherosclerosis of unspecified type of vessel, alutiiq or graft Benign essential HTN Essential hypertension, benign Mixed hyperlipidemia Chest pain, unspecified type ASHD (arteriosclerotic heart disease) Coronary atherosclerosis of unspecified type of vessel, alutiiq or graft Benign essential HTN Essential hypertension, benign Mixed hyperlipidemia documented in this encounter Discontinued Medications Medication Sig Discontinue Reason Start Date End Da te metoprolol succinate ER (TOPROL-XL) 100 mg Oral Tablet Sustained Release 24 hr Take 50 mg by mouth daily. Dose adjustment 10/12/2022 documented as of this encounter Historical Medications * This list may reflect changes made after this encounter. tamsulosin (FLOMAX) 0.4 mg Oral Capsule Take by mouth daily. metoprolol succinate (TOPROL-XL) 50 mg Oral Tablet Sustained Release 24 hr Take 50 mg by mouth daily. added in this encounter Additional Health Concerns Assessment Noted Time A fall risk assessment has been complete d for the patient 03/18/2020 8:24 AM EDT documented as of this encounter Care Teams Director Dietetics Department Relationship Specialty Start Date End Date Anupam Drake MD [facility] [address] [place] [address] PCP - General Family Medicine 10/12/22 documented as of this encounter
--- OUTSIDE RECORDS SUMMARY | 2024-05-21 08:40 | XMS_ITS | Encounter Summary ---
Author Organization [place] [address] Care Team Providers Care Vehicle Assembly Inspector Name Role Phone Yelena Damian Primary Care Provider [phone] Reason for Visit * Reason Onset Date Comments Referral 10/10/2022 Encounter Details Date Type Department Care Team (Late st Contact Info) Description 10/10/2022 Telephone [facility] [address] [phone] Hyacinth Siegel RMA Referral Social History Tobacco Use Types Packs/Day Years [...] encounter Miscellaneous Notes * Telephone Encounter - Hyacinth Siegel RMA - 10/10/2022 4:14 PM EDT Left message for patient to return call to schedule follow up appointment Per PCP referral documented in this encounter Plan of Treatment Not on file documented as of this encounter Visit Diagnoses Not on filedocumented in this encounter Additional Health Concerns Assessment Noted Time A fall risk assessment has been complete d for the patient 03/18/2020 8:24 AM EDT documented as of this encounter Care Teams Vehicle Assembly Inspector Relationship Specialty Start Date End Date Yelena Damian [address] [place] [address] PCP - General Family Medicine 06/21/18 10/11/22 documented as of this encounter
--- OUTSIDE RECORDS SUMMARY | 2024-05-21 08:40 | XMS_ITS | Encounter Summary ---
Author Organization [place] [address] Care Team Providers Care Technician Anatomic Pathology Name Role Phone Yelena Damian Primary Care Provider [phone] Reason for Referral * Nuclear Medicine (Routine) - Closed Specialty Diagnoses / Procedures Referred By Daniela adair Referred To Contact Radiology Diagnoses S/P CABG x 3 ASHD (arteriosclerotic heart disease) Chest pain, unspecified type Procedures NM MYOCARDIAL PERFUSION SPECT STRESS AND REST China Goff APRN Referral ID Status Reason Start Date Expiration Date Visits Re quested Visits Authorized [id number] Closed 03/18/2020 03/18/2022 5 5 Reason for Visit * Nuclear Medicine (Routine) - Closed Specialty Diagnoses / Procedures Referred By Daniela adair Referred To Contact Radiology Diagnoses S/P CABG x 3 ASHD (arteriosclerotic heart disease) Chest pain, unspecified type Procedures NM MYOCARDIAL PERFUSION SPECT STRESS AND REST China Goff APRN Referral ID Status Reason Start Date Expiration Date Visits Re quested Visits Authorized [id number] Closed 03/18/2020 03/18/2022 5 5 Encounter Details Date Type Department Care Team (Latest Contact Info) Description 04/09/2020 7:50 AM EDT Hospital Encounter [facility] [address] [place] [address] China Goff APRN S/P CABG x 3; ASHD [...] MYOCARDIAL PERFUSION SPECT STRESS AND REST Routine 04/09/2020 11:06 AM EDT S/P CABG x 3 ASHD (arteriosclerotic heart disease) Chest pain, unspecified type documented in this encounter Results * NM [...] reversibility. Normal left ventricular global systolic function. China Goff APRN IMG NM CARDIAC ORDERABLES F inal Result documented in this encounter Visit Diagnoses Diagnosis S/P CABG x 3 Postsurgical aortocoronary bypass status ASHD (arteriosclerotic heart disease) Coronary atherosclerosis of unspecified type of vessel, [place] or graft Chest pain, unspecified type documented in this encounter Administered Medications Inactive Administered Medications - up to 1 most recent administrations Medication Order MAR Action Action Date Dose Rate Site [id number] (MYOVIEW) injection 8-45 millicurie 8-45 millicurie, Intravenous, ONCE PRN, 1 dose, Starting on Sun04/09/20 at 1105, Until Sun04/09/20 at 0932, Radiography/Imaging, Radiology Procedure, Administration dose must be within 10% of the ordered dose for radiopharmaceutical medications., Radiology Given 04/09/2020 9:32 AM EDT 32.7 millicuries [id number] (MYOVIEW) injection 8-45 millicurie 8-45 millicurie, Intravenous, ONCE PRN, 1 dose, Starting on Sun04/09/20 at 1105, Until Sun04/09/20 at 0811, Radiography/Imaging, Radiology Procedure, Administration dose must be within 10% of the ordered dose for radiopharmaceutical medications., Radiology Given 04/09/2020 8:11 AM EDT 10.5 millicuries documented in this encounter Additional Health Concerns Assessment Noted Time A fall risk assessment has been complete d for the patient 03/18/2020 8:24 AM EDT documented as of this encounter Care Teams Technician Anatomic Pathology Relationship Specialty Start Date End Date Yelena Damian [address] [place] [address] [address] [place] [address] PCP - General Family Medicine 06/21/18 10/11/22 documented as of this encounter
--- OUTSIDE RECORDS SUMMARY | 2024-05-21 08:40 | XMS_ITS | Encounter Summary ---
Author Organization [place] [address] Care Team Providers Care Instrument Repairer Name Role Phone Anupam Drake MD Primary Care Provider [phone] Reason for Visit * Reason Comments Consult Fatty liver * Consultation (Routine) - Authorization Not Needed Specialty Diagnoses / Procedures Referred By Daniela adair Referred To Contact Gastroenterology Diagnoses Fatty (change of) liver, not elsewhere classified Other specified abnormal findings of blood chemistry Referral ID Status Reason Start Date Expiration Date Visits Requested Visits Authorized [id number] Authorization Not Needed 10/18/2023 10/17/2024 1 1 Encounter Details Date Type Department Care Team (Late st Contact Info) Description 12/19/2023 8:00 AM EDT Office Visit [facility] [address] [place] [address] Mejia Vega DO [address] [phone] Elevated liver enzymes (Primary Dx) Social History Tobacco Use Types [...] Pressure 128/78 12/19/2023 7:50 AM EDT Pulse - - Temperature - - Respiratory Rate - - Oxygen Saturation - - Inhaled Oxygen Concentration - - Weight 87.9 kg (193 lb 12.8 oz) 12/19/2023 7:50 AM EDT Height 175.3 cm (5' 9 ) 12/19/2023 7:50 AM EDT Body Mass Index 28.62 12/19/2023 7:50 AM EDT documented in this encounter H&P Notes * Mejia Vega DO - 12/19/2023 8:00 AM EDT [facility] Gastroenterology Clinic Note Primary Care Physician: Anupam Drake MD REASON FOR CONSULT / CHIEF COMPLAINT: Chief Complaint Patient presents with Consult Fatty liver HISTORY OF PRESENT ILLNESS: Josh Ford is a 68 y.o. male who has a past medical history of Bladder problem, CAD (coronary artery disease), Family history of other cardiovascular diseases(V17.49), Hyperlipidemia, Hypertension, Neuromuscular disorder (HCC), and Shortness of breath. being seen today for Consult (Fatty liver) 60-year-old male coronary artery disease status post CABG who presents for evaluation of elevated liver enzymes. In September 2023 patient had lab work done which showed a moderate elevation in both his AST/ALT and alk phos. On chart review he has never had elevations in his liver enzymes in the past. Patient denies any skin or eyes, itching, abdominal pain, nausea, vomiting, change in bowel habits. He did previously use alcohol however has not drank since he was age 34. He denies any family history of liver disease. He has no known history of viral hepatitis. Prior to these labs being obtained he did start a new supplement called Tremanol for essential tremors and had adjustments made to hisstatin therapy. Both of these have been held since September. REVIEW OF SYSTEMS: 10 point review of systems obtained and negative aside from those mentioned above. PAST MEDICAL HISTORY: Past Medical History: Diagnosis Date Bladder problem [...] Location: [facility] OR; Service: Open Heart NECK SURGERY 2000 benign tumer removed MEDICATIONS: Current Outpatient Medications Medication aspirin 81 mg Oral Tablet, Chewable cholecalciferol, vitamin D3, 25 mcg (1,000 unit) Oral Tablet cyanocobalamin 1,000 mcg Oral Tablet glucosamine HCl/chondroitin rowley (GLUCOSAMINE-CHONDROITIN) 2,000-1,200 mg/30 mL Oral Liquid lisinopril-hydrochlorothiazide (PRINZIDE;ZESTORETIC) 20-25 mg Oral Tablet metoprolol succinate (TOPROL-XL) 25 mg Oral Tablet Sustained Release 24 hr metoprolol succinate (TOPROL-XL) 50 mg Oral Tablet Sustained Release 24 hr tamsulosin (FLOMAX) 0.4 mg Oral Capsule rosuvastatin (CRESTOR) 10 mg Oral Tablet No current facility-administered medications for this visit. ALLERGY: Allergies Allergen Reactions Primidone Other (See Comments) Jittery and nausea FAMILY HISTORY: Family History Problem Relation Age of Onset Hypertension Mother Heart Attack Father Heart Disease Father Heart Surgery Brother Heart Disease Brother Heart Attack Paternal Grandfather Heart Attack Brother High Cholesterol Brother Hypertension Brother Heart Disease Brother SOCIAL HISTORY: Social History Socioeconomic History Marital status: Spouse name: Not on file Number of children: Not on file Years of education: Not on file Highest education level: Not on file Occupational History Not on file Tobacco Use Smoking status: Former Current packs/day: 0.00 Types: Cigarettes Quit date: 02/08/2007 Years since quittin.8 Smokeless tobacco: Never Substance and Sexual Activity [...] on file Housing Stability: Not on file PHYSICAL EXAMINATION: BP 128/78 Ht 5' 9 (1.753 m) Wt 193 lb 12.8 oz (87.9 kg) BMI 28.62 kg/m?? Wt Readings from Last 3 Encounters: 12/19/23 193 lb 12.8 oz (87.9 kg) 11/08/22 198 lb (89.8 kg) 10/12/22 201 lb (91.2 kg) Physical Exam Constitutional: Appearance: Normal appearance. He is normal weight. HENT: Head: Normocephalic and atraumatic. Nose: Nose normal. Mouth/Throat: Mouth: Mucous membranes are moist. Pharynx: Oropharynx is clear. Eyes: Extraocular Movements: Extraocular movements intact. Cardiovascular: Rate and Rhythm: Normal rate. Pulses: Normal pulses. Heart sounds: Normal heart sounds. Pulmonary: Effort: Pulmonary effort is normal. Breath sounds: Normal breath sounds. Abdominal: General: Abdomen is flat. Palpations: Abdomen is soft. Musculoskeletal: General: Normal range of motion. Cervical back: Normal range of motion and neck supple. Skin: General: Skin is warm and dry. Neurological: General: No focal deficit present. Mental Status: He is alert and oriented to person, place, and time. LABORATORY: Lab Results Component Value Date WBC 13.2 (H) 03/08/2015 HGB 11.6 (L) 03/08/2015 HCT 35.2 (L) 03/08/2015 PLT 233 03/08/2015 ALT 15 01/14/2016 AST 16 01/14/2016 NA 141 01/14/2016 K 3.9 01/14/2016 CL 102 01/14/2016 CALCIUM 9.10 01/14/2016 BUN 18 01/14/2016 CREATININE 1.05 10/18/2015 CO2 28 03/08/2015 PSA 1.4 10/18/2015 INR 1.16 (H) 03/02/2015 GLUCOSE 138 (H) 03/03/2015 GLU 104 (H) 03/08/2015 HGBA1C 6.1 03/02/2015 Lab Results Component Value Date ALBUMIN 4.1 10/18/2015 ALT 15 01/14/2016 ALT 16 10/18/2015 AST 16 01/14/2016 AST 19 10/18/2015 No results found for: LIPASE Lab Results Component Value Date INR 1.16 (H) 03/02/2015 IMAGING/INVESTIGATIONS: Radiology results reviewed: pertinent studies below Last PALAT CXR: Results for orders placed during the hospital encounter of 03/03/15 XR CHEST PA AND LATERAL Narrative TWO-VIEW CHEST, 03/06/2015 at 0719 HISTORY: Postop cardiac surgery, follow-up. FINDINGS: Comparison 03/05/2015. Evidence of recent cardiac surgery again noted. Heart size is borderline but stable. Mediastinal drains have been removed. The basilar opacities persist greater on the left than the right. There is mild improvement on the left but worsening on the right. There is now a homogeneous plasty in the periphery of the left mid upper lung measuring 7.6 x 4.1 cm. Left upper lung is clear. No evidence of pneumothorax. Impression : Postoperative chest with persistent bibasilar atelectasis and effusions, left greater than right. New peripheral left upper lobe opacity likely represents loculated fluid. No pneumothorax. Continued follow-up recommended.. VISIT ORDERS Orders Placed This Encounter Procedures F-Actin Antibody IgG Reflex-Ref lab Standing Status: Future Standing Expiration Date: 06/19/2024 Mitochondrial M2 Antibody, IgG-Ref lab Standing Status: Future Standing Expiration Date: 12/18/2024 Ceruloplasmin-Ref lab Standing Status: Future Standing Expiration Date: 12/18/2024 CBC Standing Status: Future Standing Expiration Date: 12/18/2024 Hepatic Function Panel Standing Status: Future Standing Expiration Date: 12/18/2024 RENAL FUNCTION PANEL Standing Status: Future Standing Expiration Date: 12/19/2024 [id number]-Ref lab Standing Status: Future Standing Expiration Date: 12/18/2024 Ferritin Standing Status: Future Standing Expiration Date: 12/18/2024 Hepatitis A Virus Antibodies, Total-Ref Standing Status: Future Standing Expiration Date: 12/18/2024 Order Specific Question: Release to Patient Answer: Immediate Hepatitis B Core Ab Total Order Specific Question: Release to Patient Answer: Immediate HCV Antibody Screen w/ Reflex Standing Status: Future Standing Expiration Date: 12/18/2024 Order Specific Question: Release to Patient Answer: Immediate ASSESSMENT and PLAN Mr. Ford had concerns including Consult (Fatty liver ). Diagnoses and all orders for this visit: Elevated liver enzymes - F-ACTIN (SMOOTH MUSCLE) AB, IGG W/RFLX -REF LAB; Future - MITOCHONDRIAL M2 ANTIBODY, IGG -REF LAB; Future - CERULOPLASMIN -REF LAB; Future - CBC; Future - HEPATIC FUNCTION PANEL; Future - RENAL FUNCTION PANEL; Future - [id number] -REF LAB; Future - FERRITIN; Future - HEPATITIS A VIRUS ANTIBODIES, TOTAL -REF LAB; Future - HEPATITIS B CORE AB TOTAL - HCV ANTIBODY SCREEN W/ REFLEX; Future Elevated liver enzymes: Patient with elevated liver enzymes found on routine screening in September 2023. Subsequent right upper quadrant ultrasound showed hepatic steatosis without other concerning findings. We talked about possible etiologies including viral hepatitis, autoimmune, hereditary, drug-induced liver injury. He has stopped a statin as well as a supplement he was taking called tremanol .Tremanol does have ingredients that have been listed as possible causes of hepatotoxicity. - Hold all supplements - Repeat lab studies Colon cancer screening: Patient reports she had a negative Cologuard within the past 1 year. Return in about 3 months (around 03/20/2024). Thank you Anupam Drake MD for asking me to participate in the care of Josh Ford. Please let me know if you have any additional questions or concerns or if there is anything else I can do to assist in the care of this patient. Mejia Vega DO [facility] G[facility]enterology Portions of this note were generated using voice dictation software and may contain unintentional errors. documented in this encounter Plan of Treatment Not on file documented as of this encounter Procedures Procedure Name Priority Date/Time Associated Diagnosis Comments HEPATITIS B CORE AB TOTAL Routine 12/19/2023 9:03 AM EDT Elevated liver enzymes documented in this encounter Results * HCV ANTIBODY SCREEN W/ REFLEX (12/19/2023 9:03 AM EDT) Hep C Ab Non-Reactiv e Non-Reacti ve 12/19/2023 12:35 PM EDT [facility] Blood VENOUS BLOOD / Unknown Venipuncture / Unknown 12/19/2023 9:03 AM EDT 12/19/2023 9:03 AM EDT us Mejia Vega DO HEMATOLOGY ORDERABLES Final R esult [facility] [address] [facility] , [place] [address] * HEPATITIS B CORE AB TOTAL (12/19/2023 9:03 AM EDT) Pathologist [facility] Hep B Core Total Non-Reacti ve Non-Reacti ve 12/19/2023 12:37 PM EDT [facility] Blood VENOUS BLOOD / Unknown Venipuncture / Unknown 12/19/2023 9:03 AM EDT 12/19/2023 9:03 AM EDT Mejia Vega IMMUNOLOGY ORDERABLES Final R esult [facility] [address] [facility] , [place] [address] * HEPATITIS A VIRUS ANTIBODIES, TOTAL -REF LAB (12/19/2023 9:03 AM EDT) Pathologist [facility] Hep A Ab Negative Negative 12/20/2023 4:30 PM EDT [facility] Comment: Performed By: [facility] [address] [place] [address] Inspector Final Assembly Electrical: Haroldo Childers MD, PhD CLIA Number: [id number] Blood VENOUS BLOOD / Unknown Venipuncture / Unknown 12/19/2023 9:03 AM EDT 12/19/2023 9:03 AM EDT Mejia Vega DO IMMUNOLOGY ORDERABLES Final R esult Performing Organization Address [facility] Co de Phone Number [facility] [address] [place] [address] * FERRITIN (12/19/2023 9:03 AM EDT) [facility] Ferritin 196 30 - 400 ng/mL 12/19/2023 12:13 PM EDT [facility] Blood VENOUS BLOOD / Unknown Venipuncture / Unknown 12/19/2023 9:03 AM EDT 12/19/2023 9:03 AM EDT Narrative [facility] - 12/19/2023 12:13 PM EDT Ingestion of dominic doses of biotin (>5 mg/day) taken within 8 hours of drawing blood sample can interfere with this immunoassay test. Mejia Vega DO CHEMISTRY ORDERABLES Final Re sult Performing Organization Address City/[facility] Co de Phone Number [facility]REFERRED LAB [facility] [employer] [address] [facility] , [place] [address] * (ABNORMAL) [id number] -REF LAB (12/19/2023 9:03 AM EDT) [id number]-7-Aixpbqqop in 202(H) 90 - 200 mg/dL 12/20/2023 9:54 PM EDT [facility] Comment: To convert to umol/L, multiply mg/dL by 0.185 Performed By: [facility] [address] [place] [address] Inspector Final Assembly Electrical: Haroldo Childers MD, PhD CLIA Number: [id number] Blood VENOUS BLOOD / Unknown Venipuncture / Unknown 12/19/2023 9:03 AM EDT 12/19/2023 9:03 AM EDT Mejia Vega DO CHEMISTRY ORDERABLES Final Re sult Performing Organization Address [facility] Co de Phone Number [facility] [address] [place] [address] * (ABNORMAL) RENAL FUNCTION PANEL (12/19/2023 9:03 [...] 12/19/2023 12:13 PM EDT [facility] BUN 11 8 - 23 mg/dL 12/19/2023 12:13 PM EDT [facility] Creatinine 0.95 0.67 - 1.30 mg/dL 12/19/2023 12:13 PM EDT [facility], [facility] Albumin 4.5 3.2 - 4.6 gm/dL 12/19/2023 12:13 PM EDT [facility], [facility] Phosphorus 1.7(L) 2.5 - 4.5 mg/dL 12/19/2023 12:13 PM EDT [facility] eGFR (CKD-EPIcr 2020) 87 >=60 mL/min/1.7 3 m2 12/19/2023 12:13 PM EDT [facility] Comment:Estimated GFR was ca lculated using the CKD-EPIcr (2020) equation refit without race. The equation is recommended by the National Kidney Foundation - [employer] [employer] of Nephrology Task Force. Blood VENOUS BLOOD / Unknown Venipuncture / Unknown 12/19/2023 9:03 AM EDT 12/19/2023 9:03 AM EDT us Mejia Vega DO CHEMISTRY ORDERABLES Final Re sult [facility], [address], [address] [place] [id number] [facility] [address] [place], [place] [id number] * (ABNORMAL) CBC (12/19/2023 9:03 AM EDT) WBC 8.6 3.7 - 10.3 x10(3)/mcL 12/19/2023 11:45 AM EDT [facility] RBC 4.52(L) 4.60 - 6.10 x10(6)/mcL 12/19/2023 11:45 AM EDT [facility] Hgb 15.9 13.7 - 17.5 g/dL 12/19/2023 11:45 AM EDT [facility] Hct 42.6 40.0 - 51.0 % 12/19/2023 11:45 AM EDT [facility] MCV 94.2 80.0 - 100.0 fL 12/19/2023 11:45 AM EDT [facility] MCH 35.2(H) 26.0 - 34.0 pg 12/19/2023 11:45 AM EDT [facility] MCHC 37.3(H) 30.7 - 35.5 g/dL 12/19/2023 11:45 AM EDT [facility] RDW 13.2 <=14.9 % 12/19/2023 11:45 AM EDT [facility] Platelet 254 155 - 369 x10(3)/mcL 12/19/2023 11:45 AM EDT [facility] MPV 10.8 8.8 - 12.5 fL 12/19/2023 11:45 AM EDT [facility], [facility] Blood VENOUS BLOOD / Unknown Venipuncture / Unknown 12/19/2023 9:03 AM EDT 12/19/2023 9:03 AM EDT us Mejia Vega DO HEMATOLOGY ORDERABLES Final R esult [facility], [facility] [address] [facility] , [place] [address] * CERULOPLASMIN -REF LAB (12/19/2023 9:03 AM EDT) Ceruloplasmin 29 15 - 30 mg/dL 12/20/2023 3:59 PM EDT [facility] Comment: REFERENCE INTERVAL: Ceruloplasmin Access complete set of age- and/or gender-specific reference intervals for this test in the [employer] Laboratory Test Directory ([employer]). Performed By: [facility] [address] [place] [id number] Inspector Final Assembly Electrical: Haroldo Childers MD, PhD CLIA Number: [id number] Blood VENOUS BLOOD / Unknown Venipuncture / Unknown 12/19/2023 9:03 AM EDT 12/19/2023 9:03 AM EDT [facility] CHEMISTRY ORDERABLES Final Re sult Performing Organization Address [facility] Co de Phone Number [facility] [address] [place] [address] * MITOCHONDRIAL M2 ANTIBODY, IGG -REF LAB (12/19/2023 9:03 AM EDT) Mitochon Ab IgG 0.8 0.0 - 24.9 Units 12/21/2023 12:03 AM EDT [facility] Comment: REFERENCE INTERVAL: Mitochondrial (M2) Antibody, IgG [...] does not rule out PBC. Performed By: [facility] [address] [place] [id number] Inspector Final Assembly Electrical: Haroldo Childers MD, PhD CLIA Number: [id number] Blood VENOUS BLOOD / Unknown Venipuncture / Unknown 12/19/2023 9:03 AM EDT 12/19/2023 9:03 AM EDT Mejia Vega DO IMMUNOLOGY ORDERABLES Final R esult Performing Organization Address City/[facility]/ZIP Co de Phone Number [facility] [address] [place] [address] * F-ACTIN (SMOOTH MUSCLE) AB, IGG W/RFLX -REF LAB (12/19/2023 9:03 AM EDT) F Actin IgG 3 0 - 19 Units 12/21/2023 12:03 AM EDT [facility] Comment: If F-Actin (Smooth Muscle) Antibody, IgG [...] suspicion for AIH is strong. Performed By: [facility] [address] [place] [address] Inspector Final Assembly Electrical: Haroldo Childers MD, PhD CLIA Number: [id number] Blood VENOUS BLOOD / Unknown Venipuncture / Unknown 12/19/2023 9:03 AM EDT 12/19/2023 9:03 AM EDT us Mejia Vega DO IMMUNOLOGY ORDERABLES Final R esult [facility] [address], [place] [id number] documented in this encounter Visit Diagnoses Diagnosis Elevated liver enzymes- Primary Nonspecific elevation of levels of transaminase or [...] documented as of this encounter Care Teams Instrument Repairer Relationship Specialty Start Date End Date Anupam Drake MD [address] [place] [address] [address] [place] [address] PCP - General Family Medicine 10/12/22 documented as of this encounter
--- OUTSIDE RECORDS SUMMARY | 2024-05-21 08:40 | XMS_ITS | Encounter Summary ---
Author Organization [facility] [place] [address] Care Team Providers Care Varying Exceptionalities Teacher Name Role Phone Yelena Damian Primary Care Provider Encounter Details Date Type Department Care Team (Latest Contact Info) Description 04/05/2020 Travel Social History Tobacco Use Types Packs/Day [...] documented as of this encounter Care Teams Varying Exceptionalities Teacher Relationship Specialty Start Date End Date Yelena Damian [address] [facility] [address] [place] [address] PCP - General Family Medicine 06/21/18 10/11/22 documented as of this encounter
--- OUTSIDE RECORDS SUMMARY | 2024-05-21 08:40 | XMS_ITS | Encounter Summary ---
Author Organization [facility] Address [address] [place] [address] Care Team Providers Care Kindergarten Prep Teacher Name Role Phone Anupam Drake MD Primary Care Provider [phone] [phone] Reason for Visit * Reason Comments Follow-up Follow-up Encounter Details Date Type Department Care Team (Latest Contact Info) Description 09/19/2023 8:30 AM EDT [facility] [address] [place] [address] Octavio Reyes PA-C [address] [place] [address] Primary osteoarthritis of left knee (Primary Dx); [...] Progress Notes * Octavio Reyes PA-C - 09/19/2023 8:30 AM EDTAssociated Order(s): Large Joint Injection/Arthrocentesis: bilateral knee Post-Procedure Diagnose(s): Primary osteoarthritis of right knee; Primary osteoarthritis of left knee Large Joint Injection/Arthrocentesis: bilateral knee on 09/19/2023 8:30 AM Indications: pain and joint swelling Details: 22 G needle, superolateral approach Medications (Right): 40 mg triamcinolone acetonide 40 mg/mL; 2 mL BUPivacaine HCl 0.5 % (5 mg/mL) Medications (Left): 40 mg triamcinolone acetonide 40 mg/mL; 2 mL BUPivacaine HCl 0.5 % (5 mg/mL) Outcome: tolerated well, no immediate complications Procedure, treatment alternatives, risks and benefits explained, specific risks discussed. Consent was given by the patient. Immediately prior to procedure a time out was called to verify the correctpatient, procedure, equipment, instructional support assistant and site/side marked as required. Patient was prepped and draped in the usual sterile fashion. * Octavio Reyes PA-C - 09/19/2023 8:30 AM EDT Images from the original note were not included. [address] [phone] [place], [place] [phone] [place], [place] Josh Ford 1955 Chief Complaint Patient presents with Left Knee - Follow-up Right Knee - Follow-up Subjective: Josh Ford is a 68 y.o. male is presenting today for repeat evaluation of bilateral knee Reports relief with previous cortisone injection of the knee on last OV, 06/21/23 Relief has worn off and pain has [...] this visit: Primary osteoarthritis of left knee Primary osteoarthritis of right knee Other orders - Large Joint Injection/Arthrocentesis: bilateral knee PLAN: [...] Procedure Name Priority Date/Time Associated Diagnosis Comments RI ARTHROCENTESIS LARGE JOINT W/O US BILATERAL Routine 09/19/2023 8:30 AM EDT Primary osteoarthritis of left knee Primary osteoarthritis of right knee documented in this encounter Results * RI ARTHROCENTESIS LARGE JOINT W/O US BILATERAL (09/19/2023 8:30 AM EDT) Narrative [facility] - 09/19/2023 8:30 AM EDT Octavio Reyes PA-C ? 10/01/2023 11:04 PM Large Joint Injection/Arthrocentesis: bilateral knee on 09/19/2023 8:30 AM Indications: pain and joint swelling Details: 22 G needle, superolateral approach Medications (Right): 40 mg triamcinolone acetonide 40 mg/mL; 2 mL BUPivacaine HCl 0.5 % (5 mg/mL) Medications (Left): 40 mg triamcinolone acetonide 40 mg/mL; 2 mL BUPivacaine HCl 0.5 % (5 mg/mL) Outcome: tolerated well, no immediate complications Procedure, treatment alternatives, risks and benefits explained, specific risks discussed. Consent was given by the patient. Immediately prior to procedure a time out was called to verify the correct patient, procedure, equipment, instructional support assistant and site/side marked as required. Patient was prepped and draped in the usual sterile fashion. Octavio Reyes PA-C PROCEDURE/MINOR SURGICAL ORDRome RIOS Final Result [facility] documented in this encounter Visit Diagnoses Diagnosis Primary osteoarthritis of left knee- Primary Primary localized osteoarthrosis, lower leg Primary osteoarthritis of right knee Primary localized osteoarthrosis, lower leg documented in this encounter Administered Medications Inactive Administered Medications - up to 1 most recent administrations Medication Order MAR Action Action Date Dose Rate Site BUPivacaine HCl (MARCAINE) 0.5 % (5 mg/mL) injection 2 mL 2 mL, Intra-articular, ONCE PRN, 1 dose, Starting on Sun09/19/23 at 0830, Until Sun09/19/23 at 0830, Dx: 1. Primary osteoarthritis of left knee 2. Primary osteoarthritis of right kneeIndications:Primary osteoarthritis of left knee,Primary osteoarthritis of right knee Given 09/19/2023 8:30 AM EDT 2 mL Left Knee BUPivacaine HCl (MARCAINE) 0.5 % (5 mg/mL) injection 2 mL 2 mL, Intra-articular, ONCE PRN, 1 dose, Starting on Sun09/19/23 at 0830, Until Sun09/19/23 at 0830, Dx: 1. Primary osteoarthritis of left knee 2. Primary osteoarthritis of right kneeIndications:Primary osteoarthritis of left knee,Primary osteoarthritis of right knee Given 09/19/2023 8:30 AM EDT 2 mL Right Knee triamcinolone acetonide (KENALOG-40) injection 40 mg 40 mg, Intra-articular, ONCE PRN, 1 dose, Starting on Sun09/19/23 at 0830, Until Sun09/19/23 at 0830, Dx: 1. Primary osteoarthritis of left knee 2. Primary osteoarthritis of right kneeIndications:Primary osteoarthritis of left knee,Primary osteoarthritis of right knee Given 09/19/2023 8:30 AM EDT 40 mg Left Knee triamcinolone acetonide (KENALOG-40) injection 40 mg 40 mg, Intra-articular, ONCE PRN, 1 dose, Starting on Sun09/19/23 at 0830, Until Sun09/19/23 at 0830, Dx: 1. Primary osteoarthritis of left knee 2. Primary osteoarthritis of right kneeIndications:Primary osteoarthritis of left knee,Primary osteoarthritis of right knee Given 09/19/2023 8:30 AM EDT 40 mg Right Knee documented in this encounter Additional Health Concerns Assessment Noted Time A fall risk assessment has been complete d for the patient 03/18/2020 8:24 AM EDT documented as of this encounter Care Teams Kindergarten Prep Teacher Relationship Specialty Start Date End Date Anupam Drake MD [facility] [address] [place] [address] PCP - General Family Medicine 10/12/22 documented as of this encounter
--- OUTSIDE RECORDS SUMMARY | 2024-05-21 08:40 | XMS_ITS | Encounter Summary ---
Author Organization [place] [place] [address] Care Team Providers Care Horse Racer Name Role Phone Anupam Drake MD Primary Care Provider [phone] [phone] Reason for Visit * Reason Onset Date Comments Medication Refill 01/10/2023 Encounter Details Date Type Department Care Team (Late st Contact Info) Description 01/10/2023 Telephone [facility] [place] [id number] Ulises Alberto MD [address] [place] [address] Medication Refill Social History Tobacco Use Types Packs/Day Years [...] by mouth daily. 90 Tablet 2 01/10/2023 documented in this encounter Miscellaneous Notes * Telephone Encounter - Oly Guzman RMA - 01/10/2023 10:12 AM EDT Refil sent to pharmacy * Telephone Encounter - Karishma Odom - 01/10/2023 10:03 AM EDT Medication requested: Rosuvastatin 10 mg Directions: 1 qd Quantity requested: 90 Pharmacy: [facility] documented in this encounter Plan of Treatment Not on file documented as of this encounter Visit Diagnoses Not on filedocumented in this encounter Discontinued Medications Medication Sig Discontinue Reason Start Date End Da te rosuvastatin (CRESTOR) 10 mg Oral Tablet Take 1 Tablet by mouth daily. Reorder 11/10/2022 01/10/2023 documented as of this encounter Additional Health Concerns Assessment Noted Time A fall risk assessment has been complete d for the patient 03/18/2020 8:24 AM EDT documented as of this encounter Care Teams Horse Racer Relationship Specialty Start Date End Date Anupam Drake MD [address] [place] [address] [address] [place] [address] PCP - General Family Medicine 10/12/22 documented as of this encounter
--- OUTSIDE RECORDS SUMMARY | 2024-05-21 08:40 | XMS_ITS | Encounter Summary ---
Author Organization [facility] Address [address] [place] [address] Care Team Providers Care Rn Office Name Role Phone Anupam Drake MD Primary Care Provider [phone] Reason for Visit * Reason Comments Follow-up Follow-up Encounter Details Date Type Department Care Team (Late st Contact Info) Description 11/23/2022 8:15 AM EDT Office Visit [facility] [address] [address] Diana Terrell NP [address] [place] [address] Primary osteoarthritis of left knee (Primary Dx); [...] as of this encounter Progress Notes * Diana Terrell NP - 11/23/2022 8:15 AM EDT Images from the original note were not included. [address] [phone] [place], [place] [phone] [place], [place] Josh Ford 1955 Chief Complaint Patient presents with ??? Left Knee - Follow-up ??? Right Knee - Follow-up Subjective: Josh Ford is a 67 y.o. male presenting for evaluation of bilateral knee pain He has had OA for years but worsened recently. He was administered bilateral Cortisone injections 11-03-22 with excellent results. He is very pleased with the results and ability to increase function with no pain. We discussed Cortisone vs gel injections and benefits, side effects, etc. Social History Substance and Sexual Activity Drug [...] Tomi testing. Normal Brian testing. There is no further tenderness to palpation over the medial joint. The skin is intact. Left Knee Exam Comments: Examination of the left knee shows that it is stable to varus and valgus stressing. Normal anterior/posterior drawer testing. Normal Tomi testing. Normal Brian testing. There is no tenderness to palpation over the medial joint line. The skin is intact. Imaging: Prior X-rays reviewed today of the bilateral knee show osteoarthritic degenerative change with joint space narrowing, subchondral sclerosis and osteophyte formation. There are no acute findings notedin these films. Assessment and Plan: Diagnoses and all orders for this visit: Primary osteoarthritis of left knee Primary osteoarthritis of right knee PLAN: Recommend conservative treatment Discussed treatment options We will wait to see how long the Cortisone lasts. He will call for appointment when needed. Consider gel injections if needed for longer lasting effects. DME Summary No orders found for display documented in this encounter Plan of Treatment Not on file documented as of this encounter Visit Diagnoses Diagnosis Primary osteoarthritis of left knee- Primary Primary localized osteoarthrosis, lower leg Primary osteoarthritis of right knee Primary localized osteoarthrosis, lower leg documented in this encounter Additional Health Concerns Assessment Noted Time A fall risk assessment has been complete d for the patient 03/18/2020 8:24 AM EDT documented as of this encounter Care Teams Rn Office Relationship Specialty Start Date End Date Anupam Drake MD [facility] [address] [place] [id number] PCP - General Family Medicine 10/12/22 documented as of this encounter
--- OUTSIDE RECORDS SUMMARY | 2024-05-21 08:40 | XMS_ITS | Encounter Summary ---
Author Organization [facility] [place] [address] Care Team Providers Care Mold Filler Name Role Phone Yelena Damian Primary Care Provider [phone] Encounter Details Date Type Department Care Team (Latest Contact Info) Description 03/18/2020 Travel Social History Tobacco Use Types Packs/Day [...] documented as of this encounter Care Teams Mold Filler Relationship Specialty Start Date End Date Yelena Damian [address] [place] [facility] [address] [place] [address] PCP - General Family Medicine 06/21/18 10/11/22 documented as of this encounter
--- OUTSIDE RECORDS SUMMARY | 2024-05-21 08:40 | XMS_ITS | Encounter Summary ---
Author Organization [facility] [place] [address] Care Team Providers Care Facilities Administrator Name Role Phone Anupam Drake MD Primary Care Provider [phone] Reason for Referral * Stress (Routine) - Pending Review Specialty Diagnoses / Procedures Referred By Contac t Referred To Contact Radiology Diagnoses Chest pain, unspecified type ASHD (arteriosclerotic heart disease) Benign essential HTN Mixed hyperlipidemia Procedures ST STRESS TEST EXERCISE Eryn Alberto MD [address] [place] [address] Phone: tel: fax: Referral ID Status Reason Start Date Expiration Date V isits Requested Visits Authorized [id number] Pending Review 10/12/2022 10/12/2024 1 1 Reason for Visit * Stress (Routine) - Pending Review Specialty Diagnoses / Procedures Referred By Contac t Referred To Contact Radiology Diagnoses Chest pain, unspecified type ASHD (arteriosclerotic heart disease) Benign essential HTN Mixed hyperlipidemia Procedures ST STRESS TEST EXERCISE Eryn Alberto MD [address] [place] [address] Phone: tel: fax: Referral ID Status Reason Start Date Expiration Date V isits Requested Visits Authorized [id number] Pending Review 10/12/2022 10/12/2024 1 1 Encounter Details Date Type Department Care Team (Latest Contact Info) Description 11/09/2022 7:13 AM EDT - 11/09/2022 11:59 PM EDT Hospital Encounter [facility]ESS [address] [facility] [address] [place] [address] Eryn Alberto MD [address] [place] [address] Chest pain, unspecified type; ASHD (arteriosclerotic heart [...] documented in this encounter Progress Notes * Alyson Cutler RN - 11/09/2022 10:30 AM EDT Stress test procedure and medications explained to the patient. Patient verbalized understanding ofprocedure & medications and all questions answered. Patient education reinforced during and after procedure. documented in this encounter Plan of Treatment Not on file documented as of this encounter Procedures Procedure Name Priority Date/Time Associated Diagnosis Comments SCANNED RADIOLOGY REPORT 11/09/2022 11:[address] STRESS TEST EXERCISE Routine 11/09/2022 10:29 AM EDT Chest pain, unspecified type ASHD (arteriosclerotic heart disease) Benign essential HTN Mixed hyperlipidemia documented in this encounter Results * SCANNED RADIOLOGY REPORT (11/09/2022 11:53 AM EDT) Anatomical Region Laterality Modality Cardiac Stress T esting 11/09/2022 11:5 3 AM EDT us Unknown Provider IMG DIAGNOSTIC IMAGING ORDERABL ES Final Result * ST STRESS TEST EXERCISE (11/09/2022 10:29 AM EDT) Anatomical Region Laterality Modality Cardiac Stress T esting 11/09/2022 8:29 AM EDT Impressions 11/09/2022 1:05 PM EDT ?[facility] ? Test Date: ?2022-11-09 Pat Name: ? ADIS WEBER ?Department: ?? DEPID ? Room: ? Gender: ? Male ? Studio Designer: ?? Pallavi Saleem RN : ?1955 ? Requested By: ERYN Montana Order Number: [id number] ?Ruy STARKEY: ?? Adis Allan MD ? Interpretive Statements [...] Note Adis Allan MD - 11/09/2022 IMPRESSION [facility] Test Date: 2022-11-09 Pat Name: ADIS WEBER Department: DEPID Room: Gender: Male Studio Designer: Pallavi Saleem RN : 1955 Requested By: ERYN Montana Order Number: [id number] Reading MD: Adis Allan MD Interpretive Statements [...] 11-09-2022 13:05:18 EDT by Adis Allan MD Eryn Alberto MD IMG STRESS ORDERABLES Final Re sult documented in this encounter Visit Diagnoses Diagnosis Chest pain, unspecified type ASHD (arteriosclerotic heart disease) Coronary atherosclerosis of unspecified type of vessel, [place] or graft Benign essential HTN Essential hypertension, benign Mixed hyperlipidemia documented in this encounter Orders Medications Ordered That Elvin ht Not Have Been Administered Count Last Ordered Date First Ordered Date aminophylline injection 125 mg 1 11/09/2022 nitroGLYCERIN (NITROSTAT) SL tablet 0.4 mg 1 11/09/2022 regadenoson (LEXISCAN) injection 0.4 mg 1 0 11/09/2022 sodium chloride 0.9 % 250 mL IV bolus 1 10/2022 sodium chloride 0.9% IV line flush 20-50 mL 1 11/09/2022 sodium chloride 0.9% syringe 1 11/09/2022 documented in this encounter Additional Health Concerns Assessment Noted Time A fall risk assessment has been complete d for the patient 03/18/2020 8:24 AM EDT documented as of this encounter Care Teams Facilities Administrator Relationship Specialty Start Date End Date Anupam Drake MD [facility] [address] [place] [address] PCP - General Family Medicine 10/12/22 documented as of this encounter
--- OUTSIDE RECORDS SUMMARY | 2024-05-21 08:40 | XMS_ITS | Encounter Summary ---
Author Organization [facility] [place] [address] Care Team Providers Care Idea Worker Name Role Phone Anupam Drake MD Primary Care Provider [phone] Encounter Details Date Type Department Care Team (Latest Contact Info) Description 12/18/2023 Travel Social History Tobacco Use Types Packs/Day [...] documented as of this encounter Care Teams Idea Worker Relationship Specialty Start Date End Date Anupam Drake MD [address] [facility] [address] [place] [address] PCP - General Family Medicine 10/12/22 documented as of this encounter
--- OUTSIDE RECORDS SUMMARY | 2024-05-21 08:40 | XMS_ITS | Encounter Summary ---
Author Organization [place] [address] Care Team Providers Care Cone Runner Name Role Phone Vanessa Dash Primary Care Provider [phone] Reason for Visit * Reason Comments Coronary Artery Disease 6 mon ck * Consultation (Routine) - Closed Specialty Diagnoses / Procedures Referred By Daniela adair Referred To Contact Nurse Practitioner / Cardiology Diagnoses 6 month check Procedures OFFICE VISIT Vanessa Dash ARNP [address] [id number] Phone: tel: fax: Evelyne Harringotn, CARE TEAM ASSISTANT [address] [place] [address] Phone: tel: fax: Referral ID Status Reason Start Date Expiration Date Visits Re quested Visits Authorized [id number] Closed 12/20/2016 12/20/2017 99 99 Encounter Details Date Type Department Care Team (Late st Contact Info) Description 06/13/2017 10:00 AM EST Office Visit [facility] [place] [address] [place] [address] Ulises Alberto MD [address] [place] [address] S/P CABG x 3 (Primary Dx); Ischemic heart disease; Other hyperlipidemia; Benign essential HTN Social History Tobacco [...] Sign Reading Time Taken Comments Blood Pressure 102/60 06/13/2017 9:39 AM EST Pulse 60 06/13/2017 9:39 AM EST Temperature - - Respiratory Rate - - Oxygen Saturation - - Inhaled Oxygen Concentration - - Weight 87.5 kg (193 lb) 06/13/2017 9:39 AM EST Height 175.3 cm (5' 9 ) 06/13/2017 9:39 AM EST Body Mass Index 28.5 06/13/2017 9:39 AM EST documented in this encounter Progress Notes * Ulises Alberto MD - 06/13/2017 10:00 AM EST CHIEF COMPLAINT Chief Complaint Patient presents with ??? Coronary Artery Disease 6 mon ck SUBJECTIVE Josh Ford is a 62 y.o. male who presents here for routine scheduled follow up for Status postthree-vessel CABG 2015, hypertension, hyperlipidemia HPI Josh Ford describes no new or accelerating cardiovascular symptoms including angina, palpitations, syncope, dyspnea, or edema. Medication compliance has been appropriate. Cardiovascular testingand hospitalizations incurred since last visit, if applicable, were reviewed and discussed. His lipids are managed via his primary care physician. MEDICATIONS Current Outpatient Prescriptions: ??? aspirin 81 mg Oral Tablet, Chewable, Take 81 mg by mouth daily., Disp: , Rfl: ??? atorvastatin (LIPITOR) 40 mg Oral Tablet, TAKE 1 TABLET NIGHTLY (REPLACES SIMVASTATIN) NEEDAN APPOINTMENT AND LABS DONE, Disp: 90 Tab, Rfl: 0 ??? lisinopril-hydrochlorothiazide (PRINZIDE;ZESTORETIC) 20-25 mg Oral Tablet, Take 0.5 Tabs by mouth daily., Disp: , Rfl: ??? meloxicam (MOBIC) 15 mg Oral Tablet, Take 15 mg by mouth daily., Disp: , Rfl: ??? metoprolol succinate ER (TOPROL-XL) 100 mg Oral Tablet Sustained Release 24 hr, Take 100 mg by mouth daily., Disp: , Rfl: [...] were negative PHYSICAL EXAM Vital Signs: BP 102/60 Pulse 60 Ht 5' 9 (1.753 m) Wt 193 lb (87.5 kg) BMI 28.50 kg/m?? ,Body mass index is 28.5 kg/m??. Constitutional: No acute distress, non-toxic appearance HEENT: Normal Neck- supple. No bruit, JVP normal Respiratory: clear Cardiovascular: 1/6 systolic murmur Abdominal: Soft, nondistended, normal bowel sounds, nontender, no organomegaly, no mass, Extremities: No edema Neurologic: Alert & oriented x 3, Moves all extremities well. Grossly nonfocal exam. Pertinent recent laboratory findings were reviewed EKG No results found for this visit on 06/13/17. ASSESSMENT: 1. S/P CABG x 3 2. Ischemic heart disease 3. Other hyperlipidemia 4. Benign essential HTN PLAN No changes in current medical regimen The importance of exercise, diet, and weight management was discussed with patient today RTO yearly or sooner PRN Return in about 1 year (around 06/13/2018). This chart was completed using voice recognition technology and may contain unintended errors documented in this encounter Plan of Treatment Not on file documented as of this encounter Visit Diagnoses Diagnosis S/P CABG x 3- Primary Postsurgical aortocoronary bypass status Ischemic heart disease Chronic ischemic heart disease, unspecified Other hyperlipidemia Benign essential HTN Essential hypertension, benign documented in this encounter Discontinued Medications Medication Sig Discontinue Reason Start Date End Da te gabapentin (NEURONTIN) 100 mg Oral CapsuleIndications:S/P CABG x 3,Hyperlipidemia,Essent ial hypertension,Left leg pain Take 1 Cap by mouth 2 times daily. DELETE-Therapy completed 11/19/2015 06/13/2017 documented as of this encounter Care Teams Cone Runner Relationship Specialty Start Date End Date Vanessa Dash ARNP [address] [place] [facility] [address] [place] [address] PCP - General Nurse Practitioner-Family 01/28/15 documented as of this encounter
--- OUTSIDE RECORDS SUMMARY | 2024-05-21 08:41 | XMS_ITS | Encounter Summary ---
Author Organization [place] [address] Care Team Providers Care Lab Specialist Name Role Phone Vanessa Dash Primary Care Provider [phone] [phone] Encounter Details Date Type Department Care Team (Late st Contact Info) Description 01/28/2016 Abstract [facility] [address] [place] [address] Mahnaz Odom RMA Social History Tobacco Use Types Packs/Day Years Used Date Smoking Tobacco: Former Cigarettes Q uit: 02/08/2007 Alcohol Use Standard Drinks/Week Comments No 0 (1 standard drink = 0.6 oz pur e alcohol) quit 06/08/1989 Sex and Gender Information Value Date Recorded Sex Assigned at Not on file Legal Sex Male 8:48 PM EDT Gender Identity Not on file Sexual Orientation Not on file documented as of this encounter Plan of Treatment Pending Results Name Type Priority Associated Diagnoses Date /Time BASIC METABOLIC PANEL Lab Routine 02/2016 ALANINE AMINOTRANSFERASE Lab Routine 01/14/2016 ASPARTATE AMINOTRANSFERASE Lab Routine 01/14/2016 COMPREHENSIVE METABOLIC PANEL Lab Routine 10/18/2015 CREATINE KINASE Lab Routine 6 PROSTATE SPECIFIC ANTIGEN (T UMOR MARKER) Lab Routine 10/18/2015 documented as of this encounter Visit Diagnoses Not on filedocumented in this encounter Orders Lab Orders Without Results Count Last Ordered D ate First Ordered Date BASIC METABOLIC PANEL 1 01/28/2016 documented in this encounter Care Teams Lab Specialist Relationship Specialty Start Date End Date Vanessa Dash ARNP [address] [place] [address] [place] [id number] PCP - General Nurse Practitioner-Family 01/28/15 documented as of this encounter
--- OUTSIDE RECORDS SUMMARY | 2024-05-21 08:41 | XMS_ITS | Encounter Summary ---
Author [place] [address] Care Team Providers Care Quantitative Consultant Name Role Phone Vanessa Dash Primary Care Provider [phone] [phone] Encounter Details Date Type Department Care Team (Latest Contact Info) Description 01/03/2016 8:00 AM EDT - 01/03/2016 11:59 PM EDT Hospital Encounter [facility] Cardiac Rehab [place] [address] [facility] [place] [address] Discharge Disposition: Home or Self Care Social [...] Chewable Take 81 mg by mouth daily. topiramate (TOPAMAX) 25 mg Oral Tablet Take 25 mg by mouth daily. 03/18/2020 documented as of this encounter Discharge Disposition Disposition Code Departure Means Destination Home or Self Care documented in this encounter Plan of Treatment Not on file documented as of this encounter Visit Diagnoses Not on filedocumented in this encounter Care Teams Quantitative Consultant Relationship Specialty Start Date End Date Vanessa Dash ARNP [address] [facility] [address] [place] [address] PCP - General Nurse Practitioner-Family 01/28/15 documented as of this encounter
--- OUTSIDE RECORDS SUMMARY | 2024-05-21 08:41 | XMS_ITS | Encounter Summary ---
Author Organization [place] [address] Care Team Providers Care Assessment Expert Name Role Phone Vanessa Dash Primary Care Provider [phone] [phone] Encounter Details Date Type Department Care Team (Latest Contact Info) Description 12/07/2016 10:55 AM EDT - 12/07/2016 10:56 AM EDT Hospital Encounter [facility] [address] [place] [id number] Discharge Disposition: Home or Self Care Social [...] Chewable Take 81 mg by mouth daily. lisinopril-hydroc hlorothiazide (PRINZIDE;ZESTORE TIC) 20-25 mg Oral Tablet Take 0.5 Tabs by mouth daily. 01/06/2016 topiramate (TOPAMAX) 25 mg Oral Tablet Take 25 mg by mouth daily. 03/18/2020 documented as of this encounter Discharge Disposition Disposition Code Departure Means Destination Home or Self Care documented in this encounter Plan of Treatment Not on file documented as of this encounter Visit Diagnoses Not on filedocumented in this encounter Care Teams Assessment Expert Relationship Specialty Start Date End Date Vanessa Dash ARNP [address] [facility] [address] [place] [address] PCP - General Nurse Practitioner-Family 01/28/15 documented as of this encounter
--- OUTSIDE RECORDS SUMMARY | 2024-05-21 08:41 | XMS_ITS | Encounter Summary ---
Author Organization [place] [address] Care Team Providers Care Purse Framer Name Role Phone Vanessa Dash ERIKA Primary Care Provider [phone] [phone] Yelena Damian Primary Care Provider [phone] Reason for Visit * Reason Onset Date Comments Advice Only 12/21/2015 Encounter Details Date Type Department Care Team (Late st Contact Info) Description 12/21/2015 Telephone [facility] Cardiac Rehab [place] [address] [place], [place] [id number] Gretta Knight, endocrinologist Only Social History Tobacco Use Types Packs/Day Years [...] encounter Miscellaneous Notes * Telephone Encounter - Ulises Alberto MD - 12/22/2015 5:30 PM EDT Agree with proposed HR range for exercise * Telephone Encounter - Gretta Knight - 12/21/2015 6:25 PM EDT Please review and approve prescribed target heart rate range of 102-121 bpm with average resting HR65 bpm. Target heart rate is calculated using Karvonen formula 60-80% age predicted maximal heart rate minus 20 bpm to account for beta ann. Patient is currently exercising below this target heart rate range without any cardiovascular complaints. Thank you documented in this encounter Plan of Treatment Not on file documented as of this encounter Visit Diagnoses Not on filedocumented in this encounter Care Teams Purse Framer Relationship Specialty Start Date End Date Vanessa Dash ARNP [facility] [address] [place] [address] PCP - General Nurse Practitioner-Family 01/28/15 Yelena Damian [address] [place] [address] PCP - General Family Medicine 06/21/18 10/11/22 documented as of this encounter
--- OUTSIDE RECORDS SUMMARY | 2024-05-21 08:41 | XMS_ITS | Encounter Summary ---
Author [place] [address] Care Team Providers Care Distribution Superintendent Name Role Phone Vanessa Dash Primary Care Provider [phone] Encounter Details Date Type Department Care Team (Latest Contact Info) Description 12/24/2015 8:00 AM EDT - 12/24/2015 11:59 PM EDT Hospital Encounter [facility] Cardiac Rehab [place] [address] [facility] [place] [address] Discharge Disposition: Home or Self Care Social [...] on filedocumented in this encounter Care Teams Distribution Superintendent Relationship Specialty Start Date End Date Vanessa Dash ARNP [address] [facility] [address] [place] [address] PCP - General Nurse Practitioner-Family 01/28/15 documented as of this encounter
--- OUTSIDE RECORDS SUMMARY | 2024-05-21 08:41 | XMS_ITS | Encounter Summary ---
Author Organization [place] [address] Care Team Providers Care Digital Assistant Name Role Phone Vanessa Dash Primary Care Provider [phone] Reason for Visit * Reason Comments Follow-up 6 wk ck, echo * Consultation (Routine) - Closed Specialty Diagnoses / Procedures Referred By Daniela adair Referred To Contact Nurse Practitioner / Cardiology Diagnoses Ischemic heart disease 6 wk ck , f/u echo and labs,rehab Procedures [place] UNLISTED E/M SERVICE OFFICE VISIT Vanessa Dash ARNP [address] [place] [address] [place] [address] Phone: tel: fax: Evelyne Harrington, MLT [address] [place] [address] Phone: tel: fax: Referral ID Status Reason Start Date Expiration Date Visits Re quested Visits Authorized [id number] Closed 01/06/2016 01/05/2017 99 99 Encounter Details Date Type Department Care Team (Late st Contact Info) Description 01/06/2016 8:30 AM EDT Office Visit [facility] [place] [address] [place] [address] Evelyne Harrington, MLT [address] [place] [address] Ischemic heart disease (Primary Dx); S/P CABG x 3; Hyperlipidemia Social History Tobacco Use Types Packs/Day Years [...] Sign Reading Time Taken Comments Blood Pressure 110/70 01/06/2016 8:12 AM EDT Pulse 72 01/06/2016 8:12 AM EDT Temperature - - Respiratory Rate - - Oxygen Saturation - - Inhaled Oxygen Concentration - - Weight 93 kg (205 lb) 01/06/2016 8:12 AM EDT Height 175.3 cm (5' 9 ) 01/06/2016 8:12 AM EDT Body Mass Index 30.27 01/06/2016 8:12 AM EDT documented in this encounter Ordered Prescriptions Prescription Sig Dispense Quantity Refills Last Filled Start Date End Date lisinopril-hydrochl orothiazide (PRINZIDE;ZESTORETI C) 20-25 mg Oral Tablet Take 0.5 Tabs by mouth daily. 01/06/2016 documented in this encounter Progress Notes * Evelyne Harrington, RINA - 01/06/2016 8:55 AM EDT Cardiology Note Chief Complaint Patient presents with ??? Follow-up 6 wk ck, echo HPI: Josh Ford returned to the office for routine follow up for ASHD. He has been participating incardiac rehab 2x/week but it quitting after tomorrow. he plans to buy a treadmill and continue to work out at home. He is asymptomatic while exercising - no chest pain, palpitations. Frequent PVCs were noted during and after exercise. He continues to have left leg pain, Neurontin did not provide much relief. He snores like a freWEISSENHAUS train at night but is not interested in having a sleep study done. Denies lightheadedness, SOB, leg swelling, orthopnea, syncope. Review of Systems HENT: Negative for headaches. Cardiovascular: Negative for chest pain, dyspnea on exertion, leg swelling, weight changes, near-syncope, orthopnea, palpitations, paroxysmal nocturnal dyspnea and syncope. Respiratory: Negative for shortness of breath, cough Gastrointestinal: Negative for hematochezia. Neurological: Negative for dizziness and light-headedness. Complains of: snoring, left leg pain. No Known Allergies Current Outpatient Rx Name Route Sig Dispense Refill ??? aspirin 81 mg Oral Tablet, Chewable Oral Take 81 mg by mouth daily. ??? atorvastatin (LIPITOR) 40 mg Oral Tablet Oral Take 1 Tab by mouth nightly. 90 Tab 2 This replaces Simvastatin ??? gabapentin (NEURONTIN) 100 mg Oral Capsule Oral Take 1 Cap by mouth 2 times daily. 60 Cap 4 ??? lisinopril-hydrochlorothiazide (PRINZIDE;ZESTORETIC) 20-25 mg Oral Tablet Oral Take 0.5 Tabs by mouth daily. ??? metoprolol succinate ER (TOPROL-XL) 100 mg Oral Tablet Sustained Release 24 hr Oral Take 100 mg by mouth daily. ??? topiramate (TOPAMAX) 25 mg Oral Tablet Oral Take 25 mg by mouth daily. Past Medical History Diagnosis Date ??? Hyperlipidemia ??? Hypertension ??? Family history of other cardiovascular diseases(V17.49) ??? Shortness of breath ??? CAD (coronary artery disease) ??? 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 ??? Bladder problem frequency Past Surgical History Procedure Laterality Date ??? Neck surgery 2000 benign tumer removed ??? Cardiac catheterization ??? Cardiac surgery N/A 03/03/2015 LYSIS OF DENSE PERICARDIAL ADHESIONS, CORONARY ARTERY BYPASS GRAFTS X 3 USING RIGHT SAPHENOUS VEIN X 2 AND LEFT INTERNAL MAMMARY ARTERY X 1; Surgeon: Felix Mcbride MD; Location: [facility] OR; Service: Open Heart Lab Results Component Value Date HGB 11.6* 03/08/2015 HCT 35.2* 03/08/2015 PLT 233 03/08/2015 NA 140 03/08/2015 K 4.1 03/08/2015 CREATININE 0.94 03/08/2015 BUN 20 03/08/2015 CO2 28 03/08/2015 INR 1.16* 03/02/2015 GLU 104* 03/08/2015 HGBA1C 6.1 03/02/2015 History Smoking status ??? Former Smoker ??? Quit date: 02/08/2007 Smokeless tobacco ??? Not on file History Alcohol Use No Comment: quit 06/08/1989 Vitals: Filed Vitals: 01/06/16 0812 BP: 110/70 Pulse: 72 Height: 5' 9 (1.753 m) Weight: 205 lb (92.987 kg) Body mass index is 30.26 kg/(m^2). Wt Readings from Last 3 Encounters: 01/06/16 205 lb (92.987 kg) 12/03/15 208 lb (94.348 kg) 11/19/15 209 lb (94.802 kg) Physical Exam: GEN: Alert and oriented, no acute distress HEENT: Normocephalic, Sclera anicteric NECK: supple, decreased JVP LUNGS: CTA CHEST: NT HEART: RRR, no murmur/gallop/rubs ABD: soft, NT, positive bowel sounds EXT: no edema, +3 radial, +3 PT pulses Assessment and Plan: Josh was seen today for follow-up. Diagnoses and all orders for this visit: ASHD -S/P CABG x 3 -denies angina Frequent PVCs -during and after exercise at cardiac rehab -will check electrolytes Hyperlipidemia -due for labs in February -managed by PCP Possible sleep apnea Left leg pain Recommended sleep study - pt declined but said he would think about it Pt sees PCP in 2 weeks and will fax us lab results Will continue current cardiac regimen. Spot check BP/HR and call for problems. Instructed the patient to follow a low sodium (<2gm) diet and low fat. Also instructed to continue regular exercise. Return in about 6 months (around 07/07/2016). Call us with any questions or concerns prior to your next visit. Glenis Harrington APRN 01/06/2016 documented in this encounter Plan of Treatment Not on file documented as of this encounter Visit Diagnoses Diagnosis Ischemic heart disease- Primary Chronic ischemic heart disease, unspecified S/P CABG x 3 Postsurgical aortocoronary bypass status Hyperlipidemia Other and unspecified hyperlipidemia documented in this encounter Discontinued Medications Medication Sig Discontinue Reason Start Date End Da te lisinopril-hydrochlorothi azide (PRINZIDE;ZESTORETIC) 20-25 mg Oral Tablet Take 1 Tab by mouth daily. Reorder 01/06/2016 documented as of this encounter Care Teams Digital Assistant Relationship Specialty Start Date End Date Vanessa Dash ARNP [address] [address] PCP - General Nurse Practitioner-Family 01/28/15 documented as of this encounter
--- OUTSIDE RECORDS SUMMARY | 2024-05-21 08:41 | XMS_ITS | Encounter Summary ---
Author Organization [place] [address] Care Team Providers Care Kineseologist Name Role Phone Vanessa Dash ERIKA Primary Care Provider [phone] [phone] Reason for Visit * Reason Comments Medication Refill Encounter Details Date Type Department Care Team (Late st Contact Info) Description 08/27/2016 Refill [facility] [place] [place] [id number] Ulises Alberto MD [address] [place] [address] Medication Refill Social History Tobacco Use Types [...] Refills Last Filled Start Date End Date atorvastatin (LIPITOR) 40 mg Oral TabletIndications: S/P CABG x 3,Hyperlipidemia,E ssential hypertension,Left leg pain TAKE 1 TABLET NIGHTLY (THISREPLACES SIMVASTATIN) 90 Tab 08/28/2016 7 documented in this encounter Plan of Treatment Not on file documented as of this encounter Visit Diagnoses Diagnosis S/P CABG x 3 Postsurgical aortocoronary bypass status Hyperlipidemia Other and unspecified hyperlipidemia Essential hypertension Unspecified essential hypertension Left leg pain Pain in limb documented in this encounter Discontinued Medications Medication Sig Discontinue Reason Start Date End Da te atorvastatin (LIPITOR) 40 mg Oral TabletIndications:S/P CABG x 3,Hyperlipidemia,Essentia l hypertension,Left leg pain Take 1 Tab by mouth nightly. Reorder 11/19/2015 08/27/2016 documented as of this encounter Care Teams Kineseologist Relationship Specialty Start Date End Date Vanessa Dash ARNP [address] [place] [address] [place] [address] PCP - General Nurse Practitioner-Family 01/28/15 documented as of this encounter
--- OUTSIDE RECORDS SUMMARY | 2024-05-21 08:41 | XMS_ITS | Encounter Summary ---
Author Organization [place] [address] Care Team Providers Care Application Support Manager Name Role Phone Vanessa Dash ERIKA Primary Care Provider [phone] [phone] Reason for Visit * Reason Comments Medication Refill Encounter Details Date Type Department Care Team (Late st Contact Info) Description 11/25/2016 Refill [facility] [place] [place] [phone] Ulises Alberto MD [address] [place] [address] Medication Refill Social History Tobacco Use Types [...] NEEDAN APPOINTMENT AND LABS DONE 90 Tab 11/27/2016 7 documented in this encounter Plan of [...] (LIPITOR) 40 mg Oral TabletIndications:S/P CABG x 3,Hyperlipidemia,Essenti al hypertension,Left leg pain TAKE 1 TABLET NIGHTLY (THISREPLACES SIMVASTATIN) Reorder 08/28/2016 11/25/2016 documented as of this encounter Care Teams Application Support Manager Relationship Specialty Start Date End Date Vanessa Dash ARNP [address] [place] [address] [address] [place] [address] PCP - General Nurse Practitioner-Family 01/28/15 documented as of this encounter
--- OUTSIDE RECORDS SUMMARY | 2024-05-21 08:41 | XMS_ITS | Encounter Summary ---
Author Organization [place] [address] Care Team Providers Care Grief Counsellor Name Role Phone Vanessa Dash Primary Care Provider [phone] [phone] Encounter Details Date Type Department Care Team (Latest Contact Info) Description 12/17/2015 8:00 AM EDT - 12/17/2015 11:59 PM EDT Hospital Encounter [facility] Cardiac Rehab [place] [address] [place] [address] Discharge Disposition: Home or Self Care Social [...] on filedocumented in this encounter Care Teams Grief Counsellor Relationship Specialty Start Date End Date Vanessa Dash ARNP [address] [facility] [address] [place] [address] PCP - General Nurse Practitioner-Family 01/28/15 documented as of this encounter
--- OUTSIDE RECORDS SUMMARY | 2024-05-21 08:41 | XMS_ITS | Encounter Summary ---
Author Organization [place] [address] Care Team Providers Care Mattress And Boxsprings Supervisor Name Role Phone Vanessa Dash Primary Care Provider [phone] [phone] Reason for Visit * Reason Comments Follow-up * Consultation (Routine) - Closed Specialty Diagnoses / Procedures Referred By Daniela adair Referred To Contact Nurse Practitioner / Cardiology Diagnoses 6 month check Procedures OFFICE VISIT Vanessa Dash ARNP [address] [place] [id number] Phone: tel: fax: Evelyne Harrington, SCIENTIFIC WRITER [address] [place] [address] Phone: tel: fax: Referral ID Status Reason Start Date Expiration Date Visits Re quested Visits Authorized [id number] Closed 12/20/2016 12/20/2017 99 99 Encounter Details Date Type Department Care Team (Latest Contact Info) Description 12/20/2016 8:30 AM EDT Office Visit [facility] [place] [address] [place] [address] Evelyne Harrington, SCIENTIFIC WRITER [address] [place] [address] Mixed hyperlipidemia (Primary Dx); ASHD (arteriosclerotic heart disease); Benign essential HTN; S/P CABG x 3 Social History Tobacco Use Types Packs/Day Years [...] Reading Time Taken Comments Blood Pressure 110/70 12/20/2016 8:31 AM EDT Pulse 64 12/20/2016 8:31 AM EDT Temperature - - Respiratory Rate - - Oxygen Saturation - - Inhaled Oxygen Concentration - - Weight 88.5 kg (195 lb) 12/20/2016 8:31 AM EDT Height 175.3 cm (5' 9 ) 12/20/2016 8:31 AM EDT Body Mass Index 28.8 12/20/2016 8:31 AM EDT documented in this encounter Progress Notes * Evelyne Harrington, SCIENTIFIC WRITER - 12/20/2016 8:30 AM EDT Cardiology Note Chief Complaint Patient presents with ??? Follow-up HPI: Josh Ford returned to the office for routine follow up. He has been having trouble with bilateral shoulders. Recently saw rheumatology who gave him a cortisone shot on each side. It only mildlyimproved the pain. He is no longer participating in regular exercise. 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 He has been compliant with medications. Denies chest pain, palpitations, orthopnea, leg swelling, weight changes, lightheadedness, dizziness, syncope. Review of Systems HENT: Negative for headaches. Cardiovascular: Negative for chest pain, dyspnea on exertion, leg swelling, weight changes, near-syncope, orthopnea, palpitations, paroxysmal nocturnal dyspnea and syncope. Respiratory: Negative for cough Gastrointestinal: Negative for hematochezia. Neurological: Negative for dizziness and light-headedness. Complains of: intermittent SOB, bilateral shoulder pain No Known Allergies Current Outpatient Prescriptions: ??? aspirin 81 mg [...] by mouth daily., Disp: , Rfl: ??? gabapentin (NEURONTIN) 100 mg Oral Capsule, Take 1 Cap by mouth 2 times daily. (Patient not taking: Reported on 12/20/2016), Disp: 60 Cap, Rfl: 4 Past Medical History: Diagnosis Date ??? Bladder problem frequency ??? CAD (coronary artery disease) ??? Family history of other cardiovascular diseases ??? Hyperlipidemia ??? Hypertension ??? 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 ??? Shortness of breath Past Surgical History: Procedure Laterality Date ??? CARDIAC CATHETERIZATION ??? CARDIAC SURGERY N/A 03/03/2015 LYSIS OF DENSE PERICARDIAL ADHESIONS, CORONARY ARTERY BYPASS GRAFTS X 3 USING RIGHT SAPHENOUS VEIN X 2 AND LEFT INTERNAL MAMMARY ARTERY X 1; Surgeon: Felix Mcbride MD; Location: [facility] OR; Service: Open Heart ??? NECK SURGERY 2000 benign tumer removed Lab Results Component Value Date HGB 11.6 (L) 03/08/2015 HCT 35.2 (L) 03/08/2015 PLT 233 03/08/2015 ALT 15 01/14/2016 AST 16 01/14/2016 NA 141 01/14/2016 K 3.9 01/14/2016 CREATININE 1.05 10/18/2015 BUN 18 01/14/2016 CO2 28 03/08/2015 INR 1.16 (H) 03/02/2015 GLU 104 (H) 03/08/2015 HGBA1C 6.1 03/02/2015 History Smoking Status ??? Former Smoker ??? Quit date: 02/08/2007 Smokeless Tobacco ??? Not on file History Alcohol Use No Comment: quit 06/08/1989 Vitals: Vitals: 12/20/16 0831 BP: 110/70 Pulse: 64 Weight: 195 lb (88.5 kg) Height: 5' 9 (1.753 m) Body mass index is 28.8 kg/(m^2). Wt Readings from Last 3 Encounters: 12/20/16 195 lb (88.5 kg) 01/06/16 205 lb (93 kg) 12/03/15 208 lb (94.3 kg) Physical Exam: GEN: Alert and oriented, no acute distress HEENT: Normocephalic, Sclera anicteric NECK: supple, decreased JVP LUNGS: CTA CHEST: NT HEART: RRR, no murmur/gallop/rubs ABD: soft, NT, positive bowel sounds EXT: no edema, +3 radial, +3 PT pulses Echo 12/2015: EF 50-55%, +WMAs, Mild LAD, Mild MR/TR Carotid ultrasound 11/2014: bilateral ICA 1-39% Assessment and Plan: Josh was seen today for follow-up. Diagnoses and all orders for this visit: ASHD -s/p CABG x3 02/2015 (NIXON to LAD, SVG to OM, SVG to RCA) -denies recurrent angina Hyperlipidemia -on statin -labs managed by PCP Hypertension -well controlled SOB -has been referred to pulm at Bilateral shoulder pain Will have PCP fax us latest lab results Continue current cardiac regimen. Spot check BP/HR and call for problems. Instructed the patient to follow a low sodium (<2gm) and low fat diet. Also instructed to increase regular exercise. Return in about 6 months (around 06/21/2017). Call us with any questions or concerns prior to your next visit. Glenis Harrington APRN 12/20/16 documented in this encounter Plan of Treatment Not on file documented as of this encounter Procedures Procedure Name Priority Date/Time Associated Diagnosis Comments SCANNED LABS 12/22/2016 4:20 PM EDT documented in this encounter Results * SCANNED LABS (12/22/2016 4:20 PM EDT) 12/22/2016 4:20 PM EDT us Unknown Unknown HEMATOLOGY ORDERABLES Final Resu lt documented in this encounter Visit Diagnoses Diagnosis Mixed hyperlipidemia- Primary ASHD (arteriosclerotic heart disease) Coronary atherosclerosis of unspecified type of vessel, iliamna or graft Benign essential HTN Essential hypertension, benign S/P CABG x 3 Postsurgical aortocoronary bypass status documented in this encounter Historical Medications * This list may reflect changes made after this encounter. meloxicam (MOBIC) 15 mg Oral Tablet Take 15 mg by mouth daily. 06/21/2018 added in this encounter Care Teams Mattress And Boxsprings Supervisor Relationship Specialty Start Date End Date Vanessa Dash ARNP [address] [place] [address] [address] [place] [id number] PCP - General Nurse Practitioner-Family 01/28/15 documented as of this encounter
--- OUTSIDE RECORDS SUMMARY | 2024-05-21 08:41 | XMS_ITS | Encounter Summary ---
Author Organization [place] [address] Care Team Providers Care Waiter/Waitress Tourist Class Name Role Phone Vanessa Dash Primary Care Provider [phone] [phone] Reason for Referral * Consultation (Routine) - Closed Specialty Diagnoses / Procedures Referred By Contac t Referred To Contact Cardiac Rehabilitation Diagnoses S/P CABG x 3 Hyperlipidemia Essential hypertension Left leg pain Eryn Mckeon MD Phone: tel: fax: Referral ID Status Reason Start Date Expiration Date Visits Re quested Visits Authorized [id number] Closed 11/19/2015 11/18/2016 1 1 Comments Cardiac Rehab Order to participate in Phase II Oupatient Cardiac Rehab Program. Unless otherwise noted, department standard protocols will be used in delivering quality patient care. This includes blood glucose monitoring as needed, emergency care orders and exercise prescription. Patient may enter non-EKG moniotred Phase III maintenance program upon completion of of Phase II Outpatient Cardiac Rehab Program. * Echo (Routine) - Closed Specialty Diagnoses / Procedures Referred By Contac t Referred To Contact Radiology Diagnoses S/P CABG x 3 Hyperlipidemia Essential hypertension Left leg pain Procedures EC ECHOCARDIOGRAM COMPLETE W DOPPLER AND COLOR FLOW MAPPING Eryn Mckeon MD Phone: tel: fax: Referral ID Status Reason Start Date Expiration Date Visits Re quested Visits Authorized [id number] Closed 11/19/2015 11/18/2016 1 1 Reason for Visit * Reason Comments Fatigue Dr Nati torres appt, pt never seen after CABG from 02/2015 Encounter Details Date Type Department Care Team (Late st Contact Info) Description 11/19/2015 2:40 PM EDT Office Visit [facility] [place] [address] [place] [address] Eryn Mkceon MD [address] [place], [place] [id number] S/P CABG x 3 (Primary Dx); Hyperlipidemia; Essential hypertension; Left leg pain Social History Tobacco Use Types Packs/Day [...] Sign Reading Time Taken Comments Blood Pressure 90/58 11/19/2015 2:21 PM EDT Pulse 84 11/19/2015 2:21 PM EDT Temperature - - Respiratory Rate - - Oxygen Saturation - - Inhaled Oxygen Concentration - - Weight 94.8 kg (209 lb) 11/19/2015 2:21 PM EDT Height 172.7 cm (5' 8 ) 11/19/2015 2:21 PM EDT Body Mass Index 31.78 11/19/2015 2:21 PM EDT documented in this encounter Ordered Prescriptions Prescription Sig Dispense Quantity Refills Last Filled Start Date End Date atorvastatin (LIPITOR) 40 mg Oral TabletIndications:S /P CABG x 3,Hyperlipidemia,Es sential hypertension,Left leg pain Take 1 Tab by mouth nightly. 90 Tab 2 11/19/2015 08/27/2016 gabapentin (NEURONTIN) 100 mg Oral CapsuleIndications: S/P CABG x 3,Hyperlipidemia,Es sential hypertension,Left leg pain Take 1 Cap by mouth 2 times daily. 60 Cap 4 11/19/2015 06/13/2017 gabapentin (NEURONTIN) 100 mg Oral CapsuleIndications: S/P CABG x 3,Hyperlipidemia,Es sential hypertension,Left leg pain Take 1 Cap by mouth 2 times daily. 60 Cap 4 11/19/2015 11/19/2015 atorvastatin (LIPITOR) 40 mg Oral TabletIndications:S /P CABG x 3,Hyperlipidemia,Es sential hypertension,Left leg pain Take 1 Tab by mouth nightly. 30 Tab 11 11/19/2015 11/19/2015 documented in this encounter Progress Notes * Eryn Mckeon MD - 11/19/2015 4:25 PM EDT CHIEF COMPLAINT Chief Complaint Patient presents with ??? Fatigue Dr Damian requested appt, pt never seen after CABG from 02/2015 SUBJECTIVE Josh Ford is a 60 y.o. male who presents here for routine scheduled follow up for status postCABG, hypertension, hyperlipidemia, family history of heart disease HPI He underwent three-vessel coronary artery bypass grafting in February with a left internal mammary artery graft to the LAD, saphenous vein graft to the obtuse marginal branch, and a saphenous vein graft to the right coronary artery. He was seen back by cardiothoracic surgery once. He has not been back to see us until today. 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 He has no weakness. His vein graft was harvested as harvested from the right leg. His chest incision is healed nicely. He has been unable to walk much due to the fact that he has significant amount leg pain. He has not participated in cardiac rehabilitation as of yet. He has been compliant with his medications. He does feel weak. Recent lab work was done. His total cholesterol is approximately 161 with an LDL of 108 HDL 40 triglycerides 74. He is compliant with his medicines. He denies angina or heart failure symptoms. He was started on Topamax recently for a tremor MEDICATIONS Current Outpatient Rx Name Route Sig Dispense Refill ??? aspirin 81 mg Oral Tablet, Chewable Oral Take 81 mg by mouth daily. ??? lisinopril-hydrochlorothiazide (PRINZIDE;ZESTORETIC) 20-25 mg Oral Tablet Oral Take 1 Tab by mouth daily. ??? metoprolol succinate ER (TOPROL-XL) 100 mg Oral Tablet Sustained Release 24 hr Oral Take 100 mg by mouth daily. ??? topiramate (TOPAMAX) 25 mg Oral Tablet Oral Take 25 mg by mouth daily. ??? atorvastatin (LIPITOR) 40 mg Oral Tablet Oral Take 1 Tab by mouth nightly. 90 Tab 2 This replaces Simvastatin ??? gabapentin (NEURONTIN) 100 mg Oral Capsule Oral Take 1 Cap by mouth 2 times daily. 60 Cap 4 ALLERGIES No Known Allergies The past medical history, pertinent social history, and family history were reviewed and verified. ROS: No unintentional weight loss, bleeding, progressive neurologic complaints, fevers or chills. Other systems were reviewed and were negative PHYSICAL EXAM Vital Signs: BP 90/58 mmHg Pulse 84 Ht 5' 8 (1.727 m) Wt 209 lb (94.802 kg) BMI 31.79 kg/m2,Body mass index is 31.79 kg/(m^2). Constitutional: No acute distress, non-toxic appearance HEENT: Normal Neck- supple. No bruit, JVP normal Respiratory: Clear to auscultation Cardiovascular: Absence of a murmur or gallop Abdominal: Soft, nondistended, normal bowel sounds, nontender, no organomegaly, no mass, Extremities: No peripheral edema with 2+ pedal pulses Neurologic: Alert & oriented x 3, Moves all extremities well. Grossly nonfocal exam. Pertinent recent laboratory findings were reviewed ASSESSMENT: 1. S/P CABG x 3 2. Hyperlipidemia 3. Essential hypertension 4. Left leg pain PLAN I lowered his FLAQUITO inhibitor thiazide agent by one half due to relative hypotension and fatigue. An echocardiogram will be obtained to assess his postoperative left ventricular systolic function. We will change his Zocor to Lipitor 40 mg daily followed by a lipid panel in 3 months. I strongly encouraged him to try to participate in cardiac rehabilitation therapy just aches or doable. We have givenhim Neurontin 100 mg twice daily for a month or 2 to see whether this has any improvement of the pain in his left leg. I will defer follow-up of this to his primary care physician going forward. We will see him back in approximate 6 weeks for reassessment. Return in about 6 weeks (around 12/31/2015) for CUFF MAKER. This chart was completed using voice recognition technology and may contain unintended errors documented in this encounter Miscellaneous Notes * Patient Instructions - Oly Guzman RMA - 11/19/2015 3:20 PM EDT Decrease Lisinopril/Hctz to 1/2 tablet to = 10/12.5mg per day Start Neurontin 100mg, 1 tablet 2 times per day Stop Simvastatin Start Lipitor (Atorvastatin) 40mg , 1 tablet per day Do 12 hour fasting blood work in 6-8 weeks Someone from [facility] will call you to set up cardiac rehab documented in this encounter Plan of Treatment Scheduled Orders Name Type Priority Associated Diagnoses Orde r Schedule ASPARTATE AMINOTRANSFERASE Lab Routine S/P CABG x 3 Hyperlipidemia Essential hypertension Left leg pain 1 Occurrences starting 11/19/2015 until 05/19/2016 LIPID SCREEN Lab Routine S/P CABG x 3 Hyperlipidemia Essential hypertension Left leg pain 1 Occurrences starting 11/19/2015 until 05/19/2016 ALANINE AMINOTRANSFERASE Lab Routine S/P CABG x 3 Hyperlipidemia Essential hypertension Left leg pain 1 Occurrences starting 11/19/2015 until 05/19/2016 BASIC METABOLIC PANEL Lab Routine S/P CABG x 3 Hyperlipidemia Essential hypertension Left leg pain 1 Occurrences starting 11/19/2015 until 05/19/2016 Scheduled Referrals Name Type Priority Associated Diagnoses Orde r Schedule AMB REFERRAL TO CARDIAC REHAB Outpatient Referral Routine S/P CABG x 3 Hyperlipidemia Essential hypertension Left leg pain Ordered: 11/19/2015 documented as of this encounter Results * EC ECHOCARDIOGRAM COMPLETE W DOPPLER AND COLOR FLOW MAPPING (01/06/2016 8:02 AM EDT) Ejection Fraction 50-55 % PYRAMIS Anatomical Region Laterality Modality Electrocardiogra phy 01/06/2016 7:18 AM EDT Impressions 01/06/2016 4:04 PM EDT ??CONCLUSIONS ??Left ventricular ejection fraction is in the normal range. ??Mild concentric hypertrophy. ??Hypokinesis of the basal inferior wall. ??Aortic sclerosis. ??Mild mitral regurgitation. ??Mild left atrial dilatation. ??Mild tricuspid regurgitation. ?? ERYN MCKEON MD Narrative Procedure Note Eryn Mckeon MD - 01/06/2016 IMPRESSION CONCLUSIONS Left ventricular ejection fraction is in the normal range. Mild concentric hypertrophy. Hypokinesis of the basal inferior wall. Aortic sclerosis. Mild mitral regurgitation. Mild left atrial dilatation. Mild tricuspid regurgitation. ERYN MCKEON MD us Eryn Mckeon MD IMG ECHO ORDERABLES Final Resu lt documented in this encounter Visit Diagnoses Diagnosis S/P CABG x 3- Primary Postsurgical aortocoronary bypass status Hyperlipidemia Other and unspecified hyperlipidemia Essential hypertension Unspecified essential hypertension Left leg pain Pain in limb S/P CABG x 3 Postsurgical aortocoronary bypass status Hyperlipidemia Other and unspecified hyperlipidemia Essential hypertension Unspecified essential hypertension Left leg pain Pain in limb documented in this encounter Discontinued Medications Medication Sig Discontinue Reason Start Date End Da te lisinopril (PRINIVIL;ZESTRIL) 5 mg Oral Tablet Take 1 Tab by mouth 2 times daily. Alternate therapy 03/09/2015 11/19/2015 metoprolol (LOPRESSOR) 50 mg Oral Tablet Take 1 Tab by mouth 3 times daily. Dose adjustment 03/09/2015 11/19/2015 pantoprazole (PROTONIX) 40 mg Oral Tablet, Delayed Release (E.C.) Take 1 Tab by mouth daily. DELETE-Therapy completed 03/08/2015 11/19/2015 predniSONE (DELTASONE) 5 mg Oral Tablet Take 2 tabs twice a day for 5 days. Take 3 tabs once a day for 4 days. Take 2 tabs once a day for 5 days. Take 1 tab once a day till gone. DELETE-Therapy completed 03/08/2015 11/19/2015 metoprolol succinate (TOPROL-XL) 50 mg Oral Tablet Sustained Release 24 hr Take 50 mg by mouth daily. Dose adjustment 11/19/2015 simvastatin (ZOCOR) 40 mg Oral Tablet Take 40 mg by mouth daily. Cancelled by 11/19/2015 HYDROcodone-acetaminop hen (NORCO) 5-325 mg Oral Tablet Take 1-2 Tabs by mouth every 4 hours as needed for Pain. Cancelled by 03/08/2015 11/19/2015 gabapentin (NEURONTIN) 100 mg Oral CapsuleIndications:S/P CABG x 3,Hyperlipidemia,Essen tial hypertension,Left leg pain Take 1 Cap by mouth 2 times daily. Reorder 11/19/2015 11/19/2015 atorvastatin (LIPITOR) 40 mg Oral TabletIndications:S/P CABG x 3,Hyperlipidemia,Essen tial hypertension,Left leg pain Take 1 Tab by mouth nightly. Reorder 11/19/2015 11/19/2015 documented as of this encounter Historical Medications * This list may reflect changes made after this encounter. lisinopril-hydroc hlorothiazide (PRINZIDE;ZESTORE TIC) 20-25 mg Oral Tablet Take 1 Tab by mouth daily. 01/06/2016 metoprolol succinate ER (TOPROL-XL) 100 mg Oral Tablet Sustained Release 24 hr Take 50 mg by mouth daily. 10/12/2022 metoprolol succinate (TOPROL-XL) 50 mg Oral Tablet Sustained Release 24 hr Take 50 mg by mouth daily. 11/19/2015 topiramate (TOPAMAX) 25 mg Oral Tablet Take 25 mg by mouth daily. 03/18/2020 added in this encounter Care Teams Waiter/Waitress Tourist Class Relationship Specialty Start Date End Date Vanessa Dash ARNP [address] [place] [address] [address] [place] [address] PCP - General Nurse Practitioner-Family 01/28/15 documented as of this encounter
--- OUTSIDE RECORDS SUMMARY | 2024-05-21 08:41 | XMS_ITS | Encounter Summary ---
Author Organization [place] [address] Care Team Providers Care Meter And Regulator Shop Supervisor Name Role Phone Vanessa Dash ERIKA Primary Care Provider [phone] [phone] Reason for Visit * Reason Comments Medication Refill Encounter Details Date Type Department Care Team (Late st Contact Info) Description 02/23/2017 Refill SEP [facility] [place] [address] [place] [id number] Ulises Alberto MD [address] [place] [address] Medication Refill Social History Tobacco Use Types [...] NEEDAN APPOINTMENT AND LABS DONE 90 Tab 02/23/2017 3 documented in this encounter Plan of Treatment [...] (REPLACES SIMVASTATIN) NEEDAN APPOINTMENT AND LABS DONE Reorder 11/27/2016 02/23/2017 documented as of this encounter Care Teams Meter And Regulator Shop Supervisor Relationship Specialty Start Date End Date Vanessa Dash ARNP [address] [place] [address] [address] [place] [address] PCP - General Nurse Practitioner-Family 01/28/15 documented as of this encounter
--- OUTSIDE RECORDS SUMMARY | 2024-05-21 08:41 | XMS_ITS | Encounter Summary ---
Author Organization [place] [address] Care Team Providers Care Apprentice Machinist Outside Name Role Phone Vanessa Dash ERIKA Primary Care Provider [phone] [phone] Reason for Visit * Reason Onset Date Comments Medication Refill 2016 Encounter Details Date Type Department Care Team (Late st Contact Info) Description 2016 Telephone SEP H&V [facility] [place] [address] [place] [address] Ulises Alberto MD [address] [place] [address] Medication Refill Social History Tobacco Use Types [...] encounter Miscellaneous Notes * Telephone Encounter - Sharee Simmons RMA - 2016 3:24 PM EDT Informed patient * Telephone Encounter - Sharee Simmons RMA - 2016 3:18 PM EDT Called [facility] informed them to contact PCP for further refills per Dr. Alberto's 5-123-16 ov note * Telephone Encounter - Rolanda Ortiz, Clerical Staff - 2016 12:49 PM EDT Pt needs refill of Gagapentin 100 mg QD. He tried to call for a refill but [facility] couldn't find him in their system. Please call [facility]. documented in this encounter Plan of Treatment Not on file documented as of this encounter Visit Diagnoses Not on filedocumented in this encounter Care Teams Apprentice Machinist Outside Relationship Specialty Start Date End Date Vanesas Dash ARNP [address] [place] [address] [address] [place] [address] PCP - General Nurse Practitioner-Family 01/28/15 documented as of this encounter
--- OUTSIDE RECORDS SUMMARY | 2024-05-21 08:41 | XMS_ITS | Encounter Summary ---
Author Organization [place] [address] Care Team Providers Care Water Filterer Name Role Phone Yuliana Dashrubio JAMES Primary Care Provider [phone] [phone] Reason for Visit * Reason Comments Cardiac Rehab * Rehabilitation (Routine) - Closed Specialty Diagnoses / Procedures Referred By Contac t Referred To Contact Cardiology Diagnoses S/P CABG (coronary artery bypass graft) 508387 Z95.1 CABG 03/03/15 Procedures RI OUTPATIENT CARDIAC REHAB W/CONT ECG MONITORING CARD REHAB ORIENTATION Ulises Alberto MD [address] [place] [address] Phone: tel: fax: [facility] Cardiac Rehab [place] [address] [place] [address] Phone: tel: fax: Referral ID Status Reason Start Date Expiration Date Visits Re quested Visits Authorized [id number] Closed 12/03/2015 12/02/2016 36 1 Encounter Details Date Type Department Care Team (Latest Contact Info) Description 12/03/2015 1:30 PM EDT - 12/03/2015 11:59 PM EDT Hospital Encounter [facility] Cardiac Rehab [address] [address] Therapist, Ftt Card Discharge Disposition: Home or Self Care Social [...] Sign Reading Time Taken Comments Blood Pressure 120/60 12/03/2015 5:26 PM EDT Pulse 76 12/03/2015 5:26 PM EDT Temperature - - Respiratory Rate 16 12/03/2015 5:26 PM EDT Oxygen Saturation - - Inhaled Oxygen Concentration - - Weight 94.3 kg (208 lb) 12/03/2015 5:26 PM EDT Height 175.3 cm (5' 9 ) 12/03/2015 5:26 PM EDT Body Mass Index 30.72 12/03/2015 5:26 PM EDT documented in this encounter Medications at Time of Discharge aspirin 81 mg Oral Tablet, Chewable Take 81 mg by mouth daily. topiramate (TOPAMAX) 25 mg Oral Tablet Take 25 mg by mouth daily. 03/18/2020 documented as of this encounter Discharge Disposition Disposition Code Departure Means Destination Home or Self Care documented in this encounter Progress Notes * Cory Newton MD - 12/22/2015 7:15 AM EDT Cardiac rehab chart and individual treatment plan reviewed and accepted. * Cory Newton MD - 12/07/2015 8:45 AM EDT Cardiac rehab chart and individual treatment plan reviewed and accepted. * Yelena Pitts - 12/03/2015 1:52 PM EDT Patient Demographics Name: Josh Ford : 1955 AGE: 60 y.o. #: [id number] (home) [phone] PCP: Marcus Damian Java Software Architect: Remy Other: Extended Emergency Contact Information Primary Emergency Contact: Sudha Ford [address]: [address] [place] [address] Relation: Spouse Advanced Directives: Not Interested Cardiac History 03/03/15 CABGx3 NIXON-LAD, SVG-OM, SVG-RPDA 02/10/15 Angiogram -LAD-mid 80% just distal to diagonal branch and occluded OM with collaterals from LAD,CX-70%, mid 99%, RCA-99% with R-R collaterals. EF-60% Past Medical History Diagnosis Date ??? Hyperlipidemia ??? Hypertension ??? Family history of other cardiovascular diseases(V17.49) ??? Shortness of breath ??? CAD (coronary artery disease) ??? 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 ??? Bladder problem frequency Cardiac Rehab Baseline EF 60%(angio 02/10/15) Baseline EKG Date Arrhythmias Type of Cardiac Symptoms: SOB Symptoms since Procedure?: some SOB with exertion, and some burning in his chest at times Phase II Risk Stratification: Low Physical Assessment BP 120/60 mmHg Pulse 76 Resp 16 Ht 5' 9 (1.753 m) Wt 208 lb (94.348 kg) BMI 30.70 kg/m2 RBP:120/60 LBP: 130/80 Standing BP:124/70 Heart Sounds: Normal, no murmur/gallop Breath sounds: clear bilaterally Suture lines: Legs ok Chest ok Other: Is patient Independent: yes Pain/Fall Risk Assessment: See ITP for Pain Assessment, No HX of Falls Immunizations: There is no immunization history on file for this patient. Completed By: SUSANNA Araujo/Nan Knight RN Psychosocial Assessment Family Unit/Support: lives with How well does your family support you in living with heart disease? 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 none Do you suffer from Physical Abuse? none Exercise Limitations Muscloskeletal: L thigh-stabbing pain when he sits and at night, his knees are worn out documented in this encounter Plan of Treatment Not on file documented as of this encounter Visit Diagnoses Not on filedocumented in this encounter Care Teams Water Filterer Relationship Specialty Start Date End Date Vanessa Dash ARNP [address] [place] [address] [address] [facility] [phone] PCP - General Nurse Practitioner-Family 01/28/15 documented as of this encounter
--- OUTSIDE RECORDS SUMMARY | 2024-05-21 08:41 | XMS_ITS | Encounter Summary ---
Author Organization [place] [address] Care Team Providers Care Specialty Cook Name Role Phone Vanessa Dash ERIKA Primary Care Provider [phone] [phone] Reason for Visit * Reason Onset Date Comments Labs Only 01/11/2016 Encounter Details Date Type Department Care Team (Late st Contact Info) Description 01/11/2016 Telephone [facility]P H[facility] [place] [address] [place] [address] Ulises Alberto MD [address] [place] [address] Labs Only Social History Tobacco Use Types Packs/Day [...] encounter Miscellaneous Notes * Telephone Encounter - Mahnaz Odom RMA - 01/13/2016 3:11 PM EDT Called PCP at [phone] and gave suggestions on labs. * Telephone Encounter - Mahnaz Odom RMA - 01/12/2016 8:18 AM EDT LM with patient about PCP managing labs, but also told him if we need to take over managing labs toRC and notify us. * Telephone Encounter - Evelyne Harrington APRN - 01/11/2016 4:07 PM EDT Pt said that his PCP typically manages his labs. Does need lipid panel/AST/ALT and BMP. Thanks * Telephone Encounter - Mahnaz Odom RMA - 01/11/2016 3:44 PM EDT Besides Lipid panel, what labs do you want drawn? * Telephone Encounter - Yanet Doyle, Clerical Staff - 01/11/2016 3:37 PM EDT Pt said evelyne jonathon wants him to have labs done-please fax [facility] to [facility]-[phone]. documented in this encounter Plan of Treatment Not on file documented as of this encounter Visit Diagnoses Not on filedocumented in this encounter Care Teams Specialty Cook Relationship Specialty Start Date End Date Vanessa Dash ARNP [address] [facility] [address] [place] [address] PCP - General Nurse Practitioner-Family 01/28/15 documented as of this encounter
--- OUTSIDE RECORDS SUMMARY | 2024-05-21 08:41 | XMS_ITS | Encounter Summary ---
Author Organization [place] [address] Care Team Providers Care Gas Plant Dispatcher Name Role Phone Vanessa Dash Primary Care Provider [phone] [phone] Encounter Details Date Type Department Care Team (Latest Contact Info) Description 12/10/2015 8:00 AM EDT - 12/10/2015 11:59 PM EDT Hospital Encounter [facility] Cardiac Rehab [place] [address] [address] [place] [address] Discharge Disposition: Home or Self Care Social [...] on filedocumented in this encounter Care Teams Gas Plant Dispatcher Relationship Specialty Start Date End Date Vanessa Dash ARNP [address] [facility] [address] [place] [address] PCP - General Nurse Practitioner-Family 01/28/15 documented as of this encounter
--- OUTSIDE RECORDS SUMMARY | 2024-05-21 08:41 | XMS_ITS | Encounter Summary ---
Author Organization [place] [address] Care Team Providers Care Pleater Name Role Phone Vanessa Dash ERIKA Primary Care Provider [phone] [phone] Reason for Visit * Reason Onset Date Comments Appointment Needed 07/24/2016 Encounter Details Date Type Department Care Team (Late st Contact Info) Description 07/24/2016 Telephone [facility] [place] [facility] [address] [place] [address] Ulises Alberto MD [address] [place] [address] Appointment Needed Social History Tobacco Use Types Packs/Day Years [...] Miscellaneous Notes * Telephone Encounter - Veronica Chan RMA - 07/24/2016 10:41 AM EST [facility] to make follow up appointment in January documented in this encounter Plan of Treatment Not on file documented as of this encounter Visit Diagnoses Not on filedocumented in this encounter Care Teams Pleater Relationship Specialty Start Date End Date Vanessa Dash ARNP [address] [facility] [address] [facility] [address] PCP - General Nurse Practitioner-Family 01/28/15 documented as of this encounter
--- OUTSIDE RECORDS SUMMARY | 2024-05-21 08:41 | XMS_ITS | Encounter Summary ---
Author Organization [place] [address] Care Team Providers Care Aircraft Instrument Repairer Name Role Phone SamanthashellVanessa Primary Care Provider [phone] [phone] Reason for Referral * Echo (Routine) - Closed Specialty Diagnoses / Procedures Referred By Contac t Referred To Contact Radiology Diagnoses S/P CABG x 3 Hyperlipidemia Essential hypertension Left leg pain Procedures EC ECHOCARDIOGRAM COMPLETE W DOPPLER AND COLOR FLOW MAPPING Eryn Mckeon MD Phone: tel: fax: Referral ID Status Reason Start Date Expiration Date Visits Re quested Visits Authorized [id number] Closed 11/19/2015 11/18/2016 1 1 Reason for Visit * Echo (Routine) - Closed Specialty Diagnoses / Procedures Referred By Contac t Referred To Contact Radiology Diagnoses S/P CABG x 3 Hyperlipidemia Essential hypertension Left leg pain Procedures EC ECHOCARDIOGRAM COMPLETE W DOPPLER AND COLOR FLOW MAPPING Eryn Mckeon MD Phone: tel: fax: Referral ID Status Reason Start Date Expiration Date Visits Re quested Visits Authorized [id number] Closed 11/19/2015 11/18/2016 1 1 Encounter Details Date Type Department Care Team (Latest Contact Info) Description 01/06/2016 6:54 AM EDT - 01/06/2016 11:59 PM EDT Hospital Encounter [facility] [address] [place] [address] Eryn Mckeon MD [address] [place] [address] S/P CABG x 3; Hyperlipidemia; Essential hypertension; Left leg pain Discharge Disposition: Home or Self Care Social [...] Procedure Name Priority Date/Time Associated Diagnosis Comments EC ECHOCARDIOGRAM COMPLETE W DOPPLER AND COLOR FLOW MAPPING Routine 01/06/2016 8:02 AM EDT S/P CABG x 3 Hyperlipidemia Essential Hypertension Left leg pain documented in this encounter Results * EC ECHOCARDIOGRAM COMPLETE [...] Pain in limb documented in this encounter Care Teams Aircraft Instrument Repairer Relationship Specialty Start Date End Date Vanessa Dash ARNP [address] [place] [address] [address] [place] [id number] PCP - General Nurse Practitioner-Family 01/28/15 documented as of this encounter
--- OUTSIDE RECORDS SUMMARY | 2024-05-21 08:41 | XMS_ITS | Encounter Summary ---
Author Organization [place] [address] Care Team Providers Care Grinder Set Up Operator Jig Name Role Phone TylorYuliana gutierrezrubio JAMES Primary Care Provider [phone] [phone] Encounter Details Date Type Department Care Team (Latest Contact Info) Description 12/07/2016 10:57 AM EDT - 12/07/2016 11:59 PM EDT Hospital Encounter [facility] D-WING XRAY [facility] [place] [address] Hx of metal removed from eye; Encounter for imaging to screen for metal prior to MRI Discharge Disposition: Home or Self Care Social [...] Priority Date/Time Associated Diagnosis Comments XR KNEE LEFT AP AND LATERAL Routine 12/07/2016 11:16 AM EDT Encounter for imaging to screen for metal prior to MRI XR EYE BILATERAL FOREIGN BODY Routine 12/07/2016 11:16 AM EDT Hx of metal removed from eye documented in this encounter Results * XR KNEE LEFT AP AND LATERAL (12/07/2016 11:16 AM EDT) Anatomical Region Laterality Modality Knee Radiographic Suzy ging 12/07/2016 11:1 6 AM EDT Impressions 12/07/2016 11:53 AM EDT No significant bony, joint or soft tissue abnormality demonstrated. No evidence of metallic foreign body. Narrative 12/07/2016 11:53 AM EDT XR KNEE LEFT AP AND LATERAL, 12/07/2016 11:16 AM HISTORY: Z13.89-Encounter for screening for other [id number] Procedure Note Emilio Alberto MD - 12/07/2016 XR KNEE LEFT AP AND LATERAL, 12/07/2016 11:16 AM HISTORY: Z13.89-Encounter for screening for other [id number] IMPRESSION: No significant bony, joint or soft tissue abnormality demonstrated. No evidence of metallic foreign body. Anupam Tan MD IMG DIAGNOSTIC IMAGING ORDERABL ES Final Result * XR EYE BILATERAL FOREIGN BODY (12/07/2016 11:16 AM EDT) Anatomical Region Laterality Modality Radiographic Suzy ging 12/07/2016 11:1 6 AM EDT Impressions 12/07/2016 11:43 AM EDT No ocular metallic foreign body is present. Visualized portions of the paranasal sinuses are clear. Narrative 12/07/2016 11:43 AM EDT [facility] Or[facility] ??12/07/2016 History: Ocular metallic foreign body. Procedure Note Rigo Tovar MD - 12/07/2016 [facility] 12/07/2016 History: Ocular metallic foreign body. IMPRESSION: No ocular metallic foreign body is present. Visualized portions of the paranasal sinuses are clear. us Anupam Tan MD IMG DIAGNOSTIC IMAGING ORDERABL ES Final Result documented in this encounter Visit Diagnoses Diagnosis Hx of metal removed from eye Other states following surgery of eye and adnexa Encounter for imaging to screen for metal prior to MRI Special screening for other specified conditions documented in this encounter Care Teams Grinder Set Up Operator Jig Relationship Specialty Start Date End Date Vanessa Dash ARNP [address] [place] [address] [address] [place] [address] PCP - General Nurse Practitioner-Family 01/28/15 documented as of this encounter
--- OUTSIDE RECORDS SUMMARY | 2024-05-21 08:41 | XMS_ITS | Encounter Summary ---
Author Organization [place] [address] Care Team Providers Care Tire Adjuster Name Role Phone Vanessa Dash Primary Care Provider [phone] [phone] Encounter Details Date Type Department Care Team (Latest Contact Info) Description 12/20/2015 8:00 AM EDT - 12/20/2015 11:59 PM EDT Hospital Encounter [facility] Cardiac Rehab [place] [address] [place] [address] Discharge Disposition: Home or Self Care Social [...] on filedocumented in this encounter Care Teams Tire Adjuster Relationship Specialty Start Date End Date Vanessa Dash ARNP [address] [facility] [address] [place] [address] PCP - General Nurse Practitioner-Family 01/28/15 documented as of this encounter
--- OUTSIDE RECORDS SUMMARY | 2024-05-21 08:41 | XMS_ITS | Encounter Summary ---
Author Organization [place] [address] Care Team Providers Care Vice President Sales Name Role Phone Vanessa Dash Primary Care Provider [phone] Encounter Details Date Type Department Care Team (Latest Contact Info) Description 12/27/2015 8:00 AM EDT - 12/27/2015 11:59 PM EDT Hospital Encounter [facility] Cardiac Rehab [place] [address] [facility] [place] [address] Discharge Disposition: Home or Self Care Social [...] on filedocumented in this encounter Care Teams Vice President Sales Relationship Specialty Start Date End Date Vanessa Dash ARNP [address] [facility] [address] [place] [address] PCP - General Nurse Practitioner-Family 01/28/15 documented as of this encounter
--- OUTSIDE RECORDS SUMMARY | 2024-05-21 08:41 | XMS_ITS | Encounter Summary ---
Author Organization [place] [address] Care Team Providers Care Mainframe Consultant Name Role Phone Vanessa Dash Primary Care Provider [phone] [phone] Reason for Visit * Reason Onset Date Comments Follow-up 03/11/2015 Encounter Details Date Type Department Care Team (Late st Contact Info) Description 03/11/2015 Telephone EDG 5D [facility] [place] [address] Amanda Chaidez APRN Follow-up Social History Tobacco Use Types Packs/Day Years [...] encounter Miscellaneous Notes * Telephone Encounter - Amanda Chaidez APRN - 03/11/2015 2:04 PM EDT States he feels good. Some sob after walking Incisions healing well No swelling Will make follow up appointment documented in this encounter Plan of Treatment Not on file documented as of this encounter Visit Diagnoses Not on filedocumented in this encounter Care Teams Mainframe Consultant Relationship Specialty Start Date End Date Vanessa Dash ARNP [address] [place] [facility] [address] [place] [address] PCP - General Nurse Practitioner-Family 01/28/15 documented as of this encounter
--- OUTSIDE RECORDS SUMMARY | 2024-05-21 08:41 | XMS_ITS | Encounter Summary ---
Author Organization [place] [address] Care Team Providers Care Hand Deicer Element Winder Name Role Phone Vanessa Dash APPLIANCE ASSEMBLER Primary Care Provider [phone] [phone] Reason for Visit * Reason Comments Post-Operative Exam No problems per pt Encounter Details Date Type Department Care Team (Late st Contact Info) Description 03/24/2015 2:00 PM EDT Office Visit [facility] Cardiac Surgeons [address] [place] [address] Felix Mcbride MD S/P CABG x 3 (Primary Dx) Social History Tobacco Use Types [...] Sign Reading Time Taken Comments Blood Pressure 124/62 03/24/2015 2:30 PM EDT Pulse 100 03/24/2015 2:30 PM EDT Temperature - - Respiratory Rate - - Oxygen Saturation 97% 03/24/2015 2:30 PM EDT Inhaled Oxygen Concentration - - Weight - - Height - - Body Mass Index - - documented in this encounter Progress Notes * Felix Mcbride MD - 03/24/2015 2:41 PM EDT CTS S: states he feels good, but his left leg has some numbness Has knife like pain, and it has significantly gotten better Since his d/charge from the hospital. He is able to walk far distances, and he is not sob except For when he walks up the stairs . He is eating well O: noted hr and bp Heart tones are regular and no murmur Ms is healing well Lungs are clear svg healing well No swelling A: s/p CABG P: clinically stable Still no heavy lifting for several weeks Continue to walk Has seen government affairs fellow Needs to follow up with Dr. Ulises Alberto Can drive at the beginning of next week. Still no heavy lifting for several weeks No further follow up needed here, call if any questions or Concerns. documented in this encounter Plan of Treatment Not on file documented as of this encounter Visit Diagnoses Diagnosis S/P CABG x 3- Primary Postsurgical aortocoronary bypass status documented in this encounter Care Teams Hand Deicer Element Winder Relationship Specialty Start Date End Date Vanessa Dash ARNP [facility] [place] [address] PCP - General Nurse Practitioner-Family 01/28/15 documented as of this encounter
--- OUTSIDE RECORDS SUMMARY | 2024-05-21 08:41 | XMS_ITS | Encounter Summary ---
Author Organization [place] [address] Care Team Providers Care Cement Block Maker Name Role Phone Vanessa Dash Primary Care Provider [phone] [phone] Encounter Details Date Type Department Care Team (Latest Contact Info) Description 12/13/2015 8:00 AM EDT - 12/13/2015 11:59 PM EDT Hospital Encounter [facility] Cardiac Rehab [place] [address] [facility] [place] [address] Discharge Disposition: Home or Self Care Social [...] on filedocumented in this encounter Care Teams Cement Block Maker Relationship Specialty Start Date End Date Vanessa Dash ARNP [address] [facility] [address] [place] [address] PCP - General Nurse Practitioner-Family 01/28/15 documented as of this encounter
--- OUTSIDE RECORDS SUMMARY | 2024-05-21 08:41 | XMS_ITS | Encounter Summary ---
Author Organization [place] [address] Care Team Providers Care Straight Cutter Machine Name Role Phone Vanessa Dash Mackenzie ERIKA Primary Care Provider [phone] [phone] Encounter Details Date Type Department Care Team (Latest Contact Info) Description 01/07/2016 8:00 AM EDT - 01/07/2016 11:59 PM EDT Hospital Encounter [facility] Cardiac Rehab [place] [address] [facility] [place] [address] Discharge Disposition: Home or Self Care Social [...] on filedocumented in this encounter Care Teams Straight Cutter Machine Relationship Specialty Start Date End Date Vanessa Dash ARNP [address] [facility] [address] [place] [address] PCP - General Nurse Practitioner-Family 01/28/15 documented as of this encounter
--- OUTSIDE RECORDS SUMMARY | 2024-05-21 08:41 | XMS_ITS | Encounter Summary ---
Author Organization [place] [address] Care Team Providers Care Warehouse Traffic Supervisor Name Role Phone Vanessa Dash Primary Care Provider [phone] [phone] Encounter Details Date Type Department Care Team (Latest Contact Info) Description 12/31/2015 8:00 AM EDT - 12/31/2015 11:59 PM EDT Hospital Encounter [facility] Cardiac Rehab [place] [address] [facility] [place] [address] Discharge Disposition: Home or Self Care Social [...] on filedocumented in this encounter Care Teams Warehouse Traffic Supervisor Relationship Specialty Start Date End Date Vanessa Dash ARNP [address] [facility] [address] [place] [address] PCP - General Nurse Practitioner-Family 01/28/15 documented as of this encounter
--- OUTSIDE RECORDS SUMMARY | 2024-05-21 08:41 | XMS_ITS | Encounter Summary ---
Author Organization [place] [address] Care Team Providers Care Underwater Trapper Name Role Phone Vanessa Dash Primary Care Provider [phone] [phone] Reason for Visit * Reason Comments Medication Refill Encounter Details Date Type Department Care Team (Late st Contact Info) Description 05/09/2017 Refill SEP [facility] [place] [address] [place] [address] Evelyne Harrington, ADVANCED MANUFACTURING ASSOCIATE [address] [place] [address] Medication Refill Social History Tobacco Use Types [...] limb documented in this encounter Care Teams Underwater Trapper Relationship Specialty Start Date End Date Vanessa Dash ARNP [address] [facility] [address] [address] PCP - General Nurse Practitioner-Family 01/28/15 documented as of this encounter
--- OUTSIDE RECORDS SUMMARY | 2024-05-21 08:42 | XMS_ITS | Encounter Summary ---
Author Organization [place] [address] Care Team Providers Care Professor Of Biostatistics Name Role Phone Vanessa Dash ERIKA Primary Care Provider [phone] Reason for Visit * Auth/Cert/Inpt - Closed Specialty Diagnoses / Procedures Referred By Contac t Referred To Contact Diagnoses Atherosclerosis of chenega coronary artery without angina pectoris Atherosclerosis of chenega coronary artery without angina pectoris Procedures CORONARY ARTERY BYPASS GRAFT Referral ID Status Reason Start Date Expiration Date Visits Re quested Visits Authorized [id number] Closed 1 1 Encounter Details Date Type Department Care Team (Latest Contact Info) Description 03/03/2015 5:22 AM EDT - 03/09/2015 9:54 AM EDT Hospital Encounter [facility] [place] [address] River Vera MD [address] [place] [address] [address] [place] [address] Felix Mcbride MD Discharge Disposition: Home or Self Care Social [...] Sign Reading Time Taken Comments Blood Pressure 151/84 03/09/2015 8:24 AM EDT Pulse 80 03/09/2015 8:24 AM EDT Temperature 37.2 ??C (98.9 ??F) 03/09/2015 8:24 AM ED T Respiratory Rate 20 03/09/2015 8:24 AM EDT Oxygen Saturation 94% 03/09/2015 8:24 AM EDT Inhaled Oxygen Concentration - - Weight 94.8 kg (208 lb 14.4 oz) 03/06/2015 6:20 AM EDT Height 172.7 cm (5' 8 ) 03/03/2015 6:04 AM EDT Body Mass Index 31.76 03/03/2015 6:04 AM EDT documented in this encounter Discharge Summaries * Amanda Chaidez, PROGRAMMING SPECIALIST - 03/09/2015 12:57 PM EDT [facility]/[facility]/[place], [place] NAME: ADIS FORD [facility]#: [id number] LOCATION/ROOM: [facility] [id number] FACILITY: [facility] DICTATOR: Amanda Chaidez DISCHARGE SUMMARY Page 2 DISCHARGE SUMMARY ADMISSION DATE: 03/03/2015 DISCHARGE DATE: 03/09/2015 DISCHARGE DIAGNOSES: 1. Coronary artery disease. 2. Dyslipidemia. 3. Hypertension. OPERATIONS AND/OR PROCEDURES: Elective coronary artery bypass grafting x3 (vein graft 2, NIXON 1), lysis of dense pericardial adhesions under total cardiopulmonary bypass on 03/03/2015. HOSPITAL COURSE: Mr. Ford is a 60-year-old man who has complaints of extreme shortness of breath with minimal exertion. He has a strong family history of coronary artery disease. He underwent GXT which was abnormal. Subsequent cardiac catheterization indicated 80% LAD just distal to the diagonal branch and an occluded OM with collateralization from the LAD. The right coronary artery was also occluded with [id number] collaterals. EF preserved. The patient was admitted and subsequently underwent an elective revascularization utilizing a vein graft to the RPDA, a vein graft to the OM branchand a NIXON to the LAD. Postoperative course was essentially uncomplicated. The patient's medications were readjusted for hypertension prior to discharge. The patient was clinically stable on postoperative day #5. DISCHARGE MEDICATIONS: Include aspirin 81 mg daily, [place] p.r.n. pain, lisinopril 5 mg b.i.d., Lopressor 50 mg t.i.d., Zocor 40 mg at bedtime, Protonix 40 mg daily, prednisone taper. FOLLOWUP: The patient was to follow up with Dr. Mcbride in 2 weeks. He has been signed up for cardiac rehabilitation per [facility] protocol. AmandaERIKA Amaya By: jorge Job ID: [id number] DocID: [id number] CC: MD Felix Kumari MD Cosigned by Felix Mcbride MD at 03/16/2015 1:22 PM EDT documented in this encounter Discharge Instructions * Discharge Instructions* Carine Allred RN - 03/08/2015 10:29 AM EDT [facility] Discharge Instructions - Cardiac Surgery Best wishes are extended to you on behalf of [facility] as you are discharged. Because we are most concerned with your health, we suggest you carefully read and take an active role in your overall health and follow these instructions. ACTIVITY INSTRUCTIONS ACTIVITY INSTRUCTIONS Bath/Shower: Shower only. No bathing or sink baths until incisions are healed Sexual Relations: Resume when you feel comfortable usually 2-4 weeks Walking: This is the best form of exercise. Walk at you own pace. Stop and rest if you get tired Resume Activities: As tolerated Lifting: Avoid lifting, pushing, or pulling anything heavier than 10 pounds for 6 weeks Return to Work: Per physician Steps: As tolerated Ride/Drive Car: No driving for 4-6 weeks or as long as you are taking pain medication. May ride in the car with seatbelt in the front seat with a pillow. INCISION CARE: * Wash hands before and after coming in contact with incisions. * Assess for signs and symptoms of infection daily. Call for any increase in drainage, change in color or drainage to white to green, increase in pain, swelling or tenderness at the incision site, jesus incision opens. * Wash you incision daily with mild soap and warm water. Avoid vigorous scrubbing. * Apply Betadine swabs, provided at discharge, daily for 2 weeks. Use a new swab for each incision.Use Betadine after your shower. * Avoid soap with moisturizing creams or scents. Do not apply lotions, creams, oils, powders, or antibiotic ointments to incisions. * Remove any remaining steristrips to incisions 7 days after discharge from hospital. The steristrips may even fall off on their own. * Keep pets away from your incision. DIET: Heart Healthy, Low Sodium, Low Cholesterol, Low Saturated Fat. Call [phone] for Cardiac DietInstructions. OTHER: * Kyra Hose: Are to be worn during the day and removed at night for 2 weeks. * Temperature: Take daily. Call if over 101o F * Weights: Weigh yourself daily each morning. Call for a weight gain greater than 3 lbs/daily. * Spirometer: Continue using for 1 week. INDIVIDUAL INSTRUCTIONS/CUSTOM DOCUMENTS/TEACHING SHEETS: Additional instructions related to continuing or unresolved problems * Weight management is important to your health. Call you physician if you experience sudden weightloss or weight gain. * Smoking is hazardous to your health. Second hand smoke is hazardous to those around you. If you smoke, you can contact your physician for smoking cessation information and classes or contact [facility] at [phone]. * Consult your physician or Primary Care Provider if you are at risk for Pneumonia or it has been 5years since your last Pneumonia Vaccination. MEDICATIONS: *CONTACT YOUR DOCTOR BEFORE RESUMING ANY MEDICATIONS FROM HOME NOT LISTED ON YOUR DISCHARGE MEDICATIONS SHEET OR WITH ANY QUESTIONS REGARDING YOUR MEDICATIONS. Discharge Medications: See List If you have any questions about food/drug interactions, diet, or activity, contact your physician. FOLLOW-UP APPOINTMENTS: Remember to contact your physician for a follow-up appointment as instructed. Follow up with Dr Mcbride 2 weeks after discharge. Call for appointment Call for Appointments: Felix Mcbride M.D. River Vera M.D. Jacky Rojas M.D. Faizan Alvarez M.D. Cardiac Rehab: They will contact you. For more information, call . By signing below, I am indicating that I have received and understand these instructions. My questions have been answered to my satisfaction. Patient/Family Date R.N. Date Physician Date Other Date documented in this encounter Medications at Time of Discharge aspirin 81 mg Oral Tablet, Chewable Take 81 mg by mouth daily. documented as of this encounter Ordered Prescriptions Prescription Sig Dispense Quantity Refills Last Filled Start Date End Date metoprolol (LOPRESSOR) 50 mg Oral Tablet Take 1 Tab by mouth 3 times daily. 90 Tab 3 03/09/2015 11/19/2015 lisinopril (PRINIVIL;ZESTRIL) 5 mg Oral Tablet Take 1 Tab by mouth 2 times daily. 60 Tab 5 03/09/2015 11/19/2015 predniSONE (DELTASONE) 5 mg Oral Tablet Take 2 tabs twice a day for 5 days. Take 3 tabs once a day for 4 days. Take 2 tabs once a day for 5 days. Take 1 tab once a day till gone. 45 Tab 0 03/08/2015 11/19/2015 pantoprazole (PROTONIX) 40 mg Oral Tablet, Delayed Release (E.C.) Take 1 Tab by mouth daily. 30 Tab 0 03/08/2015 11/19/2015 metoprolol (LOPRESSOR) 50 mg Oral Tablet Take 1 Tab by mouth 2 times daily. 60 Tab 3 03/08/2015 03/09/2015 HYDROcodone-acetam inophen (NORCO) 5-325 mg Oral Tablet Take 1-2 Tabs by mouth every 4 hours as needed for Pain. 100 Tab 0 03/08/2015 11/19/2015 documented in this encounter Discharge Disposition Disposition Code Departure Means Destination Home or Self [facility] documented in this encounter Progress Notes * Nicolette Bartlett RN - 03/09/2015 10:10 AM EDT P: Discharge summary I: Reviewed with pt and family CABG discharge instructions, questions answered. All home meds and new meds reviewed, new med uses and side effects reviewed and importance of taking medication and checking blood pressures reinforced. Scripts given and reviewed. Smoking cessation, diet, activity, andfollow up appointments reviewed. IV removed, angio intact. Reasons to call physician reviewed including weight gain, s/s infection. Discussed how to check pulse. video watched previously. E: Pt and verbalized understanding. Pt and left with belongings including incisional caresupplies, teds, and IS. Left unit in wheelchair per RN without difficulty and assisted into vehicle. * Diana Weaver BSW - 03/09/2015 10:00 AM EDT 03/09/15899 Discharge Planning Evaluation Actual Discharge Plan 03-09 Final Note: Pt discharged this date. Pt will return home with his spouse with OP follow up. * Felix Mcbride MD - 03/09/2015 8:04 AM EDT Feels well. Hypertensive Discharge on Fran/beta mehrdad * Carine Walker RN - 03/09/2015 6:30 AM EDT SBP rechecked, still high at 174. 0900 scheduled Lopressor administered early. Carine Walker RN * Carine Walker RN - 03/09/2015 5:45 AM EDT Pt awake, resting in bed but recently back from restroom. SBP checked, high 172. Will re check in afew minutes. Carine Walker RN * Diana Weaver BSW - 03/08/2015 9:55 AM EDT 03/08/15 0900 Assessment Complete Actual Discharge Plan 03-08 Met with Pt at bedside to discuss discharge plan/needs. Pt will return home with his spouse to their home in [place]. Pt is presently ambulating around nurse's station with spouse on room air and tolerating well. Discussed home health services, which Pt does not feel will be needed. Pt will follow up with CTS in 2 weeks post hospital discharge. * Felix Mcbride MD - 03/08/2015 8:56 AM EDT Complains of numbness left lateral thigh to mid calf. BP 150 , RA occ vent ectopy Normal left femoral and DP pulse. Normal strength in left leg. Increase metoprolol to 50 bid. * Carine Allred RN - 03/08/2015 8:20 AM EDT Lactulose given x1 for constipation Carine Allred RN * Sakina Flanagan RN - 03/07/2015 10:56 PM EDT Pt with consistent PVC's/ quadrigemenal . Now with 16 beat run of wide qrs rate in 90's, pt asymptomatic. Called and notified Dr. Mcbride, update given. Aware of ectopy, no new orders noted. * Anupam Vargas RN - 03/07/2015 1:59 PM EDT Discharge video shown. Discussed routine of daily care upon discharge. Questions answered. * Felix Mcbride MD - 03/07/2015 9:10 AM EDT Sleeping . VSS , occasional ventricular ectopy. 1L NC Increase beta mehrdad. * Sakina Flanagan RN - 03/07/2015 6:[address] Mcbride of frequent PVC's and bigeminal at intervals. K+ 4.1 and MG 2.2. Gave morning dose of Metoprolol 25mg early, BP 151. New order noted for potassium 10meq iv thru introducer ordered. * Felix Mcbride MD - 03/06/2015 9:15 AM EDT Feels weak. VSS 3l NC Try to wean oxygen. * Carine Allred RN - 03/05/2015 5:10 PM EDT Course crackles noted in bilateral lung bases. Unable to wean oxygen from 3L NC. Urine output 30/hr, dark rowan in color Dr Mcbride called and updated. New orders for 40 mg IV lasix and 20 meq of KCL x1. Carine Allred RN * Carine Allred RN - 03/05/2015 4:00 PM EDT Chest tubes dc'd per protocol. Pre-medicated with morphine IV- see SEP. Chest tubes dc'd with no complications. Site cleaned and dressing applied. Tubes intact. Lungs clear bilaterally. Pt resting inbed. Carine Allred RN * Felix Mcbride MD - 03/05/2015 8:43 AM EDT Complains of incisional pain VSS No air leak 3L Doing OK * Diana Weaver BSW - 03/04/2015 9:58 AM EDT 03/04/15 0900 Assessment Complete Actual Discharge Plan SW 03-04 Pt is S/P CABG X 3 on 03-03. 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 Presently Pt is alert and oriented and ambulating 2 laps around unit. Will meet with Pt to discuss discharge plans and home needs. * Lakesha Bell RN - 03/04/2015 9:30 AM EDT [place] and orion removed per MACHINERY MOVER policy and procedure. No ectopy noted Dressing in place and intact. Radial pulse unchanged. Pressure held x5 minutes. Will continue to monitor Lakesha Bell RN 03/04/2015 9:30 AM * Felix Mcbride MD - 03/04/2015 7:14 AM EDT Cardio-Thoracic Surgery 03/04/2015: POD #: 1 Day Post-Op Procedure: Procedure(s) with comments: CORONARY ARTERY BYPASS GRAFT - SCIP - LYSIS OF DENSE PERICARDIAL ADHESIONS, CORONARY ARTERY BYPASS GRAFTS X 3 USING RIGHT SAPHENOUS VEIN X 2 AND LEFT INTERNAL MAMMARY ARTERY X 1 Surgeon: Surgeon(s) and Role: * Felix Mcbride MD - Primary Assessment:doing well without problems good Plan: Routine Post-op care Subjective: pain Objective: Vital Blood Pressure: 130/61 mmHg Temp: 99.1 ??F (37.3 ??C) Signs Pulse: 88 Resp: 20 SpO2: 95 % I/O last 3 completed shifts: In: 4418.9 [I.V.:4338.9; NG/GT:80] Out: 3440 [Urine:2470; Emesis/NG output:300; Blood:300; Chest Tube:370] Hemodynamic Data: Invasive Hemodynamic Monitoring: (Last filed data) CVP (mmHg): 10 mmHg PAP: 36/14 mmHg PAP (Mean): 23 mmHg PCWP (mmHg): 17 mmHg CO (l/min): 8.4 l/min CI (l/min/m2): 4 l/min/m2 SVO2 (%): 80 % Radiology Results: Xr Chest Ap Portable 03/04/2015 IMPRESSION: Interval worsening of left basilar opacity, likely representing a combinationof left pleural effusion and left basilar atelectasis. Interval worsening of right basilar atelectasis. No pneumothorax. Xr Chest Ap Portable 03/03/2015 IMPRESSION: Postoperative portable chest with lines and tubes as detailed above. Findingsare most compatible with mild basilar atelectasis and small pleural effusions. Ek Ekg 12 Lead 03/04/[address] [facility] Interpretive Statements SINUS RHYTHM POSSIBLERIGHT VENTRICULAR CONDUCTION DELAY INFERIOR MYOCARDIAL INFARCTION, PROBABLY OLD WITH POSTERIOR EXTENSION PHYSICAL EXAM: Normal post op LABS: CBC: Lab Results Component Value Date WBC 16.5* 03/04/2015 HGB 12.4* 03/04/2015 HCT 37.6* 03/04/2015 PLT 130* 03/04/2015 Lab Results Component Value Date NA 140 03/04/2015 K 4.2 03/04/2015 CL 104 03/04/2015 CO2 24 03/04/2015 BUN 12 03/04/2015 CREATININE 1.02 03/04/2015 CALCIUM 8.5* 03/04/2015 GLU 120* 03/04/2015 Coagulation: Lab Results Component Value Date INR 1.16* 03/02/2015 ABG: Lab Results Component Value Date PH 7.390 03/04/2015 PCO2 40 03/04/2015 PO2 62* 03/04/2015 HCO3 24 03/04/2015 TCO2 25 03/04/2015 BASEEXCESS -0.7 03/04/2015 O2SAT 95 03/04/2015 INSPIREDO2 6L 03/04/2015 SPECIMENTYPE Arterial 03/04/2015 Felix Mcbride MD 03/04/2015 7:18 AM * Carine Walker RN - 03/04/2015 6:35 AM EDT PT up to chair assist x 2. Tolerated fairly well. CXR completed. Pt C/O pain, IV morphine administered, see MAR. Pt also c/o being hot. Fan brought to bedside. Call light within reach. updated and at bedside. SBP 129-130. Nipride paused. Will continue to monitor. Carine Walker RN * Carine Walker RN - 03/04/2015 1:31 AM EDT Results for ADIS FORD ( ) as of 03/04/2015 01:37 Ref. Range 03/04/2015 00:25 pH Latest Range: 7.370-7.440 7.390 pCO2 Latest Range: 32-45 mmHg 39 pO2 Latest Range: 80-95 mmHg 63 (L) HCO3 Latest Range: 20-29 mmol/L 24 TCO2 Latest Range: 21-30 mmol/L 25 Base Excess Latest Range: -2.8-2.3 mEq/L -1.2 O2 Sat Latest Range: 95-97 % 94 (L) Inspired O2 No range found 40% Specimen Type No range found Arterial Dr. Mcbride notifed regarding above CPAP ABG, particularly the PO2 of 63 and pt hx of COPD/blebs. Ok to extubate per MD. Patient awake, follows commands, squeezes fingers BUE, wiggles toes BLE and able to lift head off pillow. Patient hemodynamically stable. NG d/c'd tip intact. Suctioned ETT. Patient extubated per protocol. Suctioned orally, gag reflex intact. Tongue midline. Smile symmetrical. Lungs clear to diminished bilaterally. Placed on 6L NC. Sats 92-94%. Will begin breathing exercises. Carine Walker RN * Carine Walker RN - 03/04/2015 1:[address] Mcbride called regarding CPAP ABG results. Notified of recent ABG (PO2 63), vent settings andO2 sats 92-93% on 40% FiO2. Discussed Vent numbers (RR 16, TV >600ml, MC >9). Pt not fightingvent. Ok to extubated per Dr. Mcbride. Carine Walker RN * Carine Walker RN - 03/03/2015 11:30 PM EDT Results for ADIS FORD ( ) as of 03/04/2015 00:31 Ref. Range 03/03/2015 23:30 pH Latest Range: 7.370-7.440 7.380 pCO2 Latest Range: 32-45 mmHg 41 pO2 Latest Range: 80-95 mmHg 64 (L) HCO3 Latest Range: 20-29 mmol/L 24 TCO2 Latest Range: 21-30 mmol/L 26 Base Excess Latest Range: -2.8-2.3 mEq/L -0.8 O2 Sat Latest Range: 95-97 % 94 (L) Inspired O2 No range found 40% Specimen Type No range found Arterial PT kept on CPAP settings, Woken up repositioned, sat up in bed. ETT suctioned. PT following commands and arouses, but easily goes back to sleep. Will get ABG in an hr to re evaluate. Carine Walker RN * Carine Walker RN - 03/03/2015 10:36 PM EDT Results for ADIS FORD ( ) as of 03/03/2015 22:32 Ref. Range 03/03/2015 22:10 pH Latest Range: 7.370-7.440 7.380 pCO2 Latest Range: 32-45 mmHg 39 pO2 Latest Range: 80-95 mmHg 68 (L) HCO3 Latest Range: 20-29 mmol/L 23 TCO2 Latest Range: 21-30 mmol/L 24 Base Excess Latest Range: -2.8-2.3 mEq/L -1.8 O2 Sat Latest Range: 95-97 % 95 Inspired O2 No range found 40% Specimen Type No range found Arterial Vent settings changed to CPAP. RR 16, TV 500-600ml. MV 9. ABG in an hour. Carine Walker RN * Carine Walker RN - 03/03/2015 9:10 PM EDT Results for ADIS FORD ( ) as of 03/03/2015 21:10 Ref. Range 03/03/2015 20:55 pH Latest Range: 7.370-7.440 7.370 pCO2 Latest Range: 32-45 mmHg 38 pO2 Latest Range: 80-95 mmHg 76 (L) HCO3 Latest Range: 20-29 mmol/L 22 TCO2 Latest Range: 21-30 mmol/L 23 Base Excess Latest Range: -2.8-2.3 mEq/L -2.9 (L) O2 Sat Latest Range: 95-97 % 96 Inspired O2 No range found 40% Specimen Type No range found Arterial Vent settings changed to IMV rate of 4. RR 17, MV 11 Spont TV 600-700ml. ABG in an hr to re evaluate. Carine Walker RN * Carine Walker RN - 03/03/2015 8:13 PM EDT Results for ADIS FORD ( ) as of 03/03/2015 20:12 Ref. Range 03/03/2015 19:45 pH Latest Range: 7.370-7.440 7.350 (L) pCO2 Latest Range: 32-45 mmHg 39 pO2 Latest Range: 80-95 mmHg 75 (L) HCO3 Latest Range: 20-29 mmol/L 22 TCO2 Latest Range: 21-30 mmol/L 23 Base Excess Latest Range: -2.8-2.3 mEq/L -3.8 (L) O2 Sat Latest Range: 95-97 % 96 Inspired O2 No range found 40% Specimen Type No range found Arterial RR dercreased to IMV 8. Will continue to monitor. Carine Walker RN * Carine Walker RN - 03/03/2015 7:30 PM EDT Report from off going RN. Assessment as charted. Crepitus palpated just below right collar bone later to sternal incision. Chest tube with air leak noted as per RN report. Carine Walker RN * Carla Elena RN - 03/03/2015 6:32 PM EDT Results for ADIS FODR ( ) as of 03/03/2015 18:28 Ref. Range 03/03/2015 18:11 pH Latest Range: 7.370-7.440 7.350 (L) pCO2 Latest Range: 32-45 mmHg 39 pO2 Latest Range: 80-95 mmHg 83 HCO3 Latest Range: 20-29 mmol/L 22 TCO2 Latest Range: 21-30 mmol/L 23 Base Excess Latest Range: -2.8-2.3 mEq/L -3.8 (L) O2 Sat Latest Range: 95-97 % 97 Inspired O2 No range found 40% Specimen Type No range found Arterial Above ABGs WNL on SIMV 12 and 40% Weaned Vent to SIMV 10. Will recheck ABGs and wean accordingly Pt remains calm and cooperative * Carla Elena RN - 03/03/2015 5:31 PM EDT Results for ADIS FORD ( ) as of 03/03/2015 17:25 Ref. Range 03/03/2015 16:55 pH Latest Range: 7.370-7.440 7.390 pCO2 Latest Range: 32-45 mmHg 36 pO2 Latest Range: 80-95 mmHg 96 (H) HCO3 Latest Range: 20-29 mmol/L 22 TCO2 Latest Range: 21-30 mmol/L 23 Base Excess Latest Range: -2.8-2.3 mEq/L -2.6 O2 Sat Latest Range: 95-97 % 98 (H) Inspired O2 No range found 50% Specimen Type No range found Arterial Above ABGs WNL on SIMV 14 at 50% FiO2 Weaned vent to SIMV 12 and 40% Will recheck ABGs in 30 minutes Pt calm and cooperative on vent. Drowsy but awakens easily and [place] to command * Carla Elena RN - 03/03/2015 3:[address] Mcbride notified of the following: Total Chest tube drainage 200ml since admission from OR. SIMV rate 14, ABG results and weaning issues Hemodynamics reviewed * Carla Elena RN - 03/03/2015 3:36 PM EDT Results for ADIS FORD ( ) as of 03/03/2015 15:29 Ref. Range 03/03/2015 15:00 pH Latest Range: 7.370-7.440 7.290 (L) pCO2 Latest Range: 32-45 mmHg 50 (H) pO2 Latest Range: 80-95 mmHg 70 (L) HCO3 Latest Range: 20-29 mmol/L 24 TCO2 Latest Range: 21-30 mmol/L 26 Base Excess Latest Range: -2.8-2.3 mEq/L -3.1 (L) O2 Sat Latest Range: 95-97 % 94 (L) Inspired O2 No range found 55% Specimen Type No range found Arterial Increased SIMV rate to 12 Will recheck abgs RN at bedside Rate increased to SIMV 14 as advised by RT to correct pH * Carla Elena RN - 03/03/2015 2:24 PM EDT Results for ADIS FORD ( ) as of 03/03/2015 14:20 Ref. Range 03/03/2015 13:35 pH Latest Range: 7.370-7.440 7.340 (L) pCO2 Latest Range: 32-45 mmHg 46 (H) pO2 Latest Range: 80-95 mmHg 72 (L) HCO3 Latest Range: 20-29 mmol/L 25 TCO2 Latest Range: 21-30 mmol/L 26 Base Excess Latest Range: -2.8-2.3 mEq/L -1.3 O2 Sat Latest Range: 95-97 % 96 Inspired O2 No range found 50% Specimen Type No range found Arterial Increased FiO2 to 55% Increased TV to 800 Will recheck ABGs in one hour * Carla Elena RN - 03/03/2015 1:15 PM EDT Admit Note: Pt admitted to [facility] bed7 from OR with portable EKG, ABP and 100% ambu. Accompanied by anesthesia and OR staff. Pt attached to vent per RT at ordered settings. Chest tubes to suction-air leak is present, [place] to BSD. Lines leveled and zeroed-attached to hemodynamic monitors. See vitals/he modynamics in EPIC. Diprivan off d/t SBP 90s. Albumin started. Insulin gtt restarted at 2units/hr. No other gtts. Assessment complete and fully documented in PSYCHIATRIC. Orders reviewed. * Wilner Merlos RN - 03/02/2015 2:40 PM EDT 1440 Pre-op teaching given to pt with special attn. to TC&DB & IS. Questions encouraged, acknowledged, answered, & verbalized understanding. After obtaining consent, prayed with pt re successful outcome of surgery. documented in this encounter H&P Notes * Samantha Cha MD - 03/03/2015 6:41 AM EDT H&P Update History & Physical Reviewed Additional Findings: Pt seen and examined. Pt took his b-mehrdad this morning and given a b.asa preop. This update is in reference to H&P performed by Dr. Rohit Mcbride. Source Note - Felix Mcbride MD - 02/23/2015 1:39 PM EDT CARDIOVASCULAR AND THORACIC SURGERY [address], [place] [address] Phone#: [phone] Fax#: [phone] NAME: ADIS FORD [facility]#: [id number] DICTATOR: Felix Mcbride CARDIOVASCULAR AND THORACIC NOTE Page 1 CARDIOVASCULAR AND THORACIC NOTE DATE OF CONSULTATION: 02/23/2015 REQUESTING PHYSICIAN: Dr. Ulises Alberto. CONSULTING PHYSICIAN: Dr. Felix Mcbride. CHIEF COMPLAINT: Exertional shortness of breath. HISTORY OF PRESENT ILLNESS: Mr. Ford is a 60-year-old white male who has complaints of extreme shortness of breath with minimal exertion. He has a strong family history of coronary artery disease. He underwent a GXT which was abnormal. Subsequent cardiac catheterization indicated an 80% LAD just distal to a diagonal branch and an occluded OM with collateralization from the LAD. The right coronary artery was also occluded with right to right collaterals. Left ventricular ejection fraction was normal. MEDICATIONS: His medications include lisinopril 20 mg daily, Zocor 40 mg daily, Toprol-XL 25 mg daily, and 1 baby aspirin daily. ALLERGIES: He has no known allergies. PAST MEDICAL HISTORY: Past medical history is significant for hypertension and hyperlipidemia. FAMILY HISTORY: Family history is positive for coronary artery disease. 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 Marital status is . He quit smoking 40 years ago and he does not use alcohol. REVIEW OF SYSTEMS: His review of systems constitutionally, no weight loss or weight gain. He is positive for shortness of breath with exertion. He does not complain of orthopnea or paroxysmal nocturnal dyspnea. He has no abdominal complaints, and he does not complain of any peripheral edema. He hasno neurological or musculoskeletal complaints either. PHYSICAL EXAMINATION: He is a mildly obese white male. He is very pleasant and talkative. NECK: He has no carotid bruits. SKIN: He does have a scar at the border of the right anterior sternocleidomastoid. His skin is intact without evidence of bruising. LUNGS: His lungs are clear. There are no murmurs. HEART: Heart tones are regular. ABDOMEN: His abdomen is mildly obese and nontender. EXAM: His exam is deferred. EXTREMITIES: He has 2+ posterior tibial pulses bilaterally. There is no evidence of peripheral edema. IMPRESSION: Three-vessel coronary disease with exertional angina and normal ventricular function. The risks and benefits of surgery were discussed with the patient, and he is agreeable to proceed. Surgery will be scheduled at his convenience in the near future. Felix Mcbride MD By: jean Job ID: [id number] Doc ID: [id number] CC: documented in this encounter Procedure Notes * Felix Mcbride MD - 03/03/2015 1:09 PM EDT Images from the original note were not included. CARDIAC SURGERY OPERATIVE REPORT [facility] Date of Operation: 03/03/2015 Name: Adis Ford : 1955 AGE: 60 y.o. PRIMARY MD: MARCELO ACTIVATED SLUDGE OPERATOR: Ulises Alberto PRE-OP DX: CAD, ANGINA, HTN, HYPERLIPID POST-OP DX: SAME PREOP + EMPHYSEMA, CHRONIC PERICARDITIS PROCEDURE METHOD: Cardio-Pulmonary Bypass ROBOTIC: No REDO: PROCEDURE: SVG x2 and NIXON x1 PROCEDURE CONT.: ACB X2 NIXON X1 CPB LYSIS OF DENSE PERICARDIAL ADHESIONS NIXON: BASIL: SURGEON:Felix Mcbride PRODUCTION MACHINIST: Vein: RGS VEIN QUALITY: Good LGS VEIN QUALITY: RLS VEIN QUALITY: LLS VEIN QUALITY: SUZY: NIXON QUALITY: Good BASIL QUALITY: SUZY CONTRA-INDICATED: PACING WIRES: A PROSTHESIS: EBL (ml): 300 EJECTION FRACTION %: 45 Lysis Dense Cardiac Adhesions: Yes Factor VII: No Other Reason(s) for Factor VII: Findings/Additional Info: CHRONIC PERICARDITIS PREVIOUS PTCA: No STERNUM: Sclerotic LEG INCISION:Continous CHEST TUBE(S): Mediastinal and Pericardial DISPOSITION: MACHINERY MOVER STABLE Cardiovascular Surgery ROS History / Risk Factors: Family Hx CAD: + - (Age of Onset: Female age<65), Dyslipidemia: +, HTN: +, Presentation: Angina Classification (CCS): II, Stable Angina: + Arrhythmias: Heart Failure: Ejection Fraction %: 45, Cerebrovascular: Carotid US: + Pulmonary: Chronic Lung Disease - Severe: +, Remote Smoker: +, Hepato-Renal: Valves: Meds: Beta Mehrdad within 24 hrs OR: +, Other: MAZE Felix Mcbride MD documented in this encounter Nursing Notes * Lexy Bellamy RN - 03/03/2015 6:50 AM EDT mepilex border to coccyx preventatively documented in this encounter Miscellaneous Notes * Plan of Care - Carine Allred RN - 03/08/2015 10:26 AM EDT Problem: Alteration in respiratory status Goal: Patient???s airway will remain patent. Patient exhibits adequate oxygenation Outcome: Progressing Pt remains on room air. Ok for sats to be 88% and above * Plan of Care - Sakina Flanagan RN - 03/07/2015 10:10 PM EDT Problem: Alteration in Hemodynamics Goal: Patient???s hemodynamic status will remain stable as indicated by vital signs that are within normal limits and [place] measurements within normal limits Outcome: Progressing SBP 120's with increase in betablocker. Still with frequent PVC/quadrimeny. Problem: Alteration in respiratory status Goal: Patient???s airway will remain patent. Patient exhibits adequate oxygenation Outcome: Progressing Currently on O2 at 0.5L NC, will cont to wean as tolerated. Encouraging use of IS & FV with C & DB. * Plan of Care - Anupam Vargas RN - 03/07/2015 9:59 AM EDT Problem: Alteration in Hemodynamics Goal: Patient???s hemodynamic status will remain stable as indicated by vital signs that are within normal limits and [place] measurements within normal limits Outcome: Progressing Having freq pvcs Increasing metoprolol to 25mg 3 times a day, K corrected Will monitor Problem: Alteration in respiratory status Goal: Patient???s airway will remain patent. Patient exhibits adequate oxygenation Outcome: Progressing Forceful prod cough yellow sputum. O2 weaning in progress hope to have it off be end of day Problem: Safety: Fall Risk Goal: Patient will remain free of falls and injury Outcome: Progressing Steady when up Standby assist only * Plan of Care - Sakina Flanagan RN - 03/06/2015 9:43 PM EDT Problem: Pain Management Goal: The patient???s stated pain goal will be reached and maintained. The patient???s stated pain goal will be reached and maintained Outcome: Progressing Controlled with hydrocodone as ordered. Problem: Alteration in Hemodynamics Goal: Patient???s hemodynamic status will remain stable as indicated by vital signs that are within normal limits and [place] measurements within normal limits Outcome: Progressing VSS/ delined Problem: Alteration in respiratory status Goal: Patient???s airway will remain patent. Patient exhibits adequate oxygenation Outcome: Progressing Currently on 3L NC, working on IS/FV and exp. Reasoning. Try to wean * Plan of Care - Anupam Vargas RN - 03/06/2015 2:26 PM EDT Problem: Alteration in respiratory status Goal: Patient???s airway will remain patent. Patient exhibits adequate oxygenation Outcome: Progressing Effective cough with production white sptm Problem: Safety: Fall Risk Goal: Patient will remain free of falls and injury Outcome: Progressing Transfers easily and walks well with standby assist of one * Plan of Care - Anupam Vargas RN - 03/06/2015 2:01 PM EDT Problem: Pain Management Goal: The patient???s stated pain goal will be reached and maintained. The patient???s stated pain goal will be reached and maintained Outcome: Progressing Reports less pain and relief with acetaminophen Will continue to monitor * Plan of Care - Felicita Sherwood RN - 03/05/2015 11:07 PM EDT Problem: Pain Management Goal: The patient???s stated pain goal will be reached and maintained. The patient???s stated pain goal will be reached and maintained Outcome: Progressing Pain well controlled with Vicodin. Problem: Alteration in Hemodynamics Goal: Patient???s hemodynamic status will remain stable as indicated by vital signs that are within normal limits and [place] measurements within normal limits Outcome: Progressing VSS. NSR, 90s, ST, 110 while ambulating. Afebrile. Problem: Alteration in respiratory status Goal: Patient???s airway will remain patent. Patient exhibits adequate oxygenation Outcome: Progressing Weaning O2 per NC. O2 sats 92% on 2L NC. Lungs diminished with rhonchi. Patient has a strong, non-productive cough Ambulation and IS encouraged. Problem: Safety: Fall Risk Goal: Patient will remain free of falls and injury Outcome: Progressing Non-skid footwear on. Call light and personal belongings within reach. Patient verbalized understanding of use of call light. * Plan of Care - Carine Allred RN - 03/05/2015 10:49 AM EDT Problem: Pain Management Goal: The patient???s stated pain goal will be reached and maintained. The patient???s stated pain goal will be reached and maintained Outcome: Progressing Pain controlled with percocet. Problem: Alteration in Hemodynamics Goal: Patient???s hemodynamic status will remain stable as indicated by vital signs that are within normal limits and [place] measurements within normal limits Outcome: Progressing Vitals stable. Afebrile Problem: Alteration in respiratory status Goal: Patient???s airway will remain patent. Patient exhibits adequate oxygenation Outcome: Progressing Weaning oxygen as tolerated. * Plan of Care - Felicita Sherwood RN - 03/05/2015 12:25 AM EDT Problem: Pain Management Goal: The patient???s stated pain goal will be reached and maintained. The patient???s stated pain goal will be reached and maintained Outcome: Progressing Pain well controlled with Percocet. Problem: Alteration in Hemodynamics Goal: Patient???s hemodynamic status will remain stable as indicated by vital signs that are within normal limits and [place] measurements within normal limits Outcome: Progressing VSS. NSR, heart rate 90s. Problem: Alteration in respiratory status Goal: Patient???s airway will remain patent. Patient exhibits adequate oxygenation Outcome: Progressing O2 sats 93% on 4L NC. Lungs clear/diminished. Nurse encouraged use of IS and flutter valve. IS to 750. Strong/non-productive cough. Problem: Safety: Fall Risk Goal: Patient will remain free of falls and injury Outcome: Progressing Call light within reach and patient verbalized use of using prior to ambulating. * Plan of Care - China Lin RN - 03/04/2015 10:24 PM EDT Problem: Pain Management Goal: The patient???s stated pain goal will be reached and maintained. The patient???s stated pain goal will be reached and maintained Outcome: Progressing Patient's pain is well controlled by PRN pain medications and repositioning. Problem: Alteration in Hemodynamics Goal: Patient???s hemodynamic status will remain stable as indicated by vital signs that are within normal limits and [place] measurements within normal limits Outcome: Progressing Hemodynamically stable. [place] and arterial line removed early today. UOP stable per castro. NSR/ST onthe monitor with no noted ectopy. Problem: Alteration in respiratory status Goal: Patient???s airway will remain patent. Patient exhibits adequate oxygenation Outcome: Progressing Oxygenation with minimal improvement, remains on 4LNC to maintain oxygen saturation of greater than90%. Encouraged IS use/FV use and ambulation as well as cough and deep breath. Patient with productive cough this evening and states it feels easier to breath. Patient still does suffer from QUINONEZ. Patient with some inspiratory wheezes, so PRN albuterol ordered per protocol, RT made aware. Problem: Bleeding Related to surgical procedure Goal: Patient will have minimal post-op bleeding. Assess for bleeding at surgical incision/access site. Outcome: Progressing CT output above parameters, but thinning and diminishing. HCT stable. Incisional dressings dry and intact. Problem: Alteration in circulation/neurovascular status Goal: Circulation/neurovascular status will be maintained. Outcome: Progressing Neuro intact. Palpable pulses noted on all extremities. TEDS to BLE. Patient ambulating full laps in the saab twice today, and complained of mild QUINONEZ, but otherwise tolerated well. Up to the chair x 3 today as well. Problem: Safety: Fall Risk Goal: Patient will remain free of falls and injury Outcome: Progressing Patient appropriate and calls for assistance when needed. Non skid socks in use. Call light left within reach. Problem: Discharge/Coordination of Care/Transition of Care Goal: Patient will have a plan for disposition or transition to next level of care Outcome: Progressing Home with his . * Plan of Care - Carine Walker RN - 03/04/2015 4:38 AM EDT Problem: Pain Management Goal: The patient???s stated pain goal will be reached and maintained. The patient???s stated pain goal will be reached and maintained Outcome: Progressing IV Morphine and PO Percocet used for pain control. Pt able to rest during night. Problem: Alteration in Hemodynamics Goal: Patient???s hemodynamic status will remain stable as indicated by vital signs that are within normal limits and [place] measurements within normal limits Outcome: Progressing VSS- Nipride gtt weaned as tolerated. Problem: Alteration in respiratory status Goal: Patient???s airway will remain patent. Patient exhibits adequate oxygenation Outcome: Progressing Pt ventilator weaned- CPAP ABG with low PO2- MD notified and ok to extubated. Pt extubated to 6L NC, sats 92-94%. Lungs clear/diminished. IS education provided- pain meds administered. Problem: Bleeding Related to surgical procedure Goal: Patient will have minimal post-op bleeding. Assess for bleeding at surgical incision/access site. Outcome: Progressing CT drainage stable, WNL. Problem: Alteration in circulation/neurovascular status Goal: Circulation/neurovascular status will be maintained. Outcome: Progressing KYRA/elastic wrap on BLE. Pulses palpable. Problem: Safety: Fall Risk Goal: Patient will remain free of falls and injury Outcome: Progressing Non skid socks on BLE. Bed alarm on and bed in lowest position. Pt with call light and uses it appropriately. Problem: Knowledge deficit related to postoperative care and postoperative complications Related to postoperative care and postoperative complications Goal: Patient/family verbalizes understanding of care Related to the surgical procedure and the complications involved Outcome: Progressing Plan of care for evening discussed with family and patient. All questions answered. Problem: Discharge/Coordination of Care/Transition of Care Goal: Patient will have a plan for disposition or transition to next level of care Outcome: Progressing Discharge planning going. PT to go home with . Problem: Psycho/Social/Spiritual Goal: Patient will identify sources of support and strength Outcome: Progressing Lots of family support. in waiting room documented in this encounter Plan of Treatment Pending Results Name Type Priority Associated Diagnoses Date /Time PAT UPDATED SPECIMEN Blood Bank STAT 02/07 7:55 AM EDT documented as of this encounter Procedures Procedure Name Priority Date/Time Associated Diagnosis Comments SCANNED RHYTHM STRIPS 03/17/2015 11:50 PM EDT CBC Timed 03/08/2015 4:56 AM EDT BASIC METABOLIC PANEL Timed 03/08/2015 4:56 AM EDT SCANNED RHYTHM STRIPS 03/07/2015 6:28 PM EDT POTASSIUM WHOLE BLOOD NOAM 03/07/2015 3:50 AM EDT CBC Timed 03/07/2015 3:50 AM EDT MAGNESIUM LEVEL NOAM 03/07/2015 3:50 AM EDT BASIC METABOLIC PANEL Timed 03/07/2015 3:50 AM EDT GLUCOSE METER POC Routine 03/06/2015 8:4 5 PM EDT GLUCOSE METER POC Routine 03/06/2015 5:5 4 PM EDT GLUCOSE METER POC Routine 03/06/2015 12: 49 PM EDT GLUCOSE METER POC Routine 03/06/2015 8:1 0 AM EDT XR CHEST PA AND LATERAL NOAM 03/06/2015 7:33 AM EDT EK EKG 12 LEAD Routine 03/06/2015 5:51 AM EDT CBC Timed 03/06/2015 4:46 AM EDT BASIC METABOLIC PANEL Timed 03/06/2015 4:46 AM EDT GLUCOSE METER POC Routine 03/05/2015 7:5 3 PM EDT LOWER RESPIRATORY CULTURE (STAIN INCLUDED) Routine 03/05/2015 5:10 PM EDT GLUCOSE METER POC Routine 03/05/2015 5:0 2 PM EDT GLUCOSE METER POC Routine 03/05/2015 11: 56 AM EDT GLUCOSE METER POC Routine 03/05/2015 7:4 1 AM EDT XR CHEST AP PORTABLE Early AM 03/05/2015 6:41 AM EDT GLUCOSE METER POC Routine 03/05/2015 5:5 2 AM EDT DIFFERENTIAL Timed 03/05/2015 5:06 AM EDT CBC WITH DIFF Timed 03/05/2015 5:06 AM EDT BASIC METABOLIC PANEL Timed 03/05/2015 5:06 AM EDT GLUCOSE METER POC Routine 03/05/2015 2:5 2 AM EDT GLUCOSE METER POC Routine 03/04/2015 11: 29 PM EDT GLUCOSE METER POC Routine 03/04/2015 6:0 2 PM EDT GLUCOSE METER POC Routine 03/04/2015 12: 45 PM EDT GLUCOSE METER POC Routine 03/04/2015 9:1 2 AM EDT POTASSIUM WHOLE BLOOD Timed 03/04/2015 8:10 AM EDT GLUCOSE METER POC Routine 03/04/2015 8:0 8 AM EDT GLUCOSE METER POC Routine 03/04/2015 6:5 1 AM EDT EK EKG 12 LEAD Early AM 03/04/2015 6:43 AM EDT XR CHEST AP PORTABLE Early AM 03/04/2015 6:32 AM EDT GLUCOSE METER POC Routine 03/04/2015 4:1 6 AM EDT SMEAR REVIEW Timed 03/04/2015 4:15 AM EDT POTASSIUM WHOLE BLOOD Timed 03/04/2015 4:15 AM EDT DIFFERENTIAL Timed 03/04/2015 4:15 AM EDT O2 SAT - MIXED VENOUS STAT 03/04/2015 4:15 AM EDT CBC WITH DIFF Timed 03/04/2015 4:15 AM EDT BASIC METABOLIC PANEL Timed 03/04/2015 4:15 AM EDT BLOOD GAS ARTERIAL Timed 03/04/2015 2: 15 AM EDT GLUCOSE METER POC Routine 03/04/2015 2:1 2 AM EDT BLOOD GAS ARTERIAL STAT 03/04/2015 12 :25 AM EDT POTASSIUM WHOLE BLOOD Timed 03/03/2015 11:30 PM EDT BLOOD GAS ARTERIAL Timed 03/03/2015 11 :30 PM EDT GLUCOSE METER POC Routine 03/03/2015 11: 29 PM EDT BLOOD GAS ARTERIAL Timed 03/03/2015 10 :10 PM EDT GLUCOSE METER POC Routine 03/03/2015 8:5 7 PM EDT POTASSIUM WHOLE BLOOD Timed 03/03/2015 8:55 PM EDT BLOOD GAS ARTERIAL Timed 03/03/2015 8: 55 PM EDT GLUCOSE METER POC Routine 03/03/2015 7:4 5 PM EDT BLOOD GAS ARTERIAL STAT 03/03/2015 7: 45 PM EDT BLOOD GAS ARTERIAL STAT 03/03/2015 6: 11 PM EDT GLUCOSE METER POC Routine 03/03/2015 6:0 9 PM EDT GLUCOSE METER POC Routine 03/03/2015 4:5 6 PM EDT POTASSIUM WHOLE BLOOD Timed 03/03/2015 4:55 PM EDT HEMOGLOBIN AND HEMATOCRIT Timed 03/03/2015 4:55 PM EDT BLOOD GAS ARTERIAL STAT 03/03/2015 4: 55 PM EDT O2 SAT - MIXED VENOUS Timed 03/03/2015 3:00 PM EDT BLOOD GAS ARTERIAL Routine 03/03/2015 3: 00 PM EDT GLUCOSE METER POC Routine 03/03/2015 2:5 9 PM EDT XR CHEST AP PORTABLE STAT 03/03/2015 1:57 PM EDT POTASSIUM WHOLE BLOOD STAT 03/03/2015 1:35 PM EDT CBC STAT 03/03/2015 1:35 PM EDT BLOOD GAS ARTERIAL STAT 03/03/2015 1: 35 PM EDT GLUCOSE METER POC Routine 03/03/2015 1:2 4 PM EDT POC ARTERIAL BLOOD GAS PROFILE Routine 03/03/2015 12:22 PM EDT ACTIVATED CLOTTING TIME + POC Routine 03/03/2015 12:22 PM EDT ACTIVATED CLOTTING TIME + POC Routine 03/03/2015 11:59 AM EDT POC ARTERIAL BLOOD GAS PROFILE Routine 03/03/2015 11:58 AM EDT ACTIVATED CLOTTING TIME + POC Routine 03/03/2015 11:51 AM EDT ACTIVATED CLOTTING TIME + POC Routine 03/03/2015 11:44 AM EDT ACTIVATED CLOTTING TIME + POC Routine 03/03/2015 11:41 AM EDT ACTIVATED CLOTTING TIME + POC Routine 03/03/2015 11:35 AM EDT ACTIVATED CLOTTING TIME + POC Routine 03/03/2015 11:01 AM EDT POC ARTERIAL BLOOD GAS PROFILE Routine 03/03/2015 10:59 AM EDT ACTIVATED CLOTTING TIME + POC Routine 03/03/2015 10:46 AM EDT ACTIVATED CLOTTING TIME + POC Routine 03/03/2015 10:29 AM EDT POC ARTERIAL BLOOD GAS PROFILE Routine 03/03/2015 10:27 AM EDT POC ARTERIAL BLOOD GAS PROFILE Routine 03/03/2015 10:07 AM EDT ACTIVATED CLOTTING TIME + POC Routine 03/03/2015 10:03 AM EDT ACTIVATED CLOTTING TIME + POC Routine 03/03/2015 9:36 AM EDT POC ARTERIAL BLOOD GAS PROFILE Routine 03/03/2015 8:31 AM EDT ACTIVATED CLOTTING TIME + POC Routine 03/03/2015 8:31 AM EDT CORONARY ARTERY BYPASS GRAFT 03/03/2015 8:06 AM EDT Atherosclerosis of [place] coronary artery without angina pectoris Special Needs natlie cpt; [id number]; DR GRECO FROM [facility] UPDATED SPECIMEN STAT 03/03/2015 7:55 AM EDT CROSSMATCH SUMMARY STAT 03/03/2015 7: 48 AM EDT INSERT PERIPHERAL IV Routine 03/03/2015 5:43 AM EDT documented in this encounter Results * SCANNED RHYTHM STRIPS (03/17/2015 11:50 PM EDT) Anatomical Region Laterality Modality Other 03/17/2015 11:5 0 PM EDT us Unknown Unknown IMG ECG ORDERABLES Final Result * (ABNORMAL) BASIC METABOLIC PANEL (03/08/2015 4:56 AM EDT) Pathologist [facility] Sodium 140 136 - 145 mmol/L [facility] Potassium 4.1 3.5 - 5.0 mmol/L [facility] Chloride 99 98 - 107 mmol/L [facility] Total CO2 28 22 - 29 mmol/L [facility] Anion Gap 13 7 - 16 mmol/L [facility] Calcium 9.5 8.8 - 10.2 mg/dL [facility] Glucose Lvl 104(H) 82 - 100 mg/dL [facility] BUN 20 8 - 23 mg/dL [facility] Creatinine 0.94 0.67 - 1.30 mg/dL [facility] GFR Afr Am >60 [facility] GFR Non Afr Am >60 [facility] Blood specimen (specimen) UPPER LIMB STRUCTURE / Unknown 03/08/2015 4:56 AM EDT 03/08/2015 5:05 AM EDT us Felix Mcbride MD CHEMISTRY ORDERABLES Edited Result - Final [facility] [address] [place] [address] * (ABNORMAL) CBC (03/08/2015 4:56 AM EDT) WBC 13.2(H) 4.0 - 11.0 x10(3)/mcL [facility] RBC 3.96(L) 4.30 - 5.81 x10(6)/mcL [facility] Hgb 11.6(L) 13.5 - 17.1 gm/dL [facility] Hct 35.2(L) 38.9 - 51.6 % [facility] MCV 88.9 82.5 - 99.8 fL [facility] MCH 29.2 27.0 - 34.3 pg [facility] MCHC 32.8 32.1 - 35.3 gm/dL [facility] RDW 13.4 11.5 - 15.0 % [facility] Platelet 233 144 - 423 x10(3)/mcL [facility] MPV 8.4 6.8 - 10.8 fL [facility] Blood specimen (specimen) UPPER LIMB STRUCTURE / Unknown 03/08/2015 4:56 AM EDT 03/08/2015 5:05 AM EDT Felix Mcbride MD HEMATOLOGY ORDERABLES Final Result Performing Organization Address [place] de Phone Number [facility] [address] [place] [address] * SCANNED RHYTHM STRIPS (03/07/2015 6:28 PM EDT) Anatomical Region Laterality Modality Other 03/07/2015 6:28 PM EDT Unknown Unknown IMG ECG ORDERABLES Edited Result - Final * MAGNESIUM LEVEL (03/07/2015 3:50 AM EDT) Pathologist [facility] Magnesium 2.2 1.6 - 2.4 mg/dL [facility] Blood specimen (specimen) UPPER LIMB STRUCTURE / Unknown 03/07/2015 3:50 AM EDT 03/07/2015 4:18 AM EDT Felix Mcbride MD CHEMISTRY ORDERABLES Final R esult Performing Organization Address [facility] de Phone Number [facility] [address] [place] [address] * POTASSIUM WHOLE BLOOD (03/07/2015 3:50 AM EDT) K-WB 4.1 3.5 - 5.0 mEq/L [facility] Blood specimen (specimen) UPPER LIMB STRUCTURE / Unknown 03/07/2015 3:50 AM EDT 03/07/2015 4:06 AM EDT Felix Mcbride MD CHEMISTRY ORDERABLES Final R esult Performing Organization Address [place] Co de Phone Number [facility] [address] [place] [address] * (ABNORMAL) BASIC METABOLIC PANEL (03/07/2015 3:50 AM EDT) Pathologist [facility] Sodium 138 136 - 145 mmol/L [facility] Potassium 4.2 3.5 - 5.0 mmol/L [facility] Chloride 96(L) 98 - 107 mmol/L [facility] Total CO2 30(H) 22 - 29 mmol/L [facility] Anion Gap 12 7 - 16 mmol/L [facility] Calcium 8.6(L) 8.8 - 10.2 mg/dL [facility] Glucose Lvl 119(H) 82 - 100 mg/dL [facility] BUN 24(H) 8 - 23 mg/dL [facility] Creatinine 0.91 0.67 - 1.30 mg/dL [facility] GFR Afr Am >60 [facility] GFR Non Afr Am >60 [facility] Blood specimen (specimen) UPPER LIMB STRUCTURE / Unknown 03/07/2015 3:50 AM EDT 03/07/2015 4:06 AM EDT us Felix Mcbride MD CHEMISTRY ORDERABLES Edited Result - Final [facility] [address] [place] [address] * (ABNORMAL) CBC (03/07/2015 3:50 AM EDT) Pathologist [facility] WBC 12.5(H) 4.0 - 11.0 x10(3)/mcL [facility] RBC 3.32(L) 4.30 - 5.81 x10(6)/mcL [facility] Hgb 9.6(L) 13.5 - 17.1 gm/dL [facility] Hct 29.6(L) 38.9 - 51.6 % [facility] MCV 89.2 82.5 - 99.8 fL [facility] MCH 28.8 27.0 - 34.3 pg [facility] MCHC 32.3 32.1 - 35.3 gm/dL [facility] RDW 13.8 11.5 - 15.0 % [facility] Platelet 153 144 - 423 x10(3)/mcL [facility] MPV 8.9 6.8 - 10.8 fL [facility] Blood specimen (specimen) UPPER LIMB STRUCTURE / Unknown 03/07/2015 3:50 AM EDT 03/07/2015 4:06 AM EDT us Felix Mcbride MD HEMATOLOGY ORDERABLES Final Result [facility] [facility] [address] [place] [address] * (ABNORMAL) GLUCOSE METER POC (03/06/2015 8:45 PM EDT) Glucose Meter POC 120(H) 70 - 100 mg/dL [facility] Blood specimen (specimen) 03/06/2015 8:45 PM EDT 03/06/2015 8:45 PM EDT us Felix Mcbride MD POINT OF CARE TEST ORDERABLE S Final Result Performing Organization Address [place]/[facility]/ZIP Co de Phone Number [facility] [address] [place] [address] * (ABNORMAL) GLUCOSE METER POC (03/06/2015 5:54 PM EDT) Glucose Meter POC 123(H) 70 - 100 mg/dL [facility] Blood specimen (specimen) 03/06/2015 5:54 PM EDT 03/06/2015 5:54 PM EDT us Felix Mcbride MD POINT OF CARE TEST ORDERABLE S Final Result Performing Organization Address City/[facility]/ZIP Co de Phone Number [facility] [address] [place] [address] * (ABNORMAL) GLUCOSE METER POC (03/06/2015 12:49 PM EDT) Glucose Meter POC 141(H) 70 - 100 mg/dL [facility] Blood specimen (specimen) 03/06/2015 12:49 PM EDT 03/06/2015 12:49 PM EDT us Felix Mcbride MD POINT OF CARE TEST ORDERABLE S Final Result [facility] [address] [place] [address] * (ABNORMAL) GLUCOSE METER POC (03/06/2015 8:10 AM EDT) [facility] Signature Glucose Meter POC 140(H) 70 - 100 mg/dL [facility] Blood specimen (specimen) 03/06/2015 8:10 AM EDT 03/06/2015 8:10 AM EDT us Felix Mcbride MD POINT OF CARE TEST ORDERABLE S Final Result [facility] [address] [place] [address] * XR CHEST PA AND LATERAL (03/06/2015 7:33 AM EDT) Anatomical Region Laterality Modality Chest Radio Fluoroscop y 03/06/2015 Impressions 03/06/2015 7:47 AM EDT IMPRESSION: Postoperative chest with persistent bibasilar atelectasis and effusions, left greater than right. New peripheral left upper lobe opacity likely represents loculated fluid. No pneumothorax. Continued follow-up recommended.. Narrative 03/06/2015 7:47 AM EDT TWO-VIEW CHEST, 03/06/2015 at 0719 HISTORY: Postop [...] lung is clear. No evidence of pneumothorax. Procedure Note Emilio Alberto MD - 03/06/2015 TWO-VIEW CHEST, 03/06/2015 at 0719 HISTORY: Postop cardiac surgery, follow-up. FINDINGS: Comparison 03/05/2015. Evidence of recent cardiac surgery again noted. Heart size is borderlinebut stable. Mediastinal drains have been removed. The basilar opacities persist greater on the left than the right. There ismild improvement on the left but worsening on the right. There is now ahomogeneous plasty in the periphery of the left mid upper lung measuring 7.6 x 4.1 cm.Left upper lung is clear. No evidence of pneumothorax. IMPRESSION: Postoperative chest with persistent bibasilar atelectasisand effusions, left greater than right. New peripheral left upper lobeopacity likely represents loculated fluid. No pneumothorax. Continued follow-up recommended.. us Felix Mcbride MD IMG DIAGNOSTIC IMAGING ORDER MARY Final Result * EK EKG 12 LEAD (03/06/2015 5:51 AM EDT) Anatomical Region Laterality Modality Other 03/06/2015 5:51 AM EDT Impressions 03/06/2015 2:38 PM EDT ? Stationary ECG Study ?[place] ? Interpretive Statements ? SINUS RHYTHM POSSIBLE RIGHT VENTRICULAR CONDUCTION DELAY Electronically Signed On 03-06-2015 14:38:12 EDT by Toni Rebollar MD Narrative Procedure Note Toni Rebollar MD - 03/06/2015 IMPRESSION Stationary ECG Study [place] Interpretive Statements SINUS RHYTHM POSSIBLE RIGHT VENTRICULAR CONDUCTION DELAY Electronically Signed On 03-06-2015 14:38:12 EDT by Toni Rebollar MD us Felix Mcbride MD IMG ECG ORDERABLES Final Res ult * (ABNORMAL) BASIC METABOLIC PANEL (03/06/2015 4:46 AM EDT) Pathologist [facility] Sodium 140 136 - 145 mmol/L [facility] Potassium 4.5 3.5 - 5.0 mmol/L [facility] Chloride 98 98 - 107 mmol/L [facility] Total CO2 31(H) 22 - 29 mmol/L [facility] Anion Gap 11 7 - 16 mmol/L [facility] Calcium 8.8 8.8 - 10.2 mg/dL [facility] Glucose Lvl 127(H) 82 - 100 mg/dL [facility] BUN 26(H) 8 - 23 mg/dL [facility] Creatinine 1.08 0.67 - 1.30 mg/dL [facility] GFR Afr Am >60 [facility] GFR Non Afr Am >60 [facility] Blood specimen (specimen) UPPER LIMB STRUCTURE / Unknown 03/06/2015 4:46 AM EDT 03/06/2015 5:20 AM EDT Felix Mcbride MD CHEMISTRY ORDERABLES Edited Result - Final [facility] [address] [place] [address] * (ABNORMAL) CBC (03/06/2015 4:46 AM EDT) Pathologist [facility] WBC 13.9(H) 4.0 - 11.0 x10(3)/mcL [facility] RBC 3.51(L) 4.30 - 5.81 x10(6)/mcL [facility] Hgb 10.4(L) 13.5 - 17.1 gm/dL [facility] Hct 31.3(L) 38.9 - 51.6 % [facility] MCV 89.1 82.5 - 99.8 fL [facility] MCH 29.5 27.0 - 34.3 pg [facility] MCHC 33.2 32.1 - 35.3 gm/dL [facility] RDW 13.9 11.5 - 15.0 % [facility] Platelet 117(L) 144 - 423 x10(3)/mcL [facility] MPV 8.8 6.8 - 10.8 fL [facility] Blood specimen (specimen) UPPER LIMB STRUCTURE / Unknown 03/06/2015 4:46 AM EDT 03/06/2015 5:20 AM EDT us Felix Mcbride MD HEMATOLOGY ORDERABLES Final Result Performing Organization Address [place]/[facility] Co de Phone Number [facility] [address] [place] [address] * (ABNORMAL) GLUCOSE METER POC (03/05/2015 7:53 PM EDT) Glucose Meter POC 172(H) 70 - 100 mg/dL [facility] Blood specimen (specimen) 03/05/2015 7:53 PM EDT 03/05/2015 7:53 PM EDT us Felix Mcbride MD POINT OF CARE TEST ORDERABLE S Final Result Performing Organization Address [facility] de Phone Number [facility] [address] [place] [address] * LOWER RESPIRATORY CULTURE (03/05/2015 5:10 PM EDT) Final Sparse growth of normal oral silvestre [facility] GS Group 6: ??<25 WBC and <25 epithelial cells/lpf Moderate mixed oral silvestre [facility] Sputum specimen (specimen) 03/05/2015 5:10 PM EDT 03/05/2015 6:03 PM EDT us Felix Mcbride MD MICROBIOLOGY - GENERAL ORDER MARY Final Result Performing Organization Address [facility] de Phone Number [facility] [address] [place] [address] * (ABNORMAL) GLUCOSE METER POC (03/05/2015 5:02 PM EDT) Glucose Meter POC 160(H) 70 - 100 mg/dL [facility] Blood specimen (specimen) 03/05/2015 5:02 PM EDT 03/05/2015 5:02 PM EDT us Felix Mcbride MD POINT OF CARE TEST ORDERABLE S Final Result Performing Organization Address [place]/[facility]/ZIP Co de Phone Number [facility] [address] [place] [address] * (ABNORMAL) GLUCOSE METER POC (03/05/2015 11:56 AM EDT) Glucose Meter POC 146(H) 70 - 100 mg/dL [facility] Blood specimen (specimen) 03/05/2015 11:56 AM EDT 03/05/2015 11:56 AM EDT us Felix Mcbride MD POINT OF CARE TEST ORDERABLE S Final Result Performing Organization Address [place]/[facility] Co de Phone Number [facility] [address] [place] [address] * (ABNORMAL) GLUCOSE METER POC (03/05/2015 7:41 AM EDT) Glucose Meter POC 129(H) 70 - 100 mg/dL [facility] Blood specimen (specimen) 03/05/2015 7:41 AM EDT 03/05/2015 7:41 AM EDT us Felix Mcbride MD POINT OF CARE TEST ORDERABLE S Final Result Performing Organization Address [facility] de Phone Number [facility] [address] [place] [address] * XR CHEST AP PORTABLE (03/05/2015 6:41 AM EDT) Anatomical Region Laterality Modality Chest Radiographic Suzy ging 03/05/2015 6:00 AM EDT Impressions 03/05/2015 7:27 AM EDT IMPRESSION: Postoperative chest with removal [place] catheter. Persistent bibasilar atelectasis and small effusions.. Narrative 03/05/2015 7:27 AM EDT AP PORTABLE CHEST, 03/05/2015 at 0625 HISTORY: Postop cardiac surgery, follow-up. FINDINGS: Comparison 03/04/2015. Evidence of cardiac surgery again noted. The [place] catheter has been removed. Mediastinal drains remain in place. Heart size is stable. Lung volumes are low. Basilar opacities persist without significant change. Upper lungs are clear. No evidence pneumothorax. Procedure Note Emilio Alberto MD - 03/05/2015 AP PORTABLE CHEST, 03/05/2015 at 0625 HISTORY: Postop cardiac surgery, follow-up. FINDINGS: Comparison 03/04/2015. Evidence of cardiac surgery again noted. The [place] catheter has been removed. Mediastinal drains remain in place. Heart size is stable. Lung volumes are low. Basilar opacities persistwithout significant change. Upper lungs are clear. No evidence pneumothorax. IMPRESSION: Postoperative chest with removal [place] catheter.Persistent bibasilar atelectasis and small effusions.. Felix Mcbride MD IMG DIAGNOSTIC IMAGING ORDER MARY Final Result * (ABNORMAL) GLUCOSE METER POC (03/05/2015 5:52 AM EDT) [facility] Glucose Meter POC 137(H) 70 - 100 mg/dL [facility] Blood specimen (specimen) 03/05/2015 5:52 AM EDT 03/05/2015 5:52 AM EDT Felix Mcbride MD POINT OF CARE TEST ORDERABLE S Final Result [facility] [address] [place] [address] * (ABNORMAL) DIFFERENTIAL (03/05/2015 5:06 AM EDT) [facility] Neut Percent 81.6 % [facility] Lymph Percent 6.9 % [facility] [place] Percent 11.3 % [facility] Eos Percent 0.0 % [facility] Baso Percent 0.2 % [facility] Neut# 15.7(H) 1.8 - 7.7 x10(3)/mcL [facility] Lymph# 1.3 0.6 - 4.8 x10(3)/mcL [facility] [place]# 2.2(H) 0.0 - 1.3 x10(3)/mcL [facility] Eos# 0.0 0.0 - 0.5 x10(3)/mcL [facility] Baso# 0.0 0.0 - 0.2 x10(3)/mcL [facility] Blood specimen (specimen) 03/05/2015 5:06 AM EDT 03/05/2015 5:25 AM EDT us Felix Mcbride MD HEMATOLOGY ORDERABLES Final Result Performing Organization Address [place]/[facility] de Phone Number [facility] [address] [place] [address] * (ABNORMAL) CBC WITH AUTO DIFF (03/05/2015 5:06 AM EDT) WBC 19.3(H) 4.0 - 11.0 x10(3)/mcL [facility] Comment:No significant broussard e from previous manual review RBC 4.14(L) 4.30 - 5.81 x10(6)/mcL [facility] Hgb 12.0(L) 13.5 - 17.1 gm/dL [facility] Hct 36.6(L) 38.9 - 51.6 % [facility] MCV 88.5 82.5 - 99.8 fL [facility] MCH 28.9 27.0 - 34.3 pg [facility] MCHC 32.7 32.1 - 35.3 gm/dL [facility] RDW 14.0 11.5 - 15.0 % [facility] Platelet 126(L) 144 - 423 x10(3)/mcL [facility] MPV 9.1 6.8 - 10.8 fL [facility] Blood specimen (specimen) UPPER LIMB STRUCTURE / Unknown 03/05/2015 5:06 AM EDT 03/05/2015 5:25 AM EDT us Felix Mcbride MD HEMATOLOGY ORDERABLES Final Result Performing Organization Address City/[facility] Co de Phone Number [facility] [address] [place] [address] * (ABNORMAL) BASIC METABOLIC PANEL (03/05/2015 5:06 AM EDT) Sodium 139 136 - 145 mmol/L [facility] Potassium 4.6 3.5 - 5.0 mmol/L [facility] Chloride 98 98 - 107 mmol/L [facility] Total CO2 28 22 - 29 mmol/L [facility] Anion Gap 13 7 - 16 mmol/L [facility] Calcium 8.9 8.8 - 10.2 mg/dL [facility] Glucose Lvl 126(H) 82 - 100 mg/dL [facility] BUN 18 8 - 23 mg/dL [facility] Creatinine 1.00 0.67 - 1.30 mg/dL [facility] GFR Afr Am >60 [facility] GFR Non Afr Am >60 [facility] Blood specimen (specimen) UPPER LIMB STRUCTURE / Unknown 03/05/2015 5:06 AM EDT 03/05/2015 5:26 AM EDT us Felix Mcbride MD CHEMISTRY ORDERABLES Edited Result - Final [facility] [address] [place] [address] * (ABNORMAL) GLUCOSE METER POC (03/05/2015 2:52 AM EDT) Glucose Meter POC 119(H) 70 - 100 mg/dL [facility] Blood specimen (specimen) 03/05/2015 2:52 AM EDT 03/05/2015 2:52 AM EDT us Felix Mcbride MD POINT OF CARE TEST ORDERABLE S Final Result Performing Organization Address [place]/[facility]/ZIP Co de Phone Number [facility] [address] [place] [address] * (ABNORMAL) GLUCOSE METER POC (03/04/2015 11:29 PM EDT) Glucose Meter POC 134(H) 70 - 100 mg/dL [facility] Blood specimen (specimen) 03/04/2015 11:29 PM EDT 03/04/2015 11:29 PM EDT us Felix Mcbride MD POINT OF CARE TEST ORDERABLE S Final Result Performing Organization Address [place]/[facility] Co de Phone Number [facility] [address] [place] [address] * (ABNORMAL) GLUCOSE METER POC (03/04/2015 6:02 PM EDT) Glucose Meter POC 155(H) 70 - 100 mg/dL [facility] Blood specimen (specimen) 03/04/2015 6:02 PM EDT 03/04/2015 6:02 PM EDT us Felix Mcbride MD POINT OF CARE TEST ORDERABLE S Final Result Performing Organization Address [place]/[facility] de Phone Number [facility] [address] [place] [address] * GLUCOSE METER POC (03/04/2015 12:45 PM EDT) Glucose Meter POC 88 70 - 100 mg/dL [facility] Blood specimen (specimen) 03/04/2015 12:45 PM EDT 03/04/2015 12:45 PM EDT us Felix Mcbride MD POINT OF CARE TEST ORDERABLE S Final Result Performing Organization Address [facility] de Phone Number [facility] [address] [place] [address] * (ABNORMAL) GLUCOSE METER POC (03/04/2015 9:12 AM EDT) Glucose Meter POC 141(H) 70 - 100 mg/dL [facility] Blood specimen (specimen) 03/04/2015 9:12 AM EDT 03/04/2015 9:12 AM EDT us River Vera MD POINT OF CARE TEST ORDERABLES F inal Result Performing Organization Address [facility] de Phone Number [facility] [address] [place] [address] * POTASSIUM WHOLE BLOOD (03/04/2015 8:10 AM EDT) K-WB 4.7 3.5 - 5.0 mEq/L [facility] Blood specimen (specimen) UPPER LIMB STRUCTURE / Unknown 03/04/2015 8:10 AM EDT 03/04/2015 8:12 AM EDT Narrative [facility] - 03/04/2015 8:19 AM EDT Discontinue when invasive hemodynamic lines are removed. us Felix Mcbride MD CHEMISTRY ORDERABLES Final R esult Performing Organization Address [place]/[facility] Co de Phone Number [facility] [address] [place] [address] * (ABNORMAL) GLUCOSE METER POC (03/04/2015 8:08 AM EDT) Glucose Meter POC 155(H) 70 - 100 mg/dL [facility] Blood specimen (specimen) 03/04/2015 8:08 AM EDT 03/04/2015 8:08 AM EDT us River Vera MD POINT OF CARE TEST ORDERABLES F inal Result Performing Organization Address [place]/[facility] Co de Phone Number [facility] [address] [place] [address] * (ABNORMAL) GLUCOSE METER POC (03/04/2015 6:51 AM EDT) Glucose Meter POC 132(H) 70 - 100 mg/dL [facility] Blood specimen (specimen) 03/04/2015 6:51 AM EDT 03/04/2015 6:51 AM EDT us River Vera MD POINT OF CARE TEST ORDERABLES F inal Result Performing Organization Address [place]/[facility] Co de Phone Number [facility] [address] [place] [address] * EK EKG 12 LEAD (03/04/2015 6:43 AM EDT) Anatomical Region Laterality Modality Other 03/04/2015 6:43 AM EDT Impressions 03/04/2015 5:07 PM EDT ? Stationary ECG Study ?[place] ? Interpretive Statements ? SINUS RHYTHM POSSIBLE RIGHT VENTRICULAR CONDUCTION DELAY INFERIOR MYOCARDIAL INFARCTION, PROBABLY OLD WITH POSTERIOR EXTENSION Electronically Signed On 03-04-2015 17:07:39 EDT by Toni Rebollar MD Narrative Procedure Note Toni Rebollar MD - 03/04/2015 IMPRESSION Stationary ECG Study [place] Interpretive Statements SINUS RHYTHM POSSIBLE RIGHT VENTRICULAR CONDUCTION DELAY INFERIOR MYOCARDIAL INFARCTION, PROBABLY OLD WITH POSTERIOR EXTENSION Electronically Signed On 03-04-2015 17:07:39 EDT by Toni Rebollar MD Felix Mcbride MD IMG ECG ORDERABLES Final Res ult * XR CHEST AP PORTABLE (03/04/2015 6:32 AM EDT) Anatomical Region Laterality Modality Chest Radiographic Suzy ging 03/04/2015 6:00 AM EDT Impressions 03/04/2015 6:46 AM EDT IMPRESSION: Interval worsening of left basilar opacity, likely representing a combination of left pleural effusion and left basilar atelectasis. Interval worsening of right basilar atelectasis. No pneumothorax. Narrative 03/04/2015 6:46 AM EDT Portable chest, 03/04/2015 HISTORY: Follow-up infiltrates. Recent cardiac surgery. FINDINGS: Single portable AP upright view of the chest was obtained on 03/04/2015 at 6:28 AM. Comparison is made with prior chest x-ray dated 03/03/2015. Low lung volumes are seen. Endotracheal and nasogastric tubes have been removed in the interval. [place] catheter is identified with distal most tip in the expected location of the main pulmonary artery. Mediastinal drainage tubes are present. Left basilar opacity has worsened in the interval, likely representing a combination of left basilar atelectasis and small left pleural effusion. Right basilar atelectasis has also slightly worsened in the interval. No pneumothorax is seen. Procedure Note Candido Calderon MD - 03/04/2015 Portable chest, 03/04/2015 HISTORY: Follow-up infiltrates. Recent cardiac surgery. FINDINGS: Single portable AP upright view of the chest was obtained on 03/04/2015 at6:28 AM. Comparison is made with prior chest x-ray dated 03/03/2015. Low lung volumes are seen. Endotracheal and nasogastric tubes have beenremoved in the interval. [place] catheter is identified with distal most tip inthe expected location of the main pulmonary artery. Mediastinal drainage tubesare present. Left basilar opacity has worsened in the interval, likelyrepresenting a combination of left basilar atelectasis and small left pleural effusion.Right basilar atelectasis has also slightly worsened in the interval. Nopneumothorax is seen. IMPRESSION: Interval worsening of left basilar opacity, likelyrepresenting a combination of left pleural effusion and left basilar atelectasis.Interval worsening of right basilar atelectasis. No pneumothorax. Felix Mcbride MD IMG DIAGNOSTIC IMAGING ORDER MARY Final Result * (ABNORMAL) GLUCOSE METER POC (03/04/2015 4:16 AM EDT) Pathologist [facility] Glucose Meter POC 109(H) 70 - 100 mg/dL [facility] Blood specimen (specimen) 03/04/2015 4:16 AM EDT 03/04/2015 4:16 AM EDT River Vera MD POINT OF CARE TEST ORDERABLES F inal Result [facility] [address] [place] [address] * SMEAR REVIEW (03/04/2015 4:15 AM EDT) Polychrom Slight [facility] Ovalocyte Occasional [facility] Teardrop Cell Occasional [facility] Blood specimen (specimen) 03/04/2015 4:15 AM EDT 03/04/2015 4:24 AM EDT Felix Mcbride MD HEMATOLOGY ORDERABLES Final Result Performing Organization Address [place]/[facility] Co de Phone Number [facility] [address] [place] [address] * (ABNORMAL) DIFFERENTIAL (03/04/2015 4:15 AM EDT) Pathologist [facility] Neut Percent 83.3 % [facility] Lymph Percent 6.5 % [facility] [place] Percent 10.1 % [facility] Eos Percent 0.0 % [facility] Baso Percent 0.1 % [facility] Neut# 13.7(H) 1.8 - 7.7 x10(3)/mcL [facility] Lymph# 1.1 0.6 - 4.8 x10(3)/mcL [facility] [place]# 1.7(H) 0.0 - 1.3 x10(3)/[facility] Eos# 0.0 0.0 - 0.5 x10(3)/[facility] Baso# 0.0 0.0 - 0.2 x10(3)/[facility] Blood specimen (specimen) 03/04/2015 4:15 AM EDT 03/04/2015 4:24 AM EDT us Felix Mcbride MD HEMATOLOGY ORDERABLES Final Result Performing Organization Address [place]/[facility] de Phone Number [facility] [address] [place] [address] * O2 SAT - MIXED VENOUS (03/04/2015 4:15 AM EDT) [facility] O2 Sat - Mixed Venous 81 % [facility] Blood specimen (specimen) UPPER LIMB STRUCTURE / Unknown 03/04/2015 4:15 AM EDT 03/04/2015 4:24 AM EDT us Felix Mcbride MD CHEMISTRY ORDERABLES Final R esult Performing Organization Address City/[facility] Co de Phone Number [facility] [address] [place] [address] * (ABNORMAL) CBC WITH AUTO DIFF (03/04/2015 4:15 AM EDT) [facility] WBC 16.5(H) 4.0 - 11.0 x10(3)/mcL [facility] RBC 4.27(L) 4.30 - 5.81 x10(6)/mcL [facility] Hgb 12.4(L) 13.5 - 17.1 gm/dL [facility] Hct 37.6(L) 38.9 - 51.6 % [facility] MCV 88.1 82.5 - 99.8 fL [facility] MCH 29.0 27.0 - 34.3 pg [facility] MCHC 32.9 32.1 - 35.3 gm/dL [facility] RDW 13.6 11.5 - 15.0 % [facility] Platelet 130(L) 144 - 423 x10(3)/mcL [facility] MPV 9.0 6.8 - 10.8 fL [facility] Blood specimen (specimen) UPPER LIMB STRUCTURE / Unknown 03/04/2015 4:15 AM EDT 03/04/2015 4:24 AM EDT Felix Mcbride MD HEMATOLOGY ORDERABLES Final Result [facility] [address] [place] [address] * (ABNORMAL) BASIC METABOLIC PANEL (03/04/2015 4:15 AM EDT) Sodium 140 136 - 145 mmol/L [facility] Potassium 4.2 3.5 - 5.0 mmol/L [facility] Chloride 104 98 - 107 mmol/L [facility] Total CO2 24 22 - 29 mmol/L [facility] Anion Gap 12 7 - 16 mmol/L [facility] Calcium 8.5(L) 8.8 - 10.2 mg/dL [facility] Glucose Lvl 120(H) 82 - 100 mg/dL [facility] BUN 12 8 - 23 mg/dL [facility] Creatinine 1.02 0.67 - 1.30 mg/dL [facility] GFR Afr Am >60 [facility] GFR Non Afr Am >60 [facility] Blood specimen (specimen) UPPER LIMB STRUCTURE / Unknown 03/04/2015 4:15 AM EDT 03/04/2015 4:24 AM EDT Felix Mcbride MD CHEMISTRY ORDERABLES Edited Result - Final Performing Organization Address [place]/[facility]/ZIP Co de Phone Number [facility] [address] [place] [address] * POTASSIUM WHOLE BLOOD (03/04/2015 4:15 AM EDT) [facility] K-WB 4.1 3.5 - 5.0 mEq/L [facility] Blood specimen (specimen) UPPER LIMB STRUCTURE / Unknown 03/04/2015 4:15 AM EDT 03/04/2015 4:24 AM EDT Narrative [facility] - 03/04/2015 4:35 AM EDT Discontinue when invasive hemodynamic lines are removed. Felix Mcbride MD CHEMISTRY ORDERABLES Final R esult Performing Organization Address [facility] Co de Phone Number [facility] [address] [place] [address] * (ABNORMAL) BLOOD GAS ARTERIAL (03/04/2015 2:15 AM EDT) [facility] pH 7.390 7.370 - 7.440 [facility] pCO2 40 32 - 45 mmHg [facility] pO2 62(L) 80 - 95 mmHg [facility] HCO3 24 20 - 29 mmol/L [facility] TCO2 25 21 - 30 mmol/L [facility] Base Excess -0.7 -2.8 - 2.3 mEq/L [facility] O2 Sat 95 95 - 97 % [facility] Inspired O2 6L [facility] Specimen Type Arterial [facility] Blood specimen (specimen) UPPER LIMB STRUCTURE / Unknown 03/04/2015 2:15 AM EDT 03/04/2015 2:19 AM EDT Felix Mcbride MD CHEMISTRY ORDERABLES Final R esult Performing Organization Address [place] Co de Phone Number [facility] [address] [place] [address] * (ABNORMAL) GLUCOSE METER POC (03/04/2015 2:12 AM EDT) [facility] Glucose Meter POC 124(H) 70 - 100 mg/dL [facility] Blood specimen (specimen) 03/04/2015 2:12 AM EDT 03/04/2015 2:12 AM EDT us River Vera MD POINT OF CARE TEST ORDERABLES F inal Result Performing Organization Address [place] Co de Phone Number [facility] [address] [place] [address] * (ABNORMAL) BLOOD GAS ARTERIAL (03/04/2015 12:25 AM EDT) pH 7.390 7.370 - 7.440 [facility] pCO2 39 32 - 45 mmHg [facility] pO2 63(L) 80 - 95 mmHg [facility] HCO3 24 20 - 29 mmol/L [facility] TCO2 25 21 - 30 mmol/L [facility] Base Excess -1.2 -2.8 - 2.3 mEq/L [facility] O2 Sat 94(L) 95 - 97 % [facility] Inspired O2 40% [facility] Specimen Type Arterial [facility] Blood specimen (specimen) UPPER LIMB STRUCTURE / Unknown 03/04/2015 12:25 AM EDT 03/04/2015 12:33 AM EDT us Felix Mcbride MD CHEMISTRY ORDERABLES Final R esult Performing Organization Address [place] Co de Phone Number [facility] [address] [place] [address] * (ABNORMAL) BLOOD GAS ARTERIAL (03/03/2015 11:30 PM EDT) pH 7.380 7.370 - 7.440 [facility] pCO2 41 32 - 45 mmHg [facility] pO2 64(L) 80 - 95 mmHg [facility] HCO3 24 20 - 29 mmol/L [facility] TCO2 26 21 - 30 mmol/L [facility] Base Excess -0.8 -2.8 - 2.3 mEq/L [facility] O2 Sat 94(L) 95 - 97 % [facility] Inspired O2 40% [facility] Specimen Type Arterial [facility] Blood specimen (specimen) UPPER LIMB STRUCTURE / Unknown 03/03/2015 11:30 PM EDT 03/03/2015 11:34 PM EDT us Felix Mcbride MD CHEMISTRY ORDERABLES Final R esult Performing Organization Address [place] Co de Phone Number [facility] [address] [place] [address] * POTASSIUM WHOLE BLOOD (03/03/2015 11:30 PM EDT) [facility] K-WB 4.1 3.5 - 5.0 mEq/L [facility] Blood specimen (specimen) UPPER LIMB STRUCTURE / Unknown 03/03/2015 11:30 PM EDT 03/03/2015 11:34 PM EDT Narrative [facility] - 03/03/2015 11:51 PM EDT Discontinue when invasive hemodynamic lines are removed. us Felix Mcbride MD CHEMISTRY ORDERABLES Final R esult Performing Organization Address [place] Co de Phone Number [facility] [address] [place] [address] * (ABNORMAL) GLUCOSE METER POC (03/03/2015 11:29 PM EDT) [facility] Glucose Meter POC 119(H) 70 - 100 mg/dL [facility] Blood specimen (specimen) 03/03/2015 11:29 PM EDT 03/03/2015 11:29 PM EDT us River Vera MD POINT OF CARE TEST ORDERABLES F inal Result Performing Organization Address [place] Co de Phone Number [facility] [address] [place] [address] * (ABNORMAL) BLOOD GAS ARTERIAL (03/03/2015 10:10 PM EDT) [facility] pH 7.380 7.370 - 7.440 [facility] pCO2 39 32 - 45 mmHg [facility] pO2 68(L) 80 - 95 mmHg [facility] HCO3 23 20 - 29 mmol/L [facility] TCO2 24 21 - 30 mmol/L [facility] Base Excess -1.8 -2.8 - 2.3 mEq/L [facility] O2 Sat 95 95 - 97 % [facility] Inspired O2 40% [facility] Specimen Type Arterial [facility] Blood specimen (specimen) UPPER LIMB STRUCTURE / Unknown 03/03/2015 10:10 PM EDT 03/03/2015 10:24 PM EDT us Felix Mcbride MD CHEMISTRY ORDERABLES Final R esult Performing Organization Address [place] Co de Phone Number [facility] [address] [place] [address] * (ABNORMAL) GLUCOSE METER POC (03/03/2015 8:57 PM EDT) [facility] Glucose Meter POC 135(H) 70 - 100 mg/dL [facility] Blood specimen (specimen) 03/03/2015 8:57 PM EDT 03/03/2015 8:57 PM EDT River Vera MD POINT OF CARE TEST ORDERABLES F inal Result Performing Organization Address [facility] de Phone Number [facility] [address] [place] [address] * (ABNORMAL) BLOOD GAS ARTERIAL (03/03/2015 8:55 PM EDT) [facility] pH 7.370 7.370 - 7.440 [facility] pCO2 38 32 - 45 mmHg [facility] pO2 76(L) 80 - 95 mmHg [facility] HCO3 22 20 - 29 mmol/L [facility] TCO2 23 21 - 30 mmol/L [facility] Base Excess -2.9(L) -2.8 - 2.3 mEq/L [facility] O2 Sat 96 95 - 97 % [facility] Inspired O2 40% [facility] Specimen Type Arterial [facility] Blood specimen (specimen) UPPER LIMB STRUCTURE / Unknown 03/03/2015 8:55 PM EDT 03/03/2015 9:01 PM EDT us Felix Mcbride MD CHEMISTRY ORDERABLES Final R esult Performing Organization Address [place] Co de Phone Number [facility] [address] [place] [address] * POTASSIUM WHOLE BLOOD (03/03/2015 8:55 PM EDT) [facility] K-WB 4.3 3.5 - 5.0 mEq/L [facility] Blood specimen (specimen) UPPER LIMB STRUCTURE / Unknown 03/03/2015 8:55 PM EDT 03/03/2015 9:01 PM EDT Narrative [facility] - 03/03/2015 9:09 PM EDT Discontinue when invasive hemodynamic lines are removed. us Felix Mcbride MD CHEMISTRY ORDERABLES Final R esult Performing Organization Address [facility] de Phone Number [facility] [address] [place] [address] * (ABNORMAL) GLUCOSE METER POC (03/03/2015 7:45 PM EDT) [facility] Glucose Meter POC 151(H) 70 - 100 mg/dL [facility] Blood specimen (specimen) 03/03/2015 7:45 PM EDT 03/03/2015 7:45 PM EDT River Vera MD POINT OF CARE TEST ORDERABLES F inal Result Performing Organization Address [facility] de Phone Number [facility] [address] [place] [address] * (ABNORMAL) BLOOD GAS ARTERIAL (03/03/2015 7:45 PM EDT) [facility] Signature pH 7.350(L) 7.370 - 7.440 [facility] pCO2 39 32 - 45 mmHg [facility] pO2 75(L) 80 - 95 mmHg [facility] HCO3 22 20 - 29 mmol/L [facility] TCO2 23 21 - 30 mmol/L [facility] Base Excess -3.8(L) -2.8 - 2.3 mEq/L [facility] O2 Sat 96 95 - 97 % [facility] Inspired O2 40% [facility] Specimen Type Arterial [facility] Blood specimen (specimen) UPPER LIMB STRUCTURE / Unknown 03/03/2015 7:45 PM EDT 03/03/2015 7:51 PM EDT us Felix Mcbride MD CHEMISTRY ORDERABLES Final R esult Performing Organization Address [facility] de Phone Number [facility] [address] [place] [address] * (ABNORMAL) BLOOD GAS ARTERIAL (03/03/2015 6:11 PM EDT) pH 7.350(L) 7.370 - 7.440 [facility] pCO2 39 32 - 45 mmHg [facility] pO2 83 80 - 95 mmHg [facility] HCO3 22 20 - 29 mmol/L [facility] TCO2 23 21 - 30 mmol/L [facility] Base Excess -3.8(L) -2.8 - 2.3 mEq/L [facility] O2 Sat 97 95 - 97 % [facility] Inspired O2 40% [facility] Specimen Type Arterial [facility] Blood specimen (specimen) UPPER LIMB STRUCTURE / Unknown 03/03/2015 6:11 PM EDT 03/03/2015 6:20 PM EDT us Felix Mcbride MD CHEMISTRY ORDERABLES Final R esult Performing Organization Address [place]/[facility]/ZIP Co de Phone Number [facility] [address] [place] [address] * (ABNORMAL) GLUCOSE METER POC (03/03/2015 6:09 PM EDT) [facility] Signature Glucose Meter POC 155(H) 70 - 100 mg/dL [facility] Blood specimen (specimen) 03/03/2015 6:09 PM EDT 03/03/2015 6:09 PM EDT us River Vera MD POINT OF CARE TEST ORDERABLES F inal Result Performing Organization Address [place]/[facility]/ZIP Co de Phone Number [facility] [address] [place] [address] * (ABNORMAL) GLUCOSE METER POC (03/03/2015 4:56 PM EDT) Glucose Meter POC 159(H) 70 - 100 mg/dL [facility] Blood specimen (specimen) 03/03/2015 4:56 PM EDT 03/03/2015 4:56 PM EDT us River Vera MD POINT OF CARE TEST ORDERABLES F inal Result Performing Organization Address [facility]/ZIP Co de Phone Number [facility] [address] [place] [address] * (ABNORMAL) BLOOD GAS ARTERIAL (03/03/2015 4:55 PM EDT) [facility] pH 7.390 7.370 - 7.440 [facility] pCO2 36 32 - 45 mmHg [facility] pO2 96(H) 80 - 95 mmHg [facility] HCO3 22 20 - 29 mmol/L [facility] TCO2 23 21 - 30 mmol/L [facility] Base Excess -2.6 -2.8 - 2.3 mEq/L [facility] O2 Sat 98(H) 95 - 97 % [facility] Inspired O2 50% [facility] Specimen Type Arterial [facility] Blood specimen (specimen) UPPER LIMB STRUCTURE / Unknown 03/03/2015 4:55 PM EDT 03/03/2015 5:11 PM EDT Felix Mcbride MD CHEMISTRY ORDERABLES Final R [facility] Performing Organization Address [facility]/ZIP Co de Phone Number [facility] [address] [place] [address] * POTASSIUM WHOLE BLOOD (03/03/2015 4:55 PM EDT) [facility] K-WB 3.8 3.5 - 5.0 mEq/L [facility] Blood specimen (specimen) UPPER LIMB STRUCTURE / Unknown 03/03/2015 4:55 PM EDT 03/03/2015 5:13 PM EDT Narrative [facility] - 03/03/2015 5:25 PM EDT Discontinue when invasive hemodynamic lines are removed. Felix Mcbride MD CHEMISTRY ORDERABLES Final R esult [facility] [address] [place] [address] * (ABNORMAL) HEMOGLOBIN AND HEMATOCRIT (03/03/2015 4:55 PM EDT) [facility] Hgb 13.2(L) 13.5 - 17.1 gm/dL [facility] Hct 40.0 38.9 - 51.6 % [facility] Blood specimen (specimen) UPPER LIMB STRUCTURE / Unknown 03/03/2015 4:55 PM EDT 03/03/2015 5:12 PM EDT Narrative [facility] - 03/03/2015 5:21 PM EDT 4 hours after admission to [facility] Felix Mcbride MD HEMATOLOGY ORDERABLES Final Result Performing Organization Address [place] de Phone Number [facility] [address] [place] [address] * (ABNORMAL) BLOOD GAS ARTERIAL (03/03/2015 3:00 PM EDT) pH 7.290(L) 7.370 - 7.440 [facility] pCO2 50(H) 32 - 45 mmHg [facility] pO2 70(L) 80 - 95 mmHg [facility] HCO3 24 20 - 29 mmol/L [facility] TCO2 26 21 - 30 mmol/L [facility] Base Excess -3.1(L) -2.8 - 2.3 mEq/L [facility] O2 Sat 94(L) 95 - 97 % [facility] Inspired O2 55% [facility] Specimen Type Arterial [facility] Blood specimen (specimen) UPPER LIMB STRUCTURE / Unknown 03/03/2015 3:00 PM EDT 03/03/2015 3:10 PM EDT Narrative [facility] - 03/03/2015 3:21 PM EDT Obtain 30 mins after extubation us Felix Mcbride MD CHEMISTRY ORDERABLES Final R esult Performing Organization Address [facility] de Phone Number [facility] [address] [place] [address] * O2 SAT - MIXED VENOUS (03/03/2015 3:00 PM EDT) O2 Sat - Mixed Venous 64 % [facility] Blood specimen (specimen) UPPER LIMB STRUCTURE / Unknown 03/03/2015 3:00 PM EDT 03/03/2015 3:10 PM EDT Narrative [facility] - 03/03/2015 3:21 PM EDT Mixed venous invivo SVO2 calibration 2 hrs. Post-Op, then q 24 hrs and prn. ?? Discontinue when invasive hemodynamic lines are removed. Felix Mcbride MD CHEMISTRY ORDERABLES Final R esult Performing Organization Address [facility] Co de Phone Number [facility] [address] [place] [address] * (ABNORMAL) GLUCOSE METER POC (03/03/2015 2:59 PM EDT) Glucose Meter POC 185(H) 70 - 100 mg/dL [facility] Blood specimen (specimen) 03/03/2015 2:59 PM EDT 03/03/2015 2:59 PM EDT us River Vera MD POINT OF CARE TEST ORDERABLES F inal Result [facility] [address] [place] [address] * XR CHEST AP PORTABLE (03/03/2015 1:57 PM EDT) Anatomical Region Laterality Modality Chest Radiographic Suzy ging 03/03/2015 1:04 PM EDT Impressions 03/03/2015 2:09 PM EDT IMPRESSION: Postoperative portable chest with lines and tubes as detailed above. Findings are most compatible with mild basilar atelectasis and small pleural effusions. Narrative 03/03/2015 2:09 PM EDT Portable AP chest dated 03/03/2015 at 1340 hours COMPARISON: 03/02/2015 HISTORY: Postop cardiac surgery FINDINGS: There has been interval sternotomy. Multiple new tubes and lines are noted. Endotracheal tube projects over the mid trachea. Enteric tube terminates in the region of the proximal stomach. There are 2 mediastinal drains. Right IJ approach [place] catheter tip projects over the region of the main pulmonary artery. Heart size and mediastinal contours are not significantly changed given differences in technique. Mild linear opacities in both lungs are greatest in the bases, favoring postoperative atelectasis. Minimal blunting of the lateral costophrenic angles are suspect for small pleural effusions. No pneumothorax identified given technique. Procedure Note Arsenio Peck MD - 03/03/2015 Portable AP chest dated 03/03/2015 at 1340 hours COMPARISON: 03/02/2015 HISTORY: Postop cardiac surgery FINDINGS: There has been interval sternotomy. Multiple new tubes and lines arenoted. Endotracheal tube projects over the mid trachea. Enteric tube terminatesin the region of the proximal stomach. There are 2 mediastinal drains. Right IJ approach [place] catheter tip projects over the region of the mainpulmonary artery. Heart size and mediastinal contours are not significantly changedgiven differences in technique. Mild linear opacities in both lungs are greatestin the bases, favoring postoperative atelectasis. Minimal blunting of thelateral costophrenic angles are suspect for small pleural effusions. Nopneumothorax identified given technique. IMPRESSION: Postoperative portable chest with lines and tubes as detailed above.Findings are most compatible with mild basilar atelectasis and small pleuraleffusions. Felix Mcbride MD IMG DIAGNOSTIC IMAGING ORDER MARY Final Result * (ABNORMAL) BLOOD GAS ARTERIAL (03/03/2015 1:35 PM EDT) [facility] pH 7.340(L) 7.370 - 7.440 [facility] pCO2 46(H) 32 - 45 mmHg [facility] pO2 72(L) 80 - 95 mmHg [facility] HCO3 25 20 - 29 mmol/L [facility] TCO2 26 21 - 30 mmol/L [facility] Base Excess -1.3 -2.8 - 2.3 mEq/L [facility] O2 Sat 96 95 - 97 % [facility] Inspired O2 50% [facility] Specimen Type Arterial [facility] Blood specimen (specimen) UPPER LIMB STRUCTURE / Unknown 03/03/2015 1:35 PM EDT 03/03/2015 1:35 PM EDT Narrative [facility] - 03/03/2015 1:42 PM EDT On admission to [facility] Felix Mcbride MD CHEMISTRY ORDERABLES Final R esult [facility] [address] [place] [address] * POTASSIUM WHOLE BLOOD (03/03/2015 1:35 PM EDT) [facility] K-WB 4.2 3.5 - 5.0 mEq/L [facility] Blood specimen (specimen) UPPER LIMB STRUCTURE / Unknown 03/03/2015 1:35 PM EDT 03/03/2015 1:35 PM EDT Narrative [facility] - 03/03/2015 1:42 PM EDT On admission to [facility] us Felix Mcbride MD CHEMISTRY ORDERABLES Final R esult Performing Organization Address [place]/[facility] Co de Phone Number [facility] [address] [place] [address] * (ABNORMAL) CBC (03/03/2015 1:35 PM EDT) WBC 14.5(H) 4.0 - 11.0 x10(3)/mcL [facility] RBC 4.47 4.30 - 5.81 x10(6)/mcL [facility] Hgb 12.8(L) 13.5 - 17.1 gm/dL [facility] Hct 39.2 38.9 - 51.6 % [facility] MCV 87.6 82.5 - 99.8 fL [facility] MCH 28.7 27.0 - 34.3 pg [facility] MCHC 32.7 32.1 - 35.3 gm/dL [facility] RDW 13.6 11.5 - 15.0 % [facility] Platelet 115(L) 144 - 423 x10(3)/mcL [facility] MPV 8.6 6.8 - 10.8 fL [facility] Blood specimen (specimen) UPPER LIMB STRUCTURE / Unknown 03/03/2015 1:35 PM EDT 03/03/2015 1:35 PM EDT Narrative [facility] - 03/03/2015 1:54 PM EDT On admission to [facility] Felix Mcbride MD HEMATOLOGY ORDERABLES Final Result Performing Organization Address [place]/[facility] Co de Phone Number [facility] [address] [place] [address] * (ABNORMAL) GLUCOSE METER POC (03/03/2015 1:24 PM EDT) Glucose Meter POC 137(H) 70 - 100 mg/dL [facility] Blood specimen (specimen) 03/03/2015 1:24 PM EDT 03/03/2015 1:24 PM EDT River Vera MD POINT OF CARE TEST ORDERABLES F inal Result Performing Organization Address City/[facility]/ZIP Co de Phone Number [facility] [address] [place] [address] * ACTIVATED CLOTTING TIME POC (03/03/2015 12:22 PM EDT) [facility] ACT+ 125 89 - 169 second(s) [facility] Blood specimen (specimen) 03/03/2015 12:22 PM EDT 03/03/2015 12:22 PM EDT River Vera MD POINT OF CARE TEST ORDERABLES F inal Result Performing Organization Address [facility] de Phone Number [facility] [address] [place] [address] * (ABNORMAL) POC OPEN HEART PROFILE (03/03/2015 12:22 PM EDT) [facility] pH 7.390 7.370 - 7.440 [facility] pCO2 41 32 - 45 mmHg [facility] pO2 136(H) 80 - 95 mmHg [facility] HCO3 24 20 - 29 mmol/L [facility] TCO2 26 21 - 30 mmol/L [facility] Base Excess -0.7 -2.8 - 2.3 mmol/L [facility] O2 Sat 98(H) 95 - 97 % [facility] Sodium 136 135 - 148 mmol/L [facility] K-WB 4.3 3.5 - 5.3 mmol/L [facility] Calcium Ionized 1.19 1.12 - 1.32 mmol/L [facility] Chloride 109(H) 98 - 108 mmol/L [facility] Glucose Whole Blood 138(H) 72 - 112 mg/dL [facility] Lactic Acid 1.6 1.0 - 1.7 mmol/L [facility] Hgb 10.1(L) 13.5 - 17.1 gm/dL [facility] Hct 30.0(L) 39.0 - 52.0 % [facility] Blood specimen (specimen) 03/03/2015 12:22 PM EDT 03/03/2015 12:22 PM EDT us River Vera MD POINT OF CARE TEST ORDERABLES F inal Result Performing Organization Address [place]/[facility]/ZIP Co de Phone Number [facility] [address] [place] [address] * (ABNORMAL) ACTIVATED CLOTTING TIME POC (03/03/2015 11:59 AM EDT) ACT+ 401(H) 89 - 169 second(s) [facility] Blood specimen (specimen) 03/03/2015 11:59 AM EDT 03/03/2015 11:59 AM EDT us River Vera MD POINT OF CARE TEST ORDERABLES F inal Result Performing Organization Address [place]/[facility] Co de Phone Number [facility] [address] [place] [address] * (ABNORMAL) POC OPEN HEART PROFILE (03/03/2015 11:58 AM EDT) [facility] pH 7.487(H) 7.370 - 7.440 [facility] pCO2 30(L) 32 - 45 mmHg [facility] pO2 370(H) 80 - 95 mmHg [facility] HCO3 22 20 - 29 mmol/L [facility] TCO2 23 21 - 30 mmol/L [facility] Base Excess -0.6 -2.8 - 2.3 mmol/L [facility] O2 Sat 98(H) 95 - 97 % [facility] Sodium 134(L) 135 - 148 mmol/L [facility] K-WB 5.0 3.5 - 5.3 mmol/L [facility] Calcium Ionized 1.04(L) 1.12 - 1.32 mmol/L [facility] Chloride 107 98 - 108 mmol/L [facility] Glucose Whole Blood 135(H) 72 - 112 mg/dL [facility] Lactic Acid 1.4 1.0 - 1.7 mmol/L [facility] [facility] Hgb 8.5(L) 13.5 - 17.1 gm/dL [facility] Hct 25.0(L) 39.0 - 52.0 % [facility] Blood specimen (specimen) 03/03/2015 11:58 AM EDT 03/03/2015 11:58 AM EDT us River Vera MD POINT OF CARE TEST ORDERABLES F inal Result Performing Organization Address [place] Co de Phone Number [facility] [address] [place] [address] * (ABNORMAL) ACTIVATED CLOTTING TIME POC (03/03/2015 11:51 AM EDT) ACT+ 410(H) 89 - 169 second(s) [facility] Blood specimen (specimen) 03/03/2015 11:51 AM EDT 03/03/2015 11:51 AM EDT us River Vera MD POINT OF CARE TEST ORDERABLES F inal Result Performing Organization Address [place] Co de Phone Number [facility] [address] [place] [address] * (ABNORMAL) ACTIVATED CLOTTING TIME POC (03/03/2015 11:44 AM EDT) ACT+ 363(H) 89 - 169 second(s) [facility] Blood specimen (specimen) 03/03/2015 11:44 AM EDT 03/03/2015 11:44 AM EDT us River Vera MD POINT OF CARE TEST ORDERABLES F inal Result Performing Organization Address [place] Co de Phone Number [facility] [address] [place] [address] * (ABNORMAL) ACTIVATED CLOTTING TIME POC (03/03/2015 11:41 AM EDT) ACT+ 371(H) 89 - 169 second(s) [facility] Blood specimen (specimen) 03/03/2015 11:41 AM EDT 03/03/2015 11:41 AM EDT us River Vera MD POINT OF CARE TEST ORDERABLES F inal Result Performing Organization Address [facility] Co de Phone Number [facility] [address] [place] [address] * (ABNORMAL) ACTIVATED CLOTTING TIME POC (03/03/2015 11:35 AM EDT) ACT+ 390(H) 89 - 169 second(s) [facility] Blood specimen (specimen) 03/03/2015 11:35 AM EDT 03/03/2015 11:35 AM EDT us River Vera MD POINT OF CARE TEST ORDERABLES F inal Result Performing Organization Address [facility]/ZIP Co de Phone Number [facility] [address] [place] [address] * (ABNORMAL) ACTIVATED CLOTTING TIME POC (03/03/2015 11:01 AM EDT) Pathologist [facility] ACT+ 486(H) 89 - 169 second(s) [facility] Blood specimen (specimen) 03/03/2015 11:01 AM EDT 03/03/2015 11:01 AM EDT us River Vera MD POINT OF CARE TEST ORDERABLES F inal Result Performing Organization Address [place] de Phone Number [facility] [address] [place] [address] * (ABNORMAL) POC OPEN HEART PROFILE (03/03/2015 10:59 AM EDT) [facility] Signature pH 7.483(H) 7.370 - 7.440 [facility] pCO2 33 32 - 45 mmHg [facility] pO2 374(H) 80 - 95 mmHg [facility] HCO3 24 20 - 29 mmol/L [facility] TCO2 25 21 - 30 mmol/L [facility] Base Excess 0.9 -2.8 - 2.3 mmol/L [facility] O2 Sat 99(H) 95 - 97 % [facility] Sodium 134(L) 135 - 148 mmol/L [facility] K-WB 5.2 3.5 - 5.3 mmol/L [facility] Calcium Ionized 1.00(L) 1.12 - 1.32 mmol/L [facility] Chloride 105 98 - 108 mmol/L [facility] Glucose Whole Blood 135(H) 72 - 112 mg/dL [facility] Lactic Acid 1.5 1.0 - 1.7 mmol/L [facility] Hgb 10.6(L) 13.5 - 17.1 gm/dL [facility] Hct 31.0(L) 39.0 - 52.0 % [facility] Blood specimen (specimen) 03/03/2015 10:59 AM EDT 03/03/2015 10:59 AM EDT us River Vera MD POINT OF CARE TEST ORDERABLES F inal Result Performing Organization Address [place] de Phone Number [facility] [address] [place] [address] * (ABNORMAL) ACTIVATED CLOTTING TIME POC (03/03/2015 10:46 AM EDT) ACT+ 612(H) 89 - 169 second(s) [facility] Blood specimen (specimen) 03/03/2015 10:46 AM EDT 03/03/2015 10:46 AM EDT us River Vera MD POINT OF CARE TEST ORDERABLES F inal Result Performing Organization Address [facility] de Phone Number [facility] [address] [place] [address] * (ABNORMAL) ACTIVATED CLOTTING TIME POC (03/03/2015 10:29 AM EDT) ACT+ 542(H) 89 - 169 second(s) [facility] Blood specimen (specimen) 03/03/2015 10:29 AM EDT 03/03/2015 10:29 AM EDT us River Vera MD POINT OF CARE TEST ORDERABLES F inal Result Performing Organization Address [facility] de Phone Number [facility] [address] [place] [address] * (ABNORMAL) POC OPEN HEART PROFILE (03/03/2015 10:27 AM EDT) pH 7.469(H) 7.370 - 7.440 [facility] pCO2 33 32 - 45 mmHg [facility] pO2 319(H) 80 - 95 mmHg [facility] HCO3 23 20 - 29 mmol/L [facility] TCO2 24 21 - 30 mmol/L [facility] Base Excess 0.1 -2.8 - 2.3 mmol/L [facility] O2 Sat 99(H) 95 - 97 % [facility] Sodium 140 135 - 148 mmol/L [facility] K-WB 4.5 3.5 - 5.3 mmol/L [facility] Calcium Ionized 1.03(L) 1.12 - 1.32 mmol/L [facility] Chloride 107 98 - 108 mmol/L [facility] Glucose Whole Blood 127(H) 72 - 112 mg/dL [facility] Lactic Acid 1.3 1.0 - 1.7 mmol/L [facility] Hgb 11.3(L) 13.5 - 17.1 gm/dL [facility] Hct 33.0(L) 39.0 - 52.0 % [facility] Blood specimen (specimen) 03/03/2015 10:27 AM EDT 03/03/2015 10:27 AM EDT us River Vera MD POINT OF CARE TEST ORDERABLES F inal Result [facility] [address] [place] [address] * (ABNORMAL) POC OPEN HEART PROFILE (03/03/2015 10:07 AM EDT) pH 7.359(L) 7.370 - 7.440 [facility] pCO2 45 32 - 45 mmHg [facility] pO2 383(H) 80 - 95 mmHg [facility] HCO3 25 20 - 29 mmol/L [facility] TCO2 26 21 - 30 mmol/L [facility] Base Excess -0.9 -2.8 - 2.3 mmol/L [facility] O2 Sat 99(H) 95 - 97 % [facility] Sodium 136 135 - 148 mmol/L [facility] K-WB 4.3 3.5 - 5.3 mmol/L [facility] Calcium Ionized 0.92(L) 1.12 - 1.32 mmol/L [facility] Chloride 101 98 - 108 mmol/L [facility] Glucose Whole Blood 100 72 - 112 mg/dL [facility] Lactic Acid 0.8(L) 1.0 - 1.7 mmol/L [facility] Hgb 11.9(L) 13.5 - 17.1 gm/dL [facility] Hct 35.0(L) 39.0 - 52.0 % [facility] Blood specimen (specimen) 03/03/2015 10:07 AM EDT 03/03/2015 10:07 AM EDT us River Vera MD POINT OF CARE TEST ORDERABLES F inal Result Performing Organization Address [place]/[facility] de Phone Number [facility] [address] [place] [address] * (ABNORMAL) ACTIVATED CLOTTING TIME POC (03/03/2015 10:03 AM EDT) ACT+ 645(H) 89 - 169 second(s) [facility] Blood specimen (specimen) 03/03/2015 10:03 AM EDT 03/03/2015 10:03 AM EDT us River Vera MD POINT OF CARE TEST ORDERABLES F inal Result Performing Organization Address [facility] de Phone Number [facility] [address] [place] [address] * (ABNORMAL) ACTIVATED CLOTTING TIME POC (03/03/2015 9:36 AM EDT) ACT+ 620(H) 89 - 169 second(s) [facility] Blood specimen (specimen) 03/03/2015 9:36 AM EDT 03/03/2015 9:36 AM EDT us River Vera MD POINT OF CARE TEST ORDERABLES F inal Result Performing Organization Address [place] de Phone Number [facility] [address] [place] [address] * ACTIVATED CLOTTING TIME POC (03/03/2015 8:31 AM EDT) ACT+ 118 89 - 169 second(s) [facility] Blood specimen (specimen) 03/03/2015 8:31 AM EDT 03/03/2015 8:31 AM EDT us River Vera MD POINT OF CARE TEST ORDERABLES F inal Result Performing Organization Address [place] Co de Phone Number [facility] [address] [place] [address] * (ABNORMAL) POC OPEN HEART PROFILE (03/03/2015 8:31 AM EDT) pH 7.339(L) 7.370 - 7.440 [facility] pCO2 46(H) 32 - 45 mmHg [facility] pO2 372(H) 80 - 95 mmHg [facility] HCO3 24 20 - 29 mmol/L [facility] TCO2 26 21 - 30 mmol/L [facility] Base Excess -1.7 -2.8 - 2.3 mmol/L [facility] O2 Sat 99(H) 95 - 97 % [facility] Sodium 136 135 - 148 mmol/L [facility] K-WB 4.0 3.5 - 5.3 mmol/L [facility] Calcium Ionized 0.73(C) 1.12 - 1.32 mmol/L [facility] Chloride 106 98 - 108 mmol/L [facility] Glucose Whole Blood 125(H) 72 - 112 mg/dL [facility] Lactic Acid 1.4 1.0 - 1.7 mmol/L [facility] Hgb 14.9 13.5 - 17.1 gm/dL [facility] Hct 44.0 39.0 - 52.0 % [facility] Blood specimen (specimen) 03/03/2015 8:31 AM EDT 03/03/2015 8:31 AM EDT us River Vera MD POINT OF CARE TEST ORDERABLES F inal Result Performing Organization Address [place]/[facility] de Phone Number [facility] [address] [place] [address] * CROSSMATCH SUMMARY (03/03/2015 7:48 AM EDT) Blood specimen (specimen) 03/03/2015 7:48 AM EDT 03/03/2015 7:48 AM EDT us Felix Mcbride MD BLOOD BANK ORDERABLES Final Result Performing Organization Address [place]/[facility] de Phone Number [facility] [address] [place] [address] documented in this encounter Visit Diagnoses Not on filedocumented in this encounter Administered Medications Inactive Administered Medications - up to 1 most recent administrations Medication Order MAR Action Action Date Dose Rate Site 0.9 % NaCl infusion Intravenous, at 3 mL/hr, CONTINUOUS, Starting on Sun03/03/15 at 1315, Until [place] 03/04/15 at 0938, To pressurize transduced lines, Post-op Rate/Dose Verify 03/04/2015 8:09 AM EDT 3 mL/hr 0.9 % NaCl infusion Intravenous, at 10-25 mL/hr, CONTINUOUS, Starting on Sun03/03/15 at 1315, Until Sun03/05/15 at 0855, Via introducer/central line. Change IV bag q24h, Post-op New Bag 03/04/2015 11:32 PM EDT 10 mL/hr acetaminophen (TYLENOL) tablet 325-650 mg 325-650 mg, Oral, EVERY 4 HOURS PRN, Starting on Sun03/05/15 at 0853, Until Sun03/09/15 at 1354, Pain, Fever, Maximum adult dose of acetaminophen is 4000 mg from all sources in 24 hours. Given 03/08/2015 8:06 AM EDT 650 mg albumin human 5 % bottle 25 g 25 g, Intravenous, PRN, Starting on Sun03/03/15 at 1303, Until [place] 03/04/15 at 0938, Other, For low blood pressure, May repeat x 2. If SBP less than 90 and PCWP less than 18 and HCT greater than 25, Administer over 60 Minutes, Post-op IV Started 03/03/2015 1:20 PM EDT 25 g albumin human 5 % bottle 1 dose, Starting on Sun03/03/15 at 1253, Until Sun03/03/15 at 1420, CARLA ELENA: cabinet override aluminum & magnesium hydroxide-simethicone 200-200-20 mg/5 mL suspension 15 mL 15 mL, Oral, EVERY 4 HOURS PRN, Starting on Sun03/05/15 at 0853, Until Sun03/09/15 at 1354, Indigestion, Shake well. Given 03/05/2015 11:10 AM EDT 15 mL aluminum & magnesium hydroxide-simethicone 200-200-20 mg/5 mL suspension 30 mL 30 mL, Per NG tube, EVERY 4 HOURS PRN, Starting on Sun03/03/15 at 1303, Until Sun03/05/15 at 0855, Indigestion, For blood tinged n/g secrections or indigestion, Shake well., Post-op Given 03/04/2015 3:52 PM EDT 30 mL aspirin chewable tablet 81 mg 81 mg, Oral, DAILY, First dose on Sun03/03/15 at 0900, Until Discontinued Given 03/03/2015 6:18 AM EDT 81 mg aspirin chewable tablet 81 mg 81 mg, Oral, DAILY, First dose on Sun03/04/15 at 0900, Until Discontinued, Post-op Given 03/04/2015 9:41 AM EDT 81 mg aspirin chewable tablet 81 mg 81 mg, Oral, DAILY, First dose on Sun03/05/15 at 0900, Until Discontinued Given 03/09/2015 8:50 AM EDT 81 mg atorvastatin (LIPITOR) tablet 40 mg 40 mg, Oral, NIGHTLY, First dose on Sun03/05/15 at 2100, Until Discontinued Given 03/08/2015 8:18 PM EDT 40 mg ceFAZolin (ANCEF) IVPB 1 g 1 g, Intravenous, EVERY 6 HOURS SCHEDULED (4 times per day), 7 doses, First dose on Sun03/03/15 at 1315, Last dose on Sun03/05/15 at 0000, Administer over 30 Minutes, IVPB via central line for 7 doses. Antibiotic duration not to exceed 48 hours post-op., Post-op IV Started 03/04/2015 11:59 PM EDT 1 g 100 mL/hr chlorhexidine (HIBICLENS) 4 % liquid Topical, ONCE PREPROCEDURE, 1 dose, On Sun03/02/15 at 1400, Application site: chest and legs, Pre-op (Floor Meds) Given 03/03/2015 6:19 AM EDT dexamethasone (DECADRON) injection 4 mg 4 mg, Intravenous, ONCE, 1 dose, On Sun03/03/15 at 1315, Post-op Given 03/03/2015 1:45 PM EDT 4 mg docusate sodium (COLACE) capsule 100 mg 100 mg, Oral, 2 TIMES DAILY, First dose on Sun03/05/15 at 0900, Until Discontinued, Do not crush or chew. Given 03/09/2015 8:51 AM EDT 100 mg enalapril (VASOTEC) tablet 2.5 mg 2.5 mg, Oral, EVERY 6 HOURS PRN, Starting on Sun03/05/15 at 0853, Until Sun03/09/15 at 1354, Elevated blood pressure, If Creatinine < 1.2. Start with lowest dose unless otherwise directed. Hold if SBP < 110 Given 03/07/2015 12:41 PM EDT 2.5 mg fUROsemide (LASix) injection 40 mg 40 mg, Intravenous, ONCE, 1 dose, On Sun03/05/15 at 1715, MAXIMUM ADMINISTRATION RATE = 40 mg/min Given 03/05/2015 5:30 PM EDT 40 mg HYDROcodone-acetaminop hen (NORCO) 5-325 mg per tablet 1-2 Tab 1-2 Tablet, Oral, EVERY 3 HOURS PRN, Starting on Sun03/05/15 at 1555, Until Sun03/09/15 at 1354, Pain, Maximum adult dose of acetaminophen is 4000 mg from all sources in 24 hours. Given 03/09/2015 9:25 AM EDT 1 Tablet insulin regular (HumuLIN R,NovoLIN R) 100 Units in sodium chloride 0.9 % 100 mL infusion 1-15 Units/hr (1-15 mL/hr), Intravenous, TITRATED, Starting on Sun03/03/15 at 1315, Until Sun03/05/15 at 0856, Titration and Changing Algorithms: Refer to Titration Algorithms MAR Reference link for Insulin Infusion Protocols, Starting Algorithm? 2 (Start here if s/p CABG, receiving glucocorticoids, or patient with diabetes), Critical Care Rate/Dose Verify 03/04/2015 11:33 PM EDT 2 Units/hr 2 mL/hr ketorolac (TORADOL) injection 15 mg 15 mg, Intravenous, EVERY 6 HOURS PRN, 6 doses, Starting on Sun03/03/15 at 1303, Until Sun03/09/15 at 1354, Breakthrough Pain, Hold for SCr greater than 1.2, excessive bleeding, or if ibuprofen given in last 6 hours., Post-op Given 03/07/2015 1:05 AM EDT 15 mg lactated ringers infusion Intravenous, at 100 mL/hr, CONTINUOUS, Starting on Sun03/03/15 at 0715, Until Sun03/03/15 at 1252, Pre-op (Holding/SDS Meds) New Bag 03/03/2015 12:13 PM EDT lactulose (CHRONULAC) 20 gram/30 mL solution 20 g 20 g, Oral, ONCE, 1 dose, On Sun03/08/15 at 0815 Given 03/08/2015 8:10 AM EDT 20 g lisinopril (PRINIVIL;ZESTril) tablet 5 mg 5 mg, Oral, 2 TIMES DAILY, First dose (after last modification) on Sun03/09/15 at 0900, Until Discontinued, +++ACEI Medication+++ Given 03/09/2015 8:51 AM EDT 5 mg metoclopramide HCl (REGLAN) injection 10 mg 10 mg, Intravenous, EVERY 6 HOURS PRN, Starting on Sun03/05/15 at 1555, Until Sun03/09/15 at 1354, Nausea, Vomiting Given 03/05/2015 4:16 PM EDT 10 mg metoprolol (LOPRESSOR) tablet 12.5-25 mg 12.5-25 mg, Oral, 2 TIMES DAILY, First dose on Sun03/03/15 at 1315, Until Discontinued, Hold for HR less than 65 or SBP less than 115. Begin with lowest dose unless otherwise directed., Post-op Given 03/04/2015 9:04 PM EDT 25 mg metoprolol (LOPRESSOR) tablet 12.5-25 mg 12.5-25 mg, Oral, 2 TIMES DAILY, First dose (after last modification) on Sun03/05/15 at 0915, Until Discontinued, Begin with lowest dose unless otherwise directed. Hold if SBP < 110 or HR < 65 Given 03/07/2015 5:11 AM EDT 25 mg metoprolol (LOPRESSOR) tablet 25 mg 25 mg, Oral, 3 TIMES DAILY, First dose (after last modification) on Sun03/07/15 at 1400, Until Discontinued, Begin with lowest dose unless otherwise directed. Hold if SBP < 110 or HR < 65 Given 03/08/2015 8:03 AM EDT 25 mg metoprolol (LOPRESSOR) tablet 50 mg 50 mg, Oral, 2 TIMES DAILY, First dose (after last modification) on Sun03/08/15 at 2100, Until Discontinued, Begin with lowest dose unless otherwise directed. Hold if SBP < 110 or HR < 65 Given 03/08/2015 10:19 AM EDT 25 mg metoprolol (LOPRESSOR) tablet 50 mg 50 mg, Oral, 3 TIMES DAILY, First dose (after last modification) on Sun03/08/15 at 2100, Until Discontinued, Begin with lowest dose unless otherwise directed. Hold if SBP < 110 or HR < 65 Given 03/09/2015 6:32 AM EDT 50 mg morphine injection 2 mg 2 mg, Intravenous, EVERY 2 HOURS PRN, Starting on Sun03/03/15 at 1303, Until Tu03/09/15 at 1354, Pain, Begin with lowest dose unless otherwise directed. Reassess pain in 15 minutes. If pain unrelieved, remainder of dose may be given to patient., Post-op Given 03/05/2015 4:34 AM EDT 2 mg morphine injection 4 mg 4 mg, Intravenous, EVERY 2 HOURS PRN, Starting on Sun03/03/15 at 1303, Until Sun03/09/15 at 1354, Pain, Begin with lowest dose unless otherwise directed. Reassess pain in 15 minutes. If pain unrelieved, remainder of dose may be given to patient., Post-op Given 03/05/2015 3:56 PM EDT 4 mg mupirocin (BACTROBAN) 2 % ointment Nasal, ONCE PREPROCEDURE, 1 dose, On Sun03/02/15 at 1400, Pre-op (Holding/SDS Meds) Given 03/03/2015 6:18 AM EDT Both Nares mupirocin (BACTROBAN) 2 % ointment Nasal, EVERY 12 HOURS SCHEDULED (2 times per day), 10 doses, First dose on Sun03/03/15 at 1315, Last dose on Sun03/07/15 at 2100, Post-op Given 03/04/2015 9:42 AM EDT Both Nares nitroPRUSSide (NIPRIDE) 50 mg in dextrose 5% 250 mL infusion 0.1-10 mcg/kg/min ? 94.3 kg (2.829-282.9 mL/hr, rounded to 2.8-282.9 mL/hr), Intravenous, TITRATED PRN, Starting on Sun03/03/15 at 1303, Until [place] 03/04/15 at 0938, Other, to maintain SPB less than 120 mmHg for 12 hours than less than 140 mmHg, Start infusion at 0.1 mcg/kg/min unless otherwise directed. VESICANT , Post-op Rate/Dose Change 03/04/2015 4:43 AM EDT 0.0707 mcg/kg/min 2 mL/hr ondansetron (ZOFRAN) 4 mg/2 mL injection 4 mg 4 mg, Intravenous, EVERY 6 HOURS PRN, Starting on Sun03/03/15 at 1303, Until Sun03/05/15 at 0856, Nausea, Post-op Given 03/04/2015 7:09 PM EDT 4 mg ondansetron (ZOFRAN) 4 mg/2 mL injection 4 mg 4 mg, Intravenous, EVERY 6 HOURS PRN, Starting on Sun03/05/15 at 0853, Until Sun03/09/15 at 1354, Nausea Given 03/07/2015 6:55 AM EDT 4 mg oxyCODONE (ROXICODONE) immediate release tablet 5-15 mg 5-15 mg, Oral, EVERY 3 HOURS PRN, Starting on Sun03/05/15 at 0853, Until Sun03/09/15 at 1354, Pain, Begin with lowest dose unless otherwise directed. Reassess pain in one hour. If pain unrelieved, remainder of dose may be given to patient. Given 03/05/2015 11:10 AM EDT 10 mg oxyCODONE-acetaminophe n (PERCOCET) 10-325 mg per tablet 1 Tab 1 Tablet, Oral, EVERY 3 HOURS PRN, Starting on Sun03/03/15 at 1303, Until Sun03/05/15 at 0856, Pain, Maximum adult dose of acetaminophen is 4000 mg from all sources in 24 hours. , Post-op Given 03/05/2015 7:44 AM EDT 1 Tablet pantoprazole (PROTONIX) injection 40 mg 40 mg, Intravenous, DAILY, First dose on Sun03/03/15 at 1315, Until Discontinued, Dilute with 10 mL of 0.9% NaCl. Administer over 2 minutes., Post-op Given 03/03/2015 1:45 PM EDT 40 mg pantoprazole (PROTONIX) tablet 40 mg 40 mg, Oral, DAILY, First dose on Sun03/03/15 at 1315, Until Discontinued, Do not crush or chew, Post-op Given 03/04/2015 9:40 AM EDT 40 mg pantoprazole (PROTONIX) tablet 40 mg 40 mg, Oral, DAILY, First dose on Sun03/05/15 at 0900, Until Discontinued, Do not crush or chew Given 03/09/2015 8:50 AM EDT 40 mg potassium chloride (K-DUR) tablet 20 mEq 20 mEq, Oral, ONCE, 1 dose, On Sun03/05/15 at 1715 Given 03/05/2015 5:30 PM EDT 20 mEq potassium chloride IVPB (CENTRAL LINE) 10 mEq 10 mEq, Intravenous, ONCE, 1 dose, On Sun03/07/15 at 0615, Administer over 60 Minutes, Infuse 1 x KCl 10 mEq IVPB for a total dose of 10 mEq KCl. Patient must be in a monitored bed and have a central line VESICANT IV Started 03/07/2015 6:47 AM EDT 10 mEq 25 mL/hr potassium chloride IVPB (CENTRAL LINE) 20 mEq 20 mEq, Intravenous, PRN, Starting on Sun03/03/15 at 1303, Until Sun03/05/15 at 0855, Other, For K-WB 3.9 to 4.2, Administer over 60 Minutes, For K-WB 3.9 to 4.2 administer 20 mEq potassium chloride in 50ml over 1 hour (via central line) x 1 dose, then repeat whole blood K+. If dialysis patient or creatinine greater than or equal to 1.2, reduce dose by half. Patient must be in a monitored bed and have a central line VESICANT , Post-op IV Started 03/04/2015 4:41 AM EDT 20 mEq 50 mL/hr potassium chloride IVPB (CENTRAL LINE) 20 mEq 20 mEq, Intravenous, PRN, Starting on Sun03/03/15 at 1303, Until Sun03/05/15 at 0855, Other, For K-WB 3.6 to 3.9, Administer over 60 Minutes, For K-WB 3.6-3.9, administer 20mEq potassium chloride in 50ml over 1 hour (via central line) x 2 doses, then repeat whole blood K+. If dialysis patient or creatinine greater than or equal to 1.2, reduce dose by half. Patient must be in a monitored bed and have a central line VESICANT , Post-op IV Started 03/03/2015 7:00 PM EDT 20 mEq 50 mL/hr predniSONE (DELTASONE) tablet 10 mg 10 mg, Oral, 2 TIMES DAILY WITH MEALS, 10 doses, First dose on Sun03/05/15 at 0900, Last dose on Sun03/09/15 at 1800, Prednisone taper panel: Days 1-5 - 10 mg twice daily x 5 days Given 03/09/2015 8:51 AM EDT 10 mg sodium chloride 0.9% syringe 3 mL 3 mL, Intravenous, EVERY 8 HOURS SCHEDULED (3 times per day), First dose on Sun03/03/15 at 1400, Until Discontinued, Use to flush PIV, Post-op Given 03/08/2015 2:00 PM EDT 3 mL sodium chloride 0.9% syringe 5 mL 5 mL, Intravenous, EVERY 6 HOURS SCHEDULED (4 times per day), First dose on Sun03/03/15 at 1315, Until Discontinued, Use to flush unused ports, Post-op Given 03/07/2015 6:47 AM EDT 5 mL documented in this encounter Discontinued Medications Medication Sig Discontinue Reason Start Date End Da te metoprolol succinate (TOPROL-XL) 25 mg Oral Tablet Sustained Release 24 hr Take 1 Tab by mouth daily. Stop Taking at Discharge 02/08/2015 03/08/2015 lisinopril (PRINIVIL;ZESTRIL) 20 mg Oral Tablet Take 20 mg by mouth daily. Stop Taking at Discharge 03/08/2015 metoprolol (LOPRESSOR) 50 mg Oral Tablet Take 1 Tab by mouth 2 times daily. Stop Taking at Discharge 03/08/2015 03/09/2015 documented as of this encounter Active and Recently Administered Medications Times are shown in EDT. Scheduled Medication Order 03/07/2015 03/08/2015 03/09/2015 aspirin chewable tablet 81 mg (CANCELED) 81 mg, Oral, DAILY, First dose on Sun03/05/15 at 0900, Until Discontinued 1023 (Given - Provider: Anupam Vargas RN) 0802 (Given - Provider: Carine Allred RN) 0850 (Given - Provider: Nicolette Bartlett RN) atorvastatin (LIPITOR) tablet 40 mg (CANCELED) 40 mg, Oral, NIGHTLY, First dose on Sun03/05/15 at 2100, Until Discontinued 2135 (Given - Provider: Sakina Flanagan RN) 2017 (Given - Provider: China Lin RN) docusate sodium (COLACE) capsule 100 mg (CANCELED) 100 mg, Oral, 2 TIMES DAILY, First dose on Sun03/05/15 at 0900, Until Discontinued, Do not crush or chew. 1023 (Given - Provider: Anupam Vargas RN)2136 (Given - Provider: Sakina Flanagan RN) 08 (Given - Provider: Carine Allred RN)2017 (Given - Provider: China Lin RN) 0851 (Given - Provider: Nicolette Bartlett RN) lactulose (CHRONULAC) 20 gram/30 mL solution 20 g (COMPLETED) 20 g, Oral, ONCE, 1 dose, On Sun03/08/15 at 0815 0810 (Given - Provider: Carine Allred RN) lisinopril (PRINIVIL;ZESTril) tablet 5 mg 5 mg, Oral, 2 TIMES DAILY, First dose (after last modification) on Sun03/09/15 at 0900, Until Discontinued, +++ACEI Medication+++ 0851 (Given - Provider: Nicolette Bartlett RN) metoprolol (LOPRESSOR) tablet 12.5-25 mg (CANCELED) 12.5-25 mg, Oral, 2 TIMES DAILY, First dose (after last modification) on Sun03/05/15 at 0915, Until Discontinued, Begin with lowest dose unless otherwise directed. Hold if SBP < 110 or HR < 65 0511 (Given - Provider: Sakina Flanagan RN - Comment: ventricular bigeniny /freq PVC's)0900 (Not Given - Provider: Anupam Vargas RN - Reason: Other - Comment: given early) metoprolol (LOPRESSOR) tablet 25 mg (CANCELED) 25 mg, Oral, 3 TIMES DAILY, First dose (after last modification) on Sun03/07/15 at 1400, Until Discontinued, Begin with lowest dose unless otherwise directed. Hold if SBP < 110 or HR < 65 1313 (Given - Provider: Anupam Vargas RN)2136 (Given - Provider: Sakina Flanagan RN) 0803 (Given - Provider: Carine Allred RN) metoprolol (LOPRESSOR) tablet 50 mg (CANCELED) 50 mg, Oral, 2 TIMES DAILY, First dose (after last modification) on Sun03/08/15 at 2100, Until Discontinued, Begin with lowest dose unless otherwise directed. Hold if SBP < 110 or HR < 65 1019 (Given - Provider: Carine Allred, CHACHA) metoprolol (LOPRESSOR) tablet 50 mg 50 mg, Oral, 3 TIMES DAILY, First dose (after last modification) on Sun03/08/15 at 2100, Until Discontinued, Begin with lowest dose unless otherwise directed. Hold if SBP < 110 or HR < 65 2017 (Given - Provider: China Lin, CHACHA) 0632 (Given - Provider: Carine Walker RN) pantoprazole (PROTONIX) tablet 40 mg 40 mg, Oral, DAILY, First dose on Sun03/05/15 at 0900, Until Discontinued, Do not crush or chew 1024 (Given - Provider: Anupam Vargas RN) 0802 (Given - Provider: Carine Allred RN) 0850 (Given - Provider: Nicolette Bartlett RN) potassium chloride IVPB (CENTRAL LINE) 10 mEq (COMPLETED) 10 mEq, Intravenous, ONCE, 1 dose, On Sun03/07/15 at 0615, Administer over 60 Minutes, Infuse 1 x KCl 10 mEq IVPB for a total dose of 10 mEq KCl. Patient must be in a monitored bed and have a central line VESICANT 0647 (IV Started - Provider: Sakina Flanagan RN)0747 (IV STOP - Provider: Sakina Flanagan RN) predniSONE (DELTASONE) tablet 10 mg (CANCELED)(Linked Group 1) 10 mg, Oral, 2 TIMES DAILY WITH MEALS, 10 doses, First dose on Sun03/05/15 at 0900, Last dose on Sun03/09/15 at 1800, Prednisone taper panel: Days 1-5 - 10 mg twice daily x 5 days 1024 (Given - Provider: Anupam Vargas RN)1814 (Given - Provider: Anupam Vargas RN) 0802 (Given - Provider: Carine Allred, CHACHA)2018 (Given - Provider: China Lin RN) 0851 (Given - Provider: Nicolette Bartlett RN) sodium chloride 0.9% syringe 3 mL (CANCELED) 3 mL, Intravenous, EVERY 8 HOURS SCHEDULED (3 times per day), First dose on Sun03/03/15 at 1400, Until Discontinued, Use to flush PIV, Post-op 0647 (Given - Provider: Sakina Flanagan RN)1314 (Given - Provider: Anupam Vargas RN)2138 (Given - Provider: Sakina Flanagan RN) 0508 (Given - Provider: Sakina Flanagan RN)1400 (Given - Provider: Carine Allred, CHACHA)2200 (Canceled Entry - Provider: China Lin RN) 0600 (Due) sodium chloride 0.9% syringe 5 mL (CANCELED) 5 mL, Intravenous, EVERY 6 HOURS SCHEDULED (4 times per day), First dose on Sun03/03/15 at 1315, Until Discontinued, Use to flush unused ports, Post-op 0055 (Given - Provider: Sakina Flanagan RN)0647 (Given - Provider: Sakina Flanagan RN)1200 (Not Given - Provider: Anupam Vargas RN - Reason: Order parameters not met)1800 (Not Given - Provider: Anupam Vargas RN - Reason: Order parameters not met) 0000 (Not Given - Provider: Sakina Flangaan RN - Reason: Loss of IV access) PRN Medication Order 03/07/2015 03/08/2015 03/09/2015 acetaminophen (TYLENOL) tablet 325-650 mg (CANCELED) 325-650 mg, Oral, EVERY 4 HOURS PRN, Starting on Sun03/05/15 at 0853, Until Sun03/09/15 at 1354, Pain, Fever, Maximum adult dose of acetaminophen is 4000 mg from all sources in 24 hours. 0006 (Given - Provider: Sakina Flanagan RN)0806 (Given - Provider: Carine Allred, CHACHA) enalapril (VASOTEC) tablet 2.5 mg (CANCELED) 2.5 mg, Oral, EVERY 6 HOURS PRN, Starting on Sun03/05/15 at 0853, Until Sun03/09/15 at 1354, Elevated blood pressure, If Creatinine < 1.2. Start with lowest dose unless otherwise directed. Hold if SBP < 110 1241 (Given - Provider: Anupam Vargas, RN) HYDROcodone-acetaminophe n (NORCO) 5-325 mg per tablet 1-2 Tab 1-2 Tablet, Oral, EVERY 3 HOURS PRN, Starting on Sun03/05/15 at 1555, Until Sun03/09/15 at 1354, Pain, Maximum adult dose of acetaminophen is 4000 mg from all sources in 24 hours. 0102 (Given - Provider: Sakina Flanagan RN)1313 (Given - Provider: Anupam Vargas, CHACHA)1814 (Given - Provider: Anupam Vargas, CHACHA) 0452 (Given - Provider: Sakina Flanagan, CHACHA)1227 (Given - Provider: Carine Allred, CHACHA)1615 (Given - Provider: Carine Allred, CHACHA)2018 (Given - Provider: China Lin, CHACHA) 0925 (Given - Provider: Nicolette Bartlett RN) ketorolac (TORADOL) injection 15 mg (CANCELED) 15 mg, Intravenous, EVERY 6 HOURS PRN, 6 doses, Starting on Sun03/03/15 at 1303, Until Sun03/09/15 at 1354, Breakthrough Pain, Hold for SCr greater than 1.2, excessive bleeding, or if ibuprofen given in last 6 hours., Post-op 0105 (Given - Provider: Sakina Flanagan RN) ondansetron (ZOFRAN) 4 mg/2 mL injection 4 mg (CANCELED) 4 mg, Intravenous, EVERY 6 HOURS PRN, Starting on Sun03/05/15 at 0853, Until Sun03/09/15 at 1354, Nausea 0655 (Given - Provider: Daja Amador RN) Linked Groups Order Group 1: predniSONE (DELTASONE) tablet 10 mg (CANCELED)Jump to med 10 mg, Oral, 2 TIMES DAILY WITH MEALS, 10 doses, First dose on Sun03/05/15 at 0900, Last dose on Sun03/09/15 at 1800, Prednisone taper panel: Days 1-5 - 10 mg twice daily x 5 days Followed by predniSONE (DELTASONE) tablet 15 mg (CANCELED) 15 mg, Oral, DAILY WITH MEAL, 4 doses, First dose on Sun03/10/15 at 0800, Last dose on Sun03/13/15 at 0800, Prednisone taper panel: Days 6-9 - 15 mg daily x 4 days Followed by predniSONE (DELTASONE) tablet 10 mg (CANCELED) 10 mg, Oral, DAILY WITH MEAL, 4 doses, First dose on Sun03/14/15 at 0800, Last dose on Sun03/17/15 at 0800, Prednisone taper panel: Days 10-13 - 10 mg daily x 4 days Followed by predniSONE (DELTASONE) tablet 5 mg (CANCELED) 5 mg, Oral, DAILY WITH MEAL, 5 doses, First dose on [place] 03/18/15 at 0800, Last dose on 03/22/15 at 0800, Prednisone taper panel: Days 14-18 - 5 mg daily x 5 days documented in this encounter Orders Medications Ordered That Elvin ht Not Have Been Administered Count Last Ordered Date First Ordered Date lisinopril (PRINIVIL;ZESTril) tablet 5 mg 1 03/09/2015 albuterol (PROVENTIL HFA; VE NTOLIN HFA) INHALER 2-4 Puff 1 03/05/2015 atropine injection 0.5 mg 1 03/05/2015 dextrose 50 % (D50W) solution 25 mL 2 03/0503/03/2015 digoxin (LANOXIN) injection 250 mcg 2 03/0503/03/2015 glucagon (human recombinant) (GLUCAGEN) injection 1 mg 1 03/05/2015 insulin aspart (NovoLOG) inj ection 1-5 Units 1 03/05/2015 metoprolol (LOPRESSOR) tablet 12.5 mg 3 03/03/2015 mupirocin (BACTROBAN) 2 % ointment 1 2014 predniSONE (DELTASONE) tablet 10 mg 1 03/05 predniSONE (DELTASONE) tablet 15 mg 1 03/05 predniSONE (DELTASONE) tablet 5 mg 1 2014 senna-docusate (SENOKOT-S) 8 .6-50 mg per tablet 1 Tab 2 03/05/2015 03/03/2015 sodium chloride 0.9% syringe 1 03/05/2015 temazepam (RESTORIL) capsule 15 mg 2 201403/03/2015 albuterol (PROVENTIL HFA; VE NTOLIN HFA) INHALER 2 Puff 1 03/04/2015 albuterol (PROVENTIL) nebuli zer solution 2.5 mg 3 03/04/2015 calcium chloride 100 mg/mL ( 10 %) injection 1 g 1 03/03/2015 ceFAZolin (ANCEF) 1 g, sodiu m chloride 0.9 % 500 mL IRRIGATION 1 03/03/2015 Cellulose, Oxidized Pads 2 03/03/2015 dextrose 5% infusion 1 03/03/2015 dextrose 50 % (D50W) solution 50 mL 1 03/03 DOBUTamine (DOBUTREX) in D5W 500 mg/250 mL (2000 mcg/mL) iv 1 03/03/2015 docusate sodium (COLACE) capsule 100 mg 1 0 03/03/2015 DOPamine in D5W 400 mg/250 m L (1600 mcg/ml) iv 1 03/03/2015 electrolyte-A (PLASMALYTE-A) 1,000 mL with heparin (porcine) 10,000 Units IRRIGATION 1 03/03/2015 electrolyte-A (PLASMALYTE-A) 500 mL with heparin (porcine) 1,250 Units, papaverine 60 mg IRRIGATION 1 03/03/2015 enalapril (VASOTEC) tablet 2.5-5 mg 1 03/03 enalaprilat (VASOTEC) inject ion 1.25-2.5 mg 1 03/03/2015 fUROsemide (LASix) injection 40 mg 1 2014 lactated ringers irrigation solution 1 02/07 LORazepam (ATIVAN) injection 0.5-1 mg 1 LORazepam (ATIVAN) tablet 0.5-1 mg 2 2014 meperidine (DEMEROL) 25 mg/m L injection (PF) 12.5-25 mg 1 03/03/2015 metoprolol (LOPRESSOR) tablet 25 mg 1 03/03 midazolam (VERSED) injection 1-2 mg 2 03/0303/02/2015 nitroGLYCERIN (NITROSTAT) SL tablet 0.4 mg 1 03/03/2015 phenylephrine (STAN-SYNEPHRIN E) 40 mg in dextrose 5% 250 mL infusion 1 03/03/2015 potassium chloride IVPB (TIFFANIE TRAL LINE) 10 mEq 3 03/03/2015 potassium chloride IVPB (TIFFANIE TRAL LINE) 20 mEq 1 03/03/2015 propofol (DIPRIVAN) infusion 10 mg/mL 1 sodium bicarbonate 8.4 % (1 mEq/mL) injection 50 mEq 1 03/03/2015 sodium chloride 0.9 % irrigation 1 03/03/20 15 sterile water injection 10 mL 1 03/03/2015 temazepam (RESTORIL) capsule 15-30 mg 1 vecuronium (NORCURON) injection 3 mg 1 02/07 bisacodyl (DULCOLAX) suppository 10 mg 1 ceFAZolin (ANCEF) 2 g in dex trose 5% 50 mL IVPB 1 03/02/2015 insulin regular (HumuLIN R,N ovoLIN R) 100 Units in sodium chloride 0.9 % 100 mL infusion 1 03/02/2015 nitroGLYCERIN in D5W 50 mg/2 50 mL (0.2 mg/mL) iv 1 03/02/2015 nitroPRUSSide (NIPRIDE) 50 m g in dextrose 5% 250 mL infusion 1 03/02/2015 Nursing Count Last Ordered Date First Orde red Date CONTINUE CASTRO CATHETER 3 03/06/201502/07 ADMISSION 1 03/03/2015 APPLY DRESSING 1 03/03/2015 [facility] VTE PROPH NON-CANDIDATE 1 03/03/2015 NURSING COMMUNICATION 2 03/03/2015 NURSING OXYGEN ORDERS/INSTRUCTIONS 1 2014 PHARM VTE PROPH NON-CANDIDATE 1 03/03/2015 VERIFY INFORMED CONSENT 1 03/03/2015 Respiratory Care Count Last Ordered Date First Ordered Date INCENTIVE SPIROMETRY 1 03/05/2015 VIBRATORY PEP 1 03/04/2015 VENTILATOR MANAGEMENT 1 03/03/2015 IV Count Last Ordered Date First Orde red Date INSERT PERIPHERAL IV 1 03/03/2015 documented in this encounter Care Teams Professor Of Biostatistics Relationship Specialty Start Date End Date Vanessa Dash ARNP [address] [facility] [address] [place] [id number] PCP - General Nurse Practitioner-Family 01/28/15 documented as of this encounter
--- OUTSIDE RECORDS SUMMARY | 2024-05-21 08:42 | XMS_ITS | Encounter Summary ---
Author Organization [place] [address] Care Team Providers Care Manager Home Improvement Name Role Phone TylorVanessa gutierrez Mackenzie JAMES Primary Care Provider [phone] Reason for Visit * Auth/Cert/Inpt - Closed Specialty Diagnoses / Procedures Referred By Contac t Referred To Contact Diagnoses Atherosclerosis of [place] coronary artery without angina pectoris Atherosclerosis of [place] coronary artery without angina pectoris Procedures CORONARY ARTERY BYPASS GRAFT Referral ID Status Reason Start Date Expiration Date Visits Re quested Visits Authorized [id number] Closed 1 1 Encounter Details Date Type Department Care Team (Late st Contact Info) Description 03/03/2015 8:02 AM EDT Anesthesia Event [facility] [place] [address] Beck Tracey MD [address] [place] [address] [facility] [place] [address] Abisai Garzon ARNP Student Anesthesia Record Procedure Summary Procedure Name Responsible Anesthesiologist Anesthesia Start Time Anesthesia Stop Time CORONARY ARTERY BYPASS GRAFT Beck Tracey MD 03/03/15 0802 03/03/15 1318 Events Date Time Event Comment 03/03/2015 0725 0802 An Start 0807 AN Equip Check 0807 An Start Data 0807 Immediate Pre Anesthetic Ass es 0812 An Induction 0815 An Intubation 0830 Anesthesia Ready 0849 Time out 0850 Incision 0958 An CV Bypass init 1002 Aortic Clamp On 1054 Aortic Clamp Off 1103 An Defib 1115 An CV Bypass Ended 1139 An CV Bypass init 1151 Aortic Clamp Off 1153 An Defib 1159 An Defib 1204 An CV Bypass Ended 1310 an stop data 1317 Handoff I completed my SBAR handoff to the receiving nurse which have included the followin. Identification of the patient, family, or patient surrogate 2. Identification of the responsible practitioner 3. Pertinent medical history 4. Surgical procedure and reason for procedure 5. Intraoperative anesthetic management 6. Expectations/Plans for the early post-procedure period 7. Opportunity for questions and acknowledgement of understanding from the receiving PACU/ICU steamfitter 1318 An Stop Meds Name Total midazolam (VERSED) injection 5 mg/mL 10 mg fentaNYL 50 MCG/ML INJ 3,250 mcg propofol (DIPRIVAN) injection 300 mg propofol (DIPRIVAN) infusion 10 mg/mL 1, 182,500 mcg vecuronium (NORCURON) injection 30 mg ceFAZolin (ANCEF) 1 gm in 10 ml iv syrin ge (PYXIS) 2 g phenylephrine (STAN-SYNEPHRINE) injection 1,100 mcg heparin (porcine) injection 1,000 units/ mL 10,000 Units heparin (porcine) injection 1,000 units/ mL 84,000 Units protamine injection 800 mg ceFAZolin (ANCEF) 2 g in dextrose 5% 50 mL IVPB 1 g nitroGLYCERIN in D5W 50 mg/250 mL (0.2 m g/mL) iv 550 mcg aminocaproic acid (AMICAR) injection 5 g diphenhydrAMINE (BENADRYL) injection 50 mg famotidine (PEPCID) injection 20 mg methylPREDNISolone sodium succinate (Molly u-MEDROL) injection 1,000 mg 125 mg lactated ringers infusion 2,000 mL lactated ringers infusion 1,000 mL * Agents Name O2 Et Isoflurane * Blood No blood administrations on file. Lines, Drains, and Airways Type Details Placement Removal Peripheral IV 03/03/15; 0700; 16; Right; Hand; CHACHA Ivey; 2; 03/09/15; 932; Therapy completed; Catheter intact, Dressing applied 03/03/15 0700 by Page Mahoney RN 03/09/15932 by Nicolette Bartlett RN Arterial Line 03/03/15; 0730; 20; Brachial; Chlora-prep; Right; 1; N/A; N/A; N/A; Yes; Yes; Yes; Yes; Yes; PEBBLES Lazar; N 03/03/15 0730 by Abisai Garzon ARNP Student 03/04/15 0928 by Lakesha Bell RN Swjuan Penn Placement Date: 03/03/15; Placement Time: 075; Site Prep: Chlora-prep; Cuff Type: Non-Cuffed Central Venous Catheter; Orientation: Right; Location: Internal jugular; Inserted By: Sara; Insertion Attempts: 1; Local Anes: Injectable; Infection Prevention Measures: Yes; Avoiding Contact with Central Line: Yes; Hand Hygiene: Yes; Hand Hygiene Before Proc: Yes; Sterile Gown: Yes; Mask: Yes; Cap: Yes; Sterile Gloves: Yes; Skin Prep: Yes; Full Drape: Yes; Biopatch Applied: Yes; Ultrasound Guidance Used: Yes; Inserting Provider: Sara; Femoral Site Used?: N; Removal Date: 03/04/15; Removal Time: 929; Post Removal: No 03/03/15 075 by Abisai Garzon ARNP Student 03/04/15 0930 by Lakesha Bell, CHACHA Airway Placement Date: 03/03/15; Placement Time: 075; Removal Date: 03/03/15; Removal Time: 0803/03/15 0753 by Abisai Garzon ARNP Student 03/03/15 0800 by Judith Olmos RN Introducer 03/03/15; 0753; Internal jugular; Right; 03/07/15; 1030 03/03/15 0753 by Abisai Garzon ARNP Student 03/07/15 1030 by Anupam Vargas RN Airway Device: ETT- Cuffed; Size: 8 mm; Placement Date: 03/03/15; Placement Time: 814; Removal Date: 03/04/15; Removal Time: 01303/03/15 08 by Abisai Garzon ARNP Student 03/04/15 013 by Carine Walker RN Urethral Catheter (Cohn) Placement Date: 03/03/15; Placement Time: 818; Inserted By: Robyn Martinez RN; Type: Temperature probe; Size: 16 fr; Balloon Size: 10 ml; Collection Container: Urimeter; Securement Method: Tape; Urine Returned: Yes (clear, yellow urine); Location: OR; Hand Hygiene Before Insertion: Yes; Silver-Coated Catheter In Use?: Yes; JAEN PAUL Intact?: Yes; Dependant Loop Observed?: Yes; Drain Tubing and Bag Below Bladder?: Yes; Infection Prevention Measures: No (patient under anesthesia); Removal Date: 03/06/15; Removal Time: 1700 03/03/15 0819 by Lexy Dueñas RN 03/06/15 1700 by Anupam Vargas RN Incision/Procedural Site 03/03/15; 0850; Sternum; Midline; 03/09/15; 1354 03/03/15 0850 by Lexy Dueñas RN 03/09/15 1354 by Discharge Provider, Automatic Incision/Procedural Site 03/03/15; 0850; Leg; Right, Lower; 03/09/15; 1354 03/03/15 0850 by Lexy Dueñas RN 03/09/15 1354 by Discharge Provider, Automatic Incision/Procedural Site 03/03/15; 0850; Leg; Right, Upper; 03/09/15; 1354 03/03/15 0850 by Lexy Dueñas RN 03/09/15 1354 by Discharge Provider, Automatic Temporary Pacing Lead 03/03/15; 1145; Epicardial (atrial pacing wires); Intact, No Ectopy 03/03/15 1145 by Lexy Dueñas RN 03/07/15 1030 by Anupam Vargas RN Chest Tube 03/03/15; 1227; Othe r (Comment) (see post op note for location); Other (Comment) (see post op note for location); Ananth BURNHAM; No complications, Tolerated well, Tube intact, Dressing applied, Lungs clear 03/03/15 1227 by Lexy Dueñas RN 03/05/15 1605 by Carine Sepulveda RN NG/OG Tube 03/03/15; 1308; Nasogastric; Right nostril; Return of Gastric Content 03/03/15 1308 by Abisai Garzon ARNP Student 03/04/15 0125 by Carine Walker RN documented in this encounter Social History Tobacco Use Types Packs/Day Years [...] on file documented as of this encounter Procedure Notes * Abisai Garzon ARNP Student - 03/03/2015 7:53 AM EDTAssociated Order(s): ARTERIAL LINE PLACEMENT; PA CATHETER PLACEMENT; CENTRAL VENOUS LINE PLACEMENT Arterial Line Placement Procedure Date/time: 03/03/2015 7:30 AM Patient Location: Pre-op (PROGRAM MANAGER TRANSPORTATION LINE ROOM) Indication: Continuous blood pressure monitoring and blood sampling needed Ultrasound-Guided: Ultrasound guided Anesthesiologist: BECK TRACEY Other Staff: ABISAI GARZON Placed By: Student Marine Engineer Catheter Size: 20 gauge Catheter Length: 5 cm Catheter Type: Arrow Seldinger Technique: Yes Laterality: Right Site: Brachial Line Secured: Suture Events: Patient tolerated procedure well with no complications PA Catheter Placement Location: OR procedure room Procedure Date/Time: 03/03/2015 7:40 AM Patient sedated: Yes Immediate pre anesthetic assessment completed:Yes Anesthesiologist: BECK TRACEY Other staff: ABISAI GARZON catheter type: Oximetric PA catheter size: 7.5 Laterality: Right Site: Internal jugular Placement verification: Pressure tracing changes PA catheter depth: 46 Events: Patient tolerated well with no complications Central Line / Introducer Placement Procedure Date/Time: 03/03/2015 7:35 AM Patient Location: Pre-op Indication: Central Venous Access, CVP Monitoring and Introducer Ultrasound-Guided: Ultrasound guided Anesthesiologist: BECK TRACEY Placed By: Anesthesiologist Sterility prep: Provider hand hygiene prior to procedure, Provider used sterile gloves, gown, hat, mask and Sterile drape was used Prep: Chloraprep Patient position: Trendelenburg Laterality: Right Site: Internal jugular Catheter Size: 8.5 Fr Catheter Type: Introducer Number of Lumens: Single Seldinger Technique: Yes Intravenous Verification: Ultrasound and Venous blood return Post Insertion: All ports aspirated, All ports flushed easily, Guidewire was removed intact, Biopatch was applied, Line was sutured in place and Sterile dressing applied Events: Patient tolerated well with no complications documented in this encounter OR Notes * Anesthesia Postprocedure Evaluation - Carolyn Thompson MD - 03/04/2015 1:07 PM EDT Post-Anesthesia Evaluation Note Patient Name: Josh Ford Patient Date: March 04, 2015 Patient Location: [facility] Post OP Vitals: stable Level of Consciousness: awake, alert and oriented Post Anesthesia Pain: adequate analgesia Long Acting Local Anesthetic: n/a Airway Patency: patent Difficult Airway: no Respiratory: nasal canula and spontaneous ventilation Cardiovascular: stable and BP within 20% of baseline Hydration: euvolemic Nausea Controlled: yes Comments: Pt has been up in chair. Off pressors. VSS. Awake conversant. * Anesthesia Preprocedure Evaluation - Abisai Garzon ARNP Student - 03/02/2015 2:43 PM EDT Pre-Anesthesia Evaluation Note Patient Name: Josh Ford Sex: male Patient : 1955 Age: 60 y.o. Patient Date: March 02, 2015 Procedure: CORONARY ARTERY BYPASS GRAFT - SCIP (N/A ) Anesthesia Evaluation Patient summary reviewed and Previous anesthesia No history of anesthetic complications Airway Mallampati: I TM distance: >3 FB Neck ROM: full Dental (+) upper dentures Comment: Few in bottom Pulmonary breath sounds clear to auscultation (+)shortness of breath, a smoker (former), Cardiovascular (+) hypertension, CAD, , Rhythm: regular Rate: normal Neuro/Psych GI/Hepatic/Renal - negative ROS Endo/Other - negative ROS Current Anesthesia Plan ASA 3 Anesthesia Plan: general Intravenous induction Monitors: STD, A-line, CVP and PA catheter Anesthetic plan and risks discussed with patient. documented in this encounter Plan of Treatment Not on file documented as of this encounter Procedures Procedure Name Priority Date/Time Associated Diagnosis Comments ANE ARTERIAL LINE PLACEMENT Routine 03/03/2015 9:16 AM EDT documented in this encounter Results * CENTRAL VENOUS LINE PLACEMENT (03/03/2015 9:16 AM EDT) Narrative [facility] - 03/03/2015 9:16 AM EDT Abisai Garzon ARNP STUDENT ? 03/03/2015 ??9:16 AM Arterial Line Placement Procedure Date/time: 03/03/2015 7:30 AM Patient Location: ??Pre-op (PROGRAM MANAGER TRANSPORTATION LINE ROOM) Indication: ??Continuous blood pressure monitoring and blood sampling needed Ultrasound-Guided: ??Ultrasound guided Anesthesiologist: BECK TRACEY Other Staff: ABISAI GARZON Placed By: ??Student Marine Engineer Catheter Size: ??20 gauge Catheter Length: ??5 cm Catheter Type: ??Arrow Seldinger Technique: ??Yes Laterality: ??Right Site: ??Brachial Line Secured: ??Suture Events: ??Patient tolerated procedure well with no complications PA Catheter Placement Location: OR procedure room Procedure Date/Time: 03/03/2015 7:40 AM Patient sedated: Yes Immediate pre anesthetic assessment completed:Yes Anesthesiologist: BECK TRACEY Other staff: ABISAI GARZON catheter type: ??Oximetric PA catheter size: ??7.5 Laterality: ??Right Site: ??Internal jugular Placement verification: ??Pressure tracing changes PA catheter depth: ??46 Events: Patient tolerated well with no complications Central Line / Introducer Placement Procedure Date/Time: 03/03/2015 7:35 AM Patient Location: ??Pre-op Indication: ??Central Venous Access, CVP Monitoring and Introducer Ultrasound-Guided: ??Ultrasound guided Anesthesiologist: BECK TRACEY Placed By: ??Anesthesiologist Sterility prep: ??Provider hand hygiene prior to procedure, Provider used sterile gloves, gown, hat, mask and Sterile drape was used Prep: ??Chloraprep Patient position: ??Trendelenburg Laterality: ??Right Site: ??Internal jugular Catheter Size: ??8.5 Fr Catheter Type: ??Introducer Number of Lumens: ??Single Seldinger Technique: ??Yes Intravenous Verification: ??Ultrasound and Venous blood return Post Insertion: ??All ports aspirated, All ports flushed easily, Guidewire was removed intact, Biopatch was applied, Line was sutured in place and Sterile dressing applied Events: ??Patient tolerated well with no complications us River Vera MD ANESTHESIA ORDERABLES Edited Re sult - Final [facility] [address] [place] [address] * PA CATHETER PLACEMENT (03/03/2015 9:16 AM EDT) Narrative [facility] - 03/03/2015 9:16 AM EDT Abisai Garzon ARNP STUDENT ? 03/03/2015 ??9:16 AM Arterial Line Placement Procedure Date/time: 03/03/2015 7:30 AM Patient Location: ??Pre-op (PROGRAM MANAGER TRANSPORTATION LINE ROOM) Indication: ??Continuous blood pressure monitoring and blood sampling needed Ultrasound-Guided: ??Ultrasound guided Anesthesiologist: BECK TRACEY Other Staff: ABISAI GARZON Placed By: ??Student Marine Engineer Catheter Size: ??20 gauge Catheter Length: ??5 cm Catheter Type: ??Arrow Seldinger Technique: ??Yes Laterality: ??Right Site: ??Brachial Line Secured: ??Suture Events: ??Patient tolerated procedure well with no complications PA Catheter Placement Location: OR procedure room Procedure Date/Time: 03/03/2015 7:40 AM Patient sedated: Yes Immediate pre anesthetic assessment completed:Yes Anesthesiologist: BECK TRACEY Other staff: ABISAI GARZON catheter type: ??Oximetric PA catheter size: ??7.5 Laterality: ??Right Site: ??Internal jugular Placement verification: ??Pressure tracing changes PA catheter depth: ??46 Events: Patient tolerated well with no complications Central Line / Introducer Placement Procedure Date/Time: 03/03/2015 7:35 AM Patient Location: ??Pre-op Indication: ??Central Venous Access, CVP Monitoring and Introducer Ultrasound-Guided: ??Ultrasound guided Anesthesiologist: BECK TRACEY Placed By: ??Anesthesiologist Sterility prep: ??Provider hand hygiene prior to procedure, Provider used sterile gloves, gown, hat, mask and Sterile drape was used Prep: ??Chloraprep Patient position: ??Trendelenburg Laterality: ??Right Site: ??Internal jugular Catheter Size: ??8.5 Fr Catheter Type: ??Introducer Number of Lumens: ??Single Seldinger Technique: ??Yes Intravenous Verification: ??Ultrasound and Venous blood return Post Insertion: ??All ports aspirated, All ports flushed easily, Guidewire was removed intact, Biopatch was applied, Line was sutured in place and Sterile dressing applied Events: ??Patient tolerated well with no complications us River Vera MD ANESTHESIA ORDERABLES Edited Re sult - Final [facility] [address] [place] [address] * ANE ARTERIAL LINE PLACEMENT (03/03/2015 9:16 AM EDT) Narrative [facility] - 03/03/2015 9:16 AM EDT Abisai Garzon ARNP STUDENT ? 03/03/2015 ??9:16 AM Arterial Line Placement Procedure Date/time: 03/03/2015 7:30 AM Patient Location: ??Pre-op (PROGRAM MANAGER TRANSPORTATION LINE ROOM) Indication: ??Continuous blood pressure monitoring and blood sampling needed Ultrasound-Guided: ??Ultrasound guided Anesthesiologist: BECK TRACEY Other Staff: ABISAI GARZON Placed By: ??Student Marine Engineer Catheter Size: ??20 gauge Catheter Length: ??5 cm Catheter Type: ??Arrow Seldinger Technique: ??Yes Laterality: ??Right Site: ??Brachial Line Secured: ??Suture Events: ??Patient tolerated procedure well with no complications PA Catheter Placement Location: OR procedure room Procedure Date/Time: 03/03/2015 7:40 AM Patient sedated: Yes Immediate pre anesthetic assessment completed:Yes Anesthesiologist: BECK TRACEY Other staff: ABISAI GARZON catheter type: ??Oximetric PA catheter size: ??7.5 Laterality: ??Right Site: ??Internal jugular Placement verification: ??Pressure tracing changes PA catheter depth: ??46 Events: Patient tolerated well with no complications Central Line / Introducer Placement Procedure Date/Time: 03/03/2015 7:35 AM Patient Location: ??Pre-op Indication: ??Central Venous Access, CVP Monitoring and Introducer Ultrasound-Guided: ??Ultrasound guided Anesthesiologist: BECK TRACEY Placed By: ??Anesthesiologist Sterility prep: ??Provider hand hygiene prior to procedure, Provider used sterile gloves, gown, hat, mask and Sterile drape was used Prep: ??Chloraprep Patient position: ??Trendelenburg Laterality: ??Right Site: ??Internal jugular Catheter Size: ??8.5 Fr Catheter Type: ??Introducer Number of Lumens: ??Single Seldinger Technique: ??Yes Intravenous Verification: ??Ultrasound and Venous blood return Post Insertion: ??All ports aspirated, All ports flushed easily, Guidewire was removed intact, Biopatch was applied, Line was sutured in place and Sterile dressing applied Events: ??Patient tolerated well with no complications us River Vera MD ANESTHESIA ORDERABLES Edited Re sult - Final [facility] [address] [place] [address] documented in this encounter Visit Diagnoses Not on filedocumented in this encounter Administered Medications Inactive Administered Medications - up to 1 most recent administrations Medication Order MAR Action Action Date Dose Rate Site aminocaproic acid (AMICAR) injection PRN, Starting on Sun03/03/15 at 0936, Until Sun03/03/15 at 1318, Anesthesia Intra-op Given 03/03/2015 9:36 AM EDT 5 g ceFAZolin (ANCEF) 1 gm in 10 ml iv syringe (PYXIS) Intravenous, PRN, Starting on Sun03/03/15 at 0815, Until Sun03/03/15 at 1318, Anesthesia Intra-op Given 03/03/2015 8:15 AM EDT 2 g ceFAZolin (ANCEF) 2 g in dextrose 5% 50 mL IVPB 2 g, Intravenous, ONCE PREPROCEDURE, 1 dose, On Sun03/03/15 at 0645, Administer over 30 Minutes, To be given in O.R., Pre-op (Antibiotic) Given 03/03/2015 12:09 PM EDT 1 g diphenhydrAMINE (BENADRYL) injection PRN, Starting on Sun03/03/15 at 1151, Until Sun03/03/15 at 1318, Anesthesia Intra-op Given 03/03/2015 11:51 AM EDT 50 mg famotidine (PEPCID) 20 mg/2 mL injection PRN, Starting on Sun03/03/15 at 1151, Until Sun03/03/15 at 1318, Anesthesia Intra-op Given 03/03/2015 11:51 AM EDT 20 mg fentaNYL (SUBLIMAZE) 50 mcg/mL injection Intravenous, PRN, Starting on Sun03/03/15 at 0813, Until Sun03/03/15 at 1318, Anesthesia Intra-op Given 03/03/2015 10:30 AM EDT 250 mcg heparin (porcine) injection PRN, Starting on Sun03/03/15 at 0931, Until Sun03/03/15 at 1318, Line Care, Anesthesia Intra-op Given 03/03/2015 11:30 AM EDT 42,000 Units heparin (porcine) injection Intravenous, PRN, Starting on Sun03/03/15 at 1138, Until Sun03/03/15 at 1318, Line Care, Anesthesia Intra-op Given 03/03/2015 11:38 AM EDT 10,000 Units lactated ringers infusion Intravenous, at 100 mL/hr, CONTINUOUS, Starting on Sun03/03/15 at 0715, Until Sun03/03/15 at 1252, Pre-op (Holding/SDS Meds) New Bag 03/03/2015 12:13 PM EDT lactated ringers infusion CONTINUOUS PRN, Starting on Sun03/03/15 at 0812, Until Sun03/03/15 at 1318, Anesthesia Intra-op New Bag 03/03/2015 11:25 AM EDT methylPREDNISolone sodium succinate (Solu-MEDROL) injection PRN, Starting on Sun03/03/15 at 1152, Until Sun03/03/15 at 1318, Anesthesia Intra-op Given 03/03/2015 11:52 AM EDT 125 mg midazolam (VERSED) injection Intravenous, PRN, Starting on Sun03/03/15 at 0700, Until Sun03/03/15 at 1318, Anesthesia Intra-op Given 03/03/2015 10:30 AM EDT 5 mg nitroGLYCERIN in D5W 50 mg/250 mL (0.2 mg/mL) iv PRN, Starting on Sun03/03/15 at 0928, Until Sun03/03/15 at 1318, Anesthesia Intra-op Given 03/03/2015 12:12 PM EDT 50 mcg phenylephrine (STAN-SYNEPHRINE) injection Intravenous, PRN, Starting on Sun03/03/15 at 0815, Until Sun03/03/15 at 1318, Anesthesia Intra-op Given 03/03/2015 8:51 AM EDT 100 mcg propofol (DIPRIVAN) infusion 10 mg/mL Intravenous, CONTINUOUS PRN, Starting on Sun03/03/15 at 0959, Until Sun03/03/15 at 1318, Anesthesia Intra-op Rate/Dose Change 03/03/2015 11:26 AM EDT 50 mcg/kg/min 30 mL/hr propofol (DIPRIVAN) injection Intravenous, PRN, Starting on Sun03/03/15 at 0812, Until Sun03/03/15 at 1318, Anesthesia Intra-op Given 03/03/2015 12:23 PM EDT 100 mg protamine injection Intravenous, PRN, Starting on Sun03/03/15 at 1117, Until Sun03/03/15 at 1318, Anesthesia Intra-op Given 03/03/2015 12:05 PM EDT 400 mg vecuronium (NORCURON) injection Intravenous, PRN, Starting on Sun03/03/15 at 0812, Until Sun03/03/15 at 1318, Anesthesia Intra-op Given 03/03/2015 12:10 PM EDT 5 mg documented in this encounter Care Teams Manager Home Improvement Relationship Specialty Start Date End Date Vanessa Dash ARNP Counts include 234 beds at the [facility] [place] [id number] PCP - General Nurse Practitioner-Family 01/28/15 documented as of this encounter
--- OUTSIDE RECORDS SUMMARY | 2024-05-21 08:42 | XMS_ITS | Encounter Summary ---
Author Organization [facility] Address [facility] [place] [address] Care Team Providers Care Legal Administrative Assistant Name Role Phone Vanessa Dash ERIKA Primary Care Provider [phone] Reason for Referral * Vascular Imaging (Emergency) - Closed Specialty Diagnoses / Procedures Referred By Contac t Referred To Contact Radiology Diagnoses Bruit Procedures [facility] CAROTID DUPLEX BILATERAL Felix Mcbride MD Referral ID Status Reason Start Date Expiration Date Visits Re quested Visits Authorized [id number] Closed 03/02/2015 03/01/2016 1 1 Reason for Visit * Auth/Cert/Inpt - Closed Specialty Diagnoses / Procedures Referred By Contac t Referred To Contact Diagnoses Atherosclerosis of [place] coronary artery without angina pectoris Atherosclerosis of knik coronary artery without angina pectoris Procedures CORONARY ARTERY BYPASS GRAFT Referral ID Status Reason Start Date Expiration Date Visits Re quested Visits Authorized [id number] Closed 1 1 Encounter Details Date Type Department Care Team (Latest Contact Info) Description 03/02/2015 1:37 PM EDT - 03/02/2015 2:20 PM EDT Hospital Encounter [facility] [address] [place] [id number] Felix Mcbride MD Bruit Discharge Disposition: Home or Self Care Social [...] Chewable Take 81 mg by mouth daily. lisinopril (PRINIVIL;ZESTRIL ) 20 mg Oral Tablet Take 20 mg by mouth daily. 03/08/2015 metoprolol (LOPRESSOR) 50 mg Oral Tablet Take 1 Tab by mouth 2 times daily. 60 Tab 3 03/08/2015 03/09/2015 metoprolol succinate (TOPROL-XL) 25 mg Oral Tablet Sustained Release 24 hr Take 1 Tab by mouth daily. 30 Tab 4 02/08/2015 03/08/2015 documented as of this encounter Discharge Disposition Disposition Code Departure Means Destination Home or Self Care documented in this encounter Plan of Treatment Not on file documented as of this encounter Procedures Procedure Name Priority Date/Time Associated Diagnosis Comments [facility] CAROTID DUPLEX BILATERAL STAT 03/02/2015 4:12 PM EDT Bruit documented in this encounter Results * [facility] CAROTID DUPLEX BILATERAL (03/02/2015 4:12 PM EDT) Anatomical Region Laterality Modality Vascular, Head, Neck Vascular Im aging 03/02/2015 3:28 PM EDT Impressions 03/02/2015 4:24 PM EDT CONCLUSIONS Stenosis in Right Proximal ICA at 1-39%. Stenosis in Left Proximal ICA at 1-39%. Bilateral antegrade vertebral flow. ?? Emilio Braden. ??Remy STARKEY Narrative Procedure Note Emilio Alberto MD - 03/02/2015 IMPRESSION CONCLUSIONS Stenosis in Right Proximal ICA at 1-39%. Stenosis in Left Proximal ICA at 1-39%. Bilateral antegrade vertebral flow. Emilio Alberto MD Felix Mcbride MD IMG VASCULAR ORDERABLES Rae l Result documented in this encounter Visit Diagnoses Diagnosis Bruit Other symptoms involving cardiovascular system documented in this encounter Care Teams Legal Administrative Assistant Relationship Specialty Start Date End Date Vanessa Dash ARNP [address] [place] [phone] PCP - General Nurse Practitioner-Family 01/28/15 documented as of this encounter
--- OUTSIDE RECORDS SUMMARY | 2024-05-21 08:42 | XMS_ITS | Encounter Summary ---
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 [address] Felix Mcbride MD CORONARY ARTERY BYPASS GRAFT Surgery Details Date/Time Status Location OR Service Patient Class Case Class Case Type Trauma Case? 03/03/2015 8:00 AM Posted [facility] MAIN OR EDG _[place] 20 Open Heart Surgery Admit N/A Panel 1 Procedure LRB Anes Op Region Wound Class Comments CORONARY ARTERY BYPASS GRAFT N/A General Clean LYSIS OF DENSE PERICARDIAL ADHESIONS, CORONARY ARTERY BYPASS GRAFTS X 3 USING RIGHT SAPHENOUS VEIN X 2 AND LEFT INTERNAL MAMMARY ARTERY X 1 Surgeon Surgeon Role Service Panel Felix Mcbride MD Primary Open Heart 1 Special Needs natlie cpt; [id number]; DR FANNIE LYNCH documented in this encounter Social History Tobacco [...] this encounter Discharge Summaries * Amanda Chaidez, RINA - 03/09/2015 12:57 PM EDT [facility]/[place]/[facility]/[place], [place] NAME: ADIS FORD [facility]#: [id number] LOCATION/ROOM: [place] [address] FACILITY: [facility] DICTATOR: Amanda Chaidez DISCHARGE SUMMARY [...] right coronary artery was also occluded with [id number] collaterals. EF preserved. The patient was admitted and subsequently underwent an elective revascularization utilizing a vein graft to the RPDA, a vein graft to the OM branchand a NIXON to the LAD. Postoperative course was essentially uncomplicated. The patient's medications were readjusted for hypertension prior to discharge. The patient was clinically stable on postoperative day #5. DISCHARGE MEDICATIONS: Include aspirin 81 mg daily, [place] p.r.n. pain, lisinopril 5 mg b.i.d., Lopressor 50 mg t.i.d., Zocor 40 mg at bedtime, Protonix 40 mg daily, prednisone taper. FOLLOWUP: The patient was to follow up with Dr. Mcbride in 2 weeks. He has been signed up for cardiac rehabilitation per [facility] protocol. ERIKA Whitehead By: jorge Job ID: [id number] DocID: [id number] CC: MD Felix Kumari MD Cosigned by Felix Mcbride MD at 03/16/2015 1:22 PM EDT documented in this encounter Discharge Instructions * Discharge Instructions* Carine Allred RN - 03/08/2015 10:29 AM EDT [facility] Discharge Instructions - Cardiac Surgery Best wishes are extended to you on behalf of [facility] as you are discharged. Because we are [...] Sodium, Low Cholesterol, Low Saturated Fat. Call for Cardiac DietInstructions. OTHER: * Kyra Hose: [...] smoking cessation information and classes or contact [facility] at [phone]. * Consult your physician or Primary Care [...] Appointments: Felix Mcbride M.D. River Vera M.D. Audra Townsend M.D. Cardiac Rehab: They will contact you. [...] Code Departure Means Destination Home or Self Halfway documented in this encounter Progress Notes * [...] Weaver BSW - 03/09/2015 10:00 AM EDT 03/09/15 0900 Discharge Planning Evaluation Actual Discharge Plan 03-09 [...] with his spouse to their home in [place]. Pt is presently ambulating around nurse's station [...] is S/P CABG X 3 on 03-03. 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 Presently Pt is alert and oriented and ambulating 2 laps around unit. Will meet with Pt to discuss discharge plans and home needs. * Lakesha Bell RN - 03/04/2015 9:30 AM EDT Randall and orion removed per [employer] policy and procedure. No ectopy noted Dressing [...] - 03/03/2015 11:30 PM EDT Results for KENDRICK FORDREY Yelena ( ) as of 03/04/2015 00:31 Ref. [...] per RN report. Carine Walker RN * Judith Olmos RN - 03/03/2015 6:32 PM EDT Results for ADIS FORD ( ) as of 03/03/2015 18:28 Ref. [...] accordingly Pt remains calm and cooperative * Judith Olmos RN - 03/03/2015 5:31 PM EDT Results [...] easily and [place] to command * Judith Olmos RN - 03/03/2015 3:[address] Mcbride notified of the following: Total Chest tube drainage 200ml since admission from OR. SIMV rate 14, ABG results and weaning issues Hemodynamics reviewed * Judith Olmos RN - 03/03/2015 3:36 PM EDT Results [...] advised by RT to correct pH * Judith Olmos RN - 03/03/2015 2:24 PM EDT Results [...] Will recheck ABGs in one hour * Judith Olmos RN - 03/03/2015 1:15 PM EDT Admit Note: Pt admitted to [facility] bed7 from OR with portable EKG, ABP [...] gtts. Assessment complete and fully documented in [facility]. Orders reviewed. 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 Marital status is [...] Felix Mcbride MD By: jean Job ID: [id number] Doc ID: [id number] CC: documented in this encounter Procedure Notes * Felix Mcbride MD - 03/03/2015 1:09 PM EDT Images from the original note were not included. CARDIAC SURGERY OPERATIVE REPORT [facility] Date of Operation: 03/03/2015 Name: Adis Ford : 1955 AGE: 60 y.o. PRIMARY MD: MARCELO DEVOPS ENGINEER: Ulises Alberto PRE-OP DX: CAD, ANGINA, HTN, HYPERLIPID POST-OP DX: SAME PREOP + EMPHYSEMA, CHRONIC PERICARDITIS PROCEDURE METHOD: Cardio-Pulmonary Bypass ROBOTIC: No REDO: PROCEDURE: SVG x2 and NIXON x1 PROCEDURE CONT.: ACB X2 NIXON X1 CPB LYSIS OF DENSE PERICARDIAL ADHESIONS NIXON: BASIL: SURGEON:Felix Mcbride FRUIT BUYING GRADER: Vein: RGS VEIN QUALITY: Good LGS VEIN QUALITY: RLS VEIN QUALITY: LLS VEIN QUALITY: SUZY: NIXON QUALITY: Good BASIL QUALITY: SUZY CONTRA-INDICATED: PACING WIRES: A PROSTHESIS: EBL (ml): 300 EJECTION FRACTION %: 45 Lysis Dense Cardiac Adhesions: Yes Factor VII: No Other Reason(s) for Factor VII: Findings/Additional Info: CHRONIC PERICARDITIS PREVIOUS PTCA: No STERNUM: Sclerotic LEG INCISION:Continous CHEST TUBE(S): Mediastinal and Pericardial DISPOSITION: [employer] STABLE Cardiovascular Surgery ROS History / Risk [...] signs that are within normal limits and Randall measurements within normal limits Outcome: Progressing SBP [...] signs that are within normal limits and Randall measurements within normal limits Outcome: Progressing Having [...] signs that are within normal limits and Randall measurements within normal limits Outcome: Progressing VSS/ [...] signs that are within normal limits and Randall measurements within normal limits Outcome: Progressing VSS. [...] signs that are within normal limits and Randall measurements within normal limits Outcome: Progressing Vitals [...] signs that are within normal limits and Randall measurements within normal limits Outcome: Progressing VSS. [...] signs that are within normal limits and Randall measurements within normal limits Outcome: Progressing Hemodynamically stable. Randall and arterial line removed early today. UOP [...] signs that are within normal limits and Randall measurements within normal limits Outcome: Progressing VSS- [...] GRAFT 03/03/2015 8:06 AM EDT Atherosclerosis of flandreau coronary artery without angina pectoris Special Needs natlie cpt; [id number]; DR CHANGE FROM CRIS PAT UPDATED SPECIMEN STAT 03/03/2015 7:55 AM EDT CROSSMATCH SUMMARY STAT 03/03/2015 7: 48 AM EDT INSERT PERIPHERAL IV Routine 03/03/2015 5:43 AM EDT documented in this encounter Results * SCANNED RHYTHM STRIPS (03/17/2015 11:50 PM EDT) Anatomical Region Laterality Modality Other 03/17/2015 11:5 0 PM EDT us Unknown Unknown IMG ECG ORDERABLES Final Result * (ABNORMAL) BASIC METABOLIC PANEL (03/08/2015 4:56 AM EDT) Sodium 140 136 - 145 mmol/L [facility] Potassium 4.1 3.5 - 5.0 mmol/L [facility] Chloride 99 98 - 107 mmol/L [facility] Total CO2 28 22 - 29 mmol/L [facility] Anion Gap 13 7 - 16 mmol/L [facility] Calcium 9.5 8.8 - 10.2 mg/dL [facility] Glucose Lvl 104(H) 82 - 100 mg/dL [facility] BUN 20 8 - 23 mg/dL [facility] Creatinine 0.94 0.67 - 1.30 mg/dL [facility] GFR Afr Am >60 [facility] GFR Non Afr Am >60 [facility] Blood specimen (specimen) UPPER LIMB STRUCTURE / Unknown 03/08/2015 4:56 AM EDT 03/08/2015 5:05 AM EDT Felix Mcbride MD CHEMISTRY ORDERABLES Edited Result - Final [facility] [address] [place] [address] * (ABNORMAL) CBC (03/08/2015 4:56 AM EDT) WBC 13.2(H) 4.0 - 11.0 x10(3)/mcL [facility] RBC 3.96(L) 4.30 - 5.81 x10(6)/mcL [facility] Hgb 11.6(L) 13.5 - 17.1 gm/dL [facility] Hct 35.2(L) 38.9 - 51.6 % [facility] MCV 88.9 82.5 - 99.8 fL [facility] MCH 29.2 27.0 - 34.3 pg [facility] MCHC 32.8 32.1 - 35.3 gm/dL [facility] RDW 13.4 11.5 - 15.0 % [facility] Platelet 233 144 - 423 x10(3)/mcL [facility] MPV 8.4 6.8 - 10.8 fL [facility] Blood specimen (specimen) UPPER LIMB STRUCTURE / Unknown 03/08/2015 4:56 AM EDT 03/08/2015 5:05 AM EDT Felix Mcbride MD HEMATOLOGY ORDERABLES Final Result Performing Organization Address [facility] Co de Phone Number [facility] [address] [place] [address] * SCANNED RHYTHM STRIPS (03/07/2015 6:28 PM EDT) Anatomical Region Laterality Modality Other 03/07/2015 6:28 PM EDT Unknown Unknown IMG ECG ORDERABLES Edited Result - Final * MAGNESIUM LEVEL (03/07/2015 3:50 AM EDT) Pathologist [facility] Magnesium 2.2 1.6 - 2.4 mg/dL [facility] Blood specimen (specimen) UPPER LIMB STRUCTURE / Unknown 03/07/2015 3:50 AM EDT 03/07/2015 4:18 AM EDT us Felix Mcbride MD CHEMISTRY ORDERABLES Final R esult Performing Organization Address City/[facility]/ZIP Co de Phone Number [facility] [address] [place] [address] * POTASSIUM WHOLE BLOOD (03/07/2015 3:50 AM EDT) K-WB 4.1 3.5 - 5.0 mEq/L [facility] Blood specimen (specimen) UPPER LIMB STRUCTURE / Unknown 03/07/2015 3:50 AM EDT 03/07/2015 4:06 AM EDT Felix Mcbride MD CHEMISTRY ORDERABLES Final R esult Performing Organization Address [facility] Co de Phone Number [facility] [address] [place] [address] * (ABNORMAL) BASIC METABOLIC PANEL (03/07/2015 3:50 AM EDT) Sodium 138 136 - 145 mmol/L [facility] Potassium 4.2 3.5 - 5.0 mmol/L [facility] Chloride 96(L) 98 - 107 mmol/L [facility] Total CO2 30(H) 22 - 29 mmol/L [facility] Anion Gap 12 7 - 16 mmol/L [facility] Calcium 8.6(L) 8.8 - 10.2 mg/dL [facility] Glucose Lvl 119(H) 82 - 100 mg/dL [facility] BUN 24(H) 8 - 23 mg/dL [facility] Creatinine 0.91 0.67 - 1.30 mg/dL [facility] GFR Afr Am >60 [facility] GFR Non Afr Am >60 [facility] Blood specimen (specimen) UPPER LIMB STRUCTURE / Unknown 03/07/2015 3:50 AM EDT 03/07/2015 4:06 AM EDT Felix Mcbride MD CHEMISTRY ORDERABLES Edited Result - Final Performing Organization Address [facility] de Phone Number [facility] [address] [place] [address] * (ABNORMAL) CBC (03/07/2015 3:50 AM EDT) WBC 12.5(H) 4.0 - 11.0 x10(3)/mcL [facility] RBC 3.32(L) 4.30 - 5.81 x10(6)/mcL [facility] Hgb 9.6(L) 13.5 - 17.1 gm/dL [facility] Hct 29.6(L) 38.9 - 51.6 % [facility] MCV 89.2 82.5 - 99.8 fL [facility] MCH 28.8 27.0 - 34.3 pg [facility] MCHC 32.3 32.1 - 35.3 gm/dL [facility] RDW 13.8 11.5 - 15.0 % [facility] Platelet 153 144 - 423 x10(3)/mcL [facility] MPV 8.9 6.8 - 10.8 fL [facility] Blood specimen (specimen) UPPER LIMB STRUCTURE / Unknown 03/07/2015 3:50 AM EDT 03/07/2015 4:06 AM EDT us Felix Mcbride MD HEMATOLOGY ORDERABLES Final Result [facility] [address] [place] [address] * (ABNORMAL) GLUCOSE METER POC (03/06/2015 8:45 PM EDT) Glucose Meter POC 120(H) 70 - 100 mg/dL [facility] Blood specimen (specimen) 03/06/2015 8:45 PM EDT 03/06/2015 8:45 PM EDT us Felix Mcbride MD POINT OF CARE TEST ORDERABLE S Final Result Performing Organization Address [facility]/ZIP Co de Phone Number [facility] [address] [place] [address] * (ABNORMAL) GLUCOSE METER POC (03/06/2015 5:54 PM EDT) Glucose Meter POC 123(H) 70 - 100 mg/dL [facility] Blood specimen (specimen) 03/06/2015 5:54 PM EDT 03/06/2015 5:54 PM EDT us Felix Mcbride MD POINT OF CARE TEST ORDERABLE S Final Result Performing Organization Address City/[facility]/ZIP Co de Phone Number [facility] [address] [place] [address] * (ABNORMAL) GLUCOSE METER POC (03/06/2015 12:49 PM EDT) Glucose Meter POC 141(H) 70 - 100 mg/dL [facility] Blood specimen (specimen) 03/06/2015 12:49 PM EDT 03/06/2015 12:49 PM EDT Felix Mcbride MD POINT OF CARE TEST ORDERABLE S Final Result Performing Organization Address City/[facility] Co de Phone Number [facility] [address] [place] [address] * (ABNORMAL) GLUCOSE METER POC (03/06/2015 8:10 AM EDT) [facility] Glucose Meter POC 140(H) 70 - 100 mg/dL [facility] Blood specimen (specimen) 03/06/2015 8:10 AM EDT 03/06/2015 8:10 AM EDT Felix Mcbride MD POINT OF CARE TEST ORDERABLE S Final Result Performing Organization Address [facility] de Phone Number [facility] [address] [place] [address] * XR CHEST PA AND LATERAL (03/06/2015 [...] 2:38 PM EDT ? Stationary ECG Study ?[facility] ? Interpretive Statements ? SINUS RHYTHM POSSIBLE RIGHT VENTRICULAR CONDUCTION DELAY Electronically Signed On 03-06-2015 14:38:12 EDT by Toni Rebollar MD Narrative Procedure Note Toni Rebollar MD - 03/06/2015 IMPRESSION Stationary [facility] Interpretive Statements SINUS RHYTHM POSSIBLE RIGHT VENTRICULAR CONDUCTION DELAY Electronically Signed On 03-06-2015 14:38:12 EDT by Toni Rebollar MD Felix Mcbride MD IMG ECG ORDERABLES Final Res ult * (ABNORMAL) BASIC METABOLIC PANEL (03/06/2015 4:46 AM EDT) Pathologist [facility] Sodium 140 136 - 145 mmol/L [facility] Potassium 4.5 3.5 - 5.0 mmol/L [facility] Chloride 98 98 - 107 mmol/L [facility] Total CO2 31(H) 22 - 29 mmol/L [facility] Anion Gap 11 7 - 16 mmol/L [facility] Calcium 8.8 8.8 - 10.2 mg/dL [facility] Glucose Lvl 127(H) 82 - 100 mg/dL [facility] BUN 26(H) 8 - 23 mg/dL [facility] Creatinine 1.08 0.67 - 1.30 mg/dL [facility] GFR Afr Am >60 [facility] GFR Non Afr Am >60 [facility] Blood specimen (specimen) UPPER LIMB STRUCTURE / Unknown 03/06/2015 4:46 AM EDT 03/06/2015 5:20 AM EDT Felix Mcbride MD CHEMISTRY ORDERABLES Edited Result - Final [facility] [address] [place] [address] * (ABNORMAL) CBC (03/06/2015 4:46 AM EDT) WBC 13.9(H) 4.0 - 11.0 x10(3)/mcL [facility] RBC 3.51(L) 4.30 - 5.81 x10(6)/mcL [facility] Hgb 10.4(L) 13.5 - 17.1 gm/dL [facility] Hct 31.3(L) 38.9 - 51.6 % [facility] MCV 89.1 82.5 - 99.8 fL [facility] MCH 29.5 27.0 - 34.3 pg [facility] MCHC 33.2 32.1 - 35.3 gm/dL [facility] RDW 13.9 11.5 - 15.0 % [facility] Platelet 117(L) 144 - 423 x10(3)/mcL [facility] MPV 8.8 6.8 - 10.8 fL [facility] Blood specimen (specimen) UPPER LIMB STRUCTURE / Unknown 03/06/2015 4:46 AM EDT 03/06/2015 5:20 AM EDT us Felix Mcbride MD HEMATOLOGY ORDERABLES Final Result Performing Organization Address City/[facility]/ZIP Co de Phone Number [facility] [address] [place] [address] * (ABNORMAL) GLUCOSE METER POC (03/05/2015 7:53 PM EDT) Glucose Meter POC 172(H) 70 - 100 mg/dL [facility] Blood specimen (specimen) 03/05/2015 7:53 PM EDT 03/05/2015 7:53 PM EDT us Felix Mcbride MD POINT OF CARE TEST ORDERABLE S Final Result Performing Organization Address [facility]/ZIP Co de Phone Number [facility] [address] [place] [address] * LOWER RESPIRATORY CULTURE (03/05/2015 5:10 PM EDT) Final Sparse growth of normal oral silvestre [facility] GS Group 6: ??<25 WBC and <25 epithelial cells/lpf Moderate mixed oral silvestre [facility] Sputum specimen (specimen) 03/05/2015 5:10 PM EDT 03/05/2015 6:03 PM EDT us Felix Mcbride MD MICROBIOLOGY - GENERAL ORDER MARY Final Result Performing Organization Address City/[facility]/ZIP Co de Phone Number [facility] [address] [place] [address] * (ABNORMAL) GLUCOSE METER POC (03/05/2015 5:02 PM EDT) Glucose Meter POC 160(H) 70 - 100 mg/dL [facility] Blood specimen (specimen) 03/05/2015 5:02 PM EDT 03/05/2015 5:02 PM EDT us Felix Mcbride MD POINT OF CARE TEST ORDERABLE S Final Result Performing Organization Address [facility] de Phone Number [facility] [address] [place] [address] * (ABNORMAL) GLUCOSE METER POC (03/05/2015 11:56 AM EDT) Glucose Meter POC 146(H) 70 - 100 mg/dL [facility] Blood specimen (specimen) 03/05/2015 11:56 AM EDT 03/05/2015 11:56 AM EDT us Felix Mcbride MD POINT OF CARE TEST ORDERABLE S Final Result Performing Organization Address [facility] de Phone Number [facility] [address] [place] [address] * (ABNORMAL) GLUCOSE METER POC (03/05/2015 7:41 AM EDT) Glucose Meter POC 129(H) 70 - 100 mg/dL [facility] Blood specimen (specimen) 03/05/2015 7:41 AM EDT 03/05/2015 7:41 AM EDT us Felix Mcbride MD POINT OF CARE TEST ORDERABLE S Final Result Performing Organization Address [facility] de Phone Number [facility] [address] [place] [address] * XR CHEST AP PORTABLE (03/05/2015 6:41 AM EDT) Anatomical Region Laterality Modality Chest Radiographic Suzy ging 03/05/2015 6:00 AM EDT Impressions 03/05/2015 7:27 AM EDT IMPRESSION: Postoperative chest with removal Randall-Isamar catheter. Persistent bibasilar atelectasis and small effusions.. Narrative 03/05/2015 7:27 AM EDT AP PORTABLE CHEST, 03/05/2015 at 0625 HISTORY: Postop cardiac surgery, follow-up. FINDINGS: Comparison 03/04/2015. Evidence of cardiac surgery again noted. The Randall-Isamar catheter has been removed. Mediastinal drains remain in place. Heart size is stable. Lung volumes are low. Basilar opacities persist without significant change. Upper lungs are clear. No evidence pneumothorax. Procedure Note Emilio Alberto MD - 03/05/2015 AP PORTABLE CHEST, 03/05/2015 at 0625 HISTORY: Postop cardiac surgery, follow-up. FINDINGS: Comparison 03/04/2015. Evidence of cardiac surgery again noted. The Randall-Isamar catheter has been removed. Mediastinal drains remain in place. Heart size is stable. Lung volumes are low. Basilar opacities persistwithout significant change. Upper lungs are clear. No evidence pneumothorax. IMPRESSION: Postoperative chest with removal Randall-Isamar catheter.Persistent bibasilar atelectasis and small effusions.. Felix Mcbride MD IMG DIAGNOSTIC IMAGING ORDER MARY Final Result * (ABNORMAL) GLUCOSE METER POC (03/05/2015 5:52 AM EDT) [facility] Glucose Meter POC 137(H) 70 - 100 mg/dL [facility] Blood specimen (specimen) 03/05/2015 5:52 AM EDT 03/05/2015 5:52 AM EDT Felix Mcbride MD POINT OF CARE TEST ORDERABLE S Final Result Performing Organization Address City/State/[facility] Co de Phone Number [facility] [address] [place] [address] * (ABNORMAL) DIFFERENTIAL (03/05/2015 5:06 AM EDT) Neut Percent 81.6 % [facility] Lymph Percent 6.9 % [facility] [place] Percent 11.3 % [facility] Eos Percent 0.0 % [facility] Baso Percent 0.2 % [facility] Neut# 15.7(H) 1.8 - 7.7 x10(3)/mcL [facility] Lymph# 1.3 0.6 - 4.8 x10(3)/mcL [facility] [place]# 2.2(H) 0.0 - 1.3 x10(3)/[facility] Eos# 0.0 0.0 - 0.5 x10(3)/[facility] Baso# 0.0 0.0 - 0.2 x10(3)/[facility] Blood specimen (specimen) 03/05/2015 5:06 AM EDT 03/05/2015 5:25 AM EDT us Felix Mcbride MD HEMATOLOGY ORDERABLES Final Result [facility] [address] [place] [address] * (ABNORMAL) CBC WITH AUTO DIFF (03/05/2015 5:06 AM EDT) [facility] WBC 19.3(H) 4.0 - 11.0 x10(3)/[facility] Comment:No significant broussard e from previous manual review RBC 4.14(L) 4.30 - 5.81 x10(6)/[facility] Hgb 12.0(L) 13.5 - 17.1 gm/dL [facility] Hct 36.6(L) 38.9 - 51.6 % [facility] MCV 88.5 82.5 - 99.8 fL [facility] MCH 28.9 27.0 - 34.3 pg [facility] MCHC 32.7 32.1 - 35.3 gm/dL [facility] RDW 14.0 11.5 - 15.0 % [facility] Platelet 126(L) 144 - 423 x10(3)/[facility] MPV 9.1 6.8 - 10.8 fL [facility] Blood specimen (specimen) UPPER LIMB STRUCTURE / Unknown 03/05/2015 5:06 AM EDT 03/05/2015 5:25 AM EDT us Felix Mcbride MD HEMATOLOGY ORDERABLES Final Result [facility] [address] [place] [address] * (ABNORMAL) BASIC METABOLIC PANEL (03/05/2015 5:06 AM EDT) Sodium 139 136 - 145 mmol/L [facility] Potassium 4.6 3.5 - 5.0 mmol/L [facility] Chloride 98 98 - 107 mmol/L [facility] Total CO2 28 22 - 29 mmol/L [facility] Anion Gap 13 7 - 16 mmol/L [facility] Calcium 8.9 8.8 - 10.2 mg/dL [facility] Glucose Lvl 126(H) 82 - 100 mg/dL [facility] BUN 18 8 - 23 mg/dL [facility] Creatinine 1.00 0.67 - 1.30 mg/dL [facility] GFR Afr Am >60 [facility] GFR Non Afr Am >60 [facility] Blood specimen (specimen) UPPER LIMB STRUCTURE / Unknown 03/05/2015 5:06 AM EDT 03/05/2015 5:26 AM EDT Felix Mcbride MD CHEMISTRY ORDERABLES Edited Result - Final Performing Organization Address [facility] Co de Phone Number [facility] [address] [place] [address] * (ABNORMAL) GLUCOSE METER POC (03/05/2015 2:52 AM EDT) Glucose Meter POC 119(H) 70 - 100 mg/dL [facility] Blood specimen (specimen) 03/05/2015 2:52 AM EDT 03/05/2015 2:52 AM EDT us Felix Mcbride MD POINT OF CARE TEST ORDERABLE S Final Result Performing Organization Address City/[facility]/ZIP Co de Phone Number [facility] [address] [place] [address] * (ABNORMAL) GLUCOSE METER POC (03/04/2015 11:29 PM EDT) Glucose Meter POC 134(H) 70 - 100 mg/dL [facility] Blood specimen (specimen) 03/04/2015 11:29 PM EDT 03/04/2015 11:29 PM EDT us Felix Mcbride MD POINT OF CARE TEST ORDERABLE S Final Result Performing Organization Address City/[facility] Co de Phone Number [facility] [address] [place] [address] * (ABNORMAL) GLUCOSE METER POC (03/04/2015 6:02 PM EDT) Glucose Meter POC 155(H) 70 - 100 mg/dL [facility] Blood specimen (specimen) 03/04/2015 6:02 PM EDT 03/04/2015 6:02 PM EDT us Felix Mcbride MD POINT OF CARE TEST ORDERABLE S Final Result Performing Organization Address [facility] Co de Phone Number [facility] [address] [place] [address] * GLUCOSE METER POC (03/04/2015 12:45 PM EDT) Glucose Meter POC 88 70 - 100 mg/dL [facility] Blood specimen (specimen) 03/04/2015 12:45 PM EDT 03/04/2015 12:45 PM EDT us Felix Mcbride MD POINT OF CARE TEST ORDERABLE S Final Result Performing Organization Address [facility] Co de Phone Number [facility] [address] [place] [address] * (ABNORMAL) GLUCOSE METER POC (03/04/2015 9:12 AM EDT) Glucose Meter POC 141(H) 70 - 100 mg/dL [facility] Blood specimen (specimen) 03/04/2015 9:12 AM EDT 03/04/2015 9:12 AM EDT us River Vera MD POINT OF CARE TEST ORDERABLES F inal Result Performing Organization Address [facility] Co de Phone Number [facility] [address] [place] [address] * POTASSIUM WHOLE BLOOD (03/04/2015 8:10 AM EDT) K-WB 4.7 3.5 - 5.0 mEq/L [facility] Blood specimen (specimen) UPPER LIMB STRUCTURE / Unknown 03/04/2015 8:10 AM EDT 03/04/2015 8:12 AM EDT Narrative [facility] - 03/04/2015 8:19 AM EDT Discontinue when invasive hemodynamic lines are removed. us Felix Mcbride MD CHEMISTRY ORDERABLES Final R esult Performing Organization Address [facility] de Phone Number [facility] [address] [place] [address] * (ABNORMAL) GLUCOSE METER POC (03/04/2015 8:08 AM EDT) Glucose Meter POC 155(H) 70 - 100 mg/dL [facility] Blood specimen (specimen) 03/04/2015 8:08 AM EDT 03/04/2015 8:08 AM EDT us River Vera MD POINT OF CARE TEST ORDERABLES F inal Result Performing Organization Address [facility] de Phone Number [facility] [address] [place] [address] * (ABNORMAL) GLUCOSE METER POC (03/04/2015 6:51 AM EDT) Glucose Meter POC 132(H) 70 - 100 mg/dL [facility] Blood specimen (specimen) 03/04/2015 6:51 AM EDT 03/04/2015 6:51 AM EDT us River Vera MD POINT OF CARE TEST ORDERABLES F inal Result Performing Organization Address [facility] de Phone Number [facility] [address] [place] [address] * EK EKG 12 LEAD (03/04/2015 6:43 AM EDT) Anatomical Region Laterality Modality Other 03/04/2015 6:43 AM EDT Impressions 03/04/2015 5:07 PM EDT ? Stationary ECG Study ?[facility] ? Interpretive Statements ? SINUS RHYTHM POSSIBLE RIGHT VENTRICULAR CONDUCTION DELAY INFERIOR MYOCARDIAL INFARCTION, PROBABLY OLD WITH POSTERIOR EXTENSION Electronically Signed On 03-04-2015 17:07:39 EDT by Toni Rebollar MD Narrative Procedure Note Toni Rebollar MD - 03/04/[address] IM[address] ECG Study [facility] Interpretive Statements SINUS RHYTHM POSSIBLE RIGHT VENTRICULAR CONDUCTION DELAY INFERIOR MYOCARDIAL INFARCTION, PROBABLY OLD WITH POSTERIOR EXTENSION Electronically Signed On 03-04-2015 17:07:39 EDT by Toni Rebollar MD us Felix [...] tubes have been removed in the interval. Randall-Isamar catheter is identified with distal most tip [...] nasogastric tubes have beenremoved in the interval. Randall-Isamar catheter is identified with distal most tip [...] worsening of right basilar atelectasis. No pneumothorax. us Felix Mcbride MD IMG DIAGNOSTIC IMAGING ORDER MARY Final Result * (ABNORMAL) GLUCOSE METER POC (03/04/2015 4:16 AM EDT) [facility] Glucose Meter POC 109(H) 70 - 100 mg/dL [facility] Blood specimen (specimen) 03/04/2015 4:16 AM EDT 03/04/2015 4:16 AM EDT us River Vera MD POINT OF CARE TEST ORDERABLES F inal Result [facility] [address] [place] [address] * SMEAR REVIEW (03/04/2015 4:15 AM EDT) Pathologist [facility] Polychrom Slight [facility] Ovalocyte Occasional [facility] Teardrop Cell Occasional [facility] Blood specimen (specimen) 03/04/2015 4:15 AM EDT 03/04/2015 4:24 AM EDT Felix Mcbride MD HEMATOLOGY ORDERABLES Final Result Performing Organization Address City/[facility]/ZIP Co de Phone Number [facility] [address] [place] [address] * (ABNORMAL) DIFFERENTIAL (03/04/2015 4:15 AM EDT) Pathologist [facility] Neut Percent 83.3 % [facility] Lymph Percent 6.5 % [facility] [place] Percent 10.1 % [facility] Eos Percent 0.0 % [facility] Baso Percent 0.1 % SE LAB Neut# 13.7(H) 1.8 - 7.7 x10(3)/mcL [facility] Lymph# 1.1 0.6 - 4.8 x10(3)/[facility] SE LAB [place]# 1.7(H) 0.0 - 1.3 x10(3)/[facility] Eos# 0.0 0.0 - 0.5 x10(3)/[facility] Baso# 0.0 0.0 - 0.2 x10(3)/[facility] Blood specimen (specimen) 03/04/2015 4:15 AM EDT 03/04/2015 4:24 AM EDT Felix Mcbride MD HEMATOLOGY ORDERABLES Final Result Performing Organization Address City/[facility]/ZIP Co de Phone Number [facility] [address] [place] [address] * O2 SAT - MIXED VENOUS (03/04/2015 4:15 AM EDT) Pathologist [facility] O2 Sat - Mixed Venous 81 % [facility] Blood specimen (specimen) UPPER LIMB STRUCTURE / Unknown 03/04/2015 4:15 AM EDT 03/04/2015 4:24 AM EDT us Felix Mcbride MD CHEMISTRY ORDERABLES Final R esult [facility] [address] [place] [address] * (ABNORMAL) CBC WITH AUTO DIFF (03/04/2015 4:15 AM EDT) WBC 16.5(H) 4.0 - 11.0 x10(3)/mcL [facility] RBC 4.27(L) 4.30 - 5.81 x10(6)/mcL [facility] Hgb 12.4(L) 13.5 - 17.1 gm/dL [facility] Hct 37.6(L) 38.9 - 51.6 % [facility] MCV 88.1 82.5 - 99.8 fL [facility] MCH 29.0 27.0 - 34.3 pg [facility] MCHC 32.9 32.1 - 35.3 gm/dL [facility] RDW 13.6 11.5 - 15.0 % [facility] Platelet 130(L) 144 - 423 x10(3)/mcL [facility] MPV 9.0 6.8 - 10.8 fL [facility] Blood specimen (specimen) UPPER LIMB STRUCTURE / Unknown 03/04/2015 4:15 AM EDT 03/04/2015 4:24 AM EDT us Felix Mcbride MD HEMATOLOGY ORDERABLES Final Result [facility] [address] [place] [address] * (ABNORMAL) BASIC METABOLIC PANEL (03/04/2015 4:15 AM EDT) Sodium 140 136 - 145 mmol/L [facility] Potassium 4.2 3.5 - 5.0 mmol/L [facility] Chloride 104 98 - 107 mmol/L [facility] Total CO2 24 22 - 29 mmol/L [facility] Anion Gap 12 7 - 16 mmol/L [facility] Calcium 8.5(L) 8.8 - 10.2 mg/dL [facility] Glucose Lvl 120(H) 82 - 100 mg/dL [facility] BUN 12 8 - 23 mg/dL [facility] Creatinine 1.02 0.67 - 1.30 mg/dL [facility] GFR Afr Am >60 [facility] GFR Non Afr Am >60 [facility] Blood specimen (specimen) UPPER LIMB STRUCTURE / Unknown 03/04/2015 4:15 AM EDT 03/04/2015 4:24 AM EDT Felix Mcbride MD CHEMISTRY ORDERABLES Edited Result - Final Performing Organization Address [facility] de Phone Number [facility] [address] [place] [address] * POTASSIUM WHOLE BLOOD (03/04/2015 4:15 AM EDT) Pathologist [facility] K-WB 4.1 3.5 - 5.0 mEq/L [facility] Blood specimen (specimen) UPPER LIMB STRUCTURE / Unknown 03/04/2015 4:15 AM EDT 03/04/2015 4:24 AM EDT Narrative [facility] - 03/04/2015 4:35 AM EDT Discontinue when invasive hemodynamic lines are removed. Felix Mcbride MD CHEMISTRY ORDERABLES Final R esult Performing Organization Address [facility] de Phone Number [facility] [address] [place] [address] * (ABNORMAL) BLOOD GAS ARTERIAL (03/04/2015 2:15 AM EDT) pH 7.390 7.370 - 7.440 [facility] pCO2 40 32 - 45 mmHg [facility] pO2 62(L) 80 - 95 mmHg [facility] HCO3 24 20 - 29 mmol/L [facility] TCO2 25 21 - 30 mmol/L [facility] Base Excess -0.7 -2.8 - 2.3 mEq/L [facility] O2 Sat 95 95 - 97 % [facility] Inspired O2 6L [facility] Specimen Type Arterial [facility] Blood specimen (specimen) UPPER LIMB STRUCTURE / Unknown 03/04/2015 2:15 AM EDT 03/04/2015 2:19 AM EDT Felix Mcbirde MD CHEMISTRY ORDERABLES Final R esult [facility] [address] [place] [address] * (ABNORMAL) GLUCOSE METER POC (03/04/2015 2:12 AM EDT) Glucose Meter POC 124(H) 70 - 100 mg/dL [facility] Blood specimen (specimen) 03/04/2015 2:12 AM EDT 03/04/2015 2:12 AM EDT us River Vera MD POINT OF CARE TEST ORDERABLES F inal Result Performing Organization Address [facility] de Phone Number [facility] [address] [place] [address] * (ABNORMAL) BLOOD GAS ARTERIAL (03/04/2015 12:25 AM EDT) pH 7.390 7.370 - 7.440 [facility] pCO2 39 32 - 45 mmHg [facility] pO2 63(L) 80 - 95 mmHg [facility] HCO3 24 20 - 29 mmol/L [facility] TCO2 25 21 - 30 mmol/L [facility] Base Excess -1.2 -2.8 - 2.3 mEq/L [facility] O2 Sat 94(L) 95 - 97 % [facility] Inspired O2 40% [facility] Specimen Type Arterial [facility] Blood specimen (specimen) UPPER LIMB STRUCTURE / Unknown 03/04/2015 12:25 AM EDT 03/04/2015 12:33 AM EDT us Felix Mcbride MD CHEMISTRY ORDERABLES Final R esult Performing Organization Address [facility] Co de Phone Number [facility] [address] [place] [address] * (ABNORMAL) BLOOD GAS ARTERIAL (03/03/2015 11:30 PM EDT) pH 7.380 7.370 - 7.440 [facility] pCO2 41 32 - 45 mmHg [facility] pO2 64(L) 80 - 95 mmHg [facility] HCO3 24 20 - 29 mmol/L [facility] TCO2 26 21 - 30 mmol/L [facility] Base Excess -0.8 -2.8 - 2.3 mEq/L [facility] O2 Sat 94(L) 95 - 97 % [facility] Inspired O2 40% [facility] Specimen Type Arterial [facility] Blood specimen (specimen) UPPER LIMB STRUCTURE / Unknown 03/03/2015 11:30 PM EDT 03/03/2015 11:34 PM EDT Felix Mcbride MD CHEMISTRY ORDERABLES Final R esult Performing Organization Address [facility] Co de Phone Number [facility] [address] [place] [address] * POTASSIUM WHOLE BLOOD (03/03/2015 11:30 PM EDT) [facility] K-WB 4.1 3.5 - 5.0 mEq/L [facility] Blood specimen (specimen) UPPER LIMB STRUCTURE / Unknown 03/03/2015 11:30 PM EDT 03/03/2015 11:34 PM EDT Narrative [facility] - 03/03/2015 11:51 PM EDT Discontinue when invasive hemodynamic lines are removed. us Felix Mcbride MD CHEMISTRY ORDERABLES Final R esult Performing Organization Address [facility] Co de Phone Number [facility] [address] [place] [address] * (ABNORMAL) GLUCOSE METER POC (03/03/2015 11:29 PM EDT) [facility] Glucose Meter POC 119(H) 70 - 100 mg/dL [facility] Blood specimen (specimen) 03/03/2015 11:29 PM EDT 03/03/2015 11:29 PM EDT us River Vera MD POINT OF CARE TEST ORDERABLES F inal Result Performing Organization Address [facility] Co de Phone Number [facility] [address] [place] [address] * (ABNORMAL) BLOOD GAS ARTERIAL (03/03/2015 10:10 PM EDT) [facility] pH 7.380 7.370 - 7.440 [facility] pCO2 39 32 - 45 mmHg [facility] pO2 68(L) 80 - 95 mmHg [facility] HCO3 23 20 - 29 mmol/L [facility] TCO2 24 21 - 30 mmol/L [facility] Base Excess -1.8 -2.8 - 2.3 mEq/L [facility] O2 Sat 95 95 - 97 % [facility] Inspired O2 40% [facility] Specimen Type Arterial [facility] Blood specimen (specimen) UPPER LIMB STRUCTURE / Unknown 03/03/2015 10:10 PM EDT 03/03/2015 10:24 PM EDT Felix Mcbride MD CHEMISTRY ORDERABLES Final R esult Performing Organization Address City/[facility]/ZIP Co de Phone Number [facility] [address] [place] [address] * (ABNORMAL) GLUCOSE METER POC (03/03/2015 8:57 PM EDT) [facility] Glucose Meter POC 135(H) 70 - 100 mg/dL [facility] Blood specimen (specimen) 03/03/2015 8:57 PM EDT 03/03/2015 8:57 PM EDT River Vera MD POINT OF CARE TEST ORDERABLES F inal Result Performing Organization Address [facility] Co de Phone Number [facility] [address] [place] [address] * (ABNORMAL) BLOOD GAS ARTERIAL (03/03/2015 8:55 PM EDT) [facility] pH 7.370 7.370 - 7.440 [facility] pCO2 38 32 - 45 mmHg [facility] pO2 76(L) 80 - 95 mmHg [facility] HCO3 22 20 - 29 mmol/L [facility] TCO2 23 21 - 30 mmol/L [facility] Base Excess -2.9(L) -2.8 - 2.3 mEq/L [facility] O2 Sat 96 95 - 97 % [facility] Inspired O2 40% [facility] Specimen Type Arterial [facility] Blood specimen (specimen) UPPER LIMB STRUCTURE / Unknown 03/03/2015 8:55 PM EDT 03/03/2015 9:01 PM EDT Felix Mcbride MD CHEMISTRY ORDERABLES Final R esult Performing Organization Address City/[facility] Co de Phone Number [facility] [address] [place] [address] * POTASSIUM WHOLE BLOOD (03/03/2015 8:55 PM EDT) [facility] K-WB 4.3 3.5 - 5.0 mEq/L [facility] Blood specimen (specimen) UPPER LIMB STRUCTURE / Unknown 03/03/2015 8:55 PM EDT 03/03/2015 9:01 PM EDT Narrative [facility] - 03/03/2015 9:09 PM EDT Discontinue when invasive hemodynamic lines are removed. us Felix Mcbride MD CHEMISTRY ORDERABLES Final R esult Performing Organization Address [facility] Co de Phone Number [facility] [address] [place] [address] * (ABNORMAL) GLUCOSE METER POC (03/03/2015 7:45 PM EDT) [facility] Glucose Meter POC 151(H) 70 - 100 mg/dL [facility] Blood specimen (specimen) 03/03/2015 7:45 PM EDT 03/03/2015 7:45 PM EDT us River Vera MD POINT OF CARE TEST ORDERABLES F inal Result Performing Organization Address [facility] de Phone Number [facility] [address] [place] [address] * (ABNORMAL) BLOOD GAS ARTERIAL (03/03/2015 7:45 PM EDT) [facility] pH 7.350(L) 7.370 - 7.440 [facility] pCO2 39 32 - 45 mmHg [facility] pO2 75(L) 80 - 95 mmHg [facility] HCO3 22 20 - 29 mmol/L [facility] TCO2 23 21 - 30 mmol/L [facility] Base Excess -3.8(L) -2.8 - 2.3 mEq/L [facility] O2 Sat 96 95 - 97 % [facility] Inspired O2 40% [facility] Specimen Type Arterial [facility] Blood specimen (specimen) UPPER LIMB STRUCTURE / Unknown 03/03/2015 7:45 PM EDT 03/03/2015 7:51 PM EDT Felix Mcbride MD CHEMISTRY ORDERABLES Final R esult Performing Organization Address [facility] Co de Phone Number [facility] [address] [place] [address] * (ABNORMAL) BLOOD GAS ARTERIAL (03/03/2015 6:11 PM EDT) pH 7.350(L) 7.370 - 7.440 [facility] pCO2 39 32 - 45 mmHg [facility] pO2 83 80 - 95 mmHg [facility] HCO3 22 20 - 29 mmol/L [facility] TCO2 23 21 - 30 mmol/L [facility] Base Excess -3.8(L) -2.8 - 2.3 mEq/L [facility] O2 Sat 97 95 - 97 % [facility] Inspired O2 40% [facility] Specimen Type Arterial [facility] Blood specimen (specimen) UPPER LIMB STRUCTURE / Unknown 03/03/2015 6:11 PM EDT 03/03/2015 6:20 PM EDT us Felix Mcbride MD CHEMISTRY ORDERABLES Final R esult Performing Organization Address [facility] Co de Phone Number [facility] [address] [place] [address] * (ABNORMAL) GLUCOSE METER POC (03/03/2015 6:09 PM EDT) Glucose Meter POC 155(H) 70 - 100 mg/dL [facility] Blood specimen (specimen) 03/03/2015 6:09 PM EDT 03/03/2015 6:09 PM EDT River Vera MD POINT OF CARE TEST ORDERABLES F inal Result Performing Organization Address [facility] Co de Phone Number [facility] [address] [place] [address] * (ABNORMAL) GLUCOSE METER POC (03/03/2015 4:56 PM EDT) Glucose Meter POC 159(H) 70 - 100 mg/dL [facility] Blood specimen (specimen) 03/03/2015 4:56 PM EDT 03/03/2015 4:56 PM EDT us River Vera MD POINT OF CARE TEST ORDERABLES F inal Result Performing Organization Address [facility] Co de Phone Number [facility] [address] [place] [address] * (ABNORMAL) BLOOD GAS ARTERIAL (03/03/2015 4:55 PM EDT) pH 7.390 7.370 - 7.440 [facility] pCO2 36 32 - 45 mmHg [facility] pO2 96(H) 80 - 95 mmHg [facility] HCO3 22 20 - 29 mmol/L [facility] TCO2 23 21 - 30 mmol/L [facility] Base Excess -2.6 -2.8 - 2.3 mEq/L [facility] O2 Sat 98(H) 95 - 97 % [facility] Inspired O2 50% [facility] Specimen Type Arterial [facility] Blood specimen (specimen) UPPER LIMB STRUCTURE / Unknown 03/03/2015 4:55 PM EDT 03/03/2015 5:11 PM EDT us Felix Mcbride MD CHEMISTRY ORDERABLES Final R esult Performing Organization Address [facility] de Phone Number [facility] [address] [place] [address] * POTASSIUM WHOLE BLOOD (03/03/2015 4:55 PM EDT) K-WB 3.8 3.5 - 5.0 mEq/L [facility] Blood specimen (specimen) UPPER LIMB STRUCTURE / Unknown 03/03/2015 4:55 PM EDT 03/03/2015 5:13 PM EDT Narrative [facility] - 03/03/2015 5:25 PM EDT Discontinue when invasive hemodynamic lines are removed. us Felix Mcbride MD CHEMISTRY ORDERABLES Final R esult Performing Organization Address [facility] Co de Phone Number [facility] [address] [place] [address] * (ABNORMAL) HEMOGLOBIN AND HEMATOCRIT (03/03/2015 4:55 PM EDT) [facility] Hgb 13.2(L) 13.5 - 17.1 gm/dL [facility] Hct 40.0 38.9 - 51.6 % [facility] Blood specimen (specimen) UPPER LIMB STRUCTURE / Unknown 03/03/2015 4:55 PM EDT 03/03/2015 5:12 PM EDT Narrative [facility] - 03/03/2015 5:21 PM EDT 4 hours after admission to [facility] Felix Mcbride MD HEMATOLOGY ORDERABLES Final Result Performing Organization Address [facility] de Phone Number [facility] [address] [place] [address] * (ABNORMAL) BLOOD GAS ARTERIAL (03/03/2015 3:00 PM EDT) [facility] pH 7.290(L) 7.370 - 7.440 [facility] pCO2 50(H) 32 - 45 mmHg [facility] pO2 70(L) 80 - 95 mmHg [facility] HCO3 24 20 - 29 mmol/L [facility] TCO2 26 21 - 30 mmol/L [facility] Base Excess -3.1(L) -2.8 - 2.3 mEq/L [facility] O2 Sat 94(L) 95 - 97 % [facility] Inspired O2 55% [facility] Specimen Type Arterial [facility] Blood specimen (specimen) UPPER LIMB STRUCTURE / Unknown 03/03/2015 3:00 PM EDT 03/03/2015 3:10 PM EDT Narrative [facility] - 03/03/2015 3:21 PM EDT Obtain 30 mins after extubation Felix Mcbride MD CHEMISTRY ORDERABLES Final R esult Performing Organization Address [facility] Co de Phone Number [facility] [address] [place] [address] * O2 SAT - MIXED VENOUS (03/03/2015 3:00 PM EDT) [facility] O2 Sat - Mixed Venous 64 % [facility] Blood specimen (specimen) UPPER LIMB STRUCTURE / Unknown 03/03/2015 3:00 PM EDT 03/03/2015 3:10 PM EDT Narrative [facility] - 03/03/2015 3:21 PM EDT Mixed venous invivo SVO2 calibration 2 hrs. Post-Op, then q 24 hrs and prn. ?? Discontinue when invasive hemodynamic lines are removed. us Felix Mcbride MD CHEMISTRY ORDERABLES Final R esult Performing Organization Address [facility] Co de Phone Number [facility] [address] [place] [address] * (ABNORMAL) GLUCOSE METER POC (03/03/2015 2:59 PM EDT) [facility] Glucose Meter POC 185(H) 70 - 100 mg/dL [facility] Blood specimen (specimen) 03/03/2015 2:59 PM EDT 03/03/2015 2:59 PM EDT us River Vera MD POINT OF CARE TEST ORDERABLES F inal Result Performing Organization Address [facility] de Phone Number [facility] [address] [place] [address] * XR CHEST AP PORTABLE (03/03/2015 1:57 [...] are 2 mediastinal drains. Right IJ approach Randall-Isamar catheter tip projects over the region of the main pulmonary artery. Heart size and mediastinal contours are not significantly changed given differences in technique. Mild linear opacities in both lungs are greatest in the bases, favoring postoperative atelectasis. Minimal blunting of the lateral costophrenic angles are suspect for small pleural effusions. No pneumothorax identified given technique. Procedure Note Cisco, Arsenio T, MD - 03/03/2015 Portable AP chest dated 03/03/2015 at 1340 hours COMPARISON: 03/02/2015 HISTORY: Postop cardiac surgery FINDINGS: There has been interval sternotomy. Multiple new tubes and lines arenoted. Endotracheal tube projects over the mid trachea. Enteric tube terminatesin the region of the proximal stomach. There are 2 mediastinal drains. Right IJ approach Randall-Isamar catheter tip projects over the region of [...] BLOOD GAS ARTERIAL (03/03/2015 1:35 PM EDT) pH 7.340(L) 7.370 - 7.440 [facility] pCO2 46(H) 32 - 45 mmHg [facility] pO2 72(L) 80 - 95 mmHg [facility] HCO3 25 20 - 29 mmol/L [facility] TCO2 26 21 - 30 mmol/L [facility] Base Excess -1.3 -2.8 - 2.3 mEq/L [facility] O2 Sat 96 95 - 97 % [facility] Inspired O2 50% [facility] Specimen Type Arterial [facility] Blood specimen (specimen) UPPER LIMB STRUCTURE / Unknown 03/03/2015 1:35 PM EDT 03/03/2015 1:35 PM EDT Narrative [facility] - 03/03/2015 1:42 PM EDT On admission to [facility] Felix Mcbride MD CHEMISTRY ORDERABLES Final R esult [facility] [address] [place] [address] * POTASSIUM WHOLE BLOOD (03/03/2015 1:35 PM EDT) [facility] K-WB 4.2 3.5 - 5.0 mEq/L [facility] Blood specimen (specimen) UPPER LIMB STRUCTURE / Unknown 03/03/2015 1:35 PM EDT 03/03/2015 1:35 PM EDT Narrative [facility] - 03/03/2015 1:42 PM EDT On admission to [facility] Felix Mcbride MD CHEMISTRY ORDERABLES Final R esult [facility] [address] [place] [address] * (ABNORMAL) CBC (03/03/2015 1:35 PM EDT) [facility] WBC 14.5(H) 4.0 - 11.0 x10(3)/mcL [facility] RBC 4.47 4.30 - 5.81 x10(6)/mcL [facility] Hgb 12.8(L) 13.5 - 17.1 gm/dL [facility] Hct 39.2 38.9 - 51.6 % [facility] MCV 87.6 82.5 - 99.8 fL [facility] MCH 28.7 27.0 - 34.3 pg [facility] MCHC 32.7 32.1 - 35.3 gm/dL [facility] RDW 13.6 11.5 - 15.0 % [facility] Platelet 115(L) 144 - 423 x10(3)/mcL [facility] MPV 8.6 6.8 - 10.8 fL [facility] Blood specimen (specimen) UPPER LIMB STRUCTURE / Unknown 03/03/2015 1:35 PM EDT 03/03/2015 1:35 PM EDT Narrative [facility] - 03/03/2015 1:54 PM EDT On admission to [facility] Felix Mcbride MD HEMATOLOGY ORDERABLES Final Result [facility] [address] [place] [address] * (ABNORMAL) GLUCOSE METER POC (03/03/2015 1:24 PM EDT) [facility] Glucose Meter POC 137(H) 70 - 100 mg/dL [facility] Blood specimen (specimen) 03/03/2015 1:24 PM EDT 03/03/2015 1:24 PM EDT us River Vera MD POINT OF CARE TEST ORDERABLES F inal Result Performing Organization Address [facility]/ZIP Co de Phone Number [facility] [address] [place] [address] * ACTIVATED CLOTTING TIME POC (03/03/2015 12:22 PM EDT) [facility] ACT+ 125 89 - 169 second(s) [facility] Blood specimen (specimen) 03/03/2015 12:22 PM EDT 03/03/2015 12:22 PM EDT us River Vera MD POINT OF CARE TEST ORDERABLES F inal Result Performing Organization Address [facility] de Phone Number [facility] [address] [place] [address] * (ABNORMAL) POC OPEN HEART PROFILE (03/03/2015 12:22 PM EDT) [facility] pH 7.390 7.370 - 7.440 [facility] pCO2 41 32 - 45 mmHg [facility] pO2 136(H) 80 - 95 mmHg [facility] HCO3 24 20 - 29 mmol/L [facility] TCO2 26 21 - 30 mmol/L [facility] Base Excess -0.7 -2.8 - 2.3 mmol/L [facility] O2 Sat 98(H) 95 - 97 % [facility] Sodium 136 135 - 148 mmol/L [facility] K-WB 4.3 3.5 - 5.3 mmol/L [facility] Calcium Ionized 1.19 1.12 - 1.32 mmol/L [facility] Chloride 109(H) 98 - 108 mmol/L [facility] Glucose Whole Blood 138(H) 72 - 112 mg/dL [facility] Lactic Acid 1.6 1.0 - 1.7 mmol/L [facility] Hgb 10.1(L) 13.5 - 17.1 gm/dL [facility] Hct 30.0(L) 39.0 - 52.0 % [facility] Blood specimen (specimen) 03/03/2015 12:22 PM EDT 03/03/2015 12:22 PM EDT us River Vera MD POINT OF CARE TEST ORDERABLES F inal Result Performing Organization Address [facility] Co de Phone Number [facility] [address] [place] [address] * (ABNORMAL) ACTIVATED CLOTTING TIME POC (03/03/2015 11:59 AM EDT) [facility] ACT+ 401(H) 89 - 169 second(s) [facility] Blood specimen (specimen) 03/03/2015 11:59 AM EDT 03/03/2015 11:59 AM EDT us River Vera MD POINT OF CARE TEST ORDERABLES F inal Result Performing Organization Address [facility] de Phone Number [facility] [address] [place] [address] * (ABNORMAL) POC OPEN HEART PROFILE (03/03/2015 11:58 AM EDT) [facility] pH 7.487(H) 7.370 - 7.440 [facility] pCO2 30(L) 32 - 45 mmHg [facility] pO2 370(H) 80 - 95 mmHg [facility] HCO3 22 20 - 29 mmol/L [facility] TCO2 23 21 - 30 mmol/L [facility] Base Excess -0.6 -2.8 - 2.3 mmol/L [facility] O2 Sat 98(H) 95 - 97 % [facility] Sodium 134(L) 135 - 148 mmol/L [facility] K-WB 5.0 3.5 - 5.3 mmol/L [facility] Calcium Ionized 1.04(L) 1.12 - 1.32 mmol/L [facility] Chloride 107 98 - 108 mmol/L [facility] Glucose Whole Blood 135(H) 72 - 112 mg/dL [facility] Lactic Acid 1.4 1.0 - 1.7 mmol/L [facility] Hgb 8.5(L) 13.5 - 17.1 gm/dL [facility] Hct 25.0(L) 39.0 - 52.0 % [facility] Blood specimen (specimen) 03/03/2015 11:58 AM EDT 03/03/2015 11:58 AM EDT Result Juliano Vera MD POINT OF CARE TEST ORDERABLES F inal Result Performing Organization Address [facility] Co de Phone Number [facility] [address] [place] [address] * (ABNORMAL) ACTIVATED CLOTTING TIME POC (03/03/2015 11:51 AM EDT) ACT+ 410(H) 89 - 169 second(s) [facility] Blood specimen (specimen) 03/03/2015 11:51 AM EDT 03/03/2015 11:51 AM EDT Result Juliano Vera MD POINT OF CARE TEST ORDERABLES F inal Result Performing Organization Address [facility] de Phone Number [facility] [address] [place] [address] * (ABNORMAL) ACTIVATED CLOTTING TIME POC (03/03/2015 11:44 AM EDT) ACT+ 363(H) 89 - 169 second(s) [facility] Blood specimen (specimen) 03/03/2015 11:44 AM EDT 03/03/2015 11:44 AM EDT Result Juliano Vera MD POINT OF CARE TEST ORDERABLES F inal Result Performing Organization Address [facility] Co de Phone Number [facility] [address] [place] [address] * (ABNORMAL) ACTIVATED CLOTTING TIME POC (03/03/2015 11:41 AM EDT) ACT+ 371(H) 89 - 169 second(s) [facility] Blood specimen (specimen) 03/03/2015 11:41 AM EDT 03/03/2015 11:41 AM EDT us River Vera MD POINT OF CARE TEST ORDERABLES F inal Result [facility] [address] [place] [address] * (ABNORMAL) ACTIVATED CLOTTING TIME POC (03/03/2015 11:35 AM EDT) ACT+ 390(H) 89 - 169 second(s) [facility] Blood specimen (specimen) 03/03/2015 11:35 AM EDT 03/03/2015 11:35 AM EDT us River Vera MD POINT OF CARE TEST ORDERABLES F inal Result Performing Organization Address [facility] Co de Phone Number [facility] [address] [place] [address] * (ABNORMAL) ACTIVATED CLOTTING TIME POC (03/03/2015 11:01 AM EDT) Pathologist [facility] ACT+ 486(H) 89 - 169 second(s) [facility] Blood specimen (specimen) 03/03/2015 11:01 AM EDT 03/03/2015 11:01 AM EDT us River Vera MD POINT OF CARE TEST ORDERABLES F inal Result Performing Organization Address [facility] Co de Phone Number [facility] [address] [place] [address] * (ABNORMAL) POC OPEN HEART PROFILE (03/03/2015 10:59 AM EDT) pH 7.483(H) 7.370 - 7.440 [facility] pCO2 33 32 - 45 mmHg [facility] pO2 374(H) 80 - 95 mmHg [facility] HCO3 24 20 - 29 mmol/L [facility] TCO2 25 21 - 30 mmol/L [facility] Base Excess 0.9 -2.8 - 2.3 mmol/L [facility] O2 Sat 99(H) 95 - 97 % [facility] Sodium 134(L) 135 - 148 mmol/L [facility] K-WB 5.2 3.5 - 5.3 mmol/L [facility] Calcium Ionized 1.00(L) 1.12 - 1.32 mmol/L [facility] Chloride 105 98 - 108 mmol/L [facility] Glucose Whole Blood 135(H) 72 - 112 mg/dL [facility] Lactic Acid 1.5 1.0 - 1.7 mmol/L [facility] Hgb 10.6(L) 13.5 - 17.1 gm/dL [facility] Hct 31.0(L) 39.0 - 52.0 % [facility] Blood specimen (specimen) 03/03/2015 10:59 AM EDT 03/03/2015 10:59 AM EDT us River Vera MD POINT OF CARE TEST ORDERABLES F inal Result Performing Organization Address City/[facility]/ZIP Co de Phone Number [facility] [address] [place] [address] * (ABNORMAL) ACTIVATED CLOTTING TIME POC (03/03/2015 10:46 AM EDT) ACT+ 612(H) 89 - 169 second(s) [facility] Blood specimen (specimen) 03/03/2015 10:46 AM EDT 03/03/2015 10:46 AM EDT us River Vera MD POINT OF CARE TEST ORDERABLES F inal Result Performing Organization Address [facility] Co de Phone Number [facility] [address] [place] [address] * (ABNORMAL) ACTIVATED CLOTTING TIME POC (03/03/2015 10:29 AM EDT) ACT+ 542(H) 89 - 169 second(s) [facility] Blood specimen (specimen) 03/03/2015 10:29 AM EDT 03/03/2015 10:29 AM EDT us River Vera MD POINT OF CARE TEST ORDERABLES F inal Result Performing Organization Address City/[facility]/ZIP Co de Phone Number [facility] [address] [place] [address] * (ABNORMAL) POC OPEN HEART PROFILE (03/03/2015 10:27 AM EDT) pH 7.469(H) 7.370 - 7.440 [facility] pCO2 33 32 - 45 mmHg [facility] pO2 319(H) 80 - 95 mmHg [facility] HCO3 23 20 - 29 mmol/L [facility] TCO2 24 21 - 30 mmol/L [facility] Base Excess 0.1 -2.8 - 2.3 mmol/L [facility] O2 Sat 99(H) 95 - 97 % [facility] Sodium 140 135 - 148 mmol/L [facility] K-WB 4.5 3.5 - 5.3 mmol/L [facility] Calcium Ionized 1.03(L) 1.12 - 1.32 mmol/L [facility] Chloride 107 98 - 108 mmol/L [facility] Glucose Whole Blood 127(H) 72 - 112 mg/dL [facility] Lactic Acid 1.3 1.0 - 1.7 mmol/L [facility] Hgb 11.3(L) 13.5 - 17.1 gm/dL [facility] Hct 33.0(L) 39.0 - 52.0 % [facility] Blood specimen (specimen) 03/03/2015 10:27 AM EDT 03/03/2015 10:27 AM EDT us River Vera MD POINT OF CARE TEST ORDERABLES F inal Result [facility] [address] [place] [address] * (ABNORMAL) POC OPEN HEART PROFILE (03/03/2015 10:07 AM EDT) Pathologist [facility] pH 7.359(L) 7.370 - 7.440 [facility] pCO2 45 32 - 45 mmHg [facility] pO2 383(H) 80 - 95 mmHg [facility] HCO3 25 20 - 29 mmol/L [facility] TCO2 26 21 - 30 mmol/L [facility] Base Excess -0.9 -2.8 - 2.3 mmol/L [facility] O2 Sat 99(H) 95 - 97 % [facility] Sodium 136 135 - 148 mmol/L [facility] K-WB 4.3 3.5 - 5.3 mmol/L [facility] Calcium Ionized 0.92(L) 1.12 - 1.32 mmol/L [facility] Chloride 101 98 - 108 mmol/L [facility] Glucose Whole Blood 100 72 - 112 mg/dL [facility] Lactic Acid 0.8(L) 1.0 - 1.7 mmol/L [facility] Hgb 11.9(L) 13.5 - 17.1 gm/dL [facility] Hct 35.0(L) 39.0 - 52.0 % [facility] Blood specimen (specimen) 03/03/2015 10:07 AM EDT 03/03/2015 10:07 AM EDT us River Vera MD POINT OF CARE TEST ORDERABLES F inal Result Performing Organization Address [facility]/ZIP Co de Phone Number [facility] [address] [place] [address] * (ABNORMAL) ACTIVATED CLOTTING TIME POC (03/03/2015 10:03 AM EDT) ACT+ 645(H) 89 - 169 second(s) [facility] Blood specimen (specimen) 03/03/2015 10:03 AM EDT 03/03/2015 10:03 AM EDT us River Vera MD POINT OF CARE TEST ORDERABLES F inal Result Performing Organization Address [facility] Co de Phone Number [facility] [address] [place] [address] * (ABNORMAL) ACTIVATED CLOTTING TIME POC (03/03/2015 9:36 AM EDT) ACT+ 620(H) 89 - 169 second(s) [facility] Blood specimen (specimen) 03/03/2015 9:36 AM EDT 03/03/2015 9:36 AM EDT us River Vera MD POINT OF CARE TEST ORDERABLES F inal Result Performing Organization Address [facility] Co de Phone Number [facility] [address] [place] [address] * ACTIVATED CLOTTING TIME POC (03/03/2015 8:31 AM EDT) ACT+ 118 89 - 169 second(s) [facility] Blood specimen (specimen) 03/03/2015 8:31 AM EDT 03/03/2015 8:31 AM EDT us River Vera MD POINT OF CARE TEST ORDERABLES F inal Result Performing Organization Address [facility] Co de Phone Number [facility] [address] [place] [address] * (ABNORMAL) POC OPEN HEART PROFILE (03/03/2015 8:31 AM EDT) [facility] pH 7.339(L) 7.370 - 7.440 [facility] pCO2 46(H) 32 - 45 mmHg [facility] pO2 372(H) 80 - 95 mmHg [facility] HCO3 24 20 - 29 mmol/L [facility] TCO2 26 21 - 30 mmol/L [facility] Base Excess -1.7 -2.8 - 2.3 mmol/L [facility] O2 Sat 99(H) 95 - 97 % [facility] Sodium 136 135 - 148 mmol/L [facility] K-WB 4.0 3.5 - 5.3 mmol/L [facility] Calcium Ionized 0.73(C) 1.12 - 1.32 mmol/L [facility] Chloride 106 98 - 108 mmol/L [facility] Glucose Whole Blood 125(H) 72 - 112 mg/dL [facility] Lactic Acid 1.4 1.0 - 1.7 mmol/L [facility] Hgb 14.9 13.5 - 17.1 gm/dL [facility] Hct 44.0 39.0 - 52.0 % [facility] Blood specimen (specimen) 03/03/2015 8:31 AM EDT 03/03/2015 8:31 AM EDT us River Vera MD POINT OF CARE TEST ORDERABLES F inal Result Performing Organization Address City/[facility]/ZIP Co de Phone Number [facility] [address] [place] [address] * CROSSMATCH SUMMARY (03/03/2015 7:48 AM EDT) Blood specimen (specimen) 03/03/2015 7:48 AM EDT 03/03/2015 7:48 AM EDT us Felix Mcbride MD BLOOD BANK ORDERABLES Final Result [facility] [address] [place] [address] documented in this encounter Visit Diagnoses Diagnosis Atherosclerosis of [place]re[place] coronary artery without angina pectoris documented in this encounter Administered Medications Inactive Administered Medications - up to 1 most recent administrations Medication Order MAR Action Action Date Dose Rate Site ceFAZolin (ANCEF) 1 g, sodium chloride 0.9 % 500 mL IRRIGATION ONCE PRN, 1 dose, Starting on Sun03/03/15 at 1237, Until Sun03/03/15 at 1237, Intra-op Given 03/03/2015 12:37 PM EDT Cellulose, Oxidized Pads ONCE PRN, 1 dose, Starting on Sun03/03/15 at 1152, Until Sun03/03/15 at 1152, Intra-op Given 03/03/2015 11:52 AM EDT 1 Strip Cellulose, Oxidized Pads ONCE PRN, 1 dose, Starting on Sun03/03/15 at 1236, Until Sun03/03/15 at 1236, Intra-op Given 03/03/2015 12:36 PM EDT 1 Strip electrolyte-A (PLASMALYTE-A) 1,000 mL with heparin (porcine) 10,000 Units IRRIGATION ONCE PRN, 1 dose, Starting on Sun03/03/15 at 0854, Until Sun03/03/15 at 0854, Intra-op Given 03/03/2015 8:54 AM EDT 1,000 mL electrolyte-A (PLASMALYTE-A) 500 mL with heparin (porcine) 1,250 Units, papaverine 60 mg IRRIGATION ONCE PRN, 1 dose, Starting on Sun03/03/15 at 0855, Until Sun03/03/15 at 0855, Intra-op Given 03/03/2015 8:55 AM EDT 500 mL lactated ringers irrigation solution ONCE PRN, 1 dose, Starting on Sun03/03/15 at 0856, Until Sun03/03/15 at 0856, Intra-op Given 03/03/2015 8:56 AM EDT 1,000 mL sodium chloride 0.9 % irrigation ONCE PRN, 1 dose, Starting on Sun03/03/15 at 0856, Until Sun03/03/15 at 0856, Intra-op Given 03/03/2015 8:56 AM EDT 500 mL documented in this encounter Discontinued Medications [...] RN) 0802 (Given - Provider: Carine Allred, CHACHA) 0850 (Given - Provider: Nicolette Bartlett, CHACHA) atorvastatin (LIPITOR) tablet 40 mg (CANCELED) 40 mg, Oral, NIGHTLY, First dose on Sun03/05/15 at 2100, Until Discontinued 2135 (Given - Provider: Sakina Flanagan RN) 2017 (Given - Provider: China Lin, CHACHA) docusate sodium (COLACE) capsule 100 mg (CANCELED) 100 mg, Oral, 2 TIMES DAILY, First dose on Sun03/05/15 at 0900, Until Discontinued, Do not crush or chew. 1023 (Given - Provider: Anupam Vargas RN)6 (Given - Provider: Sakina Flanagan RN) 08 (Given - Provider: Carine Allred, CHACHA)2017 (Given - Provider: China Lin, CHACHA) 0851 (Given - Provider: Nicolette Bartlett, CHACHA) lactulose (CHRONULAC) 20 gram/30 mL solution 20 [...] < 65 1019 (Given - Provider: Carine Allred RN) metoprolol (LOPRESSOR) tablet 50 mg 50 mg, Oral, 3 TIMES DAILY, First dose (after last modification) on Sun03/08/15 at 2100, Until Discontinued, Begin with lowest dose unless otherwise directed. Hold if SBP < 110 or HR < 65 2018 (Given - Provider: China Lin RN) 0632 (Given - Provider: Carine Walker RN) pantoprazole (PROTONIX) tablet 40 mg 40 mg, Oral, DAILY, First dose on Sun03/05/15 at 0900, Until Discontinued, Do not crush or chew 1024 (Given - Provider: Anupam Vargas RN) 0802 (Given - Provider: Carine Allred, CHACHA) 0850 (Given - Provider: Nicolette Bartlett, RN) potassium chloride IVPB (CENTRAL LINE) 10 [...] CHACHA)2018 (Given - Provider: China Lin, CHACHA) 0851 (Given - Provider: Nicolette Bartlett, CHACHA) sodium chloride 0.9% syringe 3 mL (CANCELED) [...] Allred, CHACHA)2200 (Canceled Entry - Provider: China Lin, CHACHA) 0600 (Due) sodium chloride 0.9% syringe 5 [...] met) 0000 (Not Given - Provider: Sakina Flanagan RN - Reason: Loss of IV access) PRN Medication Order 03/07/2015 03/08/2015 03/09/2015 acetaminophen (TYLENOL) tablet 325-650 mg (CANCELED) 325-650 mg, Oral, EVERY 4 HOURS PRN, Starting on Sun03/05/15 at 0853, Until Sun03/09/15 at 1354, Pain, Fever, Maximum adult dose of acetaminophen is 4000 mg from all sources in 24 hours. 0006 (Given - Provider: Sakina Flanagan RN)0806 (Given - Provider: Carine Allred RN) enalapril (VASOTEC) tablet 2.5 mg (CANCELED) 2.5 mg, Oral, EVERY 6 HOURS PRN, Starting on Sun03/05/15 at 0853, Until Sun03/09/15 at 1354, Elevated blood pressure, If Creatinine < 1.2. Start with lowest dose unless otherwise directed. Hold if SBP < 110 1241 (Given - Provider: Anupam Vargas RN) HYDROcodone-acetaminophe n (NORCO) 5-325 mg per tablet 1-2 Tab 1-2 Tablet, Oral, EVERY 3 HOURS PRN, Starting on Sun03/05/15 at 1555, Until Sun03/09/15 at 1354, Pain, Maximum adult dose of acetaminophen is 4000 mg from all sources in 24 hours. 0102 (Given - Provider: Sakina Flanagan RN)1313 (Given - Provider: Anupam Vargas RN)1814 (Given - Provider: Anupam Vargas RN) 0452 (Given - Provider: Sakina Flanagan RN)1227 (Given - Provider: Carine Allred CHACHA)1615 (Given - Provider: Carine Allred, RN)2018 (Given - Provider: China Lin, CHACHA) 0925 (Given - Provider: Nicolette Bartlett RN) ketorolac (TORADOL) injection 15 mg (CANCELED) 15 mg, Intravenous, EVERY 6 HOURS PRN, 6 doses, Starting on Sun03/03/15 at 1303, Until Sun03/09/15 at 1354, Breakthrough Pain, Hold for SCr greater than 1.2, excessive bleeding, or if ibuprofen given in last 6 hours., Post-op 0105 (Given - Provider: Sakina Flanagan, CHACHA) ondansetron (ZOFRAN) 4 mg/2 mL injection 4 [...] Sun03/13/15 at 0800, Prednisone taper panel: Days -9 - 15 mg daily x 4 days Followed by predniSONE (DELTASONE) tablet 10 mg (CANCELED) 10 mg, Oral, DAILY WITH MEAL, 4 doses, First dose on Sun03/14/15 at 0800, Last dose on Sun03/17/15 at 0800, Prednisone taper panel: Days - - 10 mg daily x 4 days Followed by predniSONE (DELTASONE) tablet 5 mg (CANCELED) 5 mg, Oral, DAILY WITH MEAL, 5 doses, First dose on Sun03/18/15 at 0800, Last dose on Sun03/22/15 at 0800, Prednisone taper panel: Days 14-18 - 5 mg daily x 5 days documented in this encounter Orders Medications Ordered That Elvin ht Not Have Been Administered Count Last Ordered Date First Ordered Date lisinopril (PRINIVIL;ZESTril) tablet 5 mg 2 03/09/2015 lactulose (CHRONULAC) 20 gra /30 mL solution 20 g 1 03/08/2015 metoprolol (LOPRESSOR) tablet 50 mg 2 03/08 metoprolol (LOPRESSOR) tablet 25 mg 2 03/0703/03/2015 potassium chloride IVPB (TIFFANIE TRAL LINE) 10 mEq 4 03/07/2015 03/03/2015 acetaminophen (TYLENOL) tablet 325-650 mg 1 03/05/2015 albuterol (PROVENTIL HFA; VE NTOLIN HFA) INHALER 2-4 Puff 1 03/05/2015 aluminum & magnesium hydroxi de-simethicone 200-200-20 mg/5 mL suspension 15 mL 1 03/05/2015 aspirin chewable tablet 81 mg 3 03/05/2015 03/03/2015 atorvastatin (LIPITOR) tablet 40 mg 1 03/05 atropine injection 0.5 mg 1 03/05/2015 dextrose 50 % (D50W) solution 25 mL 2 03/0503/03/2015 digoxin (LANOXIN) injection 250 mcg 2 03/0503/03/2015 docusate sodium (COLACE) capsule 100 mg 2 0 03/05/2015 03/03/2015 enalapril (VASOTEC) tablet 2.5 mg 1 015 fUROsemide (LASix) injection 40 mg 2 201403/03/2015 glucagon (human recombinant) (GLUCAGEN) injection 1 mg 1 03/05/2015 HYDROcodone-acetaminophen (N ORCO) 5-325 mg per tablet 1-2 Tab 1 03/05/2015 insulin aspart (NovoLOG) inj ection 1-5 Units 1 03/05/2015 metoclopramide HCl (REGLAN) injection 10 mg 1 03/05/2015 metoprolol (LOPRESSOR) tablet 12.5 mg 3 03/03/2015 metoprolol (LOPRESSOR) tablet 12.5-25 mg 2 03/05/2015 03/03/2015 mupirocin (BACTROBAN) 2 % ointment 3 201403/02/2015 ondansetron (ZOFRAN) 4 mg/2 mL injection 4 mg 2 03/05/2015 03/03/2015 oxyCODONE (ROXICODONE) immed iate release tablet 5-15 mg 1 03/05/2015 pantoprazole (PROTONIX) tablet 40 mg 2 02/0703/03/2015 potassium chloride (K-DUR) tablet 20 mEq 1 03/05/2015 predniSONE (DELTASONE) tablet 10 mg 2 03/05 predniSONE (DELTASONE) tablet 15 mg 1 03/05 predniSONE (DELTASONE) tablet 5 mg 1 2014 senna-docusate (SENOKOT-S) 8 .6-50 mg per tablet 1 Tab 2 03/05/2015 03/03/2015 sodium chloride 0.9% syringe 1 03/05/2015 temazepam (RESTORIL) capsule 15 mg 2 201403/03/2015 albuterol (PROVENTIL HFA; VE NTOLIN HFA) INHALER 2 Puff 1 03/04/2015 albuterol (PROVENTIL) nebuli zer solution 2.5 mg 3 03/04/2015 0.9 % NaCl infusion 2 03/03/2015 albumin human 5 % bottle 25 g 1 03/03/2015 aluminum & magnesium hydroxi de-simethicone 200-200-20 mg/5 mL suspension 30 mL 1 03/03/2015 calcium chloride 100 mg/mL ( 10 %) injection 1 g 1 03/03/2015 ceFAZolin (ANCEF) IVPB 1 g 1 03/03/2015 dexamethasone (DECADRON) injection 4 mg 1 0 03/03/2015 dextrose 5% infusion 1 03/03/2015 dextrose 50 % (D50W) solution 50 mL 1 03/03 DOBUTamine (DOBUTREX) in D5W 500 mg/250 mL (2000 mcg/mL) iv 1 03/03/2015 DOPamine in D5W 400 mg/250 m L (1600 mcg/ml) iv 1 03/03/2015 enalapril (VASOTEC) tablet 2.5-5 mg 1 03/03 enalaprilat (VASOTEC) inject ion 1.25-2.5 mg 1 03/03/2015 insulin regular (HumuLIN R,N ovoLIN R) 100 Units in sodium chloride 0.9 % 100 mL infusion 2 03/03/2015 03/02/2015 ketorolac (TORADOL) injection 15 mg 1 03/03 lactated ringers infusion 1 03/03/2015 LORazepam (ATIVAN) injection 0.5-1 mg 1 LORazepam (ATIVAN) tablet 0.5-1 mg 2 2014 meperidine (DEMEROL) 25 mg/m L injection (PF) 12.5-25 mg 1 03/03/2015 midazolam (VERSED) injection 1-2 mg 2 03/0303/02/2015 morphine injection 2 mg 1 03/03/2015 morphine injection 4 mg 1 03/03/2015 nitroGLYCERIN (NITROSTAT) SL tablet 0.4 mg 1 03/03/2015 nitroPRUSSide (NIPRIDE) 50 m g in dextrose 5% 250 mL infusion 2 03/03/2015 03/02/2015 oxyCODONE-acetaminophen (PER COCET) 10-325 mg per tablet 1 Tab 1 03/03/2015 pantoprazole (PROTONIX) injection 40 mg 1 0 03/03/2015 phenylephrine (STAN-SYNEPHRIN E) 40 mg in dextrose 5% 250 mL infusion 1 03/03/2015 potassium chloride IVPB (TIFFANIE TRAL LINE) 20 mEq 3 03/03/2015 propofol (DIPRIVAN) infusion 10 mg/mL 1 sodium bicarbonate 8.4 % (1 mEq/mL) injection 50 mEq 1 03/03/2015 sodium chloride 0.9% syringe 3 mL 1 015 sodium chloride 0.9% syringe 5 mL 1 015 sterile water injection 10 mL 1 03/03/2015 temazepam (RESTORIL) capsule 15-30 mg 1 vecuronium (NORCURON) injection 3 mg 1 02/07 bisacodyl (DULCOLAX) suppository 10 mg 1 ceFAZolin (ANCEF) 2 g in dex trose 5% 50 mL IVPB 1 03/02/2015 chlorhexidine (HIBICLENS) 4 % liquid 1 02/07 nitroGLYCERIN in D5W 50 mg/2 50 mL (0.2 mg/mL) iv 1 03/02/2015 Nursing Count Last Ordered Date First Orde red Date CONTINUE CASTRO CATHETER 3 03/06/20152 01/2015 ADMISSION 1 03/03/2015 APPLY DRESSING 1 03/03/2015 [facility] VTE PROPH NON-CANDIDATE 1 03/03/2015 NURSING COMMUNICATION [...] 03/03/2015 documented in this encounter Care Teams Self Storage Manager Relationship Specialty Start Date End Date Vanessa Dash ARNP [address] [place] [address] [address] [place] [id number] PCP - General Nurse Practitioner-Family 01/28/15 documented as of this encounter
--- OUTSIDE RECORDS SUMMARY | 2024-05-21 08:42 | XMS_ITS | Encounter Summary ---
Author Organization [facility] Address [facility] [place] [address] Care Team Providers Care Hourly Caregiver Name Role Phone Vanessa Dash ERIKA Primary Care Provider [phone] Reason for Visit * Auth/Cert/Inpt - Closed Specialty Diagnoses / Procedures Referred By Contac t Referred To Contact Diagnoses Atherosclerosis of [place] coronary artery without angina pectoris Atherosclerosis of [place] coronary artery without angina pectoris Procedures CORONARY ARTERY BYPASS GRAFT Referral ID Status Reason Start Date Expiration Date Visits Re quested Visits Authorized [id number] Closed 1 1 Encounter Details Date Type Department Care Team (Latest Contact Info) Description 03/02/2015 2:21 PM EDT - 03/02/2015 11:59 PM EDT Hospital Encounter [facility] D-WING XRAY [facility] [place] [address] Amanda Chaidez APRN Discharge Disposition: Home or Self Care Social [...] Name Priority Date/Time Associated Diagnosis Comments XR CHEST PA AND LATERAL NOAM 03/02/2015 2:30 PM EDT documented in this encounter Results * XR CHEST PA AND LATERAL (03/02/2015 2:30 PM EDT) Anatomical Region Laterality Modality Chest Radiographic Suzy ging 03/02/2015 1:42 PM EDT Impressions 03/02/2015 4:43 PM EDT IMPRESSION: No acute chest process. Narrative 03/02/2015 4:43 PM EDT TWO VIEWS OF THE CHEST 03/02/2015 HISTORY: Chest pain. COMPARISON: None. FINDINGS: The heart is normal in size. ??The lungs are clear of infiltrate. ??The costophrenic angles are within normal limits. ??There is no pleural effusion. ??No pneumothorax. ?? Procedure Note Jagdeep Burns MD - 03/02/2015 TWO VIEWS OF THE CHEST 03/02/2015 HISTORY: Chest pain. COMPARISON: None. FINDINGS: The heart is normal in size. The lungs are clear of infiltrate.The costophrenic angles are within normal limits. There is no pleuraleffusion. No pneumothorax. IMPRESSION: No acute chest process. Amanda Chaidez APRN IMG DIAGNOSTIC IMAG ING ORDERABLES Final Result documented in this encounter Visit Diagnoses Not on filedocumented in this encounter Care Teams Hourly Caregiver Relationship Specialty Start Date End Date Vanessa Dash ARNP [address] [place] [address] [address] [facility] [address] PCP - General Nurse Practitioner-Family 01/28/15 documented as of this encounter
--- OUTSIDE RECORDS SUMMARY | 2024-05-21 08:42 | XMS_ITS | Encounter Summary ---
Author Organization [place] [address] Care Team Providers Care Gift Basket Packer Name Role Phone Vanessa Dash ERIKA Primary Care Provider [phone] Reason for Referral * Vascular Imaging (Emergency) - Closed Specialty Diagnoses / Procedures Referred By Contac t Referred To Contact Radiology Diagnoses Bruit Procedures LA US CAROTID DUPLEX BILATERAL Felix Mcbride MD Referral ID Status Reason Start Date Expiration Date Visits Re quested Visits Authorized [id number] Closed 03/02/2015 03/01/2016 1 1 Encounter Details Date Type Department Care Team (Late st Contact Info) Description 03/02/2015 Orders Only [facility] Cardiac Surgeons [address] [place] [address] Felix Mcbride MD Bruit (Primary Dx) Social History Tobacco Use Types [...] documented as of this encounter Results * LA US CAROTID DUPLEX BILATERAL (03/02/2015 4:12 PM EDT) [...] Bilateral antegrade vertebral flow. Emilio Alberto MD us Felix Mcbride MD IMG VASCULAR ORDERABLES Rae l Result documented in this encounter Visit Diagnoses Diagnosis Bruit- Primary Other symptoms involving cardiovascular system Bruit Other symptoms involving cardiovascular system documented in this encounter Care Teams Gift Basket Packer Relationship Specialty Start Date End Date Vanessa Dash ARNP [address] [place] [address] [address] [place] [address] PCP - General Nurse Practitioner-Family 01/28/15 documented as of this encounter
--- OUTSIDE RECORDS SUMMARY | 2024-05-21 08:43 | XMS_ITS | Encounter Summary ---
Author [place] [address] Care Team Providers Care Senior Technical Architect Name Role Phone Yuliana Dashrubio JAMES Primary Care Provider [phone] Encounter Details Date Type Department Care Team (Latest Contact Info) Description 02/08/2015 3:58 PM EDT - 02/08/2015 11:59 PM EDT Hospital Encounter [facility] LAB[facility] [place] [address] Abnormal stress test; QUINONEZ (dyspnea on exertion); Hyperlipidemia; Family history of premature CAD; Essential hypertension Discharge Disposition: Home or Self Care Social History Tobacco Use Types Packs/Day Years Used Date Smoking Tobacco: Former Cigarettes Q uit: 02/08/2007 Alcohol Use Standard Drinks/Week Comments No 0 (1 standard drink = 0.6 oz pur e alcohol) Sex and Gender Information Value Date Recorded [...] 20 mg by mouth daily. 03/08/2015 metoprolol succinate (TOPROL-XL) 25 mg Oral Tablet Sustained Release 24 hr Take 1 Tab by mouth daily. 30 Tab 4 02/08/2015 03/08/2015 documented as of this encounter Discharge Disposition Disposition Code Departure Means Destination Home or Self Care documented in this encounter Plan of Treatment Scheduled Orders Name Type Priority Associated Diagnoses Orde r Schedule OP VENIPUNCTURE CHARGE Lab Timed Abnormal stress test QUINONEZ (dyspnea on exertion) Hyperlipidemia Family history of premature CAD Essential hypertension One Time for 1 Occurrences starting 02/08/2015 until 02/08/2015 documented as of this encounter Procedures Procedure Name Priority Date/Time Associated Diagnosis Comments CBC Routine 02/08/2015 4:07 PM EDT Abnormal stress test QUINONEZ (dyspnea on exertion) Hyperlipidemia Family history of premature CAD Essential hypertension BASIC METABOLIC PANEL Routine 02/08/2015 4:07 PM EDT Abnormal stress test QUINONEZ (dyspnea on exertion) Hyperlipidemia Family history of premature CAD Essential hypertension documented in this encounter Results * CBC (02/08/2015 4:07 PM EDT) WBC 8.3 4.0 - 11.0 x10(3)/mcL [facility] RBC 5.48 4.30 - 5.81 x10(6)/mcL [facility] Hgb 15.4 13.5 - 17.1 gm/dL [facility] Hct 47.8 38.9 - 51.6 % [facility] MCV 87.3 82.5 - 99.8 fL [facility] MCH 28.2 27.0 - 34.3 pg [facility] MCHC 32.3 32.1 - 35.3 gm/dL [facility] RDW 13.9 11.5 - 15.0 % [facility] Platelet 240 144 - 423 x10(3)/mcL [facility] MPV 8.6 6.8 - 10.8 fL [facility] Blood specimen (specimen) UPPER LIMB STRUCTURE / Unknown 02/08/2015 4:07 PM EDT 02/08/2015 4:07 PM EDT us Ulises Alberto MD HEMATOLOGY ORDERABLES Final Re sult [facility] [address] [place] [address] * (ABNORMAL) BASIC METABOLIC PANEL (02/08/2015 4:07 PM EDT) Sodium 146(H) 136 - 145 mmol/L [facility] Potassium 3.8 3.5 - 5.0 mmol/L [facility] Chloride 104 98 - 107 mmol/L [facility] Total CO2 28 22 - 29 mmol/L [facility] Anion Gap 14 7 - 16 mmol/L [facility] Calcium 9.7 8.8 - 10.2 mg/dL [facility] Glucose Lvl 86 82 - 100 mg/dL [facility] BUN 10 8 - 23 mg/dL [facility] Creatinine 1.09 0.67 - 1.30 mg/dL [facility] GFR Afr Am >60 [facility] GFR Non Afr Am >60 [facility] Blood specimen (specimen) UPPER LIMB STRUCTURE / Unknown 02/08/2015 4:07 PM EDT 02/08/2015 4:07 PM EDT us Ulises Alberto MD CHEMISTRY ORDERABLES Edited Re sult - Final [facility] [address] [place] [address] documented in this encounter Visit Diagnoses Diagnosis Abnormal stress test Other nonspecific abnormal cardiovascular system function study QUINONEZ (dyspnea on exertion) Other dyspnea and respiratory abnormality Hyperlipidemia Other and unspecified hyperlipidemia Family history of premature CAD Family history of ischemic heart disease Essential hypertension Unspecified essential hypertension documented in this encounter Care Teams Senior Technical Architect Relationship Specialty Start Date End Date Vanessa Dash ARNP [address] [place] [address] [address] [place] [address] PCP - General Nurse Practitioner-Family 01/28/15 documented as of this encounter
--- OUTSIDE RECORDS SUMMARY | 2024-05-21 08:43 | XMS_ITS | Encounter Summary ---
Author Organization [place] [address] Care Team Providers Care Secy Name Role Phone Vanessa Dash ERIKA Primary Care Provider [phone] Reason for Visit * Auth/Cert/Inpt - Closed Specialty Diagnoses / Procedures Referred By Contac t Referred To Contact Diagnoses Other nonspecific abnormal cardiovascular system function study Shortness of breath Other nonspecific abnormal cardiovascular system function study Shortness of breath Procedures [facility] (11:00) Referral ID Status Reason Start Date Expiration Date Visits Re quested Visits Authorized [id number] Closed 1 1 Encounter Details Date Type Department Care Team (Late st Contact Info) Description 02/10/2015 1:00 PM EDT - 02/10/2015 2:00 PM EDT Surgery ED[facility] EMBEDDED SOFTWARE ENGINE[facility] [place] [address] Ulises Alberto MD [address] [place] [address] CORONARY ANGIOGRAM / CARDIAC CATHETERIZATION Surgery Details Date/Time Status Location OR Service Patient Class Case Class Case Type Trauma Case? 02/10/2015 1:00 PM Posted EDG CARDIAC EMBEDDED SOFTWARE ENGINEER IMAGING EDG CCL 3 Cardiac Same Day Surgery N/A Panel 1 Procedure LRB Anes Op Region Wound Class Comments CORONARY ANGIOGRAM / CARDIAC CATHETERIZATION N/A None [facility] (11:00) LEFT VENTRICULOGRAM N/A None INTRAVASCULAR DOPPLER VELOCITY N/A None Surgeon Surgeon Role Service Panel Ulises Alberto MD Primary Cardiac 1 Special Needs BETSY CPT; 24334 documented in this encounter Social History Tobacco [...] Sign Reading Time Taken Comments Blood Pressure 121/69 02/10/2015 10:00 PM EDT Pulse 58 02/10/2015 10:00 PM EDT Temperature 36.7 ??C (98 ??F) 02/10/2015 7:53 PM EDT Respiratory Rate 14 02/10/2015 7:53 PM EDT Oxygen Saturation 94% 02/10/2015 7:53 PM EDT Inhaled Oxygen Concentration - - Weight 92.6 kg (204 lb 1 oz) 02/10/2015 10:50 AM EDT Height 172.7 cm (5' 8 ) 02/10/2015 10:50 AM EDT Body Mass Index 31.03 02/10/2015 10:50 AM EDT documented in this encounter Discharge Instructions * Discharge Instructions* Candido Wei RN - 02/10/2015 9:37 PM EDT Discharge instructions for Leg Access cath procedure Review: If d/c the day of procedure - Return to usual diet, low fat, no added salt or as ordered Rest today with the leg accessed kept straight. Limit use of stairs. Do not drive. Leave the bandage in place over the puncture site until next day, then remove bandage, shower and gently cleanse with soap and water. Review : If d/c after the first 24 hours following the procedure - May climb stairs, may drive, you may shower. You may NOT take a bath, swim, or use hot tubs for 5 days. You may NOT do strenuous exercise for 5 days (including golf, bowling, tennis, jogging, sexual relations .... You may NOT do heavy lifting, nothing over 10 pounds for five days Do NOT stop taking aspirin and plavix for any reason without first discussing with your MD What to be concerned about after going home: Excessive pain in the area around site, in the thigh or calf Increase in swelling around site or thigh Loss of color, extreme coldness or numbness of legs or feet Sign of infection - fever, chills, redness at puncture site Bleeding from the puncture site - if this happens immediately lie down flat and apply pressure to the bleeding site with your fingers and have someone call 911 to go to ER IF ANY OF THE ABOVE HAPPEN GO IMMEDIATELY TO THE ER documented in this encounter Medications at Time [...] Code Departure Means Destination Home or Self [facility] documented in this encounter Progress Notes * Candido Wei RN - 02/10/2015 11:52 PM EDT Pt groin still soft. D/C instructions given. Pt verbalized understanding of S/S of bleed and hematoma. Wheelchair called for. * Candido Wei RN - 02/10/2015 11:51 PM EDT 22:45 pt up and ambulated around unit. Ground soft with no S/S of bleed or hematoma. * Macy Ruiz RN - 02/10/2015 6:15 PM EDT Call to Dr. Alberto. Patient C/P back pain and need analgesic to relieve pain. * Macy Ruiz RN - 02/10/2015 5:28 PM EDT 1555 Right femoral sheath removed per hospital protocol. Manual pressure held for 30 minutes. DSD applied. Hemostasis obtained at 1625 1630 Dressing saturated with blood. Hematoma approx 4X2 cm noted. Manual pressure held for 15 minutes. Hematoma resolved. No bleeding, slight ecchymosis noted. DSD reapplied. Instructed patient on bedrest for 6 hours with same activity restrictions. Verbalizes understanding. * Macy Ruiz RN - 02/10/2015 5:25 PM EDT 1535 Received from CCR. Oriented to unit. Right femoral sheath intact, no bleeding, no hematoma. Denies chest pain. Skin assessment completed with Pedro Luis Powell RN, no open or red areas noted. Instructedon bedrest with right leg straight and head on pillow. Verbalizes understanding. SB on monitor [id number]. documented in this encounter H&P Notes * Ulises Alberto MD - 02/10/2015 12:55 PM EDT PHYSICIAN IMMEDIATE PRE-PROCEDURE UPDATE H&P and SEDATION ASSESSMENT Risks, benefits, potential complications and alternatives have been discussed with patient and/or patient's legal authorized bilingual call center representative. HISTORY AND PHYSICAL H&P is completed and reviewed; progress notes reflect changes in patient condition. SEDATION ASSESSMENT The patient's immediate pre-procedure physical assessment indicates the patient is a suitable candidate for and agrees to the planned sedation: Moderate sedation Patient has been NPO for a sufficient period of time to allow for gastric emptying. Date of last liquid consumption: 02/09/15 Date of last solid food consumption: 02/09/15 Comment: Patient has no previous adverse experience to anesthesia. Comment: Vital Signs: Temp: 97.3 ??F (36.3 ??C) Heart Rate: 71 Resp: 17 BP: 159/84 mmHg SpO2: 97 % Comment: Patient's pain has been assessed and based on patient report consideration has been given as to howit might alter the patient's sedation plan. Comment: Patient's airway has been assessed and consideration has been given as to how it might alter the patient's response to sedation. Mallampati Score: II (soft palate, uvula, fauces visible) Cath PCI Bleeding Risk Score Radial Drill Press Set Up Operator; <=25 mild, 26-65 mod, >65 high: 30 Height: 5' 8 (172.7 cm) Weight: 204 lb 1 oz (92.562 kg) BMI (Calculated): 31.1 Comment: No Known Allergies Source Note - Ulises Alberto MD - 02/08/2015 3:42 PM EDT CHIEF COMPLAINT Chief Complaint Patient presents with ??? Abnormal Stress Test Referred by Dr Damian for Abn Gxt , c/o increase SOB ??? Fatigue ??? Shortness of Breath SUBJECTIVE Josh Ford is a 60 y.o. male who is being seen in consultation for abnormal stress test as requested by Dr. Damian HPI 60 year old male presents with extreme fatigue and QUINONEZ. He has multiple strong risk factors forCAD. All males in family with CAD with revascularization or in 50s. He is prior smoker and prior drinker. Monotherapy for HTN and Hyperlipidemia. No true anginal chest pain, palpitations, CHF sxs, or syncope. GXT nuclear showed fixed inferior perfusion defect, but abnormal EKG response suggestive of ischemia. No bleeding, prior TIA, CVA, or cladication MEDICATIONS Current Outpatient Rx Name Route Sig Dispense Refill ??? lisinopril (PRINIVIL;ZESTRIL) 20 mg Oral Tablet Oral Take 20 mg by mouth daily. ??? simvastatin (ZOCOR) 40 mg Oral Tablet Oral Take 40 mg by mouth daily. ??? aspirin 81 mg Oral Tablet, Chewable Oral Take 81 mg by mouth daily. ??? metoprolol succinate (TOPROL-XL) 25 mg Oral Tablet Sustained Release 24 hr Oral Take 1 Tab by mouth daily. 30 Tab 4 ALLERGIES No Known Allergies PAST MEDICAL HISTORY Past Medical History Diagnosis Date ??? Hyperlipidemia ??? Hypertension ??? Family history of other cardiovascular diseases(V17.49) SOCIAL HISTORY History Social History ??? Marital Status: Spouse Name: N/A Number of Children: N/A ??? Years of Education: N/A Occupational History ??? Not on file. Social History Main Topics ??? Smoking status: Former Smoker Quit date: 02/08/2007 ??? Smokeless tobacco: Not on file ??? Alcohol Use: No ??? Drug Use: No ??? Sexual Activity: Not on file Other Topics Concern ??? Not on file Social History Narrative ??? No narrative on file FAMILY HISTORY Family History Problem Relation Age of Onset ??? Hypertension Mother ??? Heart Attack Father ??? Heart Surgery Brother ??? Heart Attack Paternal Grandfather ??? Heart Attack Brother ??? High Cholesterol Brother ??? Hypertension Brother REVIEW OF SYSTEMS No fever, chills, weight change, bleeding, abdominal, respiratory, or neurologic complaints. Other systems were reviewed and were negative. PHYSICAL EXAM Vital Signs: BP 130/86 mmHg Pulse 82 Ht 5' 8 (1.727 m) Wt 207 lb (93.895 kg) BMI 31.48 kg/m2 Constitutional: Well developed, well nourished, no acute distress, non-toxic appearance, Alert and oriented X 3 HEENT: NCAT EOMI PERRLA Mucous membranes moist, no xanthelasmas NECK: Supple, no lymphadenopathy, JVP nl, no bruit, thyroid nonpalpable Respiratory: clear Cardiovascular: S4 + 1/6 systolic murmur Abdominal: Soft, nondistended, normal bowel sounds, nontender, no organomegaly, no mass, Extremities: no edema, clubbing, or cyanosis,.No erythema Back: No tenderness Pulses: 2+ and symmetric Neurologic: Alert & oriented x 3, normal motor function, no focal deficits noted. Cranial nerves intact Mood and affect appropriate EKG No results found for this visit on 02/08/15. ECHO none STRESS TEST: As above CARDIAC CATH: pending Recent pertinent laboratory findings were reviewed IMPRESSION 1. Abnormal stress test 2. QUINONEZ (dyspnea on exertion) 3. Hyperlipidemia 4. Family history of premature CAD 5. Essential hypertension RECOMMENDATION/PLAN BASA and beta ann added Cardiac cath has been recommended The risks, benefits, and alternatives to the planned procedure were discussed, and He agrees to proceed as planned. Additional plans based on the findings of cardiac cath Thank you for allowing me to see Josh Ford in cardiovascular consultation. Please do not hesitate to contact me if you have any questions or concerns. No Follow-up on file. This chart was completed using voice recognition technology and may contain unintended errors documented in this encounter Plan of Treatment Scheduled Orders Name Type Priority Associated Diagnoses Orde r Schedule IP CONSULT TO CARDIOTHORACIC SURGERY Consult Routine One Time for 1 Occurrences starting 02/10/2015 until 02/10/2015 documented as of this encounter Procedures Procedure Name Priority Date/Time Associated Diagnosis Comments SCANNED RHYTHM STRIPS 02/17/2015 6:39 PM EDT ACTIVATED CLOTTING TIME + POC Routine 02/10/2015 3:40 PM EDT ACTIVATED CLOTTING TIME + POC Routine 02/10/2015 2:34 PM EDT CARDIAC PROCEDURE Routine 02/10/2015 1:4 3 PM EDT Other nonspecific abnormal cardiovascular system function study Shortness of breath LEFT VENTRICULOGRAM Routine 02/10/2015 1 :43 PM EDT Other nonspecific abnormal cardiovascular system function study Shortness of breath CARDIAC PROCEDURE Routine 02/10/2015 1:4 3 PM EDT Other nonspecific abnormal cardiovascular system function study Shortness of breath ACTIVATED CLOTTING TIME + POC Routine 02/10/2015 1:26 PM EDT EMBEDDED SOFTWARE ENGINEER HEMODYNAMIC WAVEFORMS Routine 02/10/2015 12:58 PM EDT documented in this encounter Results * SCANNED RHYTHM STRIPS (02/17/2015 6:39 PM EDT) Anatomical Region Laterality Modality Other 02/17/2015 6:39 PM EDT us Unknown Unknown IMG ECG ORDERABLES Final Result * ACTIVATED CLOTTING TIME POC (02/10/2015 3:40 PM EDT) ACT -LR 165 89 - 169 second(s) [facility] Blood specimen (specimen) 02/10/2015 3:40 PM EDT 02/10/2015 3:40 PM EDT us Ulises Alberto MD POINT OF CARE TEST ORDERABLES Final Result Performing Organization Address City/[facility]/ZIP Co de Phone Number [facility] [address] [place] [address] * (ABNORMAL) ACTIVATED CLOTTING TIME POC (02/10/2015 2:34 PM EDT) Pathologist [facility] [place] ACT -LR 187(H) 89 - 169 second(s) [facility] Blood specimen (specimen) 02/10/2015 2:34 PM EDT 02/10/2015 2:34 PM EDT us Ulises Alberto MD POINT OF CARE TEST ORDERABLES Final Result Performing Organization Address [facility] de Phone Number [facility] [address] [place] [address] * CORONARY ANGIOGRAM (COR/LHC/LV GRAM, CARDIAC CATHETERIZATION), LEFT VENTRICULOGRAM, INTRAVASCULAR DOPPLER VELOCITY (02/10/2015 1:43 PM EDT) [facility] Cath EF Quantitative % [facility] Cath EF Estimated 60 % PH [facility] Narrative [facility] - 02/10/2015 1:43 PM EDT 3 Vessel CAD Normal LV Systolic Function CT Surgery Consult for CABG Risk Factor modification Coronary Findings Diagnostic Dominance: Right Left Main: The vessel was visualized by angiography, is moderate in size and is angiographically normal. Left Anterior Descending: The vessel was visualized by angiography and is moderate in size. Mid LAD lesion 70% stenosed. Pressure wire/FFR was performed on the lesion. FFR: 0.73. Maximum hyperemia was achieved through IV adenosine Distal to diagonal branch Left Circumflex: The vessel was visualized by angiography and is moderate in size. Ost Cx lesion 70% stenosed. The lesion is diffuse. Mid Cx lesion 99% stenosed. The lesion is diffuse. Subtotal occlusion Distal vessel fills late in injection Right Coronary Artery: The vessel was visualized by angiography and is moderate in size. Prox RCA lesion 99% stenosed. The lesion is diffuse. Subtotal occlusion wit ipsilateral collateral filling of distal vessel Intervention No interventions have been documented. Left Ventricle The left ventricular size is normal. The left ventricular systolic function is normal. LVEDP /post-A wave : 12 mmHg The ejection fraction is greater than 55% by visual estimate. There are no wall motion abnormalities in the left ventricle. Complication There were no immediate complications Estimated blood loss = blood loss <50 mL Wall Motion The following segments are normal: basal inferior, mid anterior, mid inferior, apical anterior and apical inferior. Other segments could not be evaluated. us Ulises Alberto MD CARDIAC CATH ORDERABLES Final Result Performing Organization Address [facility] de Phone Number [facility] * (ABNORMAL) ACTIVATED CLOTTING TIME POC (02/10/2015 1:26 PM EDT) ACT -LR 252(H) 89 - 169 second(s) [facility] Blood specimen (specimen) 02/10/2015 1:26 PM EDT 02/10/2015 1:26 PM EDT us Ulises Alberto MD POINT OF CARE TEST ORDERABLES Final Result Performing Organization Address [facility] de Phone Number [facility] [address] [place] [address] * EMBEDDED SOFTWARE ENGINEER HEMODYNAMIC WAVEFORMS (02/10/2015 12:58 PM EDT) 02/10/2015 12:5 8 PM EDT us Ulises Alberto MD CARDIAC CATH ORDERABLES Final Result Performing Organization Address [facility] de Phone Number [facility] [address] [place] [address] documented in this encounter Visit Diagnoses Diagnosis Other nonspecific abnormal cardiovascular system function study Shortness of breath Ischemic heart disease Chronic ischemic heart disease, unspecified Abnormal stress test Other nonspecific abnormal cardiovascular system function study Other nonspecific abnormal cardiovascular system function study Shortness of breath Abnormal stress test Other nonspecific abnormal cardiovascular system function study documented in this encounter Administered Medications Inactive Administered Medications - up to 1 most recent administrations Medication Order MAR Action Action Date Dose Rate Site 0.9 % NaCl infusion Intravenous, at 150 mL/hr, CONTINUOUS, Starting on 02/08/15 at 2030, Until Sun02/10/15 at 1520, Start 2 hours prior to procedure at 150 mL/hr. If Sodium Bicarbonate drip to infuse, 0.9% Normal Saline to infuse at Keep Open Rate., Pre-op (Floor Meds) New Bag 02/10/2015 11:04 AM EDT 1,000 mL 150 mL/hr fentaNYL (SUBLIMAZE) 50 mcg/mL injection PRN, Starting on Sun02/10/15 at 1300, Until Sun02/10/15 at 1341, Intra-procedure(Cath) Given 02/10/2015 1:08 PM EDT 100 mcg heparin (porcine) injection PRN, Starting on Sun02/10/15 at 1329, Until Sun02/10/15 at 1341, Intra-procedure(Cath) Given 02/10/2015 1:29 PM EDT 6,000 Units HYDROcodone-acetaminophen (NORCO) 5-325 mg per tablet 1-2 Tab 1-2 Tablet, Oral, EVERY 4 HOURS PRN, Starting on Sun02/10/15 at 1832, Until [place] 02/11/15 at 0853, Pain, Begin with lowest dose unless otherwise directed. Reassess pain in one hour. If pain unrelieved, remainder of dose may be given to patient. Maximum adult dose of acetaminophen is 4000 mg from all sources in 24 hours. Given 02/10/2015 6:55 PM EDT 1 Tablet iopamidol (ISOVUE-370) 76 % injection (LOW) PRN, Starting on Sun02/10/15 at 1335, Until Sun02/10/15 at 1341, Intra-procedure(Cath) Given 02/10/2015 1:35 PM EDT 130 mL midazolam (VERSED) injection PRN, Starting on Sun02/10/15 at 1300, Until Sun02/10/15 at 1341, Intra-procedure(Cath) Given 02/10/2015 1:06 PM EDT 1 mg documented in this encounter Active and Recently Administered Medications Times are shown in EDT. Continuous Medication Order 02/09/2015 02/10/2015 02/11/2015 0.9 % NaCl infusion (CANCELED) Intravenous, at 150 mL/hr, CONTINUOUS, Starting on Sun02/08/15 at 2030, Until Sun02/10/15 at 1520, Start 2 hours prior to procedure at 150 mL/hr. If Sodium Bicarbonate drip to infuse, 0.9% Normal Saline to infuse at Keep Open Rate., Pre-op (Floor Meds) 1104 (New Bag - Provider: Sara Alberto RN) PRN Medication Order 02/09/2015 02/10/2015 02/11/2015 fentaNYL (SUBLIMAZE) 50 mcg/mL injection (CANCELED) PRN, Starting on Sun02/10/15 at 1300, Until Sun02/10/15 at 1341, Intra-procedure(Cath) 1300 (Given - Provider: Chaya Silverio RN)1303 (Given - Provider: Chaya Silverio RN)1308 (Given - Provider: Chaya Silverio RN) heparin (porcine) injection (CANCELED) PRN, Starting on Sun02/10/15 at 1329, Until Sun02/10/15 at 1341, Intra-procedure(Cath) 1329 (Given - Provider: Chaya Silverio RN) HYDROcodone-acetaminophen (NORCO) 5-325 mg per tablet 1-2 Tab (CANCELED) 1-2 Tablet, Oral, EVERY 4 HOURS PRN, Starting on Sun02/10/15 at 1832, Until [place] 02/11/15 at 0853, Pain, Begin with lowest dose unless otherwise directed. Reassess pain in one hour. If pain unrelieved, remainder of dose may be given to patient. Maximum adult dose of acetaminophen is 4000 mg from all sources in 24 hours. 1855 (Given - Provider: Macy Ruiz RN) iopamidol (ISOVUE-370) 76 % injection (LOW) (CANCELED) PRN, Starting on Sun02/10/15 at 1335, Until Sun02/10/15 at 1341, Intra-procedure(Cath) 1335 (Given - Provider: Pinky Alberto MD) midazolam (VERSED) injection (CANCELED) PRN, Starting on Sun02/10/15 at 1300, Until Sun02/10/15 at 1341, Intra-procedure(Cath) 1300 (Given - Provider: Chaya Silverio RN)1304 (Given - Provider: Chaya Silverio RN)1306 (Given - Provider: Chaya Silverio RN) documented in this encounter Orders Medications Ordered That Elvin ht Not Have Been Administered Count Last Ordered Date First Ordered Date 0.9 % NaCl infusion 1 02/10/2015 atropine injection 0.5 mg 1 02/10/2015 dextrose 50 % (D50W) solution 25 g 1 2014 EPINEPHrine injection 1 mg 1 02/10/2015 metoclopramide HCl (REGLAN) injection 10 mg 1 02/10/2015 sodium chloride 0.9% syringe 2 02/10/2015 Nursing Count Last Ordered Date First Orde red Date MISCELLANEOUS NURSING CARE ORDER (SPECIFY) 1 02/10/2015 NURSING COMMUNICATION 2 02/10/2015 REMOVE DRESSING 1 02/10/2015 VITAL SIGNS 2 02/10/2015 Transfer Count Last Ordered Date First Orde red Date BED REQUEST 1 02/10/2015 Discharge Count Last Ordered Date First Orde red Date DISCHARGE PATIENT 1 02/10/2015 documented in this encounter Care Teams Secy Relationship Specialty Start Date End Date Vanessa Dash ARNP [address] [place] [address] [place] [phone] PCP - General Nurse Practitioner-Family 01/28/15 documented as of this encounter
--- OUTSIDE RECORDS SUMMARY | 2024-05-21 08:43 | XMS_ITS | Encounter Summary ---
Author Organization [place] [address] Care Team Providers Care Box Car Washer Name Role Phone Tylormatt Vanessarubio JAMES Primary Care Provider [phone] Reason for Visit * Stress (Routine) - Closed Specialty Diagnoses / Procedures Referred By Contac t Referred To Contact Radiology Diagnoses Chest discomfort HTN (hypertension) Hyperlipidemia Procedures ST STRESS TEST EXERCISE Anupam Drake MD [facility] [place] [address] [place] [address] Phone: tel: fax: Referral ID Status Reason Start Date Expiration Date Visits Re quested Visits Authorized [id number] Closed 01/04/2015 01/04/2016 1 1 Encounter Details Date Type Department Care Team (Latest Contact Info) Description 01/29/2015 6:57 AM EDT - 01/29/2015 11:59 PM EDT Hospital Encounter Portal Stress Test [facility] [address] [place] [address] Anupam Drake MD [facility] [place] [address] [place] [address] Discharge Disposition: Home or Self Care Social History Tobacco Use Types Packs/Day Years Used Date Smoking Tobacco: Never Assessed Sex and Gender Information Value Date Recorded Sex Assigned at Not on file Legal Sex Male 8:48 PM EDT Gender Identity Not on file Sexual Orientation Not on file documented as of this encounter Discharge Disposition Disposition Code Departure Means Destination Home or Self Care documented in this encounter Plan of Treatment Not on file documented as of this encounter Procedures Procedure Name Priority Date/Time Associated Diagnosis Comments SCANNED RADIOLOGY REPORT 01/29/2015 2:[address] STRESS TEST EXERCISE Routine 01/29/2015 8:49 AM EDT Chest discomfort HTN (hypertension) Hyperlipidemia documented in this encounter Results * SCANNED RADIOLOGY REPORT (01/29/2015 2:36 PM EDT) Anatomical Region Laterality Modality Other 01/29/2015 2:36 PM EDT us Unknown Unknown IMG DIAGNOSTIC IMAGING ORDERABLE S Final Result documented in this encounter Visit Diagnoses Not on filedocumented in this encounter Care Teams Box Car Washer Relationship Specialty Start Date End Date Vanessa Dash ARNP [address] [place] [address] [address] [place] [address] PCP - General Nurse Practitioner-Family 01/28/15 documented as of this encounter
--- OUTSIDE RECORDS SUMMARY | 2024-05-21 08:43 | XMS_ITS | Encounter Summary ---
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 [address] 2, Edg Pat Nurse Preop testing (Primary Dx); Ischemic heart disease; Abnormal stress test Discharge Disposition: Home or Self Care Anesthesia Record Procedure Summary Procedure Name Responsible Anesthesiologist Anesthesia Start Time Anesthesia Stop Time CORONARY ARTERY BYPASS GRAFT Beck Ruiz MD 03/03/15 0802 03/03/15 1318 Events Date [...] acknowledgement of understanding from the receiving PACU/ICU master steam yacht 1318 An Stop Meds * Agents No agents on file. * Blood No blood administrations on file. Lines, Drains, and Airways Type Details Placement Removal Peripheral IV 03/03/15; 0700; 16; Right; Hand; CHACHA Ivey; 2; 03/09/15; 932; Therapy completed; Catheter intact, Dressing applied 03/03/15 07 by Page Mahoney RN 03/09/15932 by Nicolette Bartlett RN Arterial Line 03/03/15; 0730; 20; Brachial; Chlora-prep; Right; 1; N/A; N/A; N/A; Yes; Yes; Yes; Yes; Yes; OLEGARIO LazarA; N 03/03/15729 by Abisai Joyner ARNP Student 03/04/15927 by Lakesha Bell RN [place] Placement Date: 03/03/15; Placement Time: 752; Site Prep: Chlora-prep; Cuff Type: Non-Cuffed Central [...] Used?: N; Removal Date: 03/04/15; Removal Time: 0930; Post Removal: No 03/03/15 075 by Abisai Joyner ARNP Student 03/04/15929 by Lakesha Bell, CHACHA Airway Placement Date: 03/03/15; Placement Time: 0753; Removal Date: 03/03/15; Removal Time: 0803/03/15 0753 by Abisai Joyner ARNP Student 03/03/15 0800 by Judith Olmos RN Introducer 03/03/15; 0753; Internal jugular; Right; 03/07/15; 1030 03/03/15 0753 by Abisai Joyner ARNP Student 03/07/15 1030 by Anupam Vargas RN Airway Device: ETT- Cuffed; Size: 8 mm; Placement Date: 03/03/15; Placement Time: 814; Removal Date: 03/04/15; Removal Time: 13003/03/15 08 by Abisai Joyner ARNP Student 03/04/15 013 by Carine Walker RN Urethral Catheter (Cohn) Placement Date: 03/03/15; Placement Time: 818; Inserted By: Robyn Martinez RN; Type: Temperature probe; Size: 16 fr; Balloon Size: 10 ml; Collection Container: Urimeter; Securement Method: Tape; Urine Returned: Yes (clear, yellow urine); Location: OR; Hand Hygiene Before Insertion: Yes; Silver-Coated Catheter In Use?: Yes; JEAN PAUL Intact?: Yes; Dependant Loop Observed?: Yes; [...] (Comment) (see post op note for location); Annath RN; No complications, Tolerated well, Tube intact, Dressing applied, Lungs clear 03/03/15 1227 by Lexy Dueñas RN 03/05/15 1605 by Carine Sepulveda RN NG/OG Tube 03/03/15; 1308; Nasogastric; Right nostril; Return of Gastric Content 03/03/15 1308 by Abisai Joyner ARNP Student 03/04/15 0125 by Carine Walker [...] file documented as of this encounter Discharge Instructions * Discharge Instructions* Lexy Fajardo RN - 03/02/2015 2:09 PM EDT Pre-Op Instructions Date of Surgery 03/03/15 1. Do not eat any food or drink anything after midnight. This includes chewing gum, mints, candy, chewing tobacco and dip. Water only 4 hrs prior to surgery start time unless instructed by surgeon. 2. You may brush your teeth and gargle the morning of surgery. Do not swallow water. 3. Take the following pills with a small sip of water on the morning of surgery: metoprolol 4. Aspirin, Coumadin, Ibuprofen, Plavix, Fish Oil, Vitamin E, any Supplements and Anti-Inflammatoryproducts may be stopped as directed by your physician. 5. Stop or reduce smoking for 24 hours prior to surgery. No beer, wine or alcohol 24 hours prior tosurgery. 6. You MUST make arrangements for your PARTNER IN CARE or another designated adult (18 years or older) to take you home after surgery. You will not be allowed to be left home alone or drive yourself home. It is required that your PARTNER IN CARE or designated adult stay with you the first 24 hours after your procedure. 7. A parent must accompany a child scheduled for surgery and plan to stay at the hospital until thechild is discharged. If your infant takes a special type of nipple or baby bottle, please bring that with you. If your child has a favorite security item such as a blanket or a special toy, please feel free to bring that with you. 8. Please do not bring children with you to the hospital. 9. Please wear simple, loose fitting clothing to the hospital. Do not bring valuables (money, credit cards, check books, etc.) or wear any jewelry on day of surgery. Remove all body piercings prior to arrival. All jewelry must be removed to avoid injury. We will not tape wedding rings/bands. 10. If you have dentures, they may be removed before going to the OR, we will provide a container for them. If you wear contact lenses or glasses, they will be removed; please bring a case for them. 11. Do not remove hearing aids, you will wear them to surgery. 12. Please shower the night before with the soap provided. Do not wear any makeup (including no eyemakeup) lotion, powder, or deodorant. Nail ukrainian must be removed if ukrainian is on operative extremity. Please do not shave operative extremity or near the operative extremity. 13. If you have a Living Will and Durable Power of Crop Or Grain Farmworker for Healthcare, please bring a copy. 14. Notify your Surgeon if you develop any illness between now and surgery time, cough, cold, fever, sore throat, nausea, vomiting, etc. 15. If you receive a blood bracelet remember to bring it with you on the day of surgery. 16. If your insurance coverage requires a co-payment or deductible, please bring the payment with you. We accept Visa, MasterCard, [employer] and [employer] cards. Our Customer Service Representatives will be available by telephone for any questions regarding financial issues at [phone]. 17. Other none. 18. If you wear CPAP or BIPAP, please bring your mask and the machine settings (not the actual machine) with you to the hospital on the day of your procedure. The hospital will supply a machine to use during your hospital stay. 19. If you wear oxygen, please bring it with you to use during your travel to and from the hospital. Following your admission, the hospital will supply oxygen for your use. I acknowledge receipt of the instructions indicated above. If you have any questions please call the: [facility] [place] at [phone]; [place] SDS: Patient Entrance 3A, take North elevator to 2nd floor documented in this encounter Medications at Time [...] or Self Care documented in this encounter Nursing Notes * Susy Wood - 03/02/2015 1:21 PM EDT H&P in [facility] under notes 02/24 documented in this encounter Plan of Treatment Pending Results Name Type Priority Associated Diagnoses Date /Time PREADMISSION TYPE AND SCREEN Blood Bank Routine Preop testing Ischemic heart disease Abnormal stress test 03/02/2015 4:57 PM EDT documented as of this encounter Procedures Procedure Name Priority Date/Time Associated Diagnosis Comments PREADMISSION TYPE AND SCREEN Routine 03/02/2015 4:57 PM EDT Preop testing Ischemic heart disease Abnormal stress test BLOOD GAS ARTERIAL Routine 03/02/2015 3: 02 PM EDT DIFFERENTIAL Routine 03/02/2015 2:56 PM EDT ABORH Routine 03/02/2015 2:56 PM EDT PT / INR Routine 03/02/2015 2:56 PM EDT CBC WITH DIFF Routine 03/02/2015 2:56 PM EDT ANTIBODY SCREEN IGG Routine 03/02/2015 2 :56 PM EDT HEMOGLOBIN A1C Routine 03/02/2015 2:56 PM EDT BASIC METABOLIC PANEL Routine 03/02/2015 2:56 PM EDT XR CHEST PA AND LATERAL NOAM 03/02/20 15 2:30 PM EDT STAPHYLOCOCCUS AUREUS SCREEN Routine 03/02/2015 2:20 PM EDT URINALYSIS Routine 03/02/2015 2:20 PM EDT documented in this encounter Results * (ABNORMAL) BLOOD GAS ARTERIAL (03/02/2015 3:02 PM EDT) pH 7.410 7.370 - 7.440 [facility] pCO2 41 32 - 45 mmHg [facility] pO2 74(L) 80 - 95 mmHg [facility] HCO3 26 20 - 29 mmol/L [facility] TCO2 27 21 - 30 mmol/L [facility] Base Excess 1.2 -2.8 - 2.3 mEq/L [facility] O2 Sat 96 95 - 97 % [facility] Inspired O2 ROOM AIR [facility] Specimen Type Arterial [facility] Blood specimen (specimen) UPPER LIMB STRUCTURE / Unknown 03/02/2015 3:02 PM EDT 03/02/2015 3:03 PM EDT Narrative [facility] - 03/02/2015 3:07 PM EDT Room air ABGs if not on oxygen Amanda Chaidez BEEF TAGGER CHEMISTRY ORDERABLE S Final Result Performing Organization Address City/[facility]/ZIP Co de Phone Number [facility] [address] [place] [address] * DIFFERENTIAL (03/02/2015 2:56 PM EDT) Neut Percent 63.9 % [facility] Lymph Percent 25.7 % [facility] [place] Percent 8.4 % [facility] Eos Percent 1.5 % [facility] Baso Percent 0.5 % [facility] Neut# 5.1 1.8 - 7.7 x10(3)/mcL [facility] Lymph# 2.1 0.6 - 4.8 x10(3)/mcL [facility] [place]# 0.7 0.0 - 1.3 x10(3)/[facility] Eos# 0.1 0.0 - 0.5 x10(3)/[facility] Baso# 0.0 0.0 - 0.2 x10(3)/[facility] Blood specimen (specimen) 03/02/2015 2:56 PM EDT 03/02/2015 3:03 PM EDT Amanda Chaidez BEEF TAGGER HEMATOLOGY ORDERABL ES Final Result Performing Organization Address [facility] Co de Phone Number [facility] [address] [place] [address] * ANTIBODY SCREEN IGG (03/02/2015 2:56 PM EDT) Pathologist [facility] ABSC IgG Int Negative [facility] Blood specimen (specimen) 03/02/2015 2:56 PM EDT 03/02/2015 3:03 PM EDT Loreto Camp BEEF TAGGER BLOOD BANK ORDERABLES Final R esult Performing Organization Address City/[facility]/ZIP Co de Phone Number [facility] [address] [place] [address] * ABORH (03/02/2015 2:56 PM EDT) Pathologist [facility] ABORh Int O POS [facility] Blood specimen (specimen) 03/02/2015 2:56 PM EDT 03/02/2015 3:03 PM EDT Loreto Camp BEEF TAGGER BLOOD BANK ORDERABLES Final R esult Performing Organization Address [facility] Co de Phone Number [facility] [address] [place] [address] * (ABNORMAL) PT / INR (03/02/2015 2:56 PM EDT) Pathologist [facility] PT 12.4(H) 9.3 - 12.3 second(s) [facility] INR 1.16(H) 0.87 - 1.15 [facility] Comment: Level of Therapy ??Indications ??Target INR Range Standard Dose Treatment and prophylaxis of venous 2.0 - 3.0 ??thrombosis, pulmonary embolism ?High Dose High risk patients with mechanical ?2.5 - 3.5 ??heart valves Blood specimen (specimen) UPPER LIMB STRUCTURE / Unknown 03/02/2015 2:56 PM EDT 03/02/2015 3:03 PM EDT Narrative [facility] - 03/02/2015 4:08 PM EDT Do not repeat if done this admission or at another hospital and results in chart Amanda Chaidez BEEF TAGGER HEMATOLOGY ORDERABL ES Final Result Performing Organization Address [facility] de Phone Number [facility] [address] [place] [address] * HEMOGLOBIN A1C (03/02/2015 2:56 PM EDT) Hgb A1c 6.1 <=7.0 % [facility] Comment: Initial Diagnostic Criteria < 5.7 % ?Normal 5.7 - 6.4 % ? At risk for diabetes mellitus >= 6.5 % ?Consistent with diabetes mellitus Diabetes monitoring Target Value (ADA recommended): ?< 7 % Blood specimen (specimen) UPPER LIMB STRUCTURE / Unknown 03/02/2015 2:56 PM EDT 03/02/2015 3:03 PM EDT Narrative [facility] - 03/02/2015 9:36 PM EDT Do not repeat if done in PAT or within 72 hours of admission. us Amanda Chaidez BEEF TAGGER CHEMISTRY ORDERABLE S Final Result Performing Organization Address City/[facility]/ZIP Co de Phone Number [facility] [address] [place] [address] * CBC WITH AUTO DIFF (03/02/2015 2:56 PM EDT) WBC 8.0 4.0 - 11.0 x10(3)/mcL [facility] RBC 5.20 4.30 - 5.81 x10(6)/mcL [facility] Hgb 15.0 13.5 - 17.1 gm/dL [facility] Hct 46.3 38.9 - 51.6 % [facility] MCV 89.0 82.5 - 99.8 fL [facility] MCH 28.8 27.0 - 34.3 pg [facility] MCHC 32.3 32.1 - 35.3 gm/dL [facility] RDW 13.6 11.5 - 15.0 % [facility] Platelet 218 144 - 423 x10(3)/mcL [facility] MPV 9.3 6.8 - 10.8 fL [facility] Blood specimen (specimen) UPPER LIMB STRUCTURE / Unknown 03/02/2015 2:56 PM EDT 03/02/2015 3:03 PM EDT Narrative [facility] - 03/02/2015 8:03 PM EDT Repeat if over 72 hours old. ??Do not repeat if done at another hospital and results in chart us Amanda Chaidez BEEF TAGGER HEMATOLOGY ORDERABL ES Final Result Performing Organization Address City/[facility]/ZIP Co de Phone Number [facility] [address] [place] [address] * BASIC METABOLIC PANEL (03/02/2015 2:56 PM EDT) Sodium 144 136 - 145 mmol/L [facility] Potassium 4.0 3.5 - 5.0 mmol/L [facility] Chloride 105 98 - 107 mmol/L [facility] Total CO2 26 22 - 29 mmol/L [facility] Anion Gap 13 7 - 16 mmol/L [facility] Calcium 9.8 8.8 - 10.2 mg/dL [facility] Glucose Lvl 88 82 - 100 mg/dL [facility] BUN 13 8 - 23 mg/dL [facility] Creatinine 1.15 0.67 - 1.30 mg/dL [facility] GFR Afr Am >60 [facility] GFR Non Afr Am >60 [facility] Blood specimen (specimen) UPPER LIMB STRUCTURE / Unknown 03/02/2015 2:56 PM EDT 03/02/2015 3:03 PM EDT Narrative [facility] - 03/02/2015 5:12 PM EDT Do not repeat if done this admission or at another hospital and results in chart Amanda Mcginnisen BEEF TAGGER CHEMISTRY ORDERABLE S Edited Result - Final [facility] [address] [place] [address] * XR CHEST PA AND LATERAL (03/02/2015 [...] pneumothorax. IMPRESSION: No acute chest process. Amanda Kenya Kaylynn BEEF TAGGER IMG DIAGNOSTIC IMAG ING ORDERABLES Final Result * STAPHYLOCOCCUS AUREUS SCREEN (03/02/2015 2:20 PM EDT) Final No growth of Staphylococcus aureus [facility] Nasal 03/02/2015 2:20 PM EDT 03/02/2015 2:38 PM EDT [facility] Kenya Kaylynn BEEF TAGGER MICROBIOLOGY - GENE RAL ORDERABLES Final Result Performing Organization Address [facility] Co de Phone Number [facility] [address] [place] [address] * URINALYSIS (03/02/2015 2:20 PM EDT) UA Color Colorless [facility] UA Appear Clear Clear [facility] UA Glucose Negative Negative [facility] UA Ketones Negative Negative [facility] UA Blood Negative Negative [facility] UA pH 6.0 4.8 - 8.0 [facility] Comment:Reference range britton d for random specimens only. UA Protein Negative Negative [facility] UA Urobilinogen Normal <=1 mg/dl [facility] UA Nitrite Negative Negative [facility] UA Leuk Est Negative Negative [facility] UA Spec Grav 1.005 1.001 - 1.035 [facility] Comment:Reference range britton d for random specimens only. Urine specimen (specimen) 03/02/2015 2:20 PM EDT 03/02/2015 2:27 PM EDT Narrative [facility] - 03/02/2015 2:44 PM EDT Do not repeat if done at another hospital and results in chart. [facility] Kenya Leola BEEF TAGGER URINE ORDERABLES Fi nal Result Performing Organization Address City/[facility] Co de Phone Number [facility] [address] [place] [address] documented in this encounter Visit Diagnoses Diagnosis Preop testing- Primary Preoperative examination, unspecified Ischemic heart disease Chronic ischemic heart disease, unspecified Abnormal stress test Other nonspecific abnormal cardiovascular system function study documented in this encounter Care Teams Methane Gas Collection System Operator Relationship Specialty Start Date End Date Vanessa Dash ARNP [facility] access hospital[facility] [address] [place] [address] PCP - General Nurse Practitioner-Family 01/28/15 documented as of this encounter
--- OUTSIDE RECORDS SUMMARY | 2024-05-21 08:43 | XMS_ITS | Encounter Summary ---
Author Organization [place] [address] Care Team Providers Care Tool And Die Assembler Name Role Phone Vanessa Dash Primary Care Provider [phone] Reason for Visit * Reason Comments Abnormal Stress Test Referred by Dr Sea adams for Abn Gxt , c/o increase SOB Fatigue Shortness of Breath * Office Visit (Routine) - Closed Specialty Diagnoses / Procedures Referred By Daniela adair Referred To Contact Cardiology Procedures office visit Yelena Damian [address] [place] [address] [address] [place] [address] Phone: tel: fax: SEP [facility] [address] [place] [address] Phone: tel: fax: Referral ID Status Reason Start Date Expiration Date Visits Re quested Visits Authorized [id number] Closed 02/04/2015 02/04/2016 1 1 Encounter Details Date Type Department Care Team (Late st Contact Info) Description 02/08/2015 3:20 PM EDT Office Visit [facility] [address] [place] [address] Ulises Alberto MD [address] [place] [address] Abnormal stress test (Primary Dx); QUINONEZ (dyspnea on exertion); Hyperlipidemia; Family history of premature CAD; Essential hypertension Social History Tobacco Use Types Packs/Day Years [...] Sign Reading Time Taken Comments Blood Pressure 130/86 02/08/2015 3:01 PM EDT Pulse 82 02/08/2015 3:01 PM EDT Temperature - - Respiratory Rate - - Oxygen Saturation - - Inhaled Oxygen Concentration - - Weight 93.9 kg (207 lb) 02/08/2015 3:01 PM EDT Height 172.7 cm (5' 8 ) 02/08/2015 3:01 PM EDT Body Mass Index 31.47 02/08/2015 3:01 PM EDT documented in this encounter Ordered Prescriptions Prescription Sig Dispense Quantity Refills Last Filled Start Date End Date metoprolol succinate (TOPROL-XL) 25 mg Oral Tablet Sustained Release 24 hr Take 1 Tab by mouth daily. 30 Tab 4 02/08/2015 03/08/2015 documented in this encounter H&P Notes * Ulises Alberto MD - 02/08/2015 3:42 PM [...] Patient Instructions - Oly Guzman RMA - 02/08/2015 3:42 PM EDT Start Bystolic 5 mg today, and Sun prior to angiogram. Starting Sun you will start taking Metoprolol 25mg, 1 tablet per day Start Baby Asprin documented in this encounter Plan of Treatment Not on file documented as of this encounter Results * (ABNORMAL) BASIC METABOLIC PANEL (02/08/2015 4:07 PM EDT) Sodium 146(H) 136 - 145 mmol/L [facility] Potassium 3.8 3.5 - 5.0 mmol/L [facility] Chloride 104 98 - 107 mmol/L [facility] Total CO2 28 22 - 29 mmol/L [facility] Anion Gap 14 7 - 16 mmol/L [facility] Calcium 9.7 8.8 - 10.2 mg/dL [facility] Glucose Lvl 86 82 - 100 mg/dL [facility] BUN 10 8 - 23 mg/dL [facility] Creatinine 1.09 0.67 - 1.30 mg/dL [facility] GFR Afr Am >60 [facility] GFR Non Afr Am >60 [facility] Blood specimen (specimen) UPPER LIMB STRUCTURE / Unknown 02/08/2015 4:07 PM EDT 02/08/2015 4:07 PM EDT us Ulises Alberto MD CHEMISTRY ORDERABLES Edited Re sult - Final Performing Organization Address [facility] Co de Phone Number [facility] [address] [place] [address] * CBC (02/08/2015 4:07 PM EDT) [facility] WBC 8.3 4.0 - 11.0 x10(3)/mcL [facility] RBC 5.48 4.30 - 5.81 x10(6)/mcL [facility] Hgb 15.4 13.5 - 17.1 gm/dL [facility] Hct 47.8 38.9 - 51.6 % [facility] MCV 87.3 82.5 - 99.8 fL [facility] MCH 28.2 27.0 - 34.3 pg [facility] MCHC 32.3 32.1 - 35.3 gm/dL [facility] RDW 13.9 11.5 - 15.0 % [facility] Platelet 240 144 - 423 x10(3)/mcL [facility] MPV 8.6 6.8 - 10.8 fL [facility] Blood specimen (specimen) UPPER LIMB STRUCTURE / Unknown 02/08/2015 4:07 PM EDT 02/08/2015 4:07 PM EDT us Ulises Alberto MD HEMATOLOGY ORDERABLES Final Re sult Performing Organization Address [facility] Co de Phone Number [facility] [address] [place] [address] documented in this encounter Visit Diagnoses Diagnosis Abnormal stress test- Primary Other nonspecific abnormal cardiovascular system function study QUINONEZ (dyspnea on exertion) Other dyspnea and respiratory abnormality Hyperlipidemia Other and unspecified hyperlipidemia Family history of premature CAD Family history of ischemic heart disease Essential hypertension Unspecified essential hypertension documented in this encounter Historical Medications * This list may reflect changes made after this encounter. aspirin 81 mg Oral Tablet, Chewable Take 81 mg by mouth daily. simvastatin (ZOCOR) 40 mg Oral Tablet Take 40 mg by mouth daily. 11/19/2015 lisinopril (PRINIVIL;ZESTRIL ) 20 mg Oral Tablet Take 20 mg by mouth daily. 03/08/2015 added in this encounter Care Teams Tool And Die Assembler Relationship Specialty Start Date End Date Vanessa Dash ARNP [address] [id number] PCP - General Nurse Practitioner-Family 01/28/15 documented as of this encounter
--- OUTSIDE RECORDS SUMMARY | 2024-05-21 08:43 | XMS_ITS | Encounter Summary ---
Author Organization [place] [address] Care Team Providers Care Welcome Center Agent Name Role Phone Vanessa Dash Primary Care Provider [phone] Reason for Visit * Reason Comments Other New pt. Dr.Kevin Antoni goldberg requesting consult for CABG Encounter Details Date Type Department Care Team (Late st Contact Info) Description 02/23/2015 12:[address] [facility] Cardiac Surgeons [address] [place] [address] Felix Mcbride MD Ischemic heart disease (Primary Dx); Coronary artery disease involving [place] coronary artery with unspecified angina pectoris Social History Tobacco Use Types Packs/Day Years [...] Sign Reading Time Taken Comments Blood Pressure 138/78 02/23/2015 11:49 AM EDT Pulse 74 02/23/2015 11:49 AM EDT Temperature - - Respiratory Rate - - Oxygen Saturation 98% 02/23/2015 11:49 AM EDT Inhaled Oxygen Concentration - - Weight - - Height - - Body Mass Index - - documented in this encounter Progress Notes * Felix Mcbride MD - 02/23/2015 1:33 PM EDT Dictated#[id number] STS risk calculation:RISK SCORES About the STS Risk Calculator Procedure: CAB Only Risk of Mortality: 0.315% Morbidity or Mortality: 5.09% Long Length of Stay: 1.296% Short Length of Stay: 75.74% Permanent Stroke: 0.505% Prolonged Ventilation: 2.756% DSW Infection: 0.153% Renal Failure: 1.015% documented in this encounter Consult Notes * Felix Mcbride MD - 02/23/2015 1:39 PM EDT CARDIOVASCULAR AND THORACIC SURGERY [address], [place] [address] Phone#: [phone] Fax#: [phone] NAME: ADIS WEBER [facility]#: [id number] DICTATOR: Felix Mcbride CARDIOVASCULAR AND THORACIC NOTE Page 1 CARDIOVASCULAR AND THORACIC NOTE DATE OF CONSULTATION: 02/23/2015 REQUESTING PHYSICIAN: Dr. Ulises Alberto. CONSULTING PHYSICIAN: Dr. Felix Mcbride. CHIEF COMPLAINT: Exertional shortness of breath. HISTORY OF PRESENT ILLNESS: Mr. 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 Marital status is [...] Felix Mcbride MD By: jean Job ID: [id number] Doc ID: [id number] CC: documented in this encounter Plan of Treatment Not on file documented as of this encounter Visit Diagnoses Diagnosis Ischemic heart disease- Primary Chronic ischemic heart disease, unspecified Coronary artery disease involving [place] coronary artery with unspecified angina pectoris documented in this encounter Care Teams Welcome Center Agent Relationship Specialty Start Date End Date Vanessa Dash ARNP [address] [place] [address] [place] [phone] PCP - General Nurse Practitioner-Family 01/28/15 documented as of this encounter
--- OUTSIDE RECORDS SUMMARY | 2024-05-21 08:43 | XMS_ITS | Encounter Summary ---
Author Organization [place] [address] Care Team Providers Care Epic Ambulatory Analyst Name Role Phone Vanessa Dash ERIKA Primary Care Provider [phone] Reason for Visit * Auth/Cert/Inpt - Closed Specialty Diagnoses / Procedures Referred By Contac t Referred To Contact Diagnoses Other nonspecific abnormal cardiovascular system function study Shortness of breath Other nonspecific abnormal cardiovascular system function study Shortness of breath Procedures [facility] (11:00) Referral ID Status Reason Start Date Expiration Date Visits Re quested Visits Authorized [id number] Closed 1 1 Encounter Details Date Type Department Care Team (Latest Contact Info) Description 02/10/2015 10:43 AM EDT - 02/11/2015 12:20 AM EDT Hospital Encounter [facility] [place] [address] Ulises Alberto MD [address] [place] [address] Other nonspecific abnormal cardiovascular system function study; Shortness of breath Discharge Disposition: Home or Self Care Social [...] Code Departure Means Destination Home or Self Mcfp documented in this encounter Progress Notes * [...] on pillow. Verbalizes understanding. SB on monitor [id number]. documented in this encounter H&P Notes * Ulises Alberto MD - 02/10/2015 12:55 PM EDT PHYSICIAN IMMEDIATE PRE-PROCEDURE UPDATE H&P and SEDATION ASSESSMENT Risks, benefits, potential complications and alternatives have been discussed with patient and/or patient's legal authorized commercial representative. 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; <=25 mild, 26-65 mod, >65 high: 30 [...] + POC Routine 02/10/2015 1:26 PM EDT EMAIL ENGINEER HEMODYNAMIC WAVEFORMS Routine 02/10/2015 12:58 PM EDT documented in this encounter Results * SCANNED RHYTHM STRIPS (02/17/2015 6:39 PM EDT) Anatomical Region Laterality Modality Other 02/17/2015 6:39 PM EDT us Unknown Unknown IMG ECG ORDERABLES Final Result * ACTIVATED CLOTTING TIME POC (02/10/2015 3:40 PM EDT) ACT -LR 165 89 - 169 second(s) [facility] Blood specimen (specimen) 02/10/2015 3:40 PM EDT 02/10/2015 3:40 PM EDT us Ulises Alberto MD POINT OF CARE TEST ORDERABLES Final Result [facility] [address] [place] [address] * (ABNORMAL) ACTIVATED CLOTTING TIME POC (02/10/2015 2:34 PM EDT) ACT -LR 187(H) 89 - 169 second(s) [facility] Blood specimen (specimen) 02/10/2015 2:34 PM EDT 02/10/2015 2:34 PM EDT us Ulises Alberto MD POINT OF CARE TEST ORDERABLES Final Result [facility] [address] [place] [address] * CORONARY ANGIOGRAM (COR/LHC/LV GRAM, CARDIAC CATHETERIZATION), LEFT VENTRICULOGRAM, INTRAVASCULAR DOPPLER VELOCITY (02/10/2015 1:43 PM EDT) Cath EF Quantitative % [facility] Cath EF Estimated 60 % [facility] Narrative [facility] - 02/10/2015 1:43 [...] CATH ORDERABLES Final Result Performing Organization Address [facility] de Phone Number [facility] * (ABNORMAL) ACTIVATED CLOTTING TIME POC (02/10/2015 1:26 PM EDT) ACT -LR 252(H) 89 - 169 second(s) [facility] Blood specimen (specimen) 02/10/2015 1:26 PM EDT 02/10/2015 1:26 PM EDT us Ulises Alberto MD POINT OF CARE TEST ORDERABLES Final Result Performing Organization Address [facility] de Phone Number [facility] [address] [place] [address] * EMAIL ENGINEER HEMODYNAMIC WAVEFORMS (02/10/2015 12:58 PM EDT) 02/10/2015 12:5 8 PM EDT us Ulises Alberto MD CARDIAC CATH ORDERABLES Final Result Performing Organization Address [facility] de Phone Number [facility] [address] [place] [address] documented in this encounter Visit Diagnoses Diagnosis [...] 11:04 AM EDT 1,000 mL 150 mL/hr HYDROcodone-acetaminophen (NORCO) 5-325 mg per tablet 1-2 [...] Given 02/10/2015 6:55 PM EDT 1 Tablet documented in this encounter Active and Recently [...] 1341, Intra-procedure(Cath) 1300 (Given - Provider: Chaya Silverio, CHACHA)1304 (Given - Provider: Chaya Silverio, CHACHA)1306 (Given - Provider: Chaya Silverio, RN) documented in this encounter Orders Medications Ordered That Elvin ht Not Have Been Administered Count Last Ordered Date First Ordered Date 0.9 % NaCl infusion 1 02/10/2015 atropine injection 0.5 mg 1 02/10/2015 dextrose 50 % (D50W) solution 25 g 1 2014 EPINEPHrine injection 1 mg 1 02/10/2015 fentaNYL (SUBLIMAZE) 50 mcg/mL injection 1 02/10/2015 heparin (porcine) injection 1 02/10/2015 iopamidol (ISOVUE-370) 76 % injection (LOW) 1 02/10/2015 metoclopramide HCl (REGLAN) injection 10 mg 1 02/10/2015 midazolam (VERSED) injection 1 02/10/2015 sodium chloride 0.9% syringe 2 [...] 02/10/2015 documented in this encounter Care Teams Epic Ambulatory Analyst Relationship Specialty Start Date End Date Vanessa Dash ARNP [address] [facility] [address] [place] [address] PCP - General Nurse Practitioner-Family 01/28/15 documented as of this encounter
--- OUTSIDE RECORDS SUMMARY | 2024-05-21 08:43 | XMS_ITS | Encounter Summary ---
Author Organization [place] [address] Care Team Providers Care Diesel Maintenance Technician Name Role Phone Vanessa Dash Primary Care Provider [phone] Reason for Visit * (Routine) - Closed Specialty Diagnoses / Procedures Referred By Contac t Referred To Contact Radiology Diagnoses Chest discomfort HTN (hypertension) Hyperlipidemia Procedures NM MYOCARDIAL PERFUSION SPECT STRESS AND REST NM MYOCARDIAL Anupam Drake MD [address] [place] [address] [address] [place] [phone] Phone: tel: fax: [facility] [place] [address] Phone: tel: fax: Referral ID Status Reason Start Date Expiration Date Visits Re quested Visits Authorized [id number] Closed 01/07/2015 01/07/2016 1 1 Encounter Details Date Type Department Care Team (Latest Contact Info) Description 01/29/2015 6:57 AM EDT - 01/29/2015 11:59 PM EDT Hospital Encounter [facility] [place] [address] Anupam Drake MD [address] [place] [address] [address] [place] [address] Discharge Disposition: Home or Self [...] MYOCARDIAL PERFUSION SPECT STRESS AND REST Routine 01/29/2015 9:29 AM EDT Chest discomfort HTN (hypertension) Hyperlipidemia documented in this encounter Visit Diagnoses Not on filedocumented in this encounter Administered Medications Inactive Administered Medications - up to 1 most recent administrations Medication Order MAR Action Action Date Dose Rate Site Tc-99m tetrofosmin (MYOVIEW) injection 10-45 harry Curie 10-45 millicurie, Intravenous, PRN, 2 doses, Starting on Sun01/29/15 at 0728, Until Sun01/29/15 at 0836, Other, Radiology Procedure, 2 dose Myoview procedure. Administration dose must be within 10% of the ordered dose for radiopharmaceutical medications., Radiology Given 01/29/2015 8:36 AM EDT 31.3 millicuries documented in this encounter Care Teams Diesel Maintenance Technician Relationship Specialty Start Date End Date Vanessa Dash ARNP [address] [place] [address] [address] [place] [id number] PCP - General Nurse Practitioner-Family 01/28/15 documented as of this encounter
--- OUTSIDE RECORDS SUMMARY | 2024-05-21 08:43 | XMS_ITS | Encounter Summary ---
Author Organization [place] [address] Care Team Providers Care Clinical Assistant Professor Name Role Phone Unavailable Primary Care Provider Unavailabl e Encounter Details Date Type Department Care Team (Late st Contact Info) Description 05/01/2004 7:20 PM EDT - 05/01/2004 8:35 PM EDT Hospital Encounter [facility] Generic, Historical Provider Social History Tobacco Use Types Packs/Day Years [...]
--- NOTE | 2024-05-21 09:09 | P.CONS_ITS ---
History of Present Illness *Admission Date: 05/21/24 *History of present illness: Mr. Ford is a 69-year-old gentleman who had cholecystectomy in July 2021. The patient has had recurrent abdominal pain and choledocholithiasis. He has been seen Dr. Zeeshan Dupree and had ERCP about a month ago with sweeping of the common bile duct but no stent placement. He went back for ERCP yesterday with Dr. Zeeshan Dupree and from patient report, stone was not cleared that a bile duct stent was placed. He was told that he had an 8 mm stone in the common bile duct unable to remove. Records are not yet available. He does state that he had the onset of periumbilical abdominal pain about 1-1/2 hours after the procedure that radiated into the back. He reports no vomiting but did have some nausea. He went to the emergency department at [facility] with a white count of 16.9 thousand. Labs yesterday showed lipase level of 27,859. His liver chemistries, alkaline phosphatase was 67 and ALT was 25. CAT scan of the abdomen pelvis yesterday showed common bile duct metal density/metal stent with peripancreatic edema. This morning, the patient is still having moderate pain. He is alert and oriented. [facility] Disclaimer: The information contained in this section may have been updated after the patient was seen, as this information can be updated by other users. Medical History Nodule of upper lobe of right lung Choledocholithiasis Unintentional weight loss Fatty liver Elevated LFTs BPH (benign prostatic hyperplasia) Hyperlipidemia Essential hypertension Benign essential tremor Biliary dyskinesia Surgical History History of heart bypass surgery History of cholecystectomy Family History Father Heart attack Grandfather Heart attack Other Hypertension Social History Smoking Status: Never smoker alcohol intake: never substance use type: denies use current occupational status: retired Travel in the last 8 weeks: None household members: spouse housing: house Meds Home Medications and Allergies Home Medications ?Medication ?Instructions ?Recorded ?Confirmed ?Type aspirin 81 mg tablet,delayed 81 mg PO DAILY 03/13/24 05/21/24 History release lisinopril 20 10 - 12.5 tab PO DAILY 05/21/24 05/21/24 History mg-hydrochlorothiazide 25 mg tablet metoprolol succinate 50 mg 50 mg PO DAILY 05/21/24 05/21/24 History tablet,extended release 24 hr tamsulosin 0.4 mg capsule 0.4 mg PO HS 05/21/24 05/21/24 History New Prescriptions to Start Prescriptions: Allergies Allergy/AdvReac Type Severity Reaction Status Date / Time primidone AdvReac Mild nausea Verified 03/13/24 08:14 Exam (Inpt) Vital signs and Labs for Last 24 Hours: Temp Pulse Resp BP Pulse Ox O2 Del Method 97.5 F L 68 16 113/68 95 Room Air 05/21/24 07:40 05/21/24 07:40 05/21/24 07:40 05/21/24 07:40 05/21/24 07:40 05/21/24 08:07 Laboratory Results - last 24 hr 05/20/24 22:10: WBC 16.9 H, RBC 5.35, Hgb 16.8, Hct 48.3, MCV 90.3, MCH 31.4 H, MCHC 34.7, RDW 13.3, Plt Count 209, MPV 8.2, Neut % (Auto) 90.2 H, Lymph % (Auto) 5.4 L, [place] % (Auto) 2.7, Eos % (Auto) 1.1, Baso % (Auto) 0.6, Neut # (Auto) 15.2 H, Lymph # (Auto) 0.9, [place] # (Auto) 0.5, Eos # (Auto) 0.2, Baso # (Auto) 0.1, Total Counted 100, Neutrophils % (Manual) 88 H, Band Neutrophils % 2.0, Lymphocytes % (Manual) 8 L, Monocytes % (Manual) 2, Platelet Estimate Normal, RBC Morphology Normal, Sodium 141, Potassium 3.7, Chloride 103, Carbon Dioxide 32 H, Anion Gap 9.7, BUN 19, Creatinine 0.90, Estimated Creat Clear 81, Estimated GFR 84, Est GFR ( Amer) 101, Glucose 107 H, Calcium 9.2, Total Bilirubin 1.0, AST 36, ALT 29, Alkaline Phosphatase 97, Total Protein 6.8, Albumin 4.2, Globulin 2.6, Albumin/Globulin Ratio 1.6, Lipase 03561 H, Procalcitonin 0.140 05/21/24 00:00: Lactate Dehydrogenase 225 L 05/21/24 05:57: WBC 16.3 H, RBC 4.82, Hgb 15.2, Hct 45.0, MCV 93.4, MCH 31.5 H, MCHC 33.7, RDW 13.1, Plt Count 138 L D, MPV 8.3, Neut % (Auto) 88.2 H, Lymph % (Auto) 5.6 L, [place] % (Auto) 5.9, Eos % (Auto) 0.0 L, Baso % (Auto) 0.2, Neut # (Auto) 14.4 H, Lymph # (Auto) 0.9, [place] # (Auto) 1.0, Eos # (Auto) 0.0, Baso # (Auto) 0.0, Sodium 140, Potassium 4.2, Chloride 106, Carbon Dioxide 27, Anion Gap 11.2, BUN 18, Creatinine 0.90, Estimated Creat Clear 82, Estimated GFR 84, Est GFR ( Amer) 101, Glucose 109 H, Calcium 8.3 L, Magnesium 1.6, Total Bilirubin 0.8, AST 33, ALT 25, Alkaline Phosphatase 67, Total Protein 5.7 L, A lbumin 3.5 D, Globulin 2.2, Albumin/Globulin Ratio 1.6 I & O for Labs for Last 24 Hours: Intake & Output 05/18/24 05/19/24 05/20/24 05/21/24 23:59 23:59 23:59 23:59 Output Total 500 / 500 Balance -500 / -500 Weight 182 lb 183 lb 12.8 oz Comments:: Active bowel sounds with moderate tenderness generalized and especially periumbilical, no rebound or guarding, some tightness/distention but no rigidity. Results Labs 05/21/24 05:57 05/21/24 05:57 Labs: Laboratory Results - last 24 hr 05/20/24 22:10: WBC 16.9 H, RBC 5.35, Hgb 16.8, Hct 48.3, MCV 90.3, MCH 31.4 H, MCHC 34.7, RDW 13.3, Plt Count 209, MPV 8.2, Neut % (Auto) 90.2 H, Lymph % (Auto) 5.4 L, [place] % (Auto) 2.7, Eos % (Auto) 1.1, Baso % (Auto) 0.6, Neut # (Auto) 15.2 H, Lymph # (Auto) 0.9, [place] # (Auto) 0.5, Eos # (Auto) 0.2, Baso # (Auto) 0.1, Total Counted 100, Neutrophils % (Manual) 88 H, Band Neutrophils % 2.0, Lymphocytes % (Manual) 8 L, Monocytes % (Manual) 2, Platelet Estimate Normal, RBC Morphology Normal, Sodium 141, Potassium 3.7, Chloride 103, Carbon Dioxide 32 H, Anion Gap 9.7, BUN 19, Creatinine 0.90, Estimated Creat Clear 81, Estimated GFR 84, Est GFR ( Amer) 101, Glucose 107 H, Calcium 9.2, Total Bilirubin 1.0, AST 36, ALT 29, Alkaline Phosphatase 97, Total Protein 6.8, Albumin 4.2, Globulin 2.6, Albumin/Globulin Ratio 1.6, Lipase 42845 H, Procalcitonin 0.140 05/21/24 00:00: Lactate Dehydrogenase 225 L 05/21/24 05:57: WBC 16.3 H, RBC 4.82, Hgb 15.2, Hct 45.0, MCV 93.4, MCH 31.5 H, MCHC 33.7, RDW 13.1, Plt Count 138 L D, MPV 8.3, Neut % (Auto) 88.2 H, Lymph % (Auto) 5.6 L, [place] % (Auto) 5.9, Eos % (Auto) 0.0 L, Baso % (Auto) 0.2, Neut # (Auto) 14.4 H, Lymph # (Auto) 0.9, [place] # (Auto) 1.0, Eos # (Auto) 0.0, Baso # (Auto) 0.0, Sodium 140, Potassium 4.2, Chloride 106, Carbon Dioxide 27, Anion Gap 11.2, BUN 18, Creatinine 0.90, Estimated Creat Clear 82, Estimated GFR 84, Est GFR ( Amer) 101, Glucose 109 H, Calcium 8.3 L, Magnesium 1.6, Total Bilirubin 0.8, AST 33, ALT 25, Alkaline Phosphatase 67, Total Protein 5.7 L, A lbumin 3.5 D, Globulin 2.2, Albumin/Globulin Ratio 1.6 Assessment and Plan *Assessment and plan (1) Post-ERCP acute pancreatitis: Status: Acute Category: Medical Code(s): K91.89 - Other postprocedural complications and disorders of digestive system; K85.90 - Acute pancreatitis without necrosis or infection, unspecified (2) Choledocholithiasis: Status: Acute Category: Medical Code(s): K80.50 - Calculus of bile duct without cholangitis or cholecystitis without obstruction (3) History of biliary duct stent placement: Status: Acute Category: Surgical Code(s): Z98.890 - Other specified postprocedural states Plan 1. Post ERCP pancreatitis. Patient reports that he was not administered Indocin suppository but we do not have records. We will try to obtain records. Most often post ERCP pancreatitis occurs in the setting of injection into the pancreas or sometimes mechanical or thermal trauma at the ampulla. Procedure related factors include difficult cannulation or repeated guidewire cannulation of the pancreatic duct. Also, balloon dilation of an intact biliary sphincter is a risk factor. Often we do support rectal nonsteroidal anti-inflammatory drugs with Indocin or diclofenac suppository which has proven benefit in prevention of post ERCP pancreatitis. Most episodes are mild and require only a short hospital stay for bowel rest and IV hydration. We will follow the course of his pancreatitis via labs. It does appear that he has a nitinol metal stent which will need to be removed within 3 months. At that time, it will be important to clearly stay away from injection of the pancreas but also not dilating if a full biliary (not pancreatic) sphincterotomy has not been performed. Sphincterotomy should be performed prior to sphincteroplasty/TTS dilation.
[2024-05-21] MEDS: MORPHINE 4MG/ML SYRINGE 4 MG IV (11:27)
[2024-05-21] MEDS: HYDROMORPHONE 2MG/ML SYRINGE 2 MG IV (14:26)
--- NOTE | 2024-05-21 14:47 | PC.NURSE ---
PT IS RESTING IN BED. ALERT AND ORIENTED X4. NPO WITH ICE CHIPS ONLY. MEDICATED PER MAR FOR DISCOMFORT. PT STATED MORPHINE AND TORADOL WAS NOT CONTROLLING HIS PAIN. NOTIFIED HOSPITALIST. DILAUDID ORDERED. ABDOMEN SOFT/TENDERNESS NOTED T/O, MORE SO IN THE LUQ. PT HAS BEEN AMBULATING TO THE BATHROOM. LUNG SOUNDS CLEAR. WILL CONTINUE TO MONITOR.
[2024-05-21] MEDS: ONDANSETRON 4MG/2ML VIAL 4 MG IV (16:23)
[2024-05-21] MEDS: TAMSULOSIN 0.4MG CAPSULE 0.4 MG PO (20:14)
[2024-05-21] MEDS: HYDROMORPHONE 2MG/ML SYRINGE 1 MG IV (20:15)
[2024-05-21] MEDS: PROMETHAZINE HCL 25MG/ML 1ML VIAL 25 MG IV (21:21)
[2024-05-22] VITALS: BP 102/58; PULSE 86; RESP 16; TEMP 37.9; O2SAT 98
[2024-05-22] MEDS: LACTATED RINGERS 1000ML 1,000 ML 100 ML IV (00:24)
[2024-05-22 04:00] VITALS: BP 120/57; PULSE 76; RESP 17; TEMP 37.6; O2SAT 97; BMI 27.9
[2024-05-22] MEDS: HYDROMORPHONE 2MG/ML SYRINGE 1 MG IV ×3 (05:36→20:17)
[2024-05-22] MEDS: ONDANSETRON 4MG/2ML VIAL 4 MG IV ×3 (05:37→20:17)
--- NOTE | 2024-05-22 06:09 | PC.NURSE ---
05/22/24, 0610: Pt. is resting quietly in bed, alert and orientated x 4. Pt. had a dose of Dilaudid and Phenergan last night and slept comfortable overnight. Pt. up to BR this am and had onset of pain and nausea. Pt recieved Dilaudid and Zofran. Post medications the nausea has almost resolved and the pain has decreased from 6/10 to 3/10. Pt. tolerating ice chips. vital signs stable. Pt. did have a temp of 100.5last night and 99.6 this AM. Personal items and call lafleur in reach.
[2024-05-22 06:35] LABS: Basophils % 0.2 % (0.1-2.0); Eosinophils % 0.2 % (0.1-12.0); Hematocrit 41.8 % (42.0-52.0); Hemoglobin 14.2 g/dL (14.1-18.0); Lymphocytes # 1.1 K/mm3 (0.7-4.5); Lymphocytes % 9.7 % (10-50); Mean Corpuscular Hemoglobin 31.2 pg (27.0-31.2); Mean Corpuscular Volume 91.8 fl (80-94); Mean Platelet Volume 8.6 fl (7.4-10.4); Monocytes # 0.7 K/mm3 (0.1-1.0); Monocytes % 6.6 % (1.7-9.3); Neutrophils # 9.4 K/mm3 (1.8-7.8); Neutrophils % 83.3 % (37.0-80.0); Platelet Count 133 K/mm3 (142-424); Red Blood Count 4.55 M/mm3 (4.60-6.20); Red Cell Distribution Width 13.3 % (11.5-17.5); White Blood Count 11.2 K/mm3 (4.8-10.8)
[2024-05-22 06:43] LABS: Alanine Aminotransferase 19 U/L (12-78); Albumin Level 3.1 g/dl (3.5-5.0); Albumin/Globulin Ratio 1.3 (1.1-1.8); Alkaline Phosphatase 73 U/L (38-126); Anion Gap 9.6 mEq/L (5-15); Aspartate Amino Transferase 26 U/L (17-59); Bilirubin,Total 0.9 mg/dl (0.2-1.3); Blood Urea Nitrogen 19 mg/dl (9-20); Calcium 8.3 mg/dl (8.4-10.2); Carbon Dioxide 27 mmol/L (22.0-30.0); Chloride 105 mmol/L (98-107); Creatinine Clearance Estimated 83 mL/min (50-200); Estimated Glomerular Filt Rate 84 ml/min (>60); GFR (African American) 101 ML/MIN (>60); Globulin 2.3 g/dL (1.3-3.2); Glucose 80 mg/dl (74-100); Magnesium 1.7 mg/dl (1.6-2.3); Potassium 3.6 mmoL/L (3.5-5.1); Sodium 138 mmol/L (136-145); Total Protein,Serum 5.4 g/dl (6.3-8.2)
[2024-05-22 07:07] LABS: Lipase 6111 U/L (23-300)
[2024-05-22 07:14] LABS: Lactate Dehydrogenase 171 U/L (313-618)
--- NOTE | 2024-05-22 07:21 | EXP.PN ---
Subjective *Date: 05/22/24 *Time: 07:21 Interval history: Patient is comfortable this morning. He did have Dilaudid twice overnight with Phenergan. He is not having any breakthrough pain. He is up this morning and tolerating liquids without nausea or significant pain. Exam Data for Last 24 hours Vital signs and Labs for Last 24 Hours: Temp Pulse Resp BP Pulse Ox O2 Del Method 99.6 F 76 17 120/57 L 97 Room Air 05/22/24 04:00 05/22/24 04:00 05/22/24 04:00 05/22/24 04:00 05/22/24 04:00 05/22/24 06:42 Laboratory Results - last 24 hr 05/21/24 05:57: WBC 16.3 H, RBC 4.82, Hgb 15.2, Hct 45.0, MCV 93.4, MCH 31.5 H, MCHC 33.7, RDW 13.1, Plt Count 138 L D, MPV 8.3, Neut % (Auto) 88.2 H, Lymph % (Auto) 5.6 L, Bartholomew % (Auto) 5.9, Eos % (Auto) 0.0 L, Baso % (Auto) 0.2, Neut # (Auto) 14.4 H, Lymph # (Auto) 0.9, Bartholomew # (Auto) 1.0, Eos # (Auto) 0.0, Baso # (Auto) 0.0, Sodium 140, Potassium 4.2, Chloride 106, Carbon Dioxide 27, Anion Gap 11.2, BUN 18, Creatinine 0.90, Estimated Creat Clear 82, Estimated GFR 84, Est GFR ( Amer) 101, Glucose 109 H, Calcium 8.3 L, Magnesium 1.6, Total Bilirubin 0.8, AST 33, ALT 25, Alkaline Phosphatase 67, Total Protein 5.7 L, Albumin 3.5 D, Globulin 2.2, Albumin/Globulin Ratio 1.6 05/22/24 05:52: WBC 11.2 H D, RBC 4.55 L, Hgb 14.2, Hct 41.8 L, MCV 91.8, MCH 31.2, MCHC 34.0, RDW 13.3, Plt Count 133 L, MPV 8.6, Neut % (Auto) 83.3 H, Lymph % (Auto) 9.7 L, Bartholomew % (Auto) 6.6, Eos % (Auto) 0.2, Baso % (Auto) 0.2, Neut # (Auto) 9.4 H, Lymph # (Auto) 1.1, Bartholomew # (Auto) 0.7, Eos # (Auto) 0.0, Baso # (Auto) 0.0, Sodium 138, Potassium 3.6, Chloride 105, Carbon Dioxide 27, Anion Gap 9.6, BUN 19, Creatinine 0.90, Estimated Creat Clear 83, Estimated GFR 84, Est GFR ( Amer) 101, Glucose 80 D, Calcium 8.3 L, Magnesium 1.7, Total Bilirubin 0.9, AST 26, ALT 19, Alkaline Phosphatase 73, Lactate Dehydrogenase 171 L, Total Protein 5.4 L, Albumin 3.1 L D, Globulin 2.3, Albumin/Globulin Ratio 1.3, Lipase 6111 H I & O for Last 24 hours: Intake & Output 05/19/24 05/20/24 05/21/24 05/22/24 23:59 23:59 23:59 23:59 Intake Total 1260 / 1260 Output Total 500 / 500 0 / 0 Balance 760 / 760 0 / 0 Weight 182 lb 183 lb 12.8 oz 184 lb 8 oz Assessment and Plan *Assessment and plan (1) Post-ERCP acute pancreatitis: Status: Acute Category: Medical Code(s): K91.89 - Other postprocedural complications and disorders of digestive system; K85.90 - Acute pancreatitis without necrosis or infection, unspecified (2) Choledocholithiasis: Status: Acute Category: Medical Code(s): K80.50 - Calculus of bile duct without cholangitis or cholecystitis without obstruction (3) History of biliary duct stent placement: Status: Acute Category: Surgical Code(s): Z98.890 - Other specified postprocedural states Plan 1. Post ERCP pancreatitis. The patient is clinically improved. Lipase is markedly improved and his white blood cell count is declining. He does not have any fever. He has had no breakthrough pain from pain medication. I did indicate that he should continue to advance diet as tolerated. No need for NG tube feeding but would like to go to full diet. Also recommended ambulation today. There is no evidence of any renal insufficiency or multiorgan involvement. The patient appears to have progressive improvement. We briefly discussed plans of removal of SEMS metal stent in 8 to 12 weeks with balloon or basket extraction and possible extension of biliary (not pancreatic) sphincterotomy to reduce any risk of recurrent pancreatitis. He will also receive Indocin at that time.
[2024-05-22 07:43] VITALS: BP 109/56; PULSE 88; RESP 19; TEMP 36.7; O2SAT 93
--- NOTE | 2024-05-22 07:52 | PC.NURSE ---
Patient was ambulating in the saab without socks, nursing consultant Gigi Garcia RN offered patient non skid socks but patient refused. He stated if you gave them to me I wouldn't wear them .
[2024-05-22] MEDS: METOPROLOL SUCCINATE XL 50MG TABLET 50 MG PO (08:02)
[2024-05-22 16:00] VITALS: BP 101/53; PULSE 70; RESP 18; TEMP 36.6; O2SAT 94
--- NOTE | 2024-05-22 16:24 | PC.NURSE ---
PT IS RESTING IN BED. ALERT AND ORIENTED X4. PT IS TOLERATING FULL LIQUIDS. MEDICATED PER MAR FOR PAIN AND NAUSEA. AMBULATES IN THE AN. TOLERATED SHOWER THIS SHIFT. NEW IV ACCESS NOTED TO RFA. LUNG SOUNDS CLEAR. ABDOMEN SOFT/TENDER WITH ACTIVE BOWEL SOUNDS. WILL CONTINUE TO MONITOR.
[2024-05-22 20:00] VITALS: BP 100/44; PULSE 74; RESP 16; TEMP 36.9; O2SAT 90
[2024-05-22] MEDS: TAMSULOSIN 0.4MG CAPSULE 0.4 MG PO (20:18)
--- NOTE | 2024-05-22 22:33 | EXP.PN ---
Subjective *Date: 05/29/24 *Time: 10:53 Interval history: Lipase improved to 6111 this morning, with some improvement in abdominal pain as well. Will advance to full liquid diet, patient continues to have some post-prandial abdominal discomfort. Exam Data for Last 24 hours Vital signs and Labs for Last 24 Hours: Temp Pulse Resp BP Pulse Ox O2 Del Method 98.4 F 74 16 100/44 L 90 L Room Air 05/22/24 20:00 05/22/24 20:00 05/22/24 20:00 05/22/24 20:00 05/22/24 20:00 05/22/24 20:00 Laboratory Results - last 24 hr 05/22/24 05:52: WBC 11.2 H D, RBC 4.55 L, Hgb 14.2, Hct 41.8 L, MCV 91.8, MCH 31.2, MCHC 34.0, RDW 13.3, Plt Count 133 L, MPV 8.6, Neut % (Auto) 83.3 H, Lymph % (Auto) 9.7 L, [place] % (Auto) 6.6, Eos % (Auto) 0.2, Baso % (Auto) 0.2, Neut # (Auto) 9.4 H, Lymph # (Auto) 1.1, [place] # (Auto) 0.7, Eos # (Auto) 0.0, Baso # (Auto) 0.0, Sodium 138, Potassium 3.6, Chloride 105, Carbon Dioxide 27, Anion Gap 9.6, BUN 19, Creatinine 0.90, Estimated Creat Clear 83, Estimated GFR 84, Est GFR ( Amer) 101, Glucose 80 D, Calcium 8.3 L, Magnesium 1.7, Total Bilirubin 0.9, AST 26, ALT 19, Alkaline Phosphatase 73, Lactate Dehydrogenase 171 L, Total Protein 5.4 L, Albumin 3.1 L D, Globulin 2.3, Albumin/Globulin Ratio 1.3, Lipase 6111 H I & O for Last 24 hours: Intake & Output 05/19/24 05/20/24 05/21/24 05/22/24 23:59 23:59 23:59 23:59 Intake Total 1260 / 1260 1840 / 1840 Output Total 500 / 500 0 / 0 Balance 760 / 760 184 / 1840 Weight 82.554 kg 83.37 kg 83.688 kg Constitutional Constitutional: no acute distress *Routine HEENT Exam Head: Present normocephalic Eye: Present EOMI and PERRL ENT: Present mucous membranes moist *Routine Neck Exam Neck: Present supple; Absent lymphadenopathy *Routine Respiratory Exam Respiratory: Present CTA bilaterally *Routine Cardiovascular Exam Cardiovascular: Present RRR *Routine Abdominal Exam Abdominal: Present soft, normoactive bowel sounds and tenderness *Routine Extremities Exam Extremities: Absent cyanosis, clubbing or edema *Routine Skin Exam Skin: Present warm; Absent rash *Routine Neurological Exam Neurological: Present alert and oriented X3 Assessment and Plan *Assessment and plan (1) Post-ERCP acute pancreatitis: Status: Acute Category: Medical Code(s): K91.89 - Other postprocedural complications and disorders of digestive system; K85.90 - Acute pancreatitis without necrosis or infection, unspecified (2) Essential hypertension: Status: Acute Category: Medical Code(s): I10 - Essential (primary) hypertension (3) BPH (benign prostatic hyperplasia): Status: Acute Category: Medical Code(s): N40.0 - Benign prostatic hyperplasia without lower urinary tract symptoms (4) History of coronary artery bypass graft x 3: Status: Chronic Category: Surgical Code(s): Z95.1 - Presence of aortocoronary bypass graft Plan 69-year-old male with ERCP earlier in the day, presented with severe onset of abdominal pain. Found to have pancreatitis. Discussed case with ER physician, as he has only two (age and white count elevated) [place] criteria, I agreed to admit for further management. GI consulted. Pain control overnight. Initiated on LR. Necessitating inpatient management given severity of pain and anticipated length of stay greater than 2 midnights. Problems addressed as follows: #Acute post ERCP pancreatitis ? ERCP performed with stent placement at OSH on 05/21/24. Per my review of CT of abdomen has pneumobilia, likely secondary to procedural effect. Also has some stranding around pancreas. ? Initial lipase severely elevated at 27,000, white count 16,000, LDH low at 225. [place] criteria 2. ? Lipase improved to 6111 this morning, with some improvement in abdominal pain as well. ? Will advance to full liquid diet, patient continues to have some post-prandial abdominal discomfort. ? Leukocytosis continues to be resolved. Vital signs stable. #Hypertension #History of CABG ? Continue home aspirin 81 mg. ? Holding BP meds as BP soft. #BPH ? Continue tamsulosin 0.4 mg nightly CODE STATUS: Full code
[2024-05-23] MEDS: HYDROMORPHONE 2MG/ML SYRINGE 1 MG IV ×2 (00:20→08:17)
[2024-05-23] MEDS: PROMETHAZINE HCL 25MG/ML 1ML VIAL 25 MG IV (00:22)
[2024-05-23 04:00] VITALS: BP 132/60; PULSE 72; RESP 16; TEMP 37.1; O2SAT 90; BMI 28.9
--- NOTE | 2024-05-23 05:10 | PC.NURSE ---
05/23/24 0510. Pt. is resting in the bed, sleeping. Alert and orientated x 4, this shift pain meds iven IV x 2. Pt.'s IV went bad and new IV was placed. Pt. taking ice chips.No new problems this shift. Personal items and call lafleur in reach.
[2024-05-23 06:52] LABS: Alanine Aminotransferase 14 U/L (12-78); Albumin Level 2.8 g/dl (3.5-5.0); Albumin/Globulin Ratio 1.2 (1.1-1.8); Alkaline Phosphatase 70 U/L (38-126); Anion Gap 5.9 mEq/L (5-15); Aspartate Amino Transferase 22 U/L (17-59); Blood Urea Nitrogen 15 mg/dl (9-20); Carbon Dioxide 31 mmol/L (22.0-30.0); Chloride 104 mmol/L (98-107); Creatinine Clearance Estimated 85 mL/min (50-200); Estimated Glomerular Filt Rate 84 ml/min (>60); GFR (African American) 101 ML/MIN (>60); Globulin 2.4 g/dL (1.3-3.2); Glucose 74 mg/dl (74-100); Potassium 3.9 mmoL/L (3.5-5.1); Sodium 137 mmol/L (136-145); Total Protein,Serum 5.2 g/dl (6.3-8.2)
[2024-05-23 07:45] VITALS: BP 115/63; PULSE 74; RESP 16; TEMP 37.5; O2SAT 91
[2024-05-23] MEDS: METOPROLOL SUCCINATE XL 50MG TABLET 50 MG PO (08:10)
[2024-05-23] MEDS: ONDANSETRON 4MG/2ML VIAL 4 MG IV ×2 (08:16→17:42)
[2024-05-23 08:49] LABS: Basophils % 0.2 % (0.1-2.0); Eosinophils # 0.2 K/mm3 (0.0-0.4); Eosinophils % 1.6 % (0.1-12.0); Hematocrit 39.1 % (42.0-52.0); Hemoglobin 13.5 g/dL (14.1-18.0); Lymphocytes # 1.5 K/mm3 (0.7-4.5); Lymphocytes % 14.6 % (10-50); Mean Corpuscular HGB Conc 34.4 g/dL (31.8-35.4); Mean Corpuscular Hemoglobin 31.6 pg (27.0-31.2); Mean Corpuscular Volume 91.8 fl (80-94); Mean Platelet Volume 9.6 fl (7.4-10.4); Monocytes # 0.8 K/mm3 (0.1-1.0); Monocytes % 7.8 % (1.7-9.3); Neutrophils # 7.6 K/mm3 (1.8-7.8); Neutrophils % 75.9 % (37.0-80.0); Platelet Count 127 K/mm3 (142-424); Red Blood Count 4.26 M/mm3 (4.60-6.20); Red Cell Distribution Width 12.9 % (11.5-17.5); White Blood Count 10.1 K/mm3 (4.8-10.8)
--- NOTE | 2024-05-23 13:10 | EXP.PN ---
Subjective *Date: 05/23/24 *Time: 13:10 Interval history: Patient rating pain at scale of 3 out of 10. Patient has some concerns about going home with ongoing pain. He is on full liquid diet this morning and tolerating. Exam Data for Last 24 hours Vital signs and Labs for Last 24 Hours: Temp Pulse Resp BP Pulse Ox O2 Del Method 99.5 F 74 16 115/63 91 L Room Air 05/23/24 07:45 05/23/24 07:45 05/23/24 07:45 05/23/24 07:45 05/23/24 07:45 05/23/24 12:21 Laboratory Results - last 24 hr 05/23/24 05:22: WBC 10.1, RBC 4.26 L, Hgb 13.5 L, Hct 39.1 L, MCV 91.8, MCH 31.6 H, MCHC 34.4, RDW 12.9, Plt Count 127 L, MPV 9.6, Neut % (Auto) 75.9, Lymph % (Auto) 14.6, [place] % (Auto) 7.8, Eos % (Auto) 1.6, Baso % (Auto) 0.2, Neut # (Auto) 7.6, Lymph # (Auto) 1.5, [place] # (Auto) 0.8, Eos # (Auto) 0.2, Baso # (Auto) 0.0, Sodium 137, Potassium 3.9, Chloride 104, Carbon Dioxide 31 H, Anion Gap 5.9, BUN 15, Creatinine 0.90, Estimated Creat Clear 85, Estimated GFR 84, Est GFR ( Amer) 101, Glucose 74, Calcium 8.0 L, Total Bilirubin 1.0, AST 22, ALT 14 D, Alkaline Phosphatase 70, Total Protein 5.2 L, Albumin 2.8 L, Globulin 2.4, Albumin/Globulin Ratio 1.2 I & O for Last 24 hours: Intake & Output 05/20/24 05/21/24 05/22/24 05/23/24 23:59 23:59 23:59 23:59 Intake Total 1260 / 1260 1840 / 1840 580 / 580 Output Total 500 / 500 0 / 0 0 / 0 Balance 760 / 760 1840 / 1840 580 / 580 Weight 182 lb 183 lb 12.8 oz 184 lb 8 oz 190 lb 12.8 oz Assessment and Plan *Assessment and plan (1) Post-ERCP acute pancreatitis: Status: Acute Category: Medical Code(s): K91.89 - Other postprocedural complications and disorders of digestive system; K85.90 - Acute pancreatitis without necrosis or infection, unspecified (2) History of biliary duct stent placement: Status: Acute Category: Surgical Code(s): Z98.890 - Other specified postprocedural states (3) Choledocholithiasis: Status: Acute Category: Medical Code(s): K80.50 - Calculus of bile duct without cholangitis or cholecystitis without obstruction Plan 1. Post ERCP pancreatitis. The patient is clinically improving but still having some abdominal pain but this is declining. Labs today showed normal white blood cell count. Serum albumin was 2.8 down from initial 3.5. Liver chemistries remain normal. I would advance diet. The time to reinitiate oral feedings depends on the severity of pancreatitis. In the absence of ileus, nausea or vomiting, oral feeding can and should be initiated early (within 24 hours) as tolerated. This is certainly if the pain is decreasing and inflammatory markers are improved (declining white blood cell count). We should start with low residue, low-fat, soft diet and then advance the diet cautiously as tolerated. Traditionally patients have been advanced from a clear liquid diet to solid food. Early refeeding with a solid low-fat diet is safe. In patients with moderate to severe pancreatitis, oral feeding may not be tolerated due to postprandial pain, nausea or vomiting and these patient should receive enteral feeding early as well. Early refeeding (less than or equal to 48 hours after hospitalization) as compared with delayed refeeding did not increase any adverse effects or exacerbate symptoms and more importantly was associated with a reduction in length of hospital stay. Patient will likely need short course of pain medicines when discharged. We will arrange ERCP in 8 to 12 weeks after discharge.
--- NOTE | 2024-05-23 14:44 | PC.NURSE ---
Pt is aox4, up ad rasheed, pain meds given once iv with nausea med, on RA, 20g R FA SL, Full Liquid diet, call light in reach.
[2024-05-23 16:00] VITALS: BP 100/42; PULSE 63; RESP 15; TEMP 37.1; O2SAT 92
--- NOTE | 2024-05-23 17:14 | EXP.PN ---
Subjective *Date: 05/23/24 *Time: 17:14 Interval history: fred is feeling better today, ambulating around the hallways without issues. Continues to have mild epigastric pain with eating. Tolerated clear liquid diets. ? Started full liquid diet this morning, with good toleration. Low residue diet ordered for lunch with good toleration. Exam Data for Last 24 hours Vital signs and Labs for Last 24 Hours: Temp Pulse Resp BP Pulse Ox O2 Del Method 99.5 F 74 16 115/63 91 L Room Air 05/23/24 07:45 05/23/24 07:45 05/23/24 07:45 05/23/24 07:45 05/23/24 07:45 05/23/24 16:27 Laboratory Results - last 24 hr 05/23/24 05:22: WBC 10.1, RBC 4.26 L, Hgb 13.5 L, Hct 39.1 L, MCV 91.8, MCH 31.6 H, MCHC 34.4, RDW 12.9, Plt Count 127 L, MPV 9.6, Neut % (Auto) 75.9, Lymph % (Auto) 14.6, [place] % (Auto) 7.8, Eos % (Auto) 1.6, Baso % (Auto) 0.2, Neut # (Auto) 7.6, Lymph # (Auto) 1.5, [place] # (Auto) 0.8, Eos # (Auto) 0.2, Baso # (Auto) 0.0, Sodium 137, Potassium 3.9, Chloride 104, Carbon Dioxide 31 H, Anion Gap 5.9, BUN 15, Creatinine 0.90, Estimated Creat Clear 85, Estimated GFR 84, Est GFR ( Amer) 101, Glucose 74, Calcium 8.0 L, Total Bilirubin 1.0, AST 22, ALT 14 D, Alkaline Phosphatase 70, Total Protein 5.2 L, Albumin 2.8 L, Globulin 2.4, Albumin/Globulin Ratio 1.2 I & O for Last 24 hours: Intake & Output 05/20/24 05/21/24 05/22/24 05/23/24 23:59 23:59 23:59 23:59 Intake Total 1260 / 1260 1840 / 1840 1280 / 1280 Output Total 500 / 500 0 / 0 0 / 0 Balance 760 / 760 1840 / 1840 1280 / 1280 Weight 82.554 kg 83.37 kg 83.688 kg 86.545 kg Constitutional Constitutional: no acute distress *Routine HEENT Exam Head: Present normocephalic Eye: Present EOMI and PERRL ENT: Present mucous membranes moist *Routine Neck Exam Neck: Present supple; Absent lymphadenopathy *Routine Respiratory Exam Respiratory: Present CTA bilaterally *Routine Cardiovascular Exam Cardiovascular: Present RRR *Routine Abdominal Exam Abdominal: Present soft, normoactive bowel sounds and tenderness *Routine Extremities Exam Extremities: Absent cyanosis, clubbing or edema *Routine Skin Exam Skin: Present warm; Absent rash *Routine Neurological Exam Neurological: Present alert and oriented X3 Assessment and Plan *Assessment and plan (1) Post-ERCP acute pancreatitis: Status: Acute Category: Medical Code(s): K91.89 - Other postprocedural complications and disorders of digestive system; K85.90 - Acute pancreatitis without necrosis or infection, unspecified (2) Essential hypertension: Status: Acute Category: Medical Code(s): I10 - Essential (primary) hypertension (3) BPH (benign prostatic hyperplasia): Status: Acute Category: Medical Code(s): N40.0 - Benign prostatic hyperplasia without lower urinary tract symptoms (4) History of coronary artery bypass graft x 3: Status: Chronic Category: Surgical Code(s): Z95.1 - Presence of aortocoronary bypass graft Plan 69-year-old male with ERCP earlier in the day, presented with severe onset of abdominal pain. Found to have pancreatitis. Discussed case with ER physician, as he has only two (age and white count elevated) [place] criteria, I agreed to admit for further management. GI consulted. Pain control overnight. Initiated on LR. Necessitating inpatient management given severity of pain and anticipated length of stay greater than 2 midnights. Problems addressed as follows: Acute post ERCP Pancreatitis -ERCP performed with stent placement at OSH on 05/21/24. Per my review of CT of abdomen has pneumobilia, likely secondary to procedural effect. Also has some stranding around pancreas. - Initial Lipase severely elevated at 27,000, white count 16,000, LDH low at 225. [place] criteria 2. ? Leukocytosis continues to be resolved. Vital signs stable. ?Patient is feeling better today, ambulating around the hallways without issues. Continues to have mild epigastric pain with eating. Tolerated clear liquid diets. ? Started full liquid diet this morning, with good toleration. Low residue diet ordered for lunch with good toleration. ? Plan to advance as tolerated. Anticipate discharge tomorrow. Hypertension History of CABG Restarted home aspirin 81 mg. Holding BP meds as BP stable currently 115/63. Continue tamsulosin 0.4 mg nightly for BPH Full code
[2024-05-23] MEDS: HYDROMORPHONE 2MG/ML SYRINGE 2 MG IV (17:42)
[2024-05-23 19:46] VITALS: BP 130/68; PULSE 66; RESP 15; TEMP 36.9; O2SAT 96
[2024-05-23] MEDS: TAMSULOSIN 0.4MG CAPSULE 0.4 MG PO (21:28)
[2024-05-24 04:00] VITALS: BP 135/72; PULSE 73; RESP 18; TEMP 36.8; O2SAT 91; BMI 28.9
--- NOTE | 2024-05-24 05:31 | PC.NURSE ---
05/24/24 0530: Pt. is alert and orientated x 4. Pt. has had a good night. He has not needed any pain meds this shift. He has slept most of the night. Personal items and call lafleur in reach.
[2024-05-24 06:17] LABS: Alanine Aminotransferase 16 U/L (12-78); Albumin/Globulin Ratio 1.2 (1.1-1.8); Alkaline Phosphatase 73 U/L (38-126); Anion Gap 7.7 mEq/L (5-15); Aspartate Amino Transferase 27 U/L (17-59); Bilirubin,Total 0.9 mg/dl (0.2-1.3); Blood Urea Nitrogen 12 mg/dl (9-20); Calcium 8.4 mg/dl (8.4-10.2); Carbon Dioxide 29 mmol/L (22.0-30.0); Chloride 105 mmol/L (98-107); Creatinine Clearance Estimated 85 mL/min (50-200); Estimated Glomerular Filt Rate 96 ml/min (>60); GFR (African American) 116 ML/MIN (>60); Globulin 2.5 g/dL (1.3-3.2); Glucose 89 mg/dl (74-100); Potassium 3.7 mmoL/L (3.5-5.1); Sodium 138 mmol/L (136-145); Total Protein,Serum 5.5 g/dl (6.3-8.2)
[2024-05-24 08:00] VITALS: BP 140/70; PULSE 59; RESP 18; TEMP 37; O2SAT 95
[2024-05-24] MEDS: ASPIRIN EC 81MG TABLET 81 MG PO (08:25)
[2024-05-24] MEDS: METOPROLOL SUCCINATE XL 50MG TABLET 50 MG PO (08:25)
--- NOTE | 2024-05-24 12:53 | EXP.DC.SUM ---
General Admission date:: 05/21/24 HPI HPI HPI: Mr. Ford is a 69-year-old gentleman who had cholecystectomy in July 2021. The patient has had recurrent abdominal pain and choledocholithiasis. He has been seen Dr. Zeeshan Dupree and had ERCP about a month ago with sweeping of the common bile duct but no stent placement. He went back for ERCP yesterday with Dr. Zeeshan Dupree and from patient report, stone was not cleared that a bile duct stent was placed. He was told that he had an 8 mm stone in the common bile duct unable to remove. Records are not yet available. He does state that he had the onset of periumbilical abdominal pain about 1-1/2 hours after the procedure that radiated into the back. He reports no vomiting but did have some nausea. He went to the emergency department at [facility] with a white count of 16.9 thousand. Labs yesterday showed lipase level of 27,859. His liver chemistries, alkaline phosphatase was 67 and ALT was 25. CAT scan of the abdomen pelvis yesterday showed common bile duct metal density/metal stent with peripancreatic edema. This morning, the patient is still having moderate pain. He is alert and oriented. Hospital Course Hospital Course Hospital Course: Bryant Lipscomb 69-year-old male with ERCP earlier in the day, presented with severe onset of abdominal pain. Found to have pancreatitis. Discussed case with ER physician, as he has only two (age and white count elevated) [place] criteria, I agreed to admit for further management. GI consulted. Pain control overnight. Initiated on LR. Necessitating inpatient management given severity of pain and anticipated length of stay greater than 2 midnights. Problems addressed as follows: #Acute post ERCP pancreatitis - ERCP performed with stent placement at OSH on 05/21/24. Per my review of CT of abdomen has pneumobilia, likely secondary to procedural effect. Also has some stranding around pancreas. - Initial lipase severely elevated at 27,000, white count 16,000, LDH low at 225. [place] criteria 2. ? Leukocytosis continues to be resolved. Vital signs stable. - Clinically improved with advancing diet as tolerated to low residue, and multimodal pain management including opioids. - Currently tolerating diet without N/V, very mild epigastric discomfort. Having bowel movements. Ambulating independently without issues. - GI consulted, assisted with plan of care as above. Will arrange ERCP with stent removal in 8 to 12 weeks after discharge. - Will follow-up with GI within 2 weeks. #Hypertension #History of CABG - Restarted home aspirin 81 mg. - Continue home lisinopril-HCTZ 10-12.5mg, metoprolol succinate 50mg. #BPH - Continue tamsulosin 0.4 mg nightly Exam Data for Last 24 hours Vital signs and Labs for Last 24 Hours: Temp Pulse Resp BP Pulse Ox O2 Del Method 98.6 F 59 L 18 140/70 95 Room Air 05/24/24 08:00 05/24/24 08:00 05/24/24 08:00 05/24/24 08:00 05/24/24 08:00 05/24/24 11:00 Laboratory Results - last 24 hr 05/24/24 05:52: Sodium 138, Potassium 3.7, Chloride 105, Carbon Dioxide 29, Anion Gap 7.7, BUN 12, Creatinine 0.80, Estimated Creat Clear 85, Estimated GFR 96, Est GFR ( Amer) 116, Glucose 89, Calcium 8.4, Total Bilirubin 0.9, AST 27, ALT 16, Alkaline Phosphatase 73, Total Protein 5.5 L, Albumin 3.0 L, Globulin 2.5, Albumin/Globulin Ratio 1.2 I & O for Last 24 hours: Intake & Output 05/21/24 05/22/24 05/23/24 05/24/24 23:59 23:59 23:59 23:59 Intake Total 1260 / 1260 1840 / 1840 1280 / 1280 750 / 750 Output Total 500 / 500 0 / 0 0 / 0 0 / 0 Balance 760 / 760 1840 / 1840 1280 / 1280 750 / 750 Weight 83.37 kg 83.688 kg 86.545 kg 86.693 kg Constitutional Constitutional: no acute distress *Routine HEENT Exam Head: Present normocephalic Eye: Present EOMI and PERRL ENT: Present mucous membranes moist *Routine Neck Exam Neck: Present supple; Absent lymphadenopathy *Routine Respiratory Exam Respiratory: Present CTA bilaterally *Routine Cardiovascular Exam Cardiovascular: Present RRR *Routine Abdominal Exam Abdominal: Present soft, normoactive bowel sounds and tenderness *Routine Extremities Exam Extremities: Absent cyanosis, clubbing or edema *Routine Skin Exam Skin: Present warm; Absent rash *Routine Neurological Exam Neurological: Present alert and oriented X3 Results Data Completed and Pending Labs on day of discharge: Labs from last 24 hours 05/24/24 05:52 Sodium 138 Potassium 3.7 Chloride 105 Carbon Dioxide 29 Anion Gap 7.7 BUN 12 Creatinine 0.80 Estimated Creat Clear 85 Estimated GFR 96 Est GFR ( Amer) 116 Glucose 89 Calcium 8.4 Total Bilirubin 0.9 AST 27 ALT 16 Alkaline Phosphatase 73 Total Protein 5.5 L Albumin 3.0 L Globulin 2.5 Albumin/Globulin Ratio 1.2 DS: Diagnosis Discharge Diagnosis (1) Post-ERCP acute pancreatitis: Status: Acute Code(s): K91.89 - Other postprocedural complications and disorders of digestive system; K85.90 - Acute pancreatitis without necrosis or infection, unspecified (2) Essential hypertension: Status: Acute Code(s): I10 - Essential (primary) hypertension (3) BPH (benign prostatic hyperplasia): Status: Acute Code(s): N40.0 - Benign prostatic hyperplasia without lower urinary tract symptoms (4) History of coronary artery bypass graft x 3: Status: Chronic Code(s): Z95.1 - Presence of aortocoronary bypass graft Meds Home Medications and Allergies Home Medications ?Medication ?Instructions ?Recorded ?Confirmed ?Type aspirin 81 mg tablet,delayed 81 mg PO DAILY 03/13/24 05/21/24 History release lisinopril 20 10 - 12.5 tab PO DAILY 05/21/24 05/21/24 History mg-hydrochlorothiazide 25 mg tablet metoprolol succinate 50 mg 50 mg PO DAILY 05/21/24 05/21/24 History tablet,extended release 24 hr tamsulosin 0.4 mg capsule 0.4 mg PO HS 05/21/24 05/21/24 History New Prescriptions to Start Prescriptions: Allergies Allergy/AdvReac Type Severity Reaction Status Date / Time primidone AdvReac Mild nausea Verified 03/13/24 08:14 Discharge Plan Disposition Patient Disposition: Home, Self-Care Discharge Order Discharge Orders: Discharge Order (Routine); Ordered 05/24/24 Ordered By: Anupam Lara Follow up Plan Follow up with: Kami Brothers APRN [Primary Care Provider] - 06/02/24 9:30 am Jose F Meyer II, MD [Staff Physician] - 07/15/24 2:00 pm Prescriptions/Medication Reconciliation: Continued aspirin 81 mg tablet,delayed release (DR/EC) 81 mg PO DAILY metoprolol succinate 50 mg tablet extended release 24 hr 50 mg PO DAILY Patient Comments: TAKE 1 TABLET BY MOUTH ONCE DAILY. tamsulosin 0.4 mg capsule 0.4 mg PO HS Patient Comments: TAKE 1 CAPSULE BY MOUTH NIGHTLY AT BEDTIME FOR URINARY RETENTION. lisinopril-hydrochlorothiazide 20-25 mg tablet 10 - 12.5 tab PO DAILY Patient Comments: TAKE 1/2 TABLET BY MOUTH ONCE DAILY FOR HYPERTENSION. Problem Reconciliation Problems Reviewed?: Yes Patient Discharge Instructions Patient Instructions: DI for Pancreatitis Print Language: Norwegian Providers Primary Care Provider: Kami Brothers Admit Provider: Manfred Ribera Attending Provider: Manfred Ribera
--- NOTE | 2024-05-26 13:38 | SW/DCPLANNER ---
spoke with patient, stated that he is doing good and has no questions and he was aware of his follow up appointments.
== END 2024-05-24 13:07 | disposition home or self-care (01) | DRG 439 ==
LOC: ER 05-21 00:43 → 2ND 05-21 02:30
PROVIDERS: Physician Assistant; Student in an Organized Health Care Education/Training Program; Admitting Provider Internal Medicine Adolescent Medicine; Emergency Provider Emergency Medicine; PCP Nurse Practitioner; Visit Provider Internal Medicine Adolescent Medicine
DX: K85.90 Acute pancreatitis without necrosis or infection, unspecified (principal); K91.89 Other postprocedural complications and disorders of digestive system; I10 Essential (primary) hypertension; Z95.1 Presence of aortocoronary bypass graft; N40.0 Benign prostatic hyperplasia without lower urinary tract symptoms; Y93.9 Activity, unspecified
CPT/HCPCS: 36415; 71275; 74177; 80053; 83615; 83690; 83735; 84145; 85007; 85025; 99285; J0131; J1171; J1885; J2270; J2405; J2550; J7030; J7120; Q9967

== ENCOUNTER 2024-06-02 10:00 | Outpatient (CLI) | payer MEDICARE, OTHER, SELFPAY ==
[2024-06-02 18:17] LABS: Basophils # 0.1 K/mm3 (0-0.2); Basophils % 0.6 % (0.1-2.0); Eosinophils # 0.2 K/mm3 (0.0-0.4); Eosinophils % 1.9 % (0.1-12.0); Hematocrit 47.9 % (42.0-52.0); Hemoglobin 15.9 g/dL (14.1-18.0); Lymphocytes # 1.7 K/mm3 (0.7-4.5); Mean Corpuscular HGB Conc 33.2 g/dL (31.8-35.4); Mean Corpuscular Volume 93.2 fl (80-94); Mean Platelet Volume 9.3 fl (7.4-10.4); Monocytes # 0.7 K/mm3 (0.1-1.0); Monocytes % 7.8 % (1.7-9.3); Neutrophils % 69.7 % (37.0-80.0); Platelet Count 297 K/mm3 (142-424); Red Blood Count 5.13 M/mm3 (4.60-6.20); Red Cell Distribution Width 13.2 % (11.5-17.5); White Blood Count 8.6 K/mm3 (4.8-10.8)
[2024-06-02 19:06] LABS: Alanine Aminotransferase 20 U/L (12-78); Albumin Level 3.9 g/dl (3.5-5.0); Albumin/Globulin Ratio 1.6 (1.1-1.8); Alkaline Phosphatase 97 U/L (38-126); Anion Gap 12.4 mEq/L (5-15); Aspartate Amino Transferase 29 U/L (17-59); Bilirubin,Total 0.6 mg/dl (0.2-1.3); Blood Urea Nitrogen 14 mg/dl (9-20); Calcium 9.6 mg/dl (8.4-10.2); Carbon Dioxide 26 mmol/L (22.0-30.0); Chloride 106 mmol/L (98-107); Estimated Glomerular Filt Rate 112 ml/min (>60); GFR (African American) 135 ML/MIN (>60); Globulin 2.5 g/dL (1.3-3.2); Glucose 70 mg/dl (74-100); Potassium 4.4 mmoL/L (3.5-5.1); Sodium 140 mmol/L (136-145); Total Protein,Serum 6.4 g/dl (6.3-8.2)
[2024-06-02 19:35] LABS: Lipase 1985 U/L (23-300)
[2024-06-02 20:10] LABS: Hemoglobin A1C 5.7 % (4.0-6.0)
== END 2024-06-02 23:59 | disposition home or self-care (01) ==
LOC: LAB.DROPOF 06-03 08:45
PROVIDERS: PCP Nurse Practitioner; Visit Provider Nurse Practitioner
DX: K91.89 Other postprocedural complications and disorders of digestive system (principal); K85.90 Acute pancreatitis without necrosis or infection, unspecified; R73.01 Impaired fasting glucose
CPT/HCPCS: 80053; 83036; 83690; 85025

== ENCOUNTER 2024-06-16 10:12 | Outpatient (CLI) | payer MEDICARE, OTHER, SELFPAY ==
[2024-06-16 18:28] LABS: Basophils % 0.6 % (0.1-2.0); Eosinophils # 0.1 K/mm3 (0.0-0.4); Eosinophils % 1.6 % (0.1-12.0); Hematocrit 47.7 % (42.0-52.0); Hemoglobin 16.1 g/dL (14.1-18.0); Lymphocytes # 1.5 K/mm3 (0.7-4.5); Lymphocytes % 24.6 % (10-50); Mean Corpuscular HGB Conc 33.8 g/dL (31.8-35.4); Mean Corpuscular Hemoglobin 30.7 pg (27.0-31.2); Mean Platelet Volume 9.7 fl (7.4-10.4); Monocytes # 0.6 K/mm3 (0.1-1.0); Monocytes % 9.2 % (1.7-9.3); Neutrophils % 64.2 % (37.0-80.0); Platelet Count 176 K/mm3 (142-424); Red Blood Count 5.24 M/mm3 (4.60-6.20); Red Cell Distribution Width 13.1 % (11.5-17.5); White Blood Count 6.3 K/mm3 (4.8-10.8)
[2024-06-16 19:47] LABS: Lipase 1948 U/L (23-300)
== END 2024-06-16 23:59 | disposition home or self-care (01) ==
LOC: LAB.DROPOF 06-18 09:27
PROVIDERS: PCP Nurse Practitioner; Visit Provider Nurse Practitioner
DX: K91.89 Other postprocedural complications and disorders of digestive system (principal); K85.90 Acute pancreatitis without necrosis or infection, unspecified
CPT/HCPCS: 83690; 85025

== ENCOUNTER 2024-06-30 11:16 | Day surgery (SDC) | payer MEDICARE, OTHER, SELFPAY ==
[2024-06-27 09:19] VITALS: BMI 26.9
[2024-06-30] VITALS (8 sets, daily range): BP systolic 140–165; BP diastolic 76–89; PULSE 61–71; RESP 16–22; TEMP 36.3–36.7; O2SAT 93–98
[2024-06-30] MEDS: LACTATED RINGERS 1000ML 1,000 ML 25 ML IV (11:37)
--- NOTE | 2024-06-30 11:55 | EXP.ANES.CKL ---
[facility] Disclaimer: The information contained in this section may have been updated after the patient was seen, as this information can be updated by other users. Medical History Encounter for immunization Leukocytosis Acute cholecystitis Acute kidney injury Right flank pain Prostate enlargement IFG (impaired fasting glucose) Nodule of upper lobe of right lung Choledocholithiasis Unintentional weight loss Fatty liver Elevated LFTs BPH (benign prostatic hyperplasia) Hyperlipidemia Essential hypertension Benign essential tremor Biliary dyskinesia Surgical History Status post laparoscopic cholecystectomy History of heart bypass surgery History of cholecystectomy Family History Father Heart attack Grandfather Heart attack Other Hypertension Social History Smoking Status: Former smoker tobacco type: cigarettes alcohol intake: never substance use type: denies use current occupational status: retired Travel in the last 8 weeks: None household members: spouse housing: house Have you lived/traveled outside [place] in past 30 days?: No Contact w/someone who lives/traveled outside [place] past 30 days?: No Exposure to someone with infectious disease in past 14 days?: No Do you have a fever (greater than 100.4 F or 38 C)?: No Have you tested positive for COVID-19: No Exposed to someone with COVID-19 in past 14 days?: No Do you have a sore throat?: No Do you have a cough?: No Do you have any weakness?: No Are you experiencing any nausea/vomitting?: No Do you have any diarrhea?: No Are you experiencing any unusual bleeding?: No Do you have any muscle aches/pain?: No Do you have any abdominal pain?: No Are you experiencing loss of taste or smell?: No [facility] Anesthesia Checklist Patient Identification Patient Identification: Arm Band and Verbal (Name & ) Structural Data Admitted From: Home Planned Operative Procedure/s: ERCP Consent for Planned Operative Procedure(s) Verified: Yes Verified Documents: Surgical Consent and History and Physical NPO Status Verified Time NPO: 00:00 Additional verifications Anesthesia Reactions: No Hx Blood Transfusions: No Blood Transfusion Reaction: No Airway Assessment Mallampati Score:: Class II C-Spine Mobility Assessed: Yes TMJ Mobility Assessed: Yes Dentition: Dentures-poor fitting (Removed) Neurological Assessment Level of Consciousness: Awake Hx Seizures: No Numbness or tingling in extremities: No Anesthesia Plan Anesthesia Risk discussed: Yes Anesthesia Plan: Verified ASA Class: II Anesthesia Type: General
--- NOTE | 2024-06-30 12:46 | P.HP_ITS ---
History of Present Illness *Admission Date: 06/30/24 *Reason for visit:: Choledocholithiasis with prior biliary stent *History of present illness: Mr. Ford is a 69-year-old gentleman who is here for ERCP. The patient did have prior cholecystectomy and had recurrent abdominal pain with choledocholithiasis. He had ERCP twice and had biliary stent placement/Wallstent. The patient returned with acute pancreatitis. The examination is deemed medically necessary for removal of Wallstent and clearance of biliary system with ERCP. The patient has been seen, interviewed and examined prior to the procedure by both myself and the anesthesia provider. [facility] Disclaimer: The information contained in this section may have been updated after the patient was seen, as this information can be updated by other users. Medical History Encounter for immunization Leukocytosis Acute cholecystitis Acute kidney injury Right flank pain Prostate enlargement IFG (impaired fasting glucose) Nodule of upper lobe of right lung Choledocholithiasis Unintentional weight loss Fatty liver Elevated LFTs BPH (benign prostatic hyperplasia) Hyperlipidemia Essential hypertension Benign essential tremor Biliary dyskinesia Surgical History Status post laparoscopic cholecystectomy History of heart bypass surgery History of cholecystectomy Family History Father Heart attack Grandfather Heart attack Other Hypertension Social History Smoking Status: Former smoker tobacco type: cigarettes alcohol intake: never substance use type: denies use current occupational status: retired Travel in the last 8 weeks: None household members: spouse housing: house Have you lived/traveled outside [place] in past 30 days?: No Contact w/someone who lives/traveled outside [place] past 30 days?: No Exposure to someone with infectious disease in past 14 days?: No Do you have a fever (greater than 100.4 F or 38 C)?: No Have you tested positive for COVID-19: No Exposed to someone with COVID-19 in past 14 days?: No Do you have a sore throat?: No Do you have a cough?: No Do you have any weakness?: No Are you experiencing any nausea/vomitting?: No Do you have any diarrhea?: No Are you experiencing any unusual bleeding?: No Do you have any muscle aches/pain?: No Do you have any abdominal pain?: No Are you experiencing loss of taste or smell?: No Other Medical History Have you received the Flu Vaccine for this season: No Have you received the Pneumonia Vaccine: Yes Review of Systems Review of Systems Review of systems (narrative): Negative *Cardiovascular Comments: Negative *Gastrointestinal Comments: Negative *Genitourinary Comments: Negative *Musculoskeletal Comments: Negative *Neurologic Comments: Negative Meds Home Medications and Allergies Home Medications ?Medication ?Instructions ?Recorded ?Confirmed ?Type aspirin 81 mg tablet,delayed 81 mg PO DAILY 03/13/24 06/30/24 History release lisinopril 20 10 - 12.5 tab PO DAILY 05/21/24 06/30/24 History mg-hydrochlorothiazide 25 mg tablet metoprolol succinate 50 mg 50 mg PO DAILY 05/21/24 06/30/24 History tablet,extended release 24 hr tamsulosin 0.4 mg capsule 0.4 mg PO HS 05/21/24 06/30/24 History New Prescriptions to Start Prescriptions: Allergies Allergy/AdvReac Type Severity Reaction Status Date / Time primidone AdvReac Mild nausea Verified 06/30/24 11:29 Exam Data for Last 24 hours Vital signs and Labs for Last 24 Hours: Temp Pulse Resp BP Pulse Ox O2 Del Method 98 F 71 16 148/76 H 98 Room Air 06/30/24 11:31 06/30/24 11:31 06/30/24 11:31 06/30/24 11:31 06/30/24 11:31 06/30/24 11:31 I & O for Last 24 hours: Intake & Output 06/27/24 06/28/24 06/29/24 06/30/24 23:59 23:59 23:59 23:59 Weight 177 lb *Routine HEENT Exam Head: Present normocephalic Eye: Present EOMI and PERRL ENT: Present mucous membranes moist *Routine Neck Exam Neck: Present supple *Routine Respiratory Exam Respiratory: Present CTA bilaterally *Routine Cardiovascular Exam Cardiovascular: Present RRR *Routine Abdominal Exam Abdominal: Present soft and normoactive bowel sounds; Absent tenderness *Routine Rectal Exam Rectal:: deferred *Routine Genitalia Exam Genitalia:: deferred *Routine Extremities Exam Extremities: Absent cyanosis, clubbing or edema *Routine Skin Exam Skin: Present warm; Absent rash *Routine Neurological Exam Neurological: Present alert and oriented X3 Assessment and Plan *Assessment and plan (1) Choledocholithiasis: Status: Acute Category: Medical Code(s): K80.50 - Calculus of bile duct without cholangitis or cholecystitis without obstruction (2) History of biliary duct stent placement: Status: Acute Category: Surgical Code(s): Z98.890 - Other specified postprocedural states Plan A/P: 1. History of choledocholithiasis with retained stones and prior biliary stent placement is the preprocedural diagnosis. The patient will be anesthetized/sedated using MAC sedation. The patient has been seen and examined. Cardiac and lung assessment prior to the examination is stable. Proceed with planned ERCP with removal of stent and clearance of biliary system
--- NOTE | 2024-06-30 12:49 | HMH.PROCNOTE ---
[facility] Procedure Note Date: 06/30/24 Time: 13:18 Procedure Note:: ERCP procedure Report: Endoscopic retrograde cholangiopancreatography with stent removal, extension of biliary sphincterotomy and balloon sweep/stone extraction Endoscopist: Jose F Meyer II, MD Referring Physician: ERIKA Pinto Date of Procedure: June 30, 2024 Equipment: Olympus 180 side viewing endoscope duodenoscope Sedation: MAC sedation Indication: Mr. Ford is a 69-year-old gentleman who is here for ERCP. The patient did have cholecystectomy in July 2021. He did have recurrent abdominal pain and was found to have choledocholithiasis. He did have 2 prior ERCPs (Zeeshan Dupere MD) and had eventual biliary Wallstent placed on second ERCP which was on 05/20/2025. After biliary stent placement, the patient returned with acute pancreatitis (moderate) to [facility]. He was hospitalized for 3 days (05/21 - 05/24). The patient return for an office visit with his PCP. His pancreatic chemistries on 06/02 showed lipase of 1984 and this was still elevated on 06/16 at 1948. The patient still has some abdominal pain. Procedure: Prior to the procedure, a history and physical exam was performed, and patient's medications and allergies were reviewed. The risks, benefits and alternatives of the sedation and procedure were discussed with the patient. All questions were answered and informed consent was obtained. The patient was brought to the fluoroscopic radiology room. Patient identification and proposed procedure were verified by the physician and the nurse. The patient was placed in a swimmer's position between left lateral decubitus and prone position and the scope was passed under direct vision. Throughout the procedure, the patient's blood pressure, pulse, and oxygen saturations were monitored continuously. The ERCP was accomplished without difficulty. The patient tolerated the procedure well. Findings: The duodenoscope was passed directly into the upper esophagus and advanced to the second portion of the duodenum. There was a large 7 to 8 cm hiatal hernia. The remainder of the upper digestive tract was normal. The ampulla was well-visualized and there was a metal Wallstent with a very end of the flanges of the Wallstent barely outside of the ampulla. These were grasped with a regular forceps and the biliary Wallstent was removed in an antegrade fashion out the oropharynx. The side-viewing scope was then introduced and advanced to the second portion of the duodenum. The common bile duct was selectively cannulated. The cholangiogram did show some filling defect/sludge within the mid CBD and the common bile duct was approximately 10-11 mm in diameter. There was normal filling of the intrahepatic biliary system and no stricturing. Extension of the biliary sphincterotomy was performed initially. After extension of the biliary sphincterotomy, 9-12 balloon was dilated to 11 mm and swept to the biliary system with the production of sludge and 3 small yellowish gallstones. 4 balloon sweeps were performed until there was complete clearance and arias bile without sludge or debris. The procedure was then ended. The pancreatic duct was not cannulated intentionally. Impression: 1. Choledocholithiasis?removal of biliary Wallstent, extension of sphincterotomy and balloon sweep biliary clearance was performed Plan: I will discuss the findings with the patient and family. He should not require any subsequent ERCP for now. There is still some risk of de tita recurrent choledocholithiasis in the future. I do suspect that the stent impinged on the pancreatic duct (PD) orifice resulting in the pancreatitis. His amylase and lipase had been modestly elevated even weeks after discharge. At some point, may consider MRCP to exclude any chronic pancreatitis or ductal changes.
[2024-06-30] MEDS: INDOMETHACIN 50MG SUPPOSITORY 50 MG RC (13:06)
--- NOTE | 2024-07-04 07:22 | P.PNANES_ITS ---
[facility] Anesthesia Record Part II Anesthesia Record Part II Discharge Time: 14:00 Destination: Surgical Day Care (OP Surgery) PACU nurse assessment reviewed?: Yes Patient Condition:: Good Anesthesia Complications:: None Swallowing reflex intact?: Yes Airway Patency: Patent Cyanosis?: No Blood Pressure: 157/85 SaO2: 97 Respiratory Rate: 16 Pulse Rate: 63 Temperature: 98.1 F Mental Status: Alert & Oriented Pain level:: 0 Nausea and/or vomitting:: None Intake, IV Amount: 0 Hydration: Adequate
[2024-07-04 07:23] VITALS: BP 157/85; PULSE 63; RESP 16; TEMP 36.7; O2SAT 97
== END 2024-06-30 14:31 | disposition home or self-care (01) ==
PROVIDERS: PCP Nurse Practitioner; Visit Provider Internal Medicine Gastroenterology
PROC: (CPT 43262; principal; 2024-06-30 13:00)
DX: K80.50 Calculus of bile duct without cholangitis or cholecystitis without obstruction (principal); Z98.890 Other specified postprocedural states
CPT/HCPCS: 43262; 43264; 43275; 74330; 76000; J3490; C1889; J1100; J2250; J2405; J3010; J7120

== ENCOUNTER 2024-12-04 09:54 | Outpatient (CLI) | payer MEDICARE, OTHER, SELFPAY ==
[2024-12-04 18:43] LABS: Basophils % 0.4 % (0.1-2.0); Eosinophils # 0.2 Kmm3 (0.0-0.4); Eosinophils % 2.2 % (0.1-12.0); Hematocrit 50.2 % (42.0-52.0); Hemoglobin 16.2 g/dL (14.1-18.0); Immature Granulocytes # 0.03 10^3uL; Immature Granulocytes % 0.4 %; Lymphocytes # 1.8 K/mm3 (0.7-4.5); Lymphocytes % 24.6 % (10-50); Mean Corpuscular HGB Conc 32.3 g/dL (31.8-35.4); Mean Corpuscular Hemoglobin 29.8 pg (27.0-31.2); Mean Corpuscular Volume 92.3 fl (80-94); Mean Platelet Volume 10.5 fl (7.4-10.4); Monocytes # 0.7 K/mm3 (0.1-1.0); Monocytes % 9.4 % (1.7-9.3); Neutrophils # 4.6 K/mm3 (1.8-7.8); Nucleated Red Blood Cells # 0 10^3/uL; Nucleated Red Blood Cells % 0 %; Platelet Count 204 K/mm3 (142-424); Red Blood Count 5.44 M/mm3 (4.60-6.20); Red Cell Distribution Width 12.4 % (11.5-17.5); Red Cell Distribution Width-SD 41.9 fL; White Blood Count 7.3 K/mm3 (4.8-10.8)
[2024-12-04 19:43] LABS: Alanine Aminotransferase 17 U/L (12-78); Albumin Level 4.1 g/dl (3.5-5.0); Albumin/Globulin Ratio 1.6 (1.1-1.8); Alkaline Phosphatase 74 U/L (38-126); Anion Gap 10.1 mEq/L (5-15); Aspartate Amino Transferase 24 U/L (17-59); Bilirubin,Total 0.7 mg/dl (0.2-1.3); Blood Urea Nitrogen 17 mg/dl (9-20); Calcium 9.1 mg/dl (8.4-10.2); Carbon Dioxide 26 mmol/L (22.0-30.0); Chloride 106 mmol/L (98-107); Chol/HDL Ratio 4.1 (1-3.5); Cholesterol 240 mg/dl (140-200); Estimated Glomerular Filt Rate 84 ml/min (>60); GFR (African American) 101 ML/MIN (>60); Globulin 2.5 g/dL (1.3-3.2); Glucose 89 mg/dl (74-100); HDL Cholesterol 58 mg/dl (40-60); Potassium 4.1 mmoL/L (3.5-5.1); Sodium 138 mmol/L (136-145); Total Protein,Serum 6.6 g/dl (6.3-8.2); Triglycerides 82 mg/dl (30-150); VLDL Cholesterol 16 mg/dL (0-40)
[2024-12-04 19:46] LABS: 25-OH Vitamin D, Total 31.8 ng/mL (30-100)
[2024-12-04 19:57] LABS: Direct LDL Cholesterol 186.61 mg/dL (100-129)
[2024-12-04 20:21] LABS: Prostate Specific Ag Screen 2.1 ng/ml (0.0-4.0); Thyroid Stimulating Hormone 1.37 uIU/mL (0.465-4.68)
[2024-12-04 20:48] LABS: Hemoglobin A1C 5.9 % (4.0-6.0)
== END 2024-12-04 23:59 | disposition home or self-care (01) ==
LOC: LAB.DROPOF 12-08 09:54
PROVIDERS: PCP Nurse Practitioner; Visit Provider Nurse Practitioner
DX: E55.9 Vitamin D deficiency, unspecified (principal); E78.5 Hyperlipidemia, unspecified; I10 Essential (primary) hypertension; Z12.5 Encounter for screening for malignant neoplasm of prostate; Z13.1 Encounter for screening for diabetes mellitus
CPT/HCPCS: 80053; 80061; 82306; 83036; 84443; 85025; G0103